=== PATIENT | male | born 1950 | race Caucasian/White ===

== ENCOUNTER → 2018-04-17 13:08 | Outpatient (CLI) | payer MEDICARE, OTHER, SELFPAY ==
[2017-11-16 10:50] VITALS: BMI 24.0
--- NOTE | 2018-04-17 13:10 | CT_ITS ---
STUDY: CT ABDOMEN AND PELVIS WITHOUT CONTRAST REASON FOR EXAM: Male, 68 years old. Bilateral inguinal hernias, recurrent. 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 On Coumadin for prior DVT. RADIATION DOSAGE (If Supplied By Facility): CTDIvol = ( 11.65 ) mGy, DLP = ( 577.42 ) mGycm TECHNIQUE: Transaxial images were obtained from the dome of the diaphragm to the symphysis pubis without oral contrast, and without intravenous contrast. Sagittal and coronal images were reconstructed. Individualized dose optimization techniques were used for this CT. COMPARISON: CT abdomen and pelvis 02/18/[address] chest 02/18/2015. FINDINGS: Body wall soft tissues: Left inguinal hernia containing only fat, similar features seen on prior CT imaging of 2014, hernia defect 1.9 cm. Osseous structures: No acute process. Prominent degenerative disc disease L-1-L2, L2-L3, L5-S1 without apparent stenosis. Slight scoliosis. Osteopenia. Inferior chest: Lung bases clear, normal distal esophagus, unremarkable cardiac base. Hepatobiliary: Mild hepatomegaly, craniocaudal right liver 19 cm. Normal gallbladder and biliary tree. Pancreas: No acute process. Spleen: Normal. Adrenal glands: Normal. Urogenital: Normal kidneys, collecting systems, ureters, urinary bladder, prostate and seminal vesicles. Pelvic floor and sidewalls and retroperitoneum: No mass or adenopathy. Vasculature: No acute process. Stomach: No acute process. Small bowel and mesentery: No acute process. Large bowel: Normal appendix. Unremarkable large bowel and rectum. Free fluid or free air: None. CT/Abdomen/Pelvis without Cont IMPRESSION: No acute intra-abdominal or intrapelvic process is evident. Small left inguinal hernia containing only fat. Similar features were seen on prior imaging of 2014. Electronically Signed: Caleb Murrieta MD at 16:35 EST Tel , Service support ,
--- OUTSIDE RECORDS SUMMARY | 2018-07-19 23:42 | XMS RPT_ITS | Continuity of Care Document ---
:1950 Author Organization [facility] Address [facility] 2 [place] [address] Phone Care Team Providers Name Role Phone Danae RIKYTammie Unavailable Conchis RAMEY, Cesar Booth Unavailable Unavailable Dr. Vinny Taylor Unavailable Sharee Galdamez Unavailable Unavailable Fuad Wilson Unavailable Unavailable Unavailable Unavailable Problems Name Dates Details Acute venous embolism and thrombosis of deep vessels of distal lower extremity, right (I82.4Z1, 453.42) Status: Active Basal cell carcinoma, face (C44.310, 173.31) Status: Active BMI 23.0-23.9, adult (Z68.23, V85.1) Status: Active Cough (R05, 786.2) Status: Active Current use of prison anticoagulation (Z51.81, V58.61) Status: Active DVT (deep venous thrombosis) (I82.409, 453.40) Comments: bilater lower ext occured October of 2012 ? associated with lymphoma on coumadin Status: Active Flank pain (R10.9, 789.09) Status: Active Follicular lymphoma (C82.90, 202.00) Comments: in remission, seeing Oncologist Status: Active History of skin cancer (Z85.828, V10.83) Comments: left face/neck area, removed skin CA in [place] Status: Active Leg cramps (R25.2, 729.82) Status: Active Lesion of skin of face (L98.9, 709.9) Status: Active Lymphoma, follicular (C82.90, 202.00) Comments: needing local oncologistDiagnosed via biopsy in July [address] 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) Status: Active Nocturia (R35.1, 788.43) Comments: normal ultrasound, normal psa, will try alpha isabel and to see Shad in May Status: Active Nonsmoker (Z78.9, V49.89) Status: Active Pharyngitis (J02.9, 462) Status: Active Reflux (K21.9, 530.81) Comments: stable Status: Active Screening for deficiency anemia (Z13.0, V78.1) Status: Active SCREENING FOR DIABETES MELLITUS (Renamed from Diabetes mellitus screening) (Z13.1, V77.1) Status: Active SCREENING FOR HYPERLIPIDEMIA (Renamed from Encounter for screening for lipoid disorders) (Z13.220, V77.91) Status: Active Screening for prostate cancer (Z12.5, V76.44) Status: Active Unspecified Diagnosis Status: Active Medications Name Dates Details PREVACID 24HR, 15MG (Oral Capsule Delayed Release) 1 (one) Capsule DR daily for 450 days Quantity: 30 {Capsule} Refills: 0 Ordered:24-Sep-2013 Tammie Fink CNP, CNP Lety Start : 24-Sep-2013 Active Warfarin Sodium 4 MG Oral Tablet 1 (one) Tablet Tablet as directed for 0 days Quantity: 90 {Tablet} Refills: 3 Ordered:09-Jun-2017 Tammie Fink CNP, CNP Lety Start : 09-Jun-2017 Active Warfarin Sodium 5 MG Oral Tablet uad Tablet qd for 0 days Quantity: 90 {Tablet} Refills: 3 Ordered:09-Jun-2017 Tammie Fink CNP, CNP Lety Start : 09-Jun-2017 Active Delsym 30 MG/5ML Oral Suspension Extended Release 1 (one) Liquid ER q12h for 0 days Quantity: 1 {Box} Refills: 0 Ordered:18-Aug-2017 Fuad Wilson Start : 30-Mar-2015 End : 18-Aug-2017 Inactive DOXYCYCLINE HYCLATE, 100MG (Oral Tablet) 1 (one) Tablet bdi for 10 days Quantity: 20 {Tablet} Refills: 0 Ordered:30-Mar-2015 Danae LAN, Tammie Aguilra CNP, Tammie Rodriguez Start : 30-Mar-2015 End : 09-Apr-2015 Inactive Mucinex 600 MG Oral Tablet Extended Release 12 Hour 1 (one) Tablet ER 12HR Tablet ER 12HR bid for 0 days Quantity: 30 {Tablet} Refills: 0 Ordered:18-Aug-2017 Fuad Wilson Start : 23-Mar-2015 End : 18-Aug-2017 Inactive Tamsulosin HCl 0.4 MG Oral Capsule 1 (one) Capsule daily for 0 days Quantity: 90 {QS} Refills: 3 Ordered:18-Aug-2017 Fuad Wilson Start : 30-Mar-2015 End : 18-Aug-2017 Inactive Comments:take one 30 min daily after same meal , if no improvement of symptoms, may increase to two after 2-4weeks Allergies and Adverse Reactions Name Dates Details No Known Drug Allergies (Allergy) Onset: 26-Aug-2013 Status: Active Past Medical History Name Dates Details UTI symptoms (R39.9, 788.99) Status: Inactive as of 18-Aug-2017 Procedures Date Value Details 16-Nov-2017 Oncology Visit Report Result: Comments: See Note; NOTES: [facility] [place] [facility] [place] [address] OFFICE VISIT Date of Service: 11/16/17 1102 MR#: [id number] Acct: [id number] Name: BEREKETPATRIZIA L Rep #: [id number] : 1950 From: Regis Fleming MD Age/Sex: 67/M Location: OMD Status: Signed Subjective - Date of Service Date of Service:: 11/16/17 - Chief Complaint F/u for NHL. - History of Present Illness 67y.o.man was diagnosed with NHL, Follicular type stage II in 2012, received R-CHOP x 3 cycles from 09/27/2012 to 01/28/2013 with complete response. He also has a history of Factor V Leiden mutation and on chronic anticoagulation with Coumadin by PCP. Comes in for follow up. He feels well. - Past Medical/Social History Past Medical History Past Medical History: GERD Other Past Med ical History: FACTOR V LEIDEN MUTATION, HOMOZYQOUS Cancer: Lymphoma Past Surgical History Surgical: Hernia repair Other Surgical History: LYMPH NODES REMOVED Family History Paternal Past Medical His tory: Clotting disorder Maternal Past Medical History: Unknown Social History Smoking Status Never smoker Review of Systems Constitutional:: Denies: Fever, Sweats, Weight loss, Appetite change, Chi lls Cardiovascular:: Denies: Chest pain, Palpitations, Dyspnea on exertion, Orthopnea, PND, Shortness of breath Respiratory: Denies: Cough, Hemoptysis, Shortness of Breath, Wheezing Gastrointestinal:: D enies: Abdominal pain, Nausea, Vomiting, Diarrhea, Constipation, Hematochezia Genitourinary: Denies: Dysuria, Hematuria, 15, Flank pain Musculoskeletal:: Denies: Back pain, Myalgia, Arthralgia Skin: Den ies: Rash, Skin Changes, Wounds Neurological:: Denies: Headache, Dizziness, Visual changes, Tinnitus, Hearing loss Psychiatric: Denies: Anxiety, Depression, Homicidal Ideations, Suicidal Ideations Vital Signs Height 5 ft 11 in Weight: 78.018 kg Weight in Pounds 172.0 lbs Pulse Ox 96 - Physical Exam General: Alert, Oriented x3, No apparent distress HEENT: Atraumatic, PERRLA, EOMI, Normocephalic Or opharynx:: Dry mucosa Neck:: Supple, Trachea midline. Negative for: JVD, bilateral Cardiac:: Regular rate, Regular rhythm, Normal S1, Normal S2. Negative for: Murmur Lungs: Clear to auscultation, Excusi on symmetrical. Negative for: Rhonchi, Wheezes Abdomen:: Bowel sounds x 4, Soft, Non-tender, Non-distended. Negative for: Hepatosplenomegaly Extremities:: Negative for: Cyanosis, Edema Neurological: Florencio ro grossly intact Skin:: Negative for: Lesions, Rash, Petechiae, Ecchymosis Psychiatric:: Appropriate affect, Euthymic Lymphatics:: Negative for: Cervical lymphadenopathy, Supraclavicular lymphadenopath y, Axillary lymphadenopathy Laboratory Data: Laboratory Tests WBC 4.3 L Cancelled Corrected WBC (auto) Cancelled Corrected WBC Cancelled RBC 4.67 Cancelled Assessment and Plan NHL-Follicular type s tage II. No evidence of disease clinically. Factor V Leiden mutation on chronic Coumadin therapy. Plan is to continue observation. RTC 1 yr with CBC/CMP/LDH. Primary Care Provider: Tammie Fink Referring Provider: - Problem List (1) History of follicular lymphoma Status: Chronic Code Visit Office Visits / Consults: [id number] OV L3 Est 11/16/17 1137 <Electronically signed by Regis Fleming MD&# 62; Date Regis Fleming MD Cosigner Signature: Date (if applicable) CC: 24-Mar-2015 Kidney and Bladder Result: Comments: See Note; NOTES: [facility] Imaging Services [address] [place] [address] Verdana 4d Kidney and Bladder MR#: [id number] Acct: [id number] Name: PATRIZIA CUBA Rep #: [id number] : 1950 M 64 From: Tarun Denis MD PCP: Tammie Fink Status: REG CLI Study: Kidney and Bladder Date of Exam: 03/24/15 Exam# [id number] Ordering Dr: Tammie Fink ST UDY: RENAL ULTRASOUND - COMPLETE REASON FOR EXAM: Male, 64 years old. Flank pain TECHNIQUE: Ultrasound evaluation of the kidneys was performed with real- time and static barone-scale imaging. COMPAR GABBIE: None. FINDINGS: RIGHT KIDNEY: Normal location of the right kidney, which is normal in size. The right kidney measures 12.3x5.3x4.8 cm. There is a normal c ortex of the right kidney. The renal cortex measures 1.2 cm. There is no right renal mass or cyst. There are no right renal calculi. There is no right hydronephrosis. DISTAL RIGHT URETER: There is non-visualization of the distal right ureter. There is no demonstrated right ureterovesical junction calculus. There is no demonstrated right ureteral jet. LEFT KIDNEY: Normal location of the left k idney, which is normal in size. The left kidney measures 11x4.9x6.6 cm. There is a normal cortex of the left kidney. The renal cortex measures 2 cm. There is no left renal mass or cyst. There are no left renal calculi. There is no left hydronephrosis. DISTAL LEFT URETER: There is non-visualization of the distal left ureter. There is no demonstrated left ureterovesical junction calculus. There i s no demonstrated left ureteral jet. BLADDER: The distended urinary bladder has a volume of 51.60 ml. IMPRESSION: Normal ultrasound of the kidneys and urinary bladder. Electronically Signed: Tarun Denis MD at 22:21 EST , Service support [phone], CC: Tammie Fink Director Of Hotel: Signed 18-Feb-2015 Abdomen/Pelvis WITH Contrast Result: Comments: See Note; NOTES: [facility] Services [address] [place] [address] Verdana 4d Abdomen/Pelvis WITH Contrast MR#: [id number] Acct: [id number] Name : PATRIZIA CUBA Rep #: [id number] : 1950 M 64 From: Nickolas Mitchell DO PCP: Tammie Fink Status: REG CLI Study: Abdomen/Pelvis WITH Contrast Date of Exam: 02/18/15 Exam# [id number] Ordering Dr : Skyler Brewer MD STUDY: CT ABDOMEN AND PELVIS WITH CONTRAST REASON FOR EXAM: Male, 64 years old. Follicular lymphoma followup. RADIATION DOSAGE (If Supplied By Facility): CTDIvol = ( ) mGy, DL P = ( ) mGycm TECHNIQUE: Transaxial images were obtained from the dome of the diaphragm to the symphysis pubis with oral contrast. 100 ml of Isovue 300 contrast was administered. Sagittal and coron al images were reconstructed. COMPARISON: December 16, 2013. FINDINGS: Minimal atelectatic and/or fibrotic changes are present in the lung bases. The visualized portions of the heart are within normal limits. Normal liver. Normal gallbladder and extrahepatic biliary system. Normal spleen. Normal pancreas. Normal bilateral adrenal glands. Right kidney dis plays homogenous nephrogram. There is no hydronephrosis or retained calculi. Ureter is decompressed to the bladder. Left kidney size is normal. There is no hydronephrosis or retained calculi. Homogeno us nephrogram is demonstrated. Ureter is decompressed as visualized. Small hiatal hernia is present. The stomach is decompressed. Normal small intestine. Retained stool is noted along the course of the colon. The colon is adequately opacified. No abnormal mass densities are identified associated with the cecum. There is a significant improvement from prior study. The appendix is air-filled no i nflammatory changes observed. Normal abdominal aorta. Normal inferior vena cava. Normal retroperitoneum. The urinary bladder is adequately distended. Prostate size is stable. Left seminal vesicle is larger this part of the right although unchanged. Fat filled left inguinal hernia is again demonstrated. There are diffuse degenerative changes of the visualized lumbar spine. Disc space narrowing and degenerative changes predominantly at L2-3 and L5-S1. IMPRESSION: No abnormal soft tissue mass is identified associated with the cecum on today's study. No abnormal adenopathy. No hydronephrosis or retained calculi. There is no evidence of bowel obstruction. Fat filled left inguinal hernia. Lumbar spondylosis. Electronically Signed: Adarsh milligan DO at 10:24 EDT , Service support [phone], CC: Tammie Brewer Director Of Hotel: Signed 18-Feb-2015 Chest WITH Contrast Result: Comments: See Note; NOTES: [facility] [address] [place] [address] Verdana 4d Chest WITH Contrast MR#: [id number] Acct: [id number] Name: PATRIZIA CUBA Rep #: [id number] : 1950 M 64 From: Nickolas Mitchell DO PCP: Tammie Fink Status: REG CLI Study: Chest WITH Contrast Date of Exam: 02/18/15 Exam# [id number] Ordering Dr: Skyler Brewer MD STUDY: CT CHEST WITH CONTRAST REASON FOR EXAM: Male, 64 years old. Follicular lymphoma. Followup. RADIATION DOSAGE (If Supplied By Facility): CTDIvol = ( 12.86 ) mGy, DLP = ( 1703.86 ) mGycm TECHNIQUE: Transaxial imaging was performed following intravenous administration of 100 ml of Isovue 300 contrast material. COMPARISON: December 16, 2013. FINDIN GS: Left lobe of the thyroid remains asymmetrically larger than its counter part on the right with a similar configuration to prior study. Minimal atelectatic and/or fibrotic changes are present in the lung bases. This is a stable finding from prior exam. Calcified granuloma in the right lung base anteriorly is again demonstrated. No pleural effusion or pneumothorax demonstrated. Normal heart and pericardium. No pericardial effusion identified. Small lymph nodes identified in the pneumomediastinum. Soft tissue density subcarinal region measures 2.0 x 1.4 x 1.5 cm in dimension. This is st able from prior study and is believed to represent a combination of subcarinal lymph node and the adjacent esophagus. This is a stable finding from prior study. Small right hilar lymph node measures 1.1 cm in diameter. This is also stable from prior study. Normal enhanced pulmonary arteries. Normal aorta arch and descending thoracic aorta. Minimal degenerative changes are associated with the th oracic spine. No acute fracture. No abnormal rib lesions are confirmed. Abdominal findings are reported on separate study. IMPRESSION: Minimal atelectatic and/ or fibrotic changes are present in the lung bases. Calcified granuloma right lung base anteriorly. Small lymph nodes are associated with the mediastinum and right hilum. These densities are stable from prior study. No new adenopathy is confirmed. Stable appearance of the thyroid. Electronically Signed: Adarsh Domingo DO at 9:28 EDT , Service support [phone], CC: Tammie Fink; Skyler Brewer Director Of Hotel: Signed 13-Feb-2015 Neck for Soft Tissue Result: Comments: See Note; NOTES: [facility] [address] [place] [address] Verdana 4d Neck for Soft Tissue MR#: [id number] Acct: [id number] Name: PATRIZIA DUMONT Rep #: [id number] : 1950 M 64 From: Evens Salas MD PCP: Tammie Fink Status: REG CLI Study: Neck for Soft Tissue Date of Exam: 02/13/15 Exam# [id number] Ordering Dr: Skyler Brewer MD STUDY: X-RAY - SOFT TISSUE NECK REASON FOR EXAM: Male, 64 years old. Throat carcinoma. TECHNIQUE: 2 (AP and lateral) view(s) of the neck were obtained. COMPARISON: None. FINDINGS: Normal visualized nasopharynx, oropharynx, hypopharynx. Normal epiglottis. Normal visualized subglottic tracheal air column. Normal prevertebral soft tissue structures. No rmal visualized osseous structures. The soft tissue structures are unremarkable. Mild disc height narrowing at C4-C5, C5-C6 and C6-C7 disc levels. IMPRESSION: Normal x-ray soft tissue neck. Electronically Signed: Evens Salas MD at 10:20 EDT Tel , Service support [phone], RAD/Neck for S oft Tissue IMPRESSION: Normal x-ray soft tissue neck. Electronically Signed: Evens Salas MD at 10:20 EDT Tel , Service support [phone], CC: Tammie Fink; Skyler Brewer Director Of Hotel: Signed 06-Jan-2014 PET/CT Tumor Base -Thigh Init Result: Comments: See Note; NOTES: [facility] [address] [place] [address] PET Scan Report MR#: [id number] Acct: [id number] Name: PATRIZIA CUBA Rep #: [id number] : 1950 M 63 From: Caleb Armando MARTINEZ PCP: Tammie Fink Status: REG CLI Study: PET/CT Tumor Base -Thigh Init Date of Exam: 01/06/14 Exam# [id number] Ordering Dr: Skyler Brewer MD INDICAT IONS: A 64-year-old male with reported history of lymphoma presenting for restaging examination. COMPARISON EXAMINATION: CT of the neck report dated 12/16/13. TECHNIQUE: Following the intravenous a dministration of 16.8 mCi of F-18 deoxyglucose, multiplanar image acquisitions of the neck, chest, abdomen and pelvis to level of mid thigh, obtained at one hour post radiopharmaceutical administrati on contemporaneously interpreted with the current CT of the neck, chest, abdomen and pelvis to level of mid thigh, dated 01/06/[address] of the neck report dated 12/16/13 reveal: FINDINGS: 1. There is no quantitative scintigraphic evidence of abnormal increased glucose metabolism on meticulous inspection of whole body acquisitions to include all three axis reconstructions. 2. Normal physiologic distribution of the radiopharmaceutical is apparent in the hepatic (*) and splenic parenchyma, both renal units, bladder and visualized intestinal tract. Diffuse intestinal trac t activity is noted throughout all four quadrants of the abdominal-pelvic retroperitoneum, mesentery consistent with normal physiologic distribution of the radiopharmaceutical. 3. Pertinent CT find ings are as follows. CHEST: A calcified parenchymal density defined in the right lower anterior lung zone reveals no evidence of increased glucose metabolism. Calcified and noncalcified mediastinal a nd thoracic perihilar soft tissue densities are ametabolic. Bilateral axillary soft tissue reveals no evidence of increased glucose metabolism. Atherosclerotic calcification is defined in the thoracic aorta without evidence of dilatation, aneurysm formation. A small hiatal hernia is defined. ABDOMEN AND PELVIS: Pelvic arterial calcification is observed. Right-left inguinal soft tissue demonstrate s no increase in glucose avidity. SKELETAL: Degenerative changes defined in the cervical, thoracic and lumbar spine demonstrate no evidence for glucose hypermetabolism. IMPRESSION: 1. NEGATIVE EXA MINATION. There is no definitive quantitative scintigraphic evidence of recurrent/viable neoplasm. 2. The nasopharyngeal region was not included in the study acquisitions. Consequently, no correlativ e abnormality is defined within the left nasopharyngeal region. Electronic Signature Caleb Roberts D.O. Electronically Signed: Caleb Roberts DO at 15:00 EDT Tel [phone], crossvertise e support [phone], CC: Tammie Fink; RADHA; EUGENIO; Skyler Brewer Director Of Hotel: Signed 16-Dec-2013 Abdomen/Pelvis WITH Contrast Result: Comments: See Note; NOTES: [facility] Services [address] [place] [address] CAT Scan Report MR#: [id number] Acct: [id number] Name: PATRIZIA CUBA Rep #: [id number] : 1950 M 63 From: Jesus Webb MD PCP: Tammie Fink Status: REG CLI Study: Abdomen/Pelvis WITH Contrast Date of Exam: 12/16/13 Exam# [id number] Ordering Dr: Skyler Brewer MD ALFREDO DY: CT ABDOMEN AND PELVIS WITH CONTRAST REASON FOR EXAM: Male, 63 years old. Followup for follicular lymphoma. The patient is status post chemotherapy. RADIATION DOSAGE (If Supplied By Facility): C TDIvol = ( 25.22 ) mGy, DLP = ( 4691.45 ) mGycm TECHNIQUE: Transaxial images were obtained from the dome of the diaphragm to the symphysis pubis without oral contrast. 100mL ml of Isovue [address] was administered. Sagittal and coronal images were reconstructed. Delayed imaging was obtained as well. COMPARISON: None. FINDINGS: There is a mild degree o f increased markings at the lung bases suggestive of dependent bibasilar atelectasis. The visualized portions of the heart are within normal limits. Normal liver. Normal gallbladder and extrahepatic biliary system. Normal spleen. Normal pancreas. Normal bilateral adrenal glands. Normal right kidney. Normal left kidney. Normal visualized stomach. Normal small intestine. There is a 2.7 cm x 2.5 cm x 3.2 cm soft tissue density in the medial aspect of the cecum at the level of the ileocecal valve. A mass lesion should be ruled out. Correlation with endoscopy or barium enema is recommended for further evaluation. There is also evidence of mild degree of increased markings in the surrounding fat. There is non-visualization of the appendix. There is diffuse atherosclerotic calcification of the abdominal aorta and its major visceral branches, without a demonstrated aneurysm. Normal inferior vena cava. Normal retroperitoneum. The urinary bladder is distended. The prostate measures 2 .9 cm x 5.4 cm. There is a left-sided inguinal hernia containing adipose tissue. There are degenerative changes of the visualized lumbar spine. IMPRESSION: Mil d degree of dependent bibasilar atelectasis. 2.7 cm x 2.5 cm x 3.2 cm soft tissue density in the medial aspect of the cecum at the level of the ileocecal valve. Correlation with colonoscopy or barium enema is recommended for further evaluation. Electronically Signed: Jesus Webb MD at 8:49 EDT Tel [phone], Service support [phone], CC: Tammie Schwartz sa; Skyler Brewer Director Of Hotel: Signed 16-Dec-2013 Chest WITH Contrast Result: Comments: See Note; NOTES: [facility] [address] [place] [address] CAT Scan Report MR#: [id number] Acct: [id number] Name: PATRIZIA CUBA Rep #: [id number] : 1950 M 63 From: Jesus Webb MD PCP: Tammie Fink Status: REG CLI Study: Chest WITH Contrast Date of Exam: 12/16/13 Exam# [id number] Ordering Dr: Skyler Brewer MD STUDY: CT CH EST WITH CONTRAST REASON FOR EXAM: Male, 63 years old. This is a followup examination for follicular lymphoma. Prior chemotherapy. RADIATION DOSAGE (If Supplied By Facility): CTDIvol = ( 25.22 ) mG y, DLP = ( 4691.45 ) mGycm TECHNIQUE: High resolution transaxial imaging was performed following intravenous administration of 100mL ml of Isovue 300 contrast material. Multiplanar coronal and sagi ttal images were reformatted. COMPARISON: None. FINDINGS: Mild inhomogeneity of the right lobe of the thyroid. Minimal degree of dependent bibasilar atelectas is or mild scarring. Calcified granuloma in the anterior aspect of the right middle lobe. There is no demonstrated pleural abnormality. Normal heart and pericardium. There are multiple small lymph nodes within the mediastinum, which are normal in size and morphology most compatible with reactive lymph hyperplasia. Calcified right hilar lymph nodes. Normal enhanced pulmonary arteries. Normal a chel arch and descending thoracic aorta. There are multi-level degenerative changes of the thoracic spine. There is no demonstrated abnormality of the visualized upper abdomen. IMPRESSION: Mild bibasilar dependent atelectasis versus mild scarring. Mild inhomogeneity of the right lobe of the thyroid. Electronically Signed: Jesus Webb MD at 8:52 EDT Tel [phone], Service support [phone], CC: Tammie Fink; Skyler Brewer Director Of Hotel: Signed 16-Dec-2013 Soft Tissue Neck WITH Contrast Result: Comments: See Note; NOTES: [facility] Services [address] [place] [address] CAT Scan Report MR#: [id number] Acct: [id number] Name: PATRIZIA CUBA Rep #: [id number] : 1950 M 63 From: Jesus Webb MD PCP: Tammie Fink Status: REG CLI Study: Soft Tissue Neck WITH Contrast Date of Exam: 12/16/13 Exam# [id number] Ordering Dr: Skyler Brewer MD [facility]: CT SOFT TISSUE NECK WITH CONTRAST REASON FOR EXAM: Male, 63 years old. This is a followup examination for follicular lymphoma. Prior chemotherapy. RADIATION DOSAGE (If Supplied By Facility): CTDIvol = ( 25.22 ) mGy, DLP = ( 4691.45 ) mGycm TECHNIQUE: The patient was scanned in a multi-detector CT scanner. High resolution transaxial imaging was performed following intravenous administra tion of 100mL ml of Isovue 300 contrast material. Sagittal and coronal images were reconstructed. COMPARISON: None. FINDINGS: Normal bilateral parotid glands. Normal bilateral cargoman spaces. Normal bilateral parapharyngeal spaces. Normal bilateral carotid spaces. Normal bilateral sublingual and submandibular glands and spaces. There is asymmetry of t he left nasopharynx. Endoscopic correlation is recommended to rule out a neoplastic process. This is seen on images 218 thru 225. Normal retropharyngeal space. Normal perivertebral space. Normal vis ualized bilateral faucial tonsils. The visualized tongue, tongue base and oropharynx are normal. The visualized cervical lymph nodes (levels I-) are within normal size limits, and maintain normal morphology. There is no demonstrated solid or cystic mass lesion. There is no abnormal contrast enhancement. Normal epiglottis, bilateral vallecula and hypopharynx. The pre-epiglottic and paraglotti c adipose spaces are normal. Normal visualized bilateral piriform sinuses, aryepiglottic folds, vocal cords, and arytenoid-cricoid articulations. Normal subglottic trachea. 180 of the right lobe of the thyroid gland with the 2 tiny hypodensities. Normal visualized pulmonary apices. There is a 1 cm x 1.6 cm mucosal polyp or retention cyst along the needle aspect of the left maxillary sinus. The re is multilevel degenerative changes of the cervical spine. IMPRESSION: Asymmetry of the left side of the nasopharynx as described. Correlation with endoscopy is recommended for further evaluation. Mild inhomogeneity of the right lobe of the thyroid gland. Electronically Signed: Jesus Webb MD at 9:27 EDT Tel [phone], Service suppo rt [phone], CC: Tammie Fink; Skyler Brewer Director Of Hotel: Signed Family History Unknown Family Member Name Dates Details Brother 1 Comments: DVT Status: Active Father Comments: DVT Status: Active Social History Name Dates Details Caffeine Use Comments: coffee all day Status: Active Exercise History Comments: walking at work Status: Active Most Recent Primary Occupation Comments: [employer] working Status: Active No Drug Use Status: Active Non Drinker/No Alcohol Use Status: Active Non Smoker/No Tobacco Use Status: Active Vital Signs Date Test Result Details [id number]-Cls-[id number]:04 Temperature 97.8 f Pulse 76 /min Comments: Pattern: Regular Respiration Rate 18 /min Comments: Pattern: Unlabored O2 SAT 100 % Comments: Room air BP Systolic 108 mm[Hg] Comments: Patient Position: Sitting; Cuff Location: Left Arm; Cuff Size: Standard BP Diastolic 76 mm[Hg] Comments: Patient Position: Sitting; Cuff Location: Left Arm; Cuff Size: Standard Weight 175.125 lb Height 72 in Body Mass Index Calculated 23.75 kg/m2 Body Surface Area Calculated 2.01 m2 :23 Temperature 97.5 f Pulse 72 /min Comments: Pattern: Regular Respiration Rate 17 /min Comments: Pattern: Unlabored O2 SAT 95 % Comments: Room air BP Systolic 116 mm[Hg] Comments: Patient Position: Sitting; Cuff Location: Left Arm; Cuff Size: Standard BP Diastolic 78 mm[Hg] Comments: Patient Position: Sitting; Cuff Location: Left Arm; Cuff Size: Standard Weight 168.375 lb Height 72 in Body Mass Index Calculated 22.84 kg/m2 Body Surface Area Calculated 1.98 m2 :42 Temperature 97.6 f Pulse 82 /min Comments: Pattern: Regular Respiration Rate 16 /min Comments: Pattern: Unlabored O2 SAT 96 % Comments: Room air BP Systolic 106 mm[Hg] Comments: Patient Position: Sitting; Cuff Location: Left Arm; Cuff Size: Standard BP Diastolic 76 mm[Hg] Comments: Patient Position: Sitting; Cuff Location: Left Arm; Cuff Size: Standard Weight 168.375 lb Height 72 in Body Mass Index Calculated 22.84 kg/m2 Body Surface Area Calculated 1.98 m2 :53 Temperature 98 f Comments: Method: Oral Pulse 64 /min Comments: Pattern: Regular Respiration Rate 15 /min O2 SAT 97 % Comments: Room air BP Systolic 112 mm[Hg] Comments: Patient Position: Sitting; Cuff Location: Left Arm; Cuff Size: Standard BP Diastolic 62 mm[Hg] Comments: Patient Position: Sitting; Cuff Location: Left Arm; Cuff Size: Standard Weight 169.1875 lb Height 72 in Body Mass Index Calculated 22.95 kg/m2 Body Surface Area Calculated 1.98 m2 :54 Temperature 98.1 f Comments: Method: Oral Pulse 60 /min Comments: Pattern: Regular Respiration Rate 16 /min O2 SAT 97 % Comments: Room air BP Systolic 112 mm[Hg] Comments: Patient Position: Sitting; Cuff Location: Left Arm; Cuff Size: Standard BP Diastolic 70 mm[Hg] Comments: Patient Position: Sitting; Cuff Location: Left Arm; Cuff Size: Standard Weight 169.1875 lb Height 72 in Body Mass Index Calculated 22.95 kg/m2 Body Surface Area Calculated 1.98 m2 :22 Temperature 98.3 f Comments: Method: Oral Pulse 56 /min Comments: Pattern: Regular Respiration Rate 15 /min O2 SAT 98 % Comments: Room air BP Systolic 110 mm[Hg] Comments: Patient Position: Sitting; Cuff Location: Left Arm; Cuff Size: Standard BP Diastolic 68 mm[Hg] Comments: Patient Position: Sitting; Cuff Location: Left Arm; Cuff Size: Standard Weight 169.1875 lb Height 72 in Body Mass Index Calculated 22.95 kg/m2 Body Surface Area Calculated 1.98 m2 :55 Temperature 98 f Comments: Method: Oral Pulse 70 /min Comments: Pattern: Regular Respiration Rate 17 /min O2 SAT 97 % Comments: Room air BP Systolic 112 mm[Hg] Comments: Patient Position: Sitting; Cuff Location: Left Arm; Cuff Size: Standard BP Diastolic 70 mm[Hg] Comments: Patient Position: Sitting; Cuff Location: Left Arm; Cuff Size: Standard Weight 167.5 lb Height 72 in Body Mass Index Calculated 22.72 kg/m2 Body Surface Area Calculated 1.98 m2 Results Date Description Value Details :27 PT (PROTHROMBIN TIME) (32212) Comments: STANDING ORDER; PATIENT NOT FASTINGPERFORMED BY: [facility]6370 [facility] [id number] Prothrombin Time 36.8 {sec} (Abnormal) Range: 9.1-12.0 INR 3.7 (Abnormal) Range: 0.8-1.2 Comments: Client Requested Flag Reference interval is for non- anticoagulated patients. . Suggested INR therapeutic ra nge for Vitamin K antagonist therapy: Standard Dose (moderate intensity therapeutic range): 2.0 - 3.0 Higher intensity therapeutic range 2.5 - 3.5 :52 PT (PROTHROMBIN TIME) (39474) Comments: PATIENT NOT FASTINGPERFORMED BY: [facility]6[address] [facility] [id number] Prothrombin Time 16.3 {sec} (Abnormal) Range: 9.1-12.0 INR 1.6 (Abnormal) Range: 0.8-1.2 Comments: Reference interval is for non-anticoagulated patients. . Suggested INR therapeutic range for Vitamin K anta gonist therapy: Standard Dose (moderate intensity therapeutic range): 2.0 - 3.0 Higher intensity therapeutic range 2.5 - 3.5 :28 PT (PROTHROMBIN TIME) (79857) Comments: STANDING ORDER; PATIENT NOT FASTINGPERFORMED BY: [facility]6[address] [facility] [id number] Prothrombin Time 29.7 {sec} (Abnormal) Range: 9.1-12.0 INR 3.0 (Abnormal) Range: 0.8-1.2 Comments: Reference interval is for non-anticoagulated patients. . Suggested INR therapeutic range for Vitamin K anta gonist therapy: Standard Dose (moderate intensity therapeutic range): 2.0 - 3.0 Higher intensity therapeutic range 2.5 - 3.5 :11 PT (PROTHROMBIN TIME) (01171) Comments: PATIENT NOT FASTINGPERFORMED BY: [facility] [id number] Prothrombin Time 20.6 {sec} (Abnormal) Range: 9.1-12.0 INR 2.1 (Abnormal) Range: 0.8-1.2 Comments: Reference interval is for non-anticoagulated patients. . Suggested INR therapeutic range for Vitamin K anta gonist therapy: Standard Dose (moderate intensity therapeutic range): 2.0 - 3.0 Higher intensity therapeutic range 2.5 - 3.5 8-Eiw-500042:27 PT (PROTHROMBIN TIME) (22321) Comments: PATIENT NOT FASTINGPERFORMED BY: [facility]CoPal[facility] CenterHymomj1586 [facility] [id number] Prothrombin Time 23.9 {sec} (Abnormal) Range: 9.1-12.0 INR 2.5 (Abnormal) Range: 0.8-1.2 Comments: Reference interval is for non-anticoagulated patients. . Suggested INR therapeutic range for Vitamin K anta gonist therapy: Standard Dose (moderate intensity therapeutic range): 2.0 - 3.0 Higher intensity therapeutic range 2.5 - 3.5 76-Hld-819121:31 CBC W/Diff, Automated Comments: [facility] Kyvdkxdyun[address] [facility] [place], [address] Absolute Lymph 1.01 {X10_3/ul} (Normal) Range: 0.83-4.51 Absolute Neut 2.8 {X10_3/uL} (Normal) Range: 2.0-7.7 IM GRAN % 0.000 % (Normal) Range: 0.0-0.9 Comments: IG% - Immature Granulocytes (promyelocytes, myelocytes andmetamyelocytes) > 1% indicates that a LEFT SHIFT is Present. BASO% 0.5 % (Normal) Range: 0-1 EO% 2.1 % (Normal) Range: 0-5 MONO% 8.9 % (Normal) Range: 0-10 LY% 23.7 % (Normal) Range: 19-41 NEUT% 64.8 % (Normal) Range: 47-70 MPV 10.0 fL (Normal) Range: 6.2-12.0 PLT 177 K/mm3 (Normal) Range: 150-450 RDW SD 43.3 fL (Normal) Range: 35.1-43.9 RDW CV 12.9 % (Normal) Range: 11.6-14.6 MCHC 33.6 {g/gl} (Normal) Range: 32-36 MCH 31.0 pg (Normal) Range: 27.0-32.0 MCV 92.5 fL (Normal) Range: 80-94 HCT 43.2 % (Normal) Range: 40-54 HGB 14.5 g/dL (Normal) Range: 13.0-16.5 RBC 4.67 {M/mm3} (Normal) Range: 4.6-6.2 WBC 4.3 K/mm3 (Abnormal) Range: 4.4-11.0 61-Xxw-543766:30 Comprehensive Metabolic Profil Comments: Reason for Laboratory Test H/O NHL Z85.72Serial Specimen #1, #2 or #3? 1[facility] Wxmgxppglf[address] [place], [place], [address] GAP 5 (Normal) Range: 5-15 CO2 27.0 mmol/L (Normal) Range: 21.0-32.0 CL 105 mmol/L (Normal) Range: 98-107 K 4.1 mmol/L (Normal) Range: 3.5-5.1 NA 137 mmol/L (Normal) Range: 136-145 T BILI 0.50 mg/dL (Normal) Range: 0.20-1.00 ALT 32 U/L (Normal) Range: 16-61 ALK P 56 U/L (Normal) Range: 45-117 AST 22 U/L (Normal) Range: 15-37 CA 8.5 mg/dL (Normal) Range: 8.5-10.1 A/G 1.1 {RATIO} (Normal) Range: 0.9-2.4 GLOB 3.4 g/dL (Normal) Range: 2.2-4.2 ALB 3.7 g/dL (Normal) Range: 3.2-5.0 T PROT 7.1 g/dL (Normal) Range: 6.4-8.2 BUN/CRE 16.6 {RATIO} (Normal) Range: 10-20 Estimated CRCL 93.38 ml/min (Normal) EST GFR - AA 118 mL/min (Normal) Comments: GFR Calc EST GFR 97 mL/min (Normal) Comments: Non- GFR Calc CREAT,SERUM 0.84 mg/dL (Normal) Range: 0.70-1.30 Comments: The validity of the calculated GFR AND GFRAA in patients over70 years has not been determined. Clinical correlation isessential. BUN 14 mg/dL (Normal) Range: 7-18 GLU 87 mg/dL (Normal) Range: 74-106 Comments: Please note revised GLUCOSE reference range kwcyqwegk86/02/2018. 65-Kre-638848:30 LDH 190 U/L (Normal) Comments: Reason for Laboratory Test H/O NHL Z85.72Serial Specimen #1, #2 or #3? 1[facility] [address]wqf[address] [place], [address] Range: 87-241 08-Jun-20179:29 PT (PROTHROMBIN TIME) (61741) Comments: PATIENT NOT FASTINGPERFORMED BY: [employer] [id number] Prothrombin Time 22.4 {sec} (Abnormal) Range: 9.1-12.0 INR 2.3 (Abnormal) Range: 0.8-1.2 Comments: Reference interval is for non-anticoagulated patients. . Suggested INR therapeutic range for Vitamin K anta gonist therapy: Standard Dose (moderate intensity therapeutic range): 2.0 - 3.0 Higher intensity therapeutic range 2.5 - 3.5 :20 PT (PROTHROMBIN TIME) (48359) Comments: PATIENT NOT FASTINGPERFORMED BY: [facility] HospitalBL HealthcarePalisades Medical CenterUtbuew8313 [facility] [id number] Prothrombin Time 17.1 {sec} (Abnormal) Range: 9.1-12.0 INR 1.7 (Abnormal) Range: 0.8-1.2 Comments: Reference interval is for non-anticoagulated patients. . Suggested INR therapeutic range for Vitamin K anta gonist therapy: Standard Dose (moderate intensity therapeutic range): 2.0 - 3.0 Higher intensity therapeutic range 2.5 - 3.5 61-Sts-370212:39 PT (PROTHROMBIN TIME) (47059) Comments: PATIENT NOT FASTINGPERFORMED BY: [place] 1196870 [facility] [id number] Prothrombin Time 23.4 {sec} (Abnormal) Range: 9.1-12.0 INR 2.4 (Abnormal) Range: 0.8-1.2 Comments: Reference interval is for non-anticoagulated patients. . Suggested INR therapeutic range for Vitamin K anta gonist therapy: Standard Dose (moderate intensity therapeutic range): 2.0 - 3.0 Higher intensity therapeutic range 2.5 - 3.5 21-Lxv-222452:10 TSH (THYROID STIMULATING Comments: PATIENT WAS FASTINGPERFORMED BY: [facility]6370 [facility] [id number] HORMONE) (30890) TSH 2.310 {uIU/mL} (Normal) Range: 0.450-4.500 88-Ryd-396471:10 PSA (PROSTATE SPECIFIC Comments: PATIENT WAS FASTINGPERFORMED BY: [facility]pperUNC [facility] Southeastern [id number] ANTIGEN) (V76.44) Prostate Specific Ag, 0.7 ng/mL (Normal) Range: 0.0-4.0 Serum Comments: [employer] ECLIA methodology. .According to the [place] [employer], Serum PSA shoulddecrease and remain at undetectable levels after radicalprostatectomy. The AUA defines biochemical recurrence as an initialPSA value 0.2 ng/mL or greater followed by a subsequent confirmatoryPSA value 0.2 ng/mL or greater.Values obtained with d ifferent assay methods or kits cannot be usedinterchangeably. Results cannot be interpreted as absolute evidenceof the presence or absence of malignant disease. 96-Acc-590739:10 CBC & PLATELETS (AUTO) Comments: PATIENT WAS FASTINGPERFORMED BY: [facility]ik6370 [facility] TherapeuticsAt[facility]ville [id number] (27951) Platelets 181 {x10E3/uL} (Normal) Range: 150-379 RDW 13.5 % (Normal) Range: 12.3-15.4 MCHC 33.9 g/dL (Normal) Range: 31.5-35.7 MCH 31.1 pg (Normal) Range: 26.6-33.0 MCV 92 fL (Normal) Range: 79-97 Hematocrit 45.4 % (Normal) Range: 37.5-51.0 Hemoglobin 15.4 g/dL (Normal) Range: 13.0-17.7 RBC 4.95 {x10E6/uL} (Normal) Range: 4.14-5.80 WBC 4.4 {x10E3/uL} (Normal) Range: 3.4-10.8 61-Irv-242823:10 VITAMIN B12 AND FOLATES Comments: PATIENT WAS FASTINGPERFORMED BY: Potentia SemiconductorPalisades Medical CenterMldriz6804 [facility] [id number] ([id number]) Folate (Folic Acid), Serum 12.4 ng/mL (Normal) Comments: A serum folate concentration of less than 3.1 ng/mL isconsidered to represent clinical deficiency. Vitamin B12 411 pg/mL (Normal) Range: 232-1245 87-Zmd-259413:10 Metabolic Panel, Comprehensive Comments: PATIENT WAS FASTINGPERFORMED BY: Potentia SemiconductorPalisades Medical CenterThywpc5190 [facility] [id number] (07771) ALT (SGPT) 14 [iU]/L (Normal) Range: 0-44 AST (SGOT) 18 [iU]/L (Normal) Range: 0-40 Alkaline Phosphatase 53 [iU]/L (Normal) Range: 39-117 Bilirubin, Total 0.6 mg/dL (Normal) Range: 0.0-1.2 A/G Ratio 1.8 (Normal) Range: 1.2-2.2 Globulin, Total 2.4 g/dL (Normal) Range: 1.5-4.5 Albumin 4.4 g/dL (Normal) Range: 3.6-4.8 Protein, Total 6.8 g/dL (Normal) Range: 6.0-8.5 Calcium 9.3 mg/dL (Normal) Range: 8.6-10.2 Carbon Dioxide, Total 24 mmol/L (Normal) Range: 18-29 Chloride 101 mmol/L (Normal) Range: 96-106 Potassium 4.8 mmol/L (Normal) Range: 3.5-5.2 Sodium 141 mmol/L (Normal) Range: 134-144 BUN/Creatinine Ratio 15 (Normal) Range: 10-24 eGFR If Africn Am 105 mL/min/1.73 (Normal) eGFR If NonAfricn Am 91 mL/min/1.73 (Normal) Creatinine 0.86 mg/dL (Normal) Range: 0.76-1.27 BUN 13 mg/dL (Normal) Range: 8-27 Glucose 76 mg/dL (Normal) Range: 65-99 89-Tif-470499:10 MAGNESIUM ([id number]) Comments: PATIENT WAS FASTINGPERFORMED BY: [place] 1196870 [facility] [id number] Magnesium 2.4 mg/dL (Abnormal) Range: 1.6-2.3 15-Alk-800822:31 PT (PROTHROMBIN TIME) (54737) Comments: PATIENT NOT FASTINGPERFORMED BY: [place] 1196870 [facility] [id number] Prothrombin Time 21.0 {sec} (Abnormal) Range: 9.1-12.0 INR 2.1 (Abnormal) Range: 0.8-1.2 Comments: Reference interval is for non-anticoagulated patients. . Suggested INR therapeutic range for Vitamin K anta gonist therapy: Standard Dose (moderate intensity therapeutic range): 2.0 - 3.0 Higher intensity therapeutic range 2.5 - 3.5 80-Ctu-062894:19 PT (PROTHROMBIN TIME) (02562) Comments: PERFORMED BY: [facility]6370 [facility] [id number] Prothrombin Time 22.3 {sec} (Abnormal) Range: 9.1-12.0 INR 2.3 (Abnormal) Range: 0.8-1.2 Comments: Reference interval is for non-anticoagulated patients. . Suggested INR therapeutic range for Vitamin K anta gonist therapy: Standard Dose (moderate intensity therapeutic range): 2.0 - 3.0 Higher intensity therapeutic range 2.5 - 3.5 22-Itw-106301:07 PT (PROTHROMBIN TIME) (46612) Comments: PATIENT NOT FASTINGPERFORMED BY: [facility]6370 [facility] [id number] Prothrombin Time 21.2 {sec} (Abnormal) Range: 9.1-12.0 INR 2.1 (Abnormal) Range: 0.8-1.2 Comments: Reference interval is for non-anticoagulated patients. . Suggested INR therapeutic range for Vitamin K anta gonist therapy: Standard Dose (moderate intensity therapeutic range): 2.0 - 3.0 Higher intensity therapeutic range 2.5 - 3.5 22-Xkf-454495:21 PT (PROTHROMBIN TIME) (66575) Comments: PATIENT NOT FASTINGPERFORMED BY: [facility]6370 [facility] [id number] Prothrombin Time 23.1 {sec} (Abnormal) Range: 9.1-12.0 INR 2.3 (Abnormal) Range: 0.8-1.2 Comments: Reference interval is for non-anticoagulated patients. . Suggested INR therapeutic range for Vitamin K anta gonist therapy: Standard Dose (moderate intensity therapeutic range): 2.0 - 3.0 Higher intensity therapeutic range 2.5 - 3.5 :56 PT (PROTHROMBIN TIME) (71296) Comments: PATIENT NOT FASTINGPERFORMED BY: [facility]6370 [facility] [id number] Prothrombin Time 24.2 {sec} (Abnormal) Range: 9.1-12.0 INR 2.4 (Abnormal) Range: 0.8-1.2 Comments: Reference interval is for non-anticoagulated patients. . Suggested INR therapeutic range for Vitamin K anta gonist therapy: Standard Dose (moderate intensity therapeutic range): 2.0 - 3.0 Higher intensity therapeutic range 2.5 - 3.5 :15 PT (PROTHROMBIN TIME) (74310) Comments: PATIENT NOT FASTINGPERFORMED BY: [facility]6370 [facility] [id number] Prothrombin Time 25.2 {sec} (Abnormal) Range: 9.1-12.0 INR 2.5 (Abnormal) Range: 0.8-1.2 Comments: Reference interval is for non-anticoagulated patients. . Suggested INR therapeutic range for Vitamin K anta gonist therapy: Standard Dose (moderate intensity therapeutic range): 2.0 - 3.0 Higher intensity therapeutic range 2.5 - 3.5 :57 PT (PROTHROMBIN TIME) (47433) Comments: PATIENT NOT FASTINGPERFORMED BY: [facility]6370 [facility] [id number] Prothrombin Time 18.5 {sec} (Abnormal) Range: 9.1-12.0 INR 1.8 (Abnormal) Range: 0.8-1.2 Comments: Reference interval is for non-anticoagulated patients. . Suggested INR therapeutic range for Vitamin K anta gonist therapy: Standard Dose (moderate intensity therapeutic range): 2.0 - 3.0 Higher intensity therapeutic range 2.5 - 3.5 42-Qun-165882:26 PT (PROTHROMBIN TIME) (20596) Comments: PATIENT NOT FASTINGPERFORMED BY: [facility] Izaptb7249 [facility] [id number] Prothrombin Time 16.4 {sec} (Abnormal) Range: 9.1-12.0 INR 1.6 (Abnormal) Range: 0.8-1.2 Comments: Reference interval is for non-anticoagulated patients. . Suggested INR therapeutic range for Vitamin K anta gonist therapy: Standard Dose (moderate intensity therapeutic range): 2.0 - 3.0 Higher intensity therapeutic range 2.5 - 3.5 06-Std-834463:29 CBC W/Diff, Auto - EPLAB Comments: Order Date: 07/19/16Order Info: [id number] - *CBC w/Diff - oncology ONLYAt [facility] Outpatient [facility] Medical Oncologypatients receive CBC w/auto Differential ONLY. Physicianwill place an order fo Only r a manual differential or Pathologistreview at his discretion. [facility]. [address] [place] [address] [address] SENIOR STORAGE ADMINISTRATOR: ELISEO VICENTE DO PH:[phone] Hospital Fqtyjpopam[address] [place], [place], [id number] Absolute Lymph 0.91 {X10_3/uL} (Normal) Range: 0.83-4.51 Absolute Neut 2.8 {X10_3/uL} (Normal) Range: 2.0-7.7 BASO% 1.4 % (Abnormal) Range: 0-1 EO% 1.7 % (Normal) Range: 0-5 MONO% 9.4 % (Normal) Range: 0-10 LY% 21.3 % (Normal) Range: 19-41 NEUT% 66.2 % (Normal) Range: 47-70 MPV 7.7 fL (Normal) Range: 6.2-12.0 PLT 176 K/mm3 (Normal) Range: 150-450 RDW 11.5 % (Abnormal) Range: 11.6-14.6 MCHC 36.5 g/dL (Abnormal) Range: 32-36 MCH 34.6 pg (Abnormal) Range: 27.0-32.0 MCV 94.7 fL (Abnormal) Range: 80-94 HCT 41.6 % (Normal) Range: 40-54 HGB 15.2 g/dL (Normal) Range: 13.0-16.5 RBC 4.40 {M/mm3} (Abnormal) Range: 4.6-6.2 WBC 4.3 K/mm3 (Abnormal) Range: 4.4-11.0 49-Nho-043050:29 Comprehensive Metabolic Profil Comments: Order Date: 07/19/16Order Info: [id number] - *CMP Complete Metabolic PanelOrder Info: [id number] - *LDH -LDH (Lactate Dehydrogenase)Serial Specimen #1, #2 or #3? 1[facility] Fordasqshr8448 [facility] [place], [place], [id number] GAP 6 (Normal) Range: 5-15 CO2 27.0 mmol/L (Normal) Range: 21.0-32.0 CL 109 mmol/L (Abnormal) Range: 98-107 K 4.1 mmol/L (Normal) Range: 3.5-5.1 NA 142 mmol/L (Normal) Range: 136-145 T BILI 0.50 mg/dL (Normal) Range: 0.20-1.00 ALT 24 U/L (Normal) Range: 12-78 ALK P 51 U/L (Normal) Range: 45-117 AST 14 U/L (Abnormal) Range: 15-37 CA 8.6 mg/dL (Normal) Range: 8.5-10.1 A/G 1.2 {RATIO} (Normal) Range: 0.9-2.4 GLOB 3.2 g/dL (Normal) Range: 2.3-3.5 ALB 3.7 g/dL (Normal) Range: 3.4-5.0 T PROT 6.9 g/dL (Normal) Range: 6.4-8.2 BUN/CRE 17.0 {RATIO} (Normal) Range: 10-20 Estimated CRCL 104.58 ml/min (Normal) EST GFR - AA 132 mL/min (Normal) Comments: GFR Calc EST GFR 109 mL/min (Normal) Comments: Non- GFR Calc CREAT,SERUM 0.76 mg/dL (Normal) Range: 0.70-1.30 Comments: The validity of the calculated GFR AND GFRAA in patients over70 years has not been determined. Clinical correlation isessential. BUN 13 mg/dL (Normal) Range: 7-18 GLU 84 mg/dL (Normal) Range: 70-110 23-Muf-969450:29 LDH 173 U/L (Normal) Comments: Order Date: 07/19/16Order Info: [id number] - *CMP Complete Metabolic PanelOrder Info: [id number] - *LDH -LDH (Lactate Dehydrogenase)Serial Specimen #1, #2 or #3? 1[facility] Laborat jpt[address] [place], [address] Range: 87-241 :22 PT (PROTHROMBIN TIME) (78037) Comments: PATIENT NOT FASTINGPERFORMED BY: [facility]6370 [facility] [id number] Prothrombin Time 32.4 {sec} (Abnormal) Range: 9.1-12.0 INR 3.2 (Abnormal) Range: 0.8-1.2 Comments: Reference interval is for non-anticoagulated patients. . Suggested INR therapeutic range for Vitamin K anta gonist therapy: Standard Dose (moderate intensity therapeutic range): 2.0 - 3.0 Higher intensity therapeutic range 2.5 - 3.5 :16 PT (PROTHROMBIN TIME) (56999) Comments: PATIENT NOT FASTINGPERFORMED BY: [employer] Mhvdnb9916 [facility] [id number] Prothrombin Time 20.2 {sec} (Abnormal) Range: 9.1-12.0 INR 2.0 (Abnormal) Range: 0.8-1.2 Comments: Reference interval is for non-anticoagulated patients. . Suggested INR therapeutic range for Vitamin K anta gonist therapy: Standard Dose (moderate intensity therapeutic range): 2.0 - 3.0 Higher intensity therapeutic range 2.5 - 3.5 :55 PT (PROTHROMBIN TIME) (23905) Comments: PATIENT NOT FASTINGPERFORMED BY: [facility]6370 [facility] [id number] Prothrombin Time 16.0 {sec} (Abnormal) Range: 9.1-12.0 INR 1.6 (Abnormal) Range: 0.8-1.2 Comments: Reference interval is for non-anticoagulated patients. . Suggested INR therapeutic range for Vitamin K anta gonist therapy: Standard Dose (moderate intensity therapeutic range): 2.0 - 3.0 Higher intensity therapeutic range 2.5 - 3.5 84-Ixv-532168:36 PT (PROTHROMBIN TIME) (45876) Comments: PATIENT NOT FASTINGPERFORMED BY: [facility]6370 [facility] [id number] Prothrombin Time 25.9 {sec} (Abnormal) Range: 9.1-12.0 INR 2.5 (Abnormal) Range: 0.8-1.2 Comments: Reference interval is for non-anticoagulated patients. . Suggested INR therapeutic range for Vitamin K anta gonist therapy: Standard Dose (moderate intensity therapeutic range): 2.0 - 3.0 Higher intensity therapeutic range 2.5 - 3.5 23-Azn-819973:15 CBC W/Diff, Auto - EPLAB Comments: Order Date: 03/29/16Order Info: [id number] - *CBC w/Diff - oncology ONLYAt [facility] Outpatient [facility] Medical Oncologypatients receive CBC w/auto Differential ONLY. Physicianwill place an order fo Only r a manual differential or Pathologistreview at his discretion. [facility] [facility]. [address] [place] [address] [address] SENIOR STORAGE ADMINISTRATOR: ELISEO VICENTE DO PH:[phone] Date: 03/29/16Order Info: [id number] - *CBC w/Diff - oncology ONLYOrder Date: 03/29/16Order Info: 2532-0 - *LDH -LDH (Lactate Dehydrogenase)[facility] [address] [place], [address] ; another doc Absolute Lymph 0.93 {X10_3/uL} (Normal) Range: 0.83-4.51 Absolute Neut 3.8 {X10_3/uL} (Normal) Range: 2.0-7.7 BASO% 0.8 % (Normal) Range: 0-1 EO% 2.0 % (Normal) Range: 0-5 MONO% 10.3 % (Abnormal) Range: 0-10 LY% 17.1 % (Abnormal) Range: 19-41 NEUT% 69.9 % (Normal) Range: 47-70 MPV 6.3 fL (Normal) Range: 6.2-12.0 PLT 261 K/mm3 (Normal) Range: 150-450 RDW 11.4 % (Abnormal) Range: 11.6-14.6 MCHC 33.0 g/dL (Normal) Range: 32-36 MCH 31.1 pg (Normal) Range: 27.0-32.0 MCV 94.2 fL (Abnormal) Range: 80-94 HCT 43.9 % (Normal) Range: 40-54 HGB 14.5 g/dL (Normal) Range: 13.0-16.5 RBC 4.66 {M/mm3} (Normal) Range: 4.6-6.2 WBC 5.4 K/mm3 (Normal) Range: 4.4-11.0 73-Rtc-030050:15 Comprehensive Metabolic Profil Comments: Order Date: 03/29/16Order Info: [id number] - *CMP Complete Metabolic PanelOrder Info: [id number] - *Uric Acid BloodOrder Info: [id number] - *LDH -LDH (Lactate Dehydrogenase)Order Date: 03/29/16Order Info: 2532-0 - *LDH -LDH (Lactate Dehydrogenase)Serial Specimen #1, #2 or #3? [facility] [address]nbnmcqd[address] [place], [place], [id number] ; Dr. Brewer, hemoc GAP 5 (Normal) Range: 5-15 CO2 27.0 mmol/L (Normal) Range: 21.0-32.0 CL 109 mmol/L (Abnormal) Range: 98-107 K 4.5 mmol/L (Normal) Range: 3.5-5.1 Comments: Slight Hemolysis, Result may be falsely increased. NA 141 mmol/L (Normal) Range: 136-145 T BILI 0.20 mg/dL (Normal) Range: 0.20-1.00 ALT 56 U/L (Normal) Range: 12-78 ALK P 60 U/L (Normal) Range: 45-117 AST 32 U/L (Normal) Range: 15-37 Comments: Slight Hemolysis, Result may be falsely increased. CA 8.8 mg/dL (Normal) Range: 8.5-10.1 A/G 0.9 {RATIO} (Normal) Range: 0.9-2.4 GLOB 3.7 g/dL (Abnormal) Range: 2.3-3.5 ALB 3.4 g/dL (Normal) Range: 3.4-5.0 T PROT 7.1 g/dL (Normal) Range: 6.4-8.2 BUN/CRE 17.1 {RATIO} (Normal) Range: 10-20 EST GFR - AA 105 mL/min (Normal) Comments: GFR Calc EST GFR 86 mL/min (Normal) Comments: Non- GFR Calc CREAT,SERUM 0.94 mg/dL (Normal) Range: 0.70-1.30 Comments: The validity of the calculated GFR AND GFRAA in patients over70 years has not been determined. Clinical correlation isessential. BUN 16 mg/dL (Normal) Range: 7-18 GLU 86 mg/dL (Normal) Range: 70-110 99-Mds-195720:15 LDH 231 U/L (Normal) Comments: Order Date: 03/29/16Order Info: [id number] - *CMP Complete Metabolic PanelOrder Info: 3084-1 - *Uric Acid BloodOrder Info: 2532-0 - *LDH -LDH (Lactate Dehydrogenase)Order Date: 03/29/16Order Info: 2-0 - *LDH -LDH (Lactate Dehydrogenase)Serial Specimen #1, #2 or #3? 1[facility] L[address]umfuzior[address] [place], [place], [address] Range: 87-241 Comments: Slight Hemolysis, Result may be falsely increased. 61-Xiz-219740:15 Uric Acid Comments: Order Date: 03/29/16Order Info: [id number] - *CMP Complete Metabolic PanelOrder Info: 3084-1 - *Uric Acid BloodOrder Info: 2532-0 - *LDH -LDH (Lactate Dehydrogenase)Order Date: 03/29/16Order Info: 2-0 - *LDH -LDH (Lactate Dehydrogenase)Serial Specimen #1, #2 or #3? 1[facility] [address] [place], [address] URIC 4.4 mg/dL (Normal) Range: 3.5-7.2 Comments: The drugs N-Acetylcysteine and Metamizole may falsely deressthis assay. :27 PT (PROTHROMBIN TIME) (49602) Comments: PATIENT NOT FASTINGPERFORMED BY: [facility] Tznbli5043 [facility] [id number] Prothrombin Time 30.1 {sec} (Abnormal) Range: 9.1-12.0 INR 3.0 (Abnormal) Range: 0.8-1.2 Comments: Reference interval is for non-anticoagulated patients. . Suggested INR therapeutic range for Vitamin K anta gonist therapy: Standard Dose (moderate intensity therapeutic range): 2.0 - 3.0 Higher intensity therapeutic range 2.5 - 3.5 :21 PT (PROTHROMBIN TIME) (67753) Comments: PATIENT NOT FASTINGPERFORMED BY: [employer] Apsyav6790 [facility] [id number] Prothrombin Time 30.7 {sec} (Abnormal) Range: 9.1-12.0 INR 3.0 (Abnormal) Range: 0.8-1.2 Comments: Reference interval is for non-anticoagulated patients. . Suggested INR therapeutic range for Vitamin K anta gonist therapy: Standard Dose (moderate intensity therapeutic range): 2.0 - 3.0 Higher intensity therapeutic range 2.5 - 3.5 :14 PT (PROTHROMBIN TIME) (48061) Comments: PATIENT NOT FASTINGPERFORMED BY: [employer] SemiconductorPalisades Medical CenterVeopsi9970 [facility] [id number] Prothrombin Time 19.0 {sec} (Abnormal) Range: 9.1-12.0 INR 1.9 (Abnormal) Range: 0.8-1.2 Comments: Reference interval is for non-anticoagulated patients. . Suggested INR therapeutic range for Vitamin K anta gonist therapy: Standard Dose (moderate intensity therapeutic range): 2.0 - 3.0 Higher intensity therapeutic range 2.5 - 3.5 38-Ten-617919:14 Qrxt-4-Ijuwptefycxog, S Comments: Order Date: 12/29/15Order Date: 12/29/15Order Date: 12/29/15[facility] (refer to report for specific site)refer to report for address and phone number [phone] [id number] 1.2 mg/L (Normal) Range: 0.6-2.4 Comments: Performed at: - [facility] [id number] Director: Ino Monsivais PhD, Phone: [phone] 84-Nrj-895324:14 CBC W/Diff, Auto - EPLAB Comments: At [facility] Outpatient [facility] Medical Oncologypatients receive CBC w/auto Differential ONLY. Physicianwill place an order for a manual differential or Pathologistreview at his discretion. [facility]. [address] [place] [address] [address] SENIOR STORAGE ADMINISTRATOR: ELISEO VICENTE DO PH:[phone] Hospital [address]nzgle[address] [place], [address] Absolute Lymph 0.99 {X10_3/uL} (Normal) Range: 0.83-4.51 Absolute Neut 3.1 {X10_3/uL} (Normal) Range: 2.0-7.7 BASO% 1.0 % (Normal) Range: 0-1 EO% 1.8 % (Normal) Range: 0-5 MONO% 8.9 % (Normal) Range: 0-10 LY% 21.5 % (Normal) Range: 19-41 NEUT% 66.8 % (Normal) Range: 47-70 MPV 7.2 fL (Normal) Range: 6.2-12.0 PLT 195 K/mm3 (Normal) Range: 150-450 RDW 11.7 % (Normal) Range: 11.6-14.6 MCHC 34.3 g/dL (Normal) Range: 32-36 MCH 32.2 pg (Abnormal) Range: 27.0-32.0 MCV 93.8 fL (Normal) Range: 80-94 HCT 43.1 % (Normal) Range: 40-54 HGB 14.8 g/dL (Normal) Range: 13.0-16.5 RBC 4.59 {M/mm3} (Abnormal) Range: 4.6-6.2 WBC 4.6 K/mm3 (Normal) Range: 4.4-11.0 52-Ocm-697124:14 Comprehensive Metabolic Profil Comments: Order Date: 12/29/15Order Date: 12/29/15erial Specimen #1, #2 or #3? [address] [place] [address] [address] [place], [place], [id number] GAP 11 (Normal) Range: 5-15 CO2 25.0 mmol/L (Normal) Range: 21.0-32.0 CL 106 mmol/L (Normal) Range: 98-107 K 4.1 mmol/L (Normal) Range: 3.5-5.1 NA 142 mmol/L (Normal) Range: 136-145 T BILI 0.40 mg/dL (Normal) Range: 0.20-1.00 ALT 28 U/L (Normal) Range: 12-78 ALK P 56 U/L (Normal) Range: 45-117 AST 24 U/L (Normal) Range: 15-37 CA 8.7 mg/dL (Normal) Range: 8.5-10.1 A/G 1.2 {RATIO} (Normal) Range: 0.9-2.4 GLOB 3.2 g/dL (Normal) Range: 2.3-3.5 ALB 3.7 g/dL (Normal) Range: 3.4-5.0 T PROT 6.9 g/dL (Normal) Range: 6.4-8.2 BUN/CRE 15.3 {RATIO} (Normal) Range: 10-20 EST GFR - AA 128 mL/min (Normal) Comments: GFR Calc EST GFR 106 mL/min (Normal) Comments: Non- GFR Calc CREAT,SERUM 0.78 mg/dL (Normal) Range: 0.70-1.30 Comments: The validity of the calculated GFR AND GFRAA in patients over70 years has not been determined. Clinical correlation isessential. BUN 12 mg/dL (Normal) Range: 7-18 GLU 89 mg/dL (Normal) Range: 70-110 37-Odx-453786:14 LDH 196 U/L (Normal) Comments: Order Date: 12/29/15Order Date: 08/30/16Serial Specimen #1, #2 or #3? [address] [place] [address] [place], [address] Range: 87-241 47-Sof-420603:14 Uric Acid Comments: Order Date: 12/29/15Order Date: 12/28/16Serial Specimen #1, #2 or #3? [address] [place] [address] [address] [place], [address] URIC 4.1 mg/dL (Normal) Range: 3.5-7.2 Comments: The drugs N-Acetylcysteine and Metamizole may falsely deressthis assay. :54 PT (PROTHROMBIN TIME) (16096) Comments: PATIENT NOT FASTINGPERFORMED BY: [employer] Bpqooa7777 [facility] [id number] Prothrombin Time 16.1 {sec} (Abnormal) Range: 9.1-12.0 INR 1.6 (Abnormal) Range: 0.8-1.2 Comments: Reference interval is for non-anticoagulated patients. . Suggested INR therapeutic range for Vitamin K anta gonist therapy: Standard Dose (moderate intensity therapeutic range): 2.0 - 3.0 Higher intensity therapeutic range 2.5 - 3.5 30-Yhm-150304:16 PT (PROTHROMBIN TIME) Comments: PATIENT NOT FASTINGPERFORMED BY: [employer] SemiconductorPalisades Medical CenterXbwxyq1782 [facility] [id number] Information: [id number] ([id number]) Prothrombin Time 32.0 {sec} (Abnormal) Range: 9.1-12.0 INR 3.2 (Abnormal) Range: 0.8-1.2 Comments: Reference interval is for non-anticoagulated patients. . Suggested INR therapeutic range for Vitamin K anta gonist therapy: Standard Dose (moderate intensity therapeutic range): 2.0 - 3.0 Higher intensity therapeutic range 2.5 - 3.5 49-Clz-102219:04 CBC W/Diff, Auto - EPLAB Comments: At [facility] Outpatient Center [facility] Medical Oncologypatients receive CBC w/auto Differential ONLY. Physicianwill place an order for a manual differential or Pathologistreview at his discretion. [facility]. [address] [place] [address] [address] SENIOR STORAGE ADMINISTRATOR: ELISEO VICENTE DO PH:[phone] Hospital [address] [place], [address] Absolute Lymph 0.82 {X10_3/uL} (Abnormal) Range: 0.83-4.51 Absolute Neut 3.3 {X10_3/uL} (Normal) Range: 2.0-7.7 BASO% 1.1 % (Abnormal) Range: 0-1 EO% 1.5 % (Normal) Range: 0-5 MONO% 9.1 % (Normal) Range: 0-10 LY% 17.6 % (Abnormal) Range: 19-41 NEUT% 70.7 % (Abnormal) Range: 47-70 MPV 7.5 fL (Normal) Range: 6.2-12.0 PLT 185 K/mm3 (Normal) Range: 150-450 RDW 11.7 % (Normal) Range: 11.6-14.6 MCHC 33.1 g/dL (Normal) Range: 32-36 MCH 31.2 pg (Normal) Range: 27.0-32.0 MCV 94.3 fL (Abnormal) Range: 80-94 HCT 44.8 % (Normal) Range: 40-54 HGB 14.8 g/dL (Normal) Range: 13.0-16.5 RBC 4.75 {M/mm3} (Normal) Range: 4.6-6.2 WBC 4.7 K/mm3 (Normal) Range: 4.4-11.0 71-Zzu-670760:04 Comprehensive Metabolic Profil Comments: Order Date: 12/29/15OV Order #: [id number] Specimen #1, #2 or #3? 1 [id number] Hospital [address] [place], [address] GAP 5 (Normal) Range: 5-15 CO2 29.0 mmol/L (Normal) Range: 21.0-32.0 CL 103 mmol/L (Normal) Range: 98-107 K 3.9 mmol/L (Normal) Range: 3.5-5.1 NA 137 mmol/L (Normal) Range: 136-145 T BILI 0.60 mg/dL (Normal) Range: 0.20-1.00 ALT 21 U/L (Normal) Range: 12-78 ALK P 48 U/L (Abnormal) Range: 50-136 AST 17 U/L (Normal) Range: 15-37 CA 8.3 mg/dL (Abnormal) Range: 8.5-10.1 A/G 1.2 {RATIO} (Normal) Range: 0.9-2.4 GLOB 3.0 g/dL (Normal) Range: 2.3-3.5 ALB 3.6 g/dL (Normal) Range: 3.4-5.0 T PROT 6.6 g/dL (Normal) Range: 6.4-8.2 BUN/CRE 18.3 {RATIO} (Normal) Range: 10-20 EST GFR - AA 144 mL/min (Normal) Comments: GFR Calc EST GFR 119 mL/min (Normal) Comments: Non- GFR Calc CREAT,SERUM 0.71 mg/dL (Normal) Range: 0.70-1.30 Comments: The validity of the calculated GFR AND GFRAA in patients over70 years has not been determined. Clinical correlation isessential. BUN 13 mg/dL (Normal) Range: 7-18 GLU 89 mg/dL (Normal) Range: 70-110 58-Qca-431373:04 LDH 167 U/L (Normal) Comments: Order Date: 12/29/15OV Order #: [id number] Specimen #1, #2 or #3? [id number] [place] [address] [address] [place], [place], [address] Range: 87-241 73-Qoz-241044:04 Uric Acid Comments: Order Date: 12/29/15OV Order #: [id number] Specimen #1, #2 or #3? [id number] [place] [address] [address] [place], [place], [address] URIC 4.2 mg/dL (Normal) Range: 3.5-7.2 Comments: The drugs N-Acetylcysteine and Metamizole may falsely deressthis assay. :17 PT (PROTHROMBIN TIME) (45662) Comments: PATIENT NOT FASTINGPERFORMED BY: [facility]6370 [facility] [id number] Prothrombin Time 25.7 {sec} (Abnormal) Range: 9.1-12.0 INR 2.5 (Abnormal) Range: 0.8-1.2 Comments: Reference interval is for non-anticoagulated patients. . Suggested INR therapeutic range for Vitamin K anta gonist therapy: Standard Dose (moderate intensity therapeutic range): 2.0 - 3.0 Higher intensity therapeutic range 2.5 - 3.5 :32 PT (PROTHROMBIN TIME) Comments: PATIENT NOT FASTINGPERFORMED BY: [place] [id number] [facility] [id number] Information: [id number] ([id number]) Prothrombin Time 28.7 {sec} (Abnormal) Range: 9.1-12.0 INR 2.8 (Abnormal) Range: 0.8-1.2 Comments: Reference interval is for non-anticoagulated patients. . Suggested INR therapeutic range for Vitamin K anta gonist therapy: Standard Dose (moderate intensity therapeutic range): 2.0 - 3.0 Higher intensity therapeutic range 2.5 - 3.5 :53 PT (PROTHROMBIN TIME) Comments: PATIENT NOT FASTINGPERFORMED BY: [facility]6370 [facility] [id number] Information: [id number] ([id number]) Prothrombin Time 25.1 {sec} (Abnormal) Range: 9.1-12.0 INR 2.4 (Abnormal) Range: 0.8-1.2 Comments: Reference interval is for non-anticoagulated patients. . Suggested INR therapeutic range for Vitamin K anta gonist therapy: Standard Dose (moderate intensity therapeutic range): 2.0 - 3.0 Higher intensity therapeutic range 2.5 - 3.5 :15 PT (PROTHROMBIN TIME) Comments: PATIENT NOT FASTINGPERFORMED BY: [place] [id number] [facility] [id number] Information: [id number] ([id number]) Prothrombin Time 23.0 {sec} (Abnormal) Range: 9.1-12.0 INR 2.3 (Abnormal) Range: 0.8-1.2 Comments: Reference interval is for non-anticoagulated patients. . Suggested INR therapeutic range for Vitamin K anta gonist therapy: Standard Dose (moderate intensity therapeutic range): 2.0 - 3.0 Higher intensity therapeutic range 2.5 - 3.5 5-Hyl-471650:42 CBC W/Diff, Auto - EPLAB Comments: At [facility] Outpatient [facility] Medical Oncologypatients receive CBC w/auto Differential ONLY. Physicianwill place an order for a manual differential or Pathologistreview at his discretion. [facility]. [address] [place] [address] [address] SENIOR STORAGE ADMINISTRATOR: ELISEO VICENTE DO PH:[phone] Hospital [address]ktgel[address] [place], [place], [address] Absolute Lymph 0.97 {X10_3/uL} (Normal) Range: 0.83-4.51 Absolute Neut 2.9 {X10_3/uL} (Normal) Range: 2.0-7.7 BASO% 1.2 % (Abnormal) Range: 0-1 EO% 2.2 % (Normal) Range: 0-5 MONO% 8.3 % (Normal) Range: 0-10 LY% 22.0 % (Normal) Range: 19-41 NEUT% 66.4 % (Normal) Range: 47-70 MPV 7.6 fL (Normal) Range: 6.2-12.0 PLT 179 K/mm3 (Normal) Range: 150-450 RDW 11.4 % (Abnormal) Range: 11.6-14.6 MCHC 34.2 g/dL (Normal) Range: 32-36 MCH 31.4 pg (Normal) Range: 27.0-32.0 MCV 91.9 fL (Normal) Range: 80-94 HCT 44.4 % (Normal) Range: 40-54 HGB 15.2 g/dL (Normal) Range: 13.0-16.5 RBC 4.83 {M/mm3} (Normal) Range: 4.6-6.2 WBC 4.4 K/mm3 (Normal) Range: 4.4-11.0 3-Mmo-872470:42 Comprehensive Metabolic Profil Comments: Serial Specimen #1, #2 or #3? 1[facility] [address]glk[address] [place], [place], [address] GAP 7 (Normal) Range: 5-15 CO2 27.0 mmol/L (Normal) Range: 21.0-32.0 CL 109 mmol/L (Abnormal) Range: 98-107 K 4.3 mmol/L (Normal) Range: 3.5-5.1 NA 143 mmol/L (Normal) Range: 136-145 T BILI 0.50 mg/dL (Normal) Range: 0.20-1.00 ALT 29 U/L (Normal) Range: 12-78 ALK P 54 U/L (Normal) Range: 50-136 AST 21 U/L (Normal) Range: 15-37 CA 8.3 mg/dL (Abnormal) Range: 8.5-10.1 A/G 1.1 {RATIO} (Normal) Range: 0.9-2.4 GLOB 3.3 g/dL (Normal) Range: 2.3-3.5 ALB 3.6 g/dL (Normal) Range: 3.4-5.0 T PROT 6.9 g/dL (Normal) Range: 6.4-8.2 BUN/CRE 17.3 {RATIO} (Normal) Range: 10-20 EST GFR - AA 135 mL/min (Normal) Comments: GFR Calc EST GFR 111 mL/min (Normal) Comments: Non- GFR Calc CREAT,SERUM 0.75 mg/dL (Normal) Range: 0.70-1.30 Comments: The validity of the calculated GFR AND GFRAA in patients over70 years has not been determined. Clinical correlation isessential. BUN 13 mg/dL (Normal) Range: 7-18 GLU 80 mg/dL (Normal) Range: 70-110 8-Ycd-573715:42 LDH 181 U/L (Normal) Comments: Serial Specimen #1, #2 or #3? 1[facility] [address] [place], [place], [address] Range: 87-241 9-Tgg-115783:42 Magnesium Comments: Serial Specimen #1, #2 or #3? 1[facility] [address] [place], [address] MG 2.3 mg/dL (Normal) Range: 1.8-2.4 0-Fiz-010375:42 Uric Acid Comments: Serial Specimen #1, #2 or #3? 1[facility] [address] [place], [address] URIC 3.9 mg/dL (Normal) Range: 3.5-7.2 :45 PT (PROTHROMBIN TIME) Comments: PATIENT NOT FASTINGPERFORMED BY: [place] [address]6870 [facility] [id number] Information: [id number] ([id number]) Prothrombin Time 22.5 {sec} (Abnormal) Range: 9.1-12.0 INR 2.2 (Abnormal) Range: 0.8-1.2 Comments: Reference interval is for non-anticoagulated patients. . Suggested INR therapeutic range for Vitamin K anta gonist therapy: Standard Dose (moderate intensity therapeutic range): 2.0 - 3.0 Higher intensity therapeutic range 2.5 - 3.5 :30 PT (PROTHROMBIN TIME) Comments: PATIENT NOT FASTINGPERFORMED BY: [facility]6370 [facility] [id number] Information: [id number] ([id number]) Prothrombin Time 22.9 {sec} (Abnormal) Range: 9.1-12.0 INR 2.2 (Abnormal) Range: 0.8-1.2 Comments: Reference interval is for non-anticoagulated patients. . Suggested INR therapeutic range for Vitamin K anta gonist therapy: Standard Dose (moderate intensity therapeutic range): 2.0 - 3.0 Higher intensity therapeutic range 2.5 - 3.5 :45 CBC W/Diff, Auto - EPLAB Comments: At [facility] Outpatient [facility] [place] Medical Oncologypatients receive CBC w/auto Differential ONLY. Physicianwill place an order for a manual differential or Pathologistreview at his discretion. [facility]. [address] [address] [address] SENIOR STORAGE ADMINISTRATOR: ELISEO VICENTE DO PH:[phone] Hospital [address]bugls[address] [place], [address] Absolute Lymph 0.76 {X10_3/uL} (Abnormal) Range: 0.83-4.51 Absolute Neut 3.1 {X10_3/uL} (Normal) Range: 2.0-7.7 BASO% 1.3 % (Abnormal) Range: 0-1 EO% 2.0 % (Normal) Range: 0-5 MONO% 10.8 % (Abnormal) Range: 0-10 LY% 17.1 % (Abnormal) Range: 19-41 NEUT% 68.8 % (Normal) Range: 47-70 MPV 6.4 fL (Normal) Range: 6.2-12.0 PLT 196 K/mm3 (Normal) Range: 150-450 RDW 11.6 % (Normal) Range: 11.6-14.6 MCHC 35.9 g/dL (Normal) Range: 32-36 MCH 31.1 pg (Normal) Range: 27.0-32.0 MCV 86.6 fL (Normal) Range: 80-94 HCT 42.0 % (Normal) Range: 40-54 HGB 15.1 g/dL (Normal) Range: 13.0-16.5 RBC 4.84 {M/mm3} (Normal) Range: 4.6-6.2 WBC 4.5 K/mm3 (Normal) Range: 4.4-11.0 :44 Comprehensive Metabolic Profil Comments: Serial Specimen #1, #2 or #3? 1[facility] [address]tr[address] [place], [address] GAP 0 (Abnormal) Range: 5-15 CO2 30.0 mmol/L (Normal) Range: 21.0-32.0 CL 108 mmol/L (Abnormal) Range: 98-107 K 4.1 mmol/L (Normal) Range: 3.5-5.1 NA 138 mmol/L (Normal) Range: 136-145 T BILI 0.50 mg/dL (Normal) Range: 0.20-1.00 ALT 29 U/L (Normal) Range: 12-78 ALK P 54 U/L (Normal) Range: 50-136 AST 19 U/L (Normal) Range: 15-37 CA 8.8 mg/dL (Normal) Range: 8.5-10.1 A/G 1.2 {RATIO} (Normal) Range: 0.9-2.4 GLOB 3.3 g/dL (Normal) Range: 2.3-3.5 ALB 4.0 g/dL (Normal) Range: 3.4-5.0 T PROT 7.3 g/dL (Normal) Range: 6.4-8.2 BUN/CRE 13.8 {RATIO} (Normal) Range: 10-20 EST GFR - AA 114 mL/min (Normal) Comments: GFR Calc EST GFR 94 mL/min (Normal) Comments: Non- GFR Calc CREAT,SERUM 0.87 mg/dL (Normal) Range: 0.70-1.30 Comments: The validity of the calculated GFR AND GFRAA in patients over70 years has not been determined. Clinical correlation isessential. BUN 12 mg/dL (Normal) Range: 7-18 GLU 81 mg/dL (Normal) Range: 70-110 :44 LDH 197 U/L (Normal) Comments: Serial Specimen #1, #2 or #3? [address] [place] [address] [address] [place], [address] Range: 87-241 :44 Magnesium Comments: Serial Specimen #1, #2 or #3? [address] [place] [address] [address] [place], [address] MG 2.3 mg/dL (Normal) Range: 1.8-2.4 :44 Uric Acid Comments: Serial Specimen #1, #2 or #3? [address] [place] [address] [address] [place], [address] URIC 4.5 mg/dL (Normal) Range: 3.5-7.2 :55 PT (PROTHROMBIN TIME) Comments: PATIENT NOT FASTINGPERFORMED BY: [facility]6370 [facility] [id number] Information: [id number] ([id number]) Prothrombin Time 21.2 {sec} (Abnormal) Range: 9.1-12.0 INR 2.0 (Abnormal) Range: 0.8-1.2 Comments: Reference interval is for non-anticoagulated patients. . Suggested INR therapeutic range for Vitamin K anta gonist therapy: Standard Dose (moderate intensity therapeutic range): 2.0 - 3.0 Higher intensity therapeutic range 2.5 - 3.5 25-Boy-317864:12 PT (PROTHROMBIN TIME) Comments: PATIENT NOT FASTINGPERFORMED BY: [facility]6370 [facility] [id number] Information: [id number] ([id number]) Prothrombin Time 23.4 {sec} (Abnormal) Range: 9.1-12.0 INR 2.3 (Abnormal) Range: 0.8-1.2 Comments: Reference interval is for non-anticoagulated patients. . Suggested INR therapeutic range for Vitamin K anta gonist therapy: Standard Dose (moderate intensity therapeutic range): 2.0 - 3.0 Higher intensity therapeutic range 2.5 - 3.5 03-Apr-20159:39 Prothrombin Time w/INR Comments: [facility] [address]ct[address] [place], [place], [address] INR 2.5 (Normal) PROTIME 27.0 s (Abnormal) Range: 11.7-14.9 78-Rqn-[id number] Microscopic Examination Comments: PATIENT NOT FASTINGPERFORMED BY: [facility] [facility] [id number] Bacteria Few (Normal) Mucus Threads Present (Normal) Epithelial Cells (non renal) None seen {/hpf} (Normal) Range: 0 - 10 RBC 0-2 {/hpf} (Normal) Range: 0 - 2 WBC 0-5 {/hpf} (Normal) Range: 0 - 5 55-Bsj-064352:55 URINALYSIS (80058) Comments: PATIENT NOT FASTINGPERFORMED BY: [facility] [facility] [id number]; apt. 03-30-15 Microscopic Examination See below: (Normal) Comments: Microscopic was indicated and was performed. Nitrite, Urine Negative (Normal) Urobilinogen,Semi-Qn 1.0 mg/dL (Normal) Range: 0.2-1.0 Bilirubin Negative (Normal) Occult Blood Negative (Normal) Ketones Trace (Abnormal) Glucose Negative (Normal) Protein 1+ (Abnormal) WBC Esterase Negative (Normal) Appearance Clear (Normal) Urine-Color Yellow (Normal) pH 6.0 (Normal) Range: 5.0-7.5 Specific [place] >=1.030 (Abnormal) Range: 1.005-1.030 70-Ein-686325:55 CBC, Platelets & Auto Comments: PATIENT NOT FASTINGPERFORMED BY: [facility] [id number] Information: [id number] Diff (81016) Immature Grans (Abs) 0.0 {x10E3/uL} (Normal) Range: 0.0-0.1 Immature Granulocytes 0 % (Normal) Baso (Absolute) 0.0 {x10E3/uL} (Normal) Range: 0.0-0.2 Eos (Absolute) 0.0 {x10E3/uL} (Normal) Range: 0.0-0.4 Monocytes(Absolute) 0.8 {x10E3/uL} (Normal) Range: 0.1-0.9 Lymphs (Absolute) 0.8 {x10E3/uL} (Normal) Range: 0.7-3.1 Neutrophils (Absolute) 4.3 {x10E3/uL} (Normal) Range: 1.4-7.0 Basos 0 % (Normal) Eos 1 % (Normal) Monocytes 14 % (Normal) Lymphs 14 % (Normal) Neutrophils 71 % (Normal) Platelets 189 {x10E3/uL} (Normal) Range: 150-379 RDW 13.1 % (Normal) Range: 12.3-15.4 MCHC 33.9 g/dL (Normal) Range: 31.5-35.7 MCH 31.0 pg (Normal) Range: 26.6-33.0 MCV 91 fL (Normal) Range: 79-97 Hematocrit 43.6 % (Normal) Range: 37.5-51.0 Hemoglobin 14.8 g/dL (Normal) Range: 12.6-17.7 RBC 4.77 {x10E6/uL} (Normal) Range: 4.14-5.80 WBC 6.1 {x10E3/uL} (Normal) Range: 3.4-10.8 72-Teq-306884:55 Metabolic Panel, Comprehensive Comments: PATIENT NOT FASTINGPERFORMED BY: [employer] Ougops1352 BroadClipUNC [facility] [id number] ([id number]) ALT (SGPT) 23 [iU]/L (Normal) Range: 0-44 AST (SGOT) 27 [iU]/L (Normal) Range: 0-40 Alkaline Phosphatase, S 58 [iU]/L (Normal) Range: 39-117 Bilirubin, Total 0.4 mg/dL (Normal) Range: 0.0-1.2 A/G Ratio 1.7 (Normal) Range: 1.1-2.5 Globulin, Total 2.7 g/dL (Normal) Range: 1.5-4.5 Albumin, Serum 4.5 g/dL (Normal) Range: 3.6-4.8 Protein, Total, Serum 7.2 g/dL (Normal) Range: 6.0-8.5 Calcium, Serum 9.0 mg/dL (Normal) Range: 8.6-10.2 Carbon Dioxide, Total 20 mmol/L (Normal) Range: 18-29 Chloride, Serum 97 mmol/L (Normal) Range: 97-108 Potassium, Serum 4.0 mmol/L (Normal) Range: 3.5-5.2 Sodium, Serum 139 mmol/L (Normal) Range: 134-144 BUN/Creatinine Ratio 14 (Normal) Range: 10-22 eGFR If Africn Am 96 mL/min/1.73 (Normal) eGFR If NonAfricn Am 83 mL/min/1.73 (Normal) Creatinine, Serum 0.97 mg/dL (Normal) Range: 0.76-1.27 BUN 14 mg/dL (Normal) Range: 8-27 Glucose, Serum 83 mg/dL (Normal) Range: 65-99 29-Foa-902391:55 PSA, TOTAL - DIAGNOSTIC Comments: PATIENT NOT FASTINGPERFORMED BY: [employer] Gjusun8493 DevlinKaryopharm TherapeuticsUNC Health Southeastern [id number] ([id number]) Prostate Specific Ag, 0.5 ng/mL (Normal) Range: 0.0-4.0 Serum Comments: Yulisa ECLIA methodology. .According to the [place] [employer], Serum PSA shoulddecrease and remain at undetectable levels after radicalprostatectomy. The AUA defines biochemical recurrence as an initialPSA value 0.2 ng/mL or greater followed by a subsequent confirmatoryPSA value 0.2 ng/mL or greater.Values obtained with d ifferent assay methods or kits cannot be usedinterchangeably. Results cannot be interpreted as absolute evidenceof the presence or absence of malignant disease. 47-Tjy-254052:59 URINE JAILENE CULTURE-THAD COL Comments: PATIENT NOT FASTINGPERFORMED BY: Immy70 BroadClipUNC Health Southeastern [id number] Information: SRC:[facility] [id number] COUNT ([id number]) Result 1 NG36 (Normal) Comments: No growth in 36 - 48 hours. Urine Culture,Comprehensive Final report (Normal) 82-Kee-174664:43 Urinalysis, Office ([id number]) UA - LEUKOCYTE ESTERASE Negative (Normal) UA - NITRITE Negative (Normal) URINE UROBILINGN THAD TIMED Normal mg/dL (Normal) UA - PROTEIN 30 mg/dL (Normal) UA - PH 6 (Abnormal) UA - BLOOD Non Hemolyzed Trace (Normal) UA - SPECIFIC GRAVITY 1.025 (Normal) UA - KETONES Moderate mg/dL (Normal) UA - BILIRUBIN Small (Normal) UA - GLUCOSE Negative (Normal) 36-Pmu-27117:19 PT (PROTHROMBIN TIME) Comments: PATIENT NOT FASTINGPERFORMED BY: [employer]70 [facility] [id number] Information: [id number] ([id number]) Prothrombin Time 30.2 {sec} (Abnormal) Range: 9.1-12.0 INR 2.9 (Abnormal) Range: 0.8-1.2 Comments: Reference interval is for non-anticoagulated patients. . Suggested INR therapeutic range for Vitamin K anta gonist therapy: Standard Dose (moderate intensity therapeutic range): 2.0 - 3.0 Higher intensity therapeutic range 2.5 - 3.5 :55 CBC W/Diff, Auto - EPLAB Comments: At [facility] Medical Oncologypatients receive CBC w/auto Differential ONLY. Physicianwill place an order for a manual differential or Pathologistreview at his discretion. [facility]IENT [facility]. [address] [place] [address] [address] SENIOR STORAGE ADMINISTRATOR: ELISEO VICENTE DO PH:[phone] [address]eg[address] [place], [address] Absolute Lymph 0.75 {X10_3/uL} (Abnormal) Range: 0.83-4.51 Absolute Neut 2.4 {X10_3/uL} (Normal) Range: 2.0-7.7 BASO% 1.0 % (Normal) Range: 0-1 EO% 2.0 % (Normal) Range: 0-5 MONO% 8.8 % (Normal) Range: 0-10 LY% 20.8 % (Normal) Range: 19-41 NEUT% 67.4 % (Normal) Range: 47-70 MPV 7.2 fL (Normal) Range: 6.2-12.0 PLT 181 K/mm3 (Normal) Range: 150-450 RDW 11.5 % (Abnormal) Range: 11.6-14.6 MCHC 34.4 g/dL (Normal) Range: 32-36 MCH 31.5 pg (Normal) Range: 27.0-32.0 MCV 91.6 fL (Normal) Range: 80-94 HCT 41.2 % (Normal) Range: 40-54 HGB 14.1 g/dL (Normal) Range: 13.0-16.5 RBC 4.49 {M/mm3} (Abnormal) Range: 4.6-6.2 WBC 3.6 K/mm3 (Abnormal) Range: 4.4-11.0 :55 Comprehensive Metabolic Profil Comments: Serial Specimen #1, #2 or #3? [facility] [address] [place], [address] GAP 7 (Normal) Range: 5-15 CO2 27.0 mmol/L (Normal) Range: 21.0-32.0 CL 107 mmol/L (Normal) Range: 98-107 K 3.9 mmol/L (Normal) Range: 3.5-5.1 NA 141 mmol/L (Normal) Range: 136-145 T BILI 0.40 mg/dL (Normal) Range: 0.20-1.00 ALT 30 U/L (Normal) Range: 12-78 ALK P 50 U/L (Normal) Range: 50-136 AST 20 U/L (Normal) Range: 15-37 CA 8.8 mg/dL (Normal) Range: 8.5-10.1 A/G 1.3 {RATIO} (Normal) Range: 0.9-2.4 GLOB 2.7 g/dL (Normal) Range: 2.3-3.5 ALB 3.5 g/dL (Normal) Range: 3.4-5.0 T PROT 6.2 g/dL (Abnormal) Range: 6.4-8.2 BUN/CRE 12.3 {RATIO} (Normal) Range: 10-20 EST GFR - AA 124 mL/min (Normal) Comments: GFR Calc EST GFR 102 mL/min (Normal) Comments: Non- GFR Calc CREAT,SERUM 0.81 mg/dL (Normal) Range: 0.70-1.30 Comments: The validity of the calculated GFR AND GFRAA in patients over70 years has not been determined. Clinical correlation isessential. BUN 10 mg/dL (Normal) Range: 7-18 GLU 112 mg/dL (Abnormal) Range: 70-110 Comments: Fasting Glucose result from 110 to <126 mg/dLsuggests IMPAIRED HOMEOSTASIS per A.D.A. criteria. :55 LDH 167 U/L (Normal) Comments: Serial Specimen #1, #2 or #3? [address] [place] [address] [address] AcostaAntonette [place], [place], [address] Range: 87-241 :55 Uric Acid Comments: Serial Specimen #1, #2 or #3? [address] [place] [address] Ob[address]sada7[address] [facility] Hospital[facility]atha[facility] [place], [place], [id number] URIC 3.9 mg/dL (Normal) Range: 3.5-7.2 50-Orw-012336:20 PT (PROTHROMBIN TIME) Comments: PATIENT NOT FASTINGPERFORMED BY: [facility]CoPal[facility] CenterCjvdjl0603 [facility] [id number] Information: [id number] ([id number]) Prothrombin Time 27.9 {sec} (Abnormal) Range: 9.1-12.0 INR 2.7 (Abnormal) Range: 0.8-1.2 Comments: Reference interval is for non-anticoagulated patients. . Suggested INR therapeutic range for Vitamin K anta gonist therapy: Standard Dose (moderate intensity therapeutic range): 2.0 - 3.0 Higher intensity therapeutic range 2.5 - 3.5 66-Ohy-14921:27 Fact V Leiden Mutation Comments: [facility] (refer to report for specific site)refer to report for address and phone number COMMENT Comment Comments: Genetic counselors are available for health care providers to discuss results at [phone]).Methodology:DNA analysis of the Factor V gene was performed by allele-specific PCR followed (Normal) by gel electrophoresis. The diagnosticsensitivity and specificity is >99% for both. Molecular-based testing is highly accurate, but as in any laboratorytest, diagnostic errors may occur. All test re sults must becombined with clinical information for the most accurateinterpretation.References:Mahogany Cordero (1996). Clin Lab Med 16:169-186.Mitesh Andujar, PhDAgnes Ruiz, PhDNadege Finn, PhDBetty Solano, PhDFara Orozco, PhDGuido Fishman, PhD FACTOR V LEIDEN Comment Comments: RESULT:TWO R506Q MUTATIONS IDENTIFIED (HOMOZYGOTE)Factor V Leiden is a specific mutation (R506Q) in thefactor V gene that is associated with an increased risk ofvenous thrombosis. Factor V Leiden (Abnormal) is more resistant toinactivation by activated protein C. As a result, factor Vpersists in the circulation leading to a mildhypercoagulable state. Factor V Leiden has been reportedin patients with deep vein thrombosis, pulmonary embolus,central retinal vein occlusion, cerebral sinus thrombosis,and hepatic vein thrombosis. The risk of thrombosis inhomozygous individuals is 80-100 fold greater than the general population. All offspring of a factor V Leidenhomozygote will inherit at least a single copy of themutation. Genetic counseling is recommended. The risk ofthrombosis increases exponentially in patients with morethan one risk factor, including: age, surgery, oralcontraceptive use, , elevated homocysteine levels,or a Factor II/prothrombin mutation ([id number]). [facility]Kind[facility] for information on how to order theFactor II DNA test. 31-Zzt-75302:27 Factor II, DNA Analysis Comments: [facility] (refer to report for specific site)refer to report for address and phone number COMMENT Comment (Normal) Comments: Genetic Counselors are available for health care providersto discuss results at [phone]).Methodology:DNA analysis of the Factor II gene was performed by PCRamplification followed by restric tion analysis. Thediagnostic sensitivity is >99% for both. All the tests mustbe combined with clinical information for the most accurateinterpretation. Molecular-based testing is highly accurate,but as in any laboratory test, diagnostic errors may occur.Poort SR, et al. Blood. 1996; 88:3422-8974.Mary Ann EA. Circulation. 2004; 110:e15-e18.Tamiko I, et al. Arterioscler Thromb Vasc Biol. 1999;19:700 -703.Mitesh Andujar, PhDAgnes Ruiz, PhDNadege Finn, PhDBetty Solano, PhDFara Orozco, PhDGuido Fishman, PhDPerformed at: [address] [id number] Hang Gliding Instructor: Larry Norman MD, Phone: [phone] at: [facility] NPU[address] [place], [place] [id number] Director: William Bustillo MD, Phone: [phone] FACTOR II,DNA Comment (Normal) Comments: NEGATIVENo mutation identified.Comment:A point mutation ([id number]) in the factor II (prothrombin)gene is the second most common cause of inheritedthrombophilia. The incidence of this mutation in the [place] population is about 2% and in the AfricanAmerican population it is approximately 0.5%. This mutationis rare in the and population. Beingheterozygous for a prothrombin mut ation increases the riskfor developing venous thrombosis about 2 to 3 times abovethe general population risk. Being homozygous for theprothrombin gene mutation increases the relative risk forvenous thro mbosis further, although it is not yet known howmuch further the risk is increased. In women heterozygousfor the prothrombin gene mutation, the use of estrogencontaining oral contraceptives increases th e relative riskof venous thrombosis about 16 times and the risk ofdeveloping cerebral thrombosis is also significantlyincreased. In the prothrombin gene mutationincreases risk for venous throm bosis and may increaserisk for stillbirth, placental abruption, pre-eclampsia andfetal growth restriction. If the patient possesses two ormore congenital or acquired thrombophilic risk factors, therisk for thrombosis may rise to more than the sum of therisk ratios for the individual mutations. This assaydetects only the prothrombin V62862Y mutation and doesnot measure genetic abnormalities elsewhere i n thegenome. Other thrombotic risk factors may be pursuedthrough systematic clinical laboratory analysis. Thesefactors include the R506Q (Leiden) mutation in the Factor Vgene, plasma homocysteine levels , as well as testing fordeficiencies of antithrombin III, protein C and protein S. 74-Kym-24540:27 Protein C Defic. Profile Comments: [facility] (refer to report for specific site)refer to report for address and phone number PROT C,FUNC < 15 % (Abnormal) Range: 74-151 Comments: A deficiency of protein C (PC), either congenital oracquired, increases the risk of thromboembolism. Congenitaldeficiencies of PC are very rare; acquired PC deficiency ismuch more common. PC levels can be transiently diminishedafter an acute thrombotic event. Oral anticoagulant therapywith warfarin will lower PC levels as well as vitamin Kdeficiency. Acquired deficiency can also occur inindividuals wi th disseminated intravascular coagulation(DIC), sepsis, severe liver disease, nephrotic syndrome,and in inflammatory bowel disease. Levels may be spuriouslydecreased in individuals with Factor V Leiden. Drug therapywith L-asparaginse, fluorouracil, methotrexate,cyclophosphamide or tamoxifen can also reduce PC levels.It has been suggested that repeat blood sampling andtesting after ruling out acquired causes of deficiencyshould be performed before the patient is diagnosed withcongenital Protein C deficiency. PROTEIN C 55 % (Abnormal) Range: 70-140 Comments: A deficiency of protein C (PC), either congenital oracquired, increases the risk of thromboembolism. Congenitaldeficiencies of PC are very rare; acquired PC deficiency ismuch more common. PC levels can be transiently diminishedafter an acute thrombotic event. Oral anticoagulant therapywith warfarin will lower PC levels as well as vitamin Kdeficiency. Acquired deficiency can also occur inindividuals wi th disseminated intravascular coagulation(DIC), sepsis, severe liver disease, nephrotic syndrome,and in inflammatory bowel disease. Levels may be spuriouslydecreased in individuals with Factor V Leiden. Drug therapywith L-asparaginse, fluorouracil, methotrexate,cyclophosphamide or tamoxifen can also reduce PC levels.It has been suggested that repeat blood sampling andtesting after ruling out acquired causes of deficiencyshould be performed before the patient is diagnosed withcongenital Protein C deficiency. 52-Psd-54394:27 Protein S Defic. Profile Comments: [facility] (refer to report for specific site)refer to report for address and phone number PROTEIN S, FUNC 19 % (Abnormal) Range: 60-145 Comments: A deficiency of protein S (PS), either congenital oracquired, increases the risk of thromboembolism. Congenitaldeficiencies of PS are very rare; acquired PS deficiency ismuch more common. Acquired defic iency can occur as theresult of decreased PS synthesis or increased consumption.PS synthesis can be diminished in a number of conditionsincluding anti-vitamin K (warfarin) therapy, vitamin Kdeficiency, severe liver disease, and malnutrition. PSlevels decrease with normal . Levels may bespuriously decreased in individuals with Factor V Leiden.Levels may be decreased in nephrotic syndrome, wome n onoral contraceptive/hormone replacement therapy and inpatients receiving chemotherapy or L-asparaginse therapy.PS consumption can occur during disseminated intravascularcoagulation (DIC) and acute th rombosis. It has beensuggested that repeat blood sampling and testing afterruling out acquired causes of deficiency should beperformed before the patient is diagnosed with congenitalProtein S deficiency. PROTEIN S, FREE 34 % (Abnormal) Range: 56-124 Comments: A deficiency of protein S (PS), either congenital oracquired, increases the risk of thromboembolism. Congenitaldeficiencies of PS are very rare; acquired PS deficiency ismuch more common. Acquired defic iency can occur as theresult of decreased PS synthesis or increased consumption.PS synthesis can be diminished in a number of conditionsincluding anti-vitamin K (warfarin) therapy, vitamin Kdeficiency, severe liver disease, and malnutrition. PSlevels decrease with normal . Levels may bespuriously decreased in individuals with Factor V Leiden.Levels may be decreased in nephrotic syndrome, wome n onoral contraceptive/hormone replacement therapy and inpatients receiving chemotherapy or L-asparaginse therapy.PS consumption can occur during disseminated intravascularcoagulation (DIC) and acute th rombosis. It has beensuggested that repeat blood sampling and testing afterruling out acquired causes of deficiency should beperformed before the patient is diagnosed with congenitalProtein S deficiency. PROTEIN S,TOTAL 62 % (Normal) Range: 58-150 53-Lia-66050:38 CBC W/Diff, Auto - EPLAB Comments: At [facility] Outpatient [facility] Medical Oncologypatients receive CBC w/auto Differential ONLY. Physicianwill place an order for a manual differential or Pathologistreview at his discretion. [facility]. [address] [place] [address] [address] SENIOR STORAGE ADMINISTRATOR: ELISEO VICENTE DO PH:[phone] Hospital [address] [place], [address] Absolute Lymph 0.69 {X10_3/uL} (Abnormal) Range: 0.83-4.51 Absolute Neut 3.0 {X10_3/uL} (Normal) Range: 2.0-7.7 BASO% 1.4 % (Abnormal) Range: 0-1 EO% 1.0 % (Normal) Range: 0-5 MONO% 9.5 % (Normal) Range: 0-10 LY% 16.6 % (Abnormal) Range: 19-41 NEUT% 71.4 % (Abnormal) Range: 47-70 MPV 7.3 fL (Normal) Range: 6.2-12.0 PLT 210 K/mm3 (Normal) Range: 150-450 RDW 11.4 % (Abnormal) Range: 11.6-14.6 MCHC 33.9 g/dL (Normal) Range: 32-36 MCH 31.2 pg (Normal) Range: 27.0-32.0 MCV 92.2 fL (Normal) Range: 80-94 HCT 44.5 % (Normal) Range: 40-54 HGB 15.1 g/dL (Normal) Range: 13.0-16.5 RBC 4.83 {M/mm3} (Normal) Range: 4.6-6.2 WBC 4.2 K/mm3 (Abnormal) Range: 4.4-11.0 :38 Comprehensive Metabolic Profil Comments: Serial Specimen #1, #2 or #3? [address] [place] [address] [address] [place], [place], [id number] GAP 6 (Normal) Range: 5-15 CO2 29.0 mmol/L (Normal) Range: 21.0-32.0 CL 104 mmol/L (Normal) Range: 98-107 K 4.2 mmol/L (Normal) Range: 3.5-5.1 NA 139 mmol/L (Normal) Range: 136-145 T BILI 0.60 mg/dL (Normal) Range: 0.20-1.00 ALT 27 U/L (Normal) Range: 12-78 ALK P 52 U/L (Normal) Range: 50-136 AST 17 U/L (Normal) Range: 15-37 CA 9.0 mg/dL (Normal) Range: 8.5-10.1 A/G 1.4 {RATIO} (Normal) Range: 0.9-2.4 GLOB 2.9 g/dL (Normal) Range: 2.3-3.5 ALB 4.0 g/dL (Normal) Range: 3.4-5.0 T PROT 6.9 g/dL (Normal) Range: 6.4-8.2 BUN/CRE 14.8 {RATIO} (Normal) Range: 10-20 EST GFR - AA 125 mL/min (Normal) EST GFR 103 mL/min (Normal) CREAT,SERUM 0.81 mg/dL (Normal) Range: 0.70-1.30 Comments: The validity of the calculated GFR AND GFRAA in patients over70 years has not been determined. Clinical correlation isessential. BUN 12 mg/dL (Normal) Range: 7-18 GLU 84 mg/dL (Normal) Range: 70-110 :38 LDH 181 U/L (Normal) Comments: Serial Specimen #1, #2 or #3? [address] [place] [address] [address] [place], [id number] Range: 87-241 :38 Uric Acid Comments: Serial Specimen #1, #2 or #3? [facility] [address]bv[address] [place], [address] URIC 4.7 mg/dL (Normal) Range: 3.5-7.2 76-Ttq-210731:31 PT (PROTHROMBIN TIME) ([id number]) Comments: PATIENT NOT FASTINGPERFORMED BY: [place] 1196870 [facility] [id number] Prothrombin Time 21.0 {sec} (Abnormal) Range: 9.1-12.0 INR 2.1 (Abnormal) Range: 0.8-1.2 Comments: Reference interval is for non-anticoagulated patients. . Suggested INR therapeutic range for Vitamin K anta gonist therapy: Standard Dose (moderate intensity therapeutic range): 2.0 - 3.0 Higher intensity therapeutic range 2.5 - 3.5 :20 PT (PROTHROMBIN TIME) Comments: PATIENT NOT FASTINGPERFORMED BY: [place] 1196870 [facility] [id number] Information: [id number] ([id number]) Prothrombin Time 34.6 {sec} (Abnormal) Range: 9.1-12.0 INR 3.3 (Abnormal) Range: 0.8-1.2 Comments: Reference interval is for non-anticoagulated patients. . Suggested INR therapeutic range for Vitamin K anta gonist therapy: Standard Dose (moderate intensity therapeutic range): 2.0 - 3.0 Higher intensity therapeutic range 2.5 - 3.5 :54 PT (PROTHROMBIN TIME) Comments: PATIENT NOT FASTINGPERFORMED BY: [facility]6370 [facility] [id number] Information: [id number] ([id number]) Prothrombin Time 39.8 {sec} (Abnormal) Range: 9.1-12.0 INR 3.8 (Abnormal) Range: 0.8-1.2 Comments: Client Requested Flag Reference interval is for non- anticoagulated patients. . Suggested INR therapeutic ra nge for Vitamin K antagonist therapy: Standard Dose (moderate intensity therapeutic range): 2.0 - 3.0 Higher intensity therapeutic range 2.5 - 3.5 :56 Prothrombin Time (PT) Comments: PATIENT NOT FASTINGPERFORMED BY: [place] 1196870 [facility] [id number] Information: [id number] Prothrombin Time 20.1 {sec} (Abnormal) Range: 9.1-12.0 INR 1.9 (Abnormal) Range: 0.8-1.2 Comments: Reference interval is for non-anticoagulated patients. . Suggested INR therapeutic range for Vitamin K anta gonist therapy: Standard Dose (moderate intensity therapeutic range): 2.0 - 3.0 Higher intensity therapeutic range 2.5 - 3.5 :31 PT (PROTHROMBIN TIME) Comments: PATIENT NOT FASTINGPERFORMED BY: [place] 1196870 [facility] [id number] Information: [id number] ([id number]) Prothrombin Time 26.6 {sec} (Abnormal) Range: 9.1-12.0 INR 2.6 (Abnormal) Range: 0.8-1.2 Comments: Reference interval is for non-anticoagulated patients. . Suggested INR therapeutic range for Vitamin K anta gonist therapy: Standard Dose (moderate intensity therapeutic range): 2.0 - 3.0 Higher intensity therapeutic range 2.5 - 3.5 :10 Prothrombin Time (PT) Comments: PATIENT NOT FASTINGPERFORMED BY: [place] 1196870 [facility] [id number] Information: [id number] Prothrombin Time 32.6 {sec} (Abnormal) Range: 9.1-12.0 INR 3.0 (Abnormal) Range: 0.8-1.2 Comments: Reference interval is for non-anticoagulated patients. . Suggested INR therapeutic range for Vitamin K anta gonist therapy: Standard Dose (moderate intensity therapeutic range): 2.0 - 3.0 Higher intensity therapeutic range 2.5 - 3.5 :35 PT (PROTHROMBIN TIME) Comments: PATIENT NOT FASTINGPERFORMED BY: [facility]6370 [facility] [id number] Information: [id number] ([id number]) Prothrombin Time 31.7 {sec} (Abnormal) Range: 9.1-12.0 INR 3.1 (Abnormal) Range: 0.8-1.2 Comments: Reference interval is for non-anticoagulated patients. . Suggested INR therapeutic range for Vitamin K anta gonist therapy: Standard Dose (moderate intensity therapeutic range): 2.0 - 3.0 Higher intensity therapeutic range 2.5 - 3.5 62-Vdt-867050:16 Prothrombin Time (PT) Comments: PATIENT NOT FASTINGPERFORMED BY: [facility]6370 [facility] [id number] Information: [id number] Prothrombin Time 25.6 {sec} (Abnormal) Range: 9.1-12.0 INR 2.4 (Abnormal) Range: 0.8-1.2 Comments: Reference interval is for non-anticoagulated patients. . Suggested INR therapeutic range for Vitamin K anta gonist therapy: Standard Dose (moderate intensity therapeutic range): 2.0 - 3.0 Higher intensity therapeutic range 2.5 - 3.5 08-Iau-63754:21 CBC W/Diff, Auto - EPLAB Only Comments: At [facility] Outpatient [facility], [facility] Care patientsreceive CBC w/auto Differential ONLY. Physician will placean order for a manual differential or Pathologist review athis discretion. [facility]. [address] [place] [address] [address] SENIOR STORAGE ADMINISTRATOR: ELISEO VICENTE DO PH:[phone] performed at:[facility] [address] [place] [address] Absolute Neut 3.1 {X10_3/uL} (Normal) Range: 2.0-7.7 BASO% 1.4 % (Abnormal) Range: 0-1 EO% 2.0 % (Normal) Range: 0-5 MONO% 10.7 % (Abnormal) Range: 0-10 LY% 13.2 % (Abnormal) Range: 19-41 NEUT% 72.8 % (Abnormal) Range: 47-70 MPV 7.0 fL (Normal) Range: 6.2-12.0 PLT 164 K/mm3 (Normal) Range: 150-450 RDW 11.2 % (Abnormal) Range: 11.6-14.6 MCHC 35.5 g/dL (Normal) Range: 32-36 MCH 32.1 pg (Abnormal) Range: 27.0-32.0 MCV 90.4 fL (Normal) Range: 80-94 HCT 42.3 % (Normal) Range: 40-54 HGB 15.0 g/dL (Normal) Range: 13.0-16.5 RBC 4.68 {M/mm3} (Normal) Range: 4.6-6.2 WBC 4.3 K/mm3 (Abnormal) Range: 4.4-11.0 72-Beb-60212:21 Comprehensive Metabolic Profil Comments: Test performed at:[facility] Fznvytycbk[address] [place] [place] [address] GAP 6 (Normal) Range: 5-15 CO2 29.0 mmol/L (Normal) Range: 21.0-32.0 CL 105 mmol/L (Normal) Range: 98-107 K 3.8 mmol/L (Normal) Range: 3.5-5.1 NA 140 mmol/L (Normal) Range: 136-145 T BILI 0.60 mg/dL (Normal) Range: 0.00-4.00 ALT 23 U/L (Normal) Range: 12-78 ALK P 61 U/L (Normal) Range: 50-136 AST 17 U/L (Normal) Range: 15-37 CA 8.7 mg/dL (Normal) Range: 8.5-10.1 A/G 1.2 {RATIO} (Normal) Range: 0.9-2.4 GLOB 3.0 g/dL (Normal) Range: 2.7-4.2 ALB 3.7 g/dL (Normal) Range: 3.4-5.0 T PROT 6.7 g/dL (Normal) Range: 6.4-8.2 BUN/CRE 12.2 {RATIO} (Normal) Range: 10-20 EST GFR - AA 110 mL/min (Normal) EST GFR 91 mL/min (Normal) CREAT,SERUM 0.9 mg/dL (Normal) Range: 0.8-1.3 BUN 11 mg/dL (Normal) Range: 7-18 GLU 77 mg/dL (Normal) Range: 70-110 :21 LDH 171 U/L (Normal) Comments: Test performed at:[facility] [address] [place] [address] Range: 84-246 :21 Uric Acid Comments: Test performed at:[facility] [address] [place] [address] URIC 4.2 mg/dL (Normal) Range: 3.5-7.2 :19 PT (Prothrobim Time) Comments: PATIENT NOT FASTINGPERFORMED BY: [address] [id number] Information: [id number] ([id number]) Prothrombin Time 29.7 {sec} (Abnormal) Range: 9.1-12.0 INR 2.7 (Abnormal) Range: 0.8-1.2 Comments: Reference interval is for non-anticoagulated patients. . Suggested INR therapeutic range for Vitamin K anta gonist therapy: Standard Dose (moderate intensity therapeutic range): 2.0 - 3.0 Higher intensity therapeutic range 2.5 - 3.5 :44 PT (PROTHROMBIN TIME) ([id number]) Comments: PERFORMED BY: [facility] [facility] [id number] Prothrombin Time 25.5 {sec} (Abnormal) Range: 9.1-12.0 INR 2.3 (Abnormal) Range: 0.8-1.2 Comments: Reference interval is for non-anticoagulated patients. . Suggested INR therapeutic range for Vitamin K anta gonist therapy: Standard Dose (moderate intensity therapeutic range): 2.0 - 3.0 Higher intensity therapeutic range 2.5 - 3.5 :28 PT (PROTHROMBIN TIME) Comments: PATIENT NOT FASTINGPERFORMED BY: [facility] [id number] Information: [id number] ([id number]) Prothrombin Time 34.8 {sec} (Abnormal) Range: 9.1-12.0 INR 3.2 (Abnormal) Range: 0.8-1.2 Comments: Reference interval is for non-anticoagulated patients. . Suggested INR therapeutic range for Vitamin K anta gonist therapy: Standard Dose (moderate intensity therapeutic range): 2.0 - 3.0 Higher intensity therapeutic range 2.5 - 3.5 :02 PT (PROTHROMBIN TIME) Comments: PATIENT NOT FASTINGPERFORMED BY: [place] [address] [facility] [id number] Information: [id number] ([id number]) Prothrombin Time 30.2 {sec} (Abnormal) Range: 9.1-12.0 INR 2.8 (Abnormal) Range: 0.8-1.2 Comments: Reference interval is for non-anticoagulated patients. . Suggested INR therapeutic range for Vitamin K anta gonist therapy: Standard Dose (moderate intensity therapeutic range): 2.0 - 3.0 Higher intensity therapeutic range 2.5 - 3.5 :58 PT (PROTHROMBIN TIME) Comments: PATIENT NOT FASTINGPERFORMED BY: [place] [address]6870 [facility] [id number] Information: [id number] ([id number]) Prothrombin Time 16.3 {sec} (Abnormal) Range: 9.1-12.0 INR 1.5 (Abnormal) Range: 0.8-1.2 Comments: Reference interval is for non-anticoagulated patients. . Suggested INR therapeutic range for Vitamin K anta gonist therapy: Standard Dose (moderate intensity therapeutic range): 2.0 - 3.0 Higher intensity therapeutic range 2.5 - 3.5 [id number]:38 PT (PROTHROMBIN TIME) Comments: PATIENT NOT FASTINGPERFORMED BY: [place] [address]6870 [facility] [id number] Information: [id number] ([id number]) Prothrombin Time 24.1 {sec} (Abnormal) Range: 9.1-12.0 INR 2.2 (Abnormal) Range: 0.8-1.2 Comments: Reference interval is for non-anticoagulated patients. . Suggested INR therapeutic range for Vitamin K anta gonist therapy: Standard Dose (moderate intensity therapeutic range): 2.0 - 3.0 Higher intensity therapeutic range 2.5 - 3.5 17-Zeo-48891:48 Pathology Report Comments: PERFORMED BY: KWCYT [facility] [place] Cyto Bbsgn44158 [facility] [id number] BY: [facility] Dermatopathology Mddwmch234 [address] [id number] Information: [id number] See MATER Comments: Material submitted: .RIGHT DELTOID SHAVE BIOPSYClinician provided ICD-9:238.2 ; Neoplasm of uncertain behavior of skinClinical history: Note (Normal) .FOR MARGINSETIOLOGY UNKNOWNATYPICAL NEVI?KERATOSISDiagnosis:BASAL CELL CARCINOMA WITH SQUAMOUS METAPLASIA..COMMENT:BA JJ CELL CARCINOMA EXTENDS TO THE TRANSECTED TISSUE EDGE.02/18/2014Diagnosis provided by: Matt Garg MD, DermatopathologistElectronically signed: .Marilee Garg MD, DermatopathologistGross description: .RECEIVED IN FORMALIN LABELED PATRIZIA CUBA WITH NO DESIGNATIONON THE CONTAINER DESIGNATED RIGHT DELTOID ON THE REQUISITION IS ATAN/YELLOW FRAGMENT OF SKIN MEASURING 1.0 X 0.7 X 0.1 CM. THEMARGIN IS MA RKED WITH GREEN INK. IT IS TRISECTED AND SUBMITTEDENTIRELY IN A SINGLE CASSETTE.LMS/CRYPathologist provided ICD-9:173.61CPT .[id number]:16 PT (Prothrobim Time) Comments: PATIENT NOT FASTINGPERFORMED BY: [facility]6[address] [facility] [id number] Information: [id number] ([id number]) Prothrombin Time 30.4 {sec} (Abnormal) Range: 9.1-12.0 INR 2.8 (Abnormal) Range: 0.8-1.2 Comments: Reference interval is for non-anticoagulated patients. . Suggested INR therapeutic range for Vitamin K anta gonist therapy: Standard Dose (moderate intensity therapeutic range): 2.0 - 3.0 Higher intensity therapeutic range 2.5 - 3.5 :36 PT (PROTHROMBIN TIME) Comments: PATIENT NOT FASTINGPERFORMED BY: [place] 1196870 [facility] [id number] Information: [id number] ([id number]) Prothrombin Time 35.6 {sec} (Abnormal) Range: 9.1-12.0 INR 3.3 (Abnormal) Range: 0.8-1.2 Comments: Reference interval is for non-anticoagulated patients. . Suggested INR therapeutic range for Vitamin K anta gonist therapy: Standard Dose (moderate intensity therapeutic range): 2.0 - 3.0 Higher intensity therapeutic range 2.5 - 3.5 :40 PT (PROTHROMBIN TIME) Comments: PATIENT NOT FASTINGPERFORMED BY: [facility]6[address] [facility] [id number] Information: [id number] ([id number]) Prothrombin Time 44.9 {sec} (Abnormal) Range: 9.1-12.0 INR 4.1 (Abnormal) Range: 0.8-1.2 Comments: Client Requested Flag Reference interval is for non- anticoagulated patients. . Suggested INR therapeutic ra nge for Vitamin K antagonist therapy: Standard Dose (moderate intensity therapeutic range): 2.0 - 3.0 Higher intensity therapeutic range 2.5 - 3.5 :34 CBCD ALC 0.62 {X10_3/ul} (Abnormal) Range: 0.83-4.51 ANC 4.8 {X10_3/uL} (Normal) Range: 2.0-7.7 B% 0.5 % (Normal) Range: 0-1 IG% 0.000 % (Normal) Range: 0.0-0.9 Comments: IG% - Immature Granulocytes (promyelocytes, myelocytes andmetamyelocytes) > 1% indicates that a LEFT SHIFT is Present. E% 1.2 % (Normal) Range: 0-5 M% 8.8 % (Normal) Range: 0-10 L% 10.3 % (Abnormal) Range: 19-41 N% 79.2 % (Abnormal) Range: 47-70 MPV 10.2 fL (Normal) Range: 6.2-12.0 PLT 214 K/mm3 (Normal) Range: 150-450 RDWSD 40.9 fL (Normal) Range: 35.1-43.9 RDWCV 12.4 % (Normal) Range: 11.6-14.6 MCHC 32.8 {g/gl} (Normal) Range: 32-36 MCH 30.4 pg (Normal) Range: 27.0-32.0 MCV 92.7 fL (Normal) Range: 80-94 HCT 40.5 % (Normal) Range: 40-54 HGB 13.3 g/dL (Normal) Range: 13.0-16.5 RBC 4.37 {M/mm3} (Abnormal) Range: 4.6-6.2 WBC 6.0 K/mm3 (Normal) Range: 4.4-11.0 :34 CMP Comments: Serial Specimen #1, #2 or #3? 1 GAP 6 (Normal) Range: 5-15 CO2 30.0 mmol/L (Normal) Range: 21.0-32.0 CL 102 mmol/L (Normal) Range: 98-107 K 4.1 mmol/L (Normal) Range: 3.5-5.1 BIT 0.30 mg/dL (Normal) Range: 0.00-1.00 NA 138 mmol/L (Normal) Range: 136-145 ALT 21 U/L (Normal) Range: 12-78 ALK 68 U/L (Normal) Range: 45-117 AST 15 U/L (Normal) Range: 15-37 CA 8.9 mg/dL (Normal) Range: 8.5-10.1 AG 1.0 {RATIO} (Normal) Range: 0.9-2.4 GLOB 3.3 g/dL (Normal) Range: 2.7-4.2 ALB 3.3 g/dL (Abnormal) Range: 3.4-5.0 TPROT 6.6 g/dL (Normal) Range: 6.4-8.2 BC 15.7 {RATIO} (Normal) Range: 10-20 GFRAA 148 mL/min (Normal) GFR 122 mL/min (Normal) CREAT 0.7 mg/dL (Abnormal) Range: 0.8-1.3 BUN 11 mg/dL (Normal) Range: 7-18 GLU 80 mg/dL (Normal) Range: 70-110 :34 LDH 157 U/L (Normal) Comments: Serial Specimen #1, #2 or #3? 1 Range: 84-246 :34 URIC 3.5 mg/dL (Normal) Comments: Serial Specimen #1, #2 or #3? 1 Range: 3.5-7.2 :52 CRE GFR 104 mL/min (Normal) GFRAA 126 mL/min (Normal) CREAT 0.8 mg/dL (Normal) Range: 0.8-1.3 :51 PT (PROTHROMBIN TIME) Comments: PATIENT NOT FASTINGPERFORMED BY: Potentia SemiconductorPalisades Medical CenterYffono4204 [facility] [id number] Information: [id number] ([id number]) Prothrombin Time 22.0 {sec} (Abnormal) Range: 9.1-12.0 INR 2.0 (Abnormal) Range: 0.8-1.2 Comments: Reference interval is for non-anticoagulated patients. . Suggested INR therapeutic range for Vitamin K anta gonist therapy: Standard Dose (moderate intensity therapeutic range): 2.0 - 3.0 Higher intensity therapeutic range 2.5 - 3.5 :48 PT (PROTHROMBIN TIME) Comments: PATIENT NOT FASTINGPERFORMED BY: [facility]6[address] [facility] [id number] Information: [id number] ([id number]) Prothrombin Time 16.2 {sec} (Abnormal) Range: 9.1-12.0 INR 1.6 (Abnormal) Range: 0.8-1.2 Comments: Reference interval is for non-anticoagulated patients. . Suggested INR therapeutic range for Vitamin K anta gonist therapy: Standard Dose (moderate intensity therapeutic range): 2.0 - 3.0 Higher intensity therapeutic range 2.5 - 3.5 14-Pmu-[id number]:19 PT (Prothrobim Time) Comments: PATIENT NOT FASTINGPERFORMED BY: [facility]6[address] [facility] [id number] Information: [id number] ([id number]) Prothrombin Time 31.0 {sec} (Abnormal) Range: 9.1-12.0 INR 2.8 (Abnormal) Range: 0.8-1.2 Comments: Reference interval is for non-anticoagulated patients. . Suggested INR therapeutic range for Vitamin K anta gonist therapy: Standard Dose (moderate intensity therapeutic range): 2.0 - 3.0 Higher intensity therapeutic range 2.5 - 3.5 :16 Metabolic Panel, Comprehensive Comments: PATIENT WAS FASTINGPERFORMED BY: Potentia SemiconductorPalisades Medical CenterRnqsjp8861 [facility] [id number] ([id number]) ALT (SGPT) 17 [iU]/L (Normal) Range: 0-44 Alkaline Phosphatase, S 48 [iU]/L (Normal) Range: 39-117 AST (SGOT) 18 [iU]/L (Normal) Range: 0-40 Bilirubin, Total 0.5 mg/dL (Normal) Range: 0.0-1.2 A/G Ratio 2.0 (Normal) Range: 1.1-2.5 Globulin, Total 2.0 g/dL (Normal) Range: 1.5-4.5 Albumin, Serum 4.0 g/dL (Normal) Range: 3.6-4.8 Protein, Total, Serum 6.0 g/dL (Normal) Range: 6.0-8.5 Calcium, Serum 9.1 mg/dL (Normal) Range: 8.6-10.2 Carbon Dioxide, Total 24 mmol/L (Normal) Range: 18-29 Comments: Please note reference interval change Chloride, Serum 105 mmol/L (Normal) Range: 97-108 Potassium, Serum 4.2 mmol/L (Normal) Range: 3.5-5.2 Sodium, Serum 141 mmol/L (Normal) Range: 134-144 BUN/Creatinine Ratio 16 (Normal) Range: 10-22 eGFR If Africn Am 118 mL/min/1.73 (Normal) Creatinine, Serum 0.69 mg/dL (Abnormal) Range: 0.76-1.27 eGFR If NonAfricn Am 102 mL/min/1.73 (Normal) BUN 11 mg/dL (Normal) Range: 8-27 Glucose, Serum 86 mg/dL (Normal) Range: 65-99 :16 Lipid Panel ([id number]) Comments: PATIENT WAS FASTINGPERFORMED BY: QoostarPalisades Medical CenterOvwyjg3615 [facility] [id number] LDL/HDL Ratio 3.0 {ratio_units} (Normal) Range: 0.0-3.6 HDL Cholesterol 47 mg/dL (Normal) Comments: According to ATP-III Guidelines, HDL-C >59 mg/dL is considered anegative risk factor for CHD. LDL Cholesterol Calc 143 mg/dL (Abnormal) Range: 0-99 VLDL Cholesterol [place] 18 mg/dL (Normal) Range: 5-40 Cholesterol, Total 208 mg/dL (Abnormal) Range: 100-199 Triglycerides 92 mg/dL (Normal) Range: 0-149 :16 CBC, Platelets & Auto Diff Comments: PATIENT WAS FASTINGPERFORMED BY: QoostarPalisades Medical CenterFyyqtm1174 [facility] [id number] Information: [id number] ([id number]) Immature Grans (Abs) 0.0 {x10E3/uL} (Normal) Range: 0.0-0.1 Immature Granulocytes 0 % (Normal) Range: 0-2 Baso (Absolute) 0.0 {x10E3/uL} (Normal) Range: 0.0-0.2 Eos (Absolute) 0.1 {x10E3/uL} (Normal) Range: 0.0-0.4 Monocytes(Absolute) 0.3 {x10E3/uL} (Normal) Range: 0.1-0.9 Lymphs (Absolute) 0.5 {x10E3/uL} (Abnormal) Range: 0.7-3.1 Neutrophils (Absolute) 2.3 {x10E3/uL} (Normal) Range: 1.4-7.0 Basos 1 % (Normal) Range: 0-3 Eos 2 % (Normal) Range: 0-5 Monocytes 10 % (Normal) Range: 4-12 Lymphs 16 % (Normal) Range: 14-46 Neutrophils 71 % (Normal) Range: 40-74 Platelets 170 {x10E3/uL} (Normal) Range: 150-379 Comments: Please note reference interval change RDW 13.5 % (Normal) Range: 12.3-15.4 MCHC 34.6 g/dL (Normal) Range: 31.5-35.7 MCH 31.2 pg (Normal) Range: 26.6-33.0 MCV 90 fL (Normal) Range: 79-97 Hematocrit 39.9 % (Normal) Range: 37.5-51.0 Hemoglobin 13.8 g/dL (Normal) Range: 12.6-17.7 RBC 4.42 {x10E6/uL} (Normal) Range: 4.14-5.80 WBC 3.2 {x10E3/uL} (Abnormal) Range: 3.4-10.8 :16 PSA (PROSTATE SPECIFIC Comments: PATIENT WAS FASTINGPERFORMED BY: [place] [id number] ANTIGEN) (V76.44) Prostate Specific Ag, 0.5 ng/mL (Normal) Range: 0.0-4.0 Serum Comments: [employer] ECLIA methodology. .According to the [place] [employer], Serum PSA shoulddecrease and remain at undetectable levels after radicalprostatectomy. The AUA defines biochemical recurrence as an initialPSA value 0.2 ng/mL or greater followed by a subsequent confirmatoryPSA value 0.2 ng/mL or greater.Values obtained with d ifferent assay methods or kits cannot be usedinterchangeably. Results cannot be interpreted as absolute evidenceof the presence or absence of malignant disease. :54 PT (PROTHROMBIN TIME) Comments: PATIENT NOT FASTINGPERFORMED BY: [place]6[address] [facility]ClipUNC [facility] [id number] Information: [id number] ([id number]) Prothrombin Time 25.3 {sec} (Abnormal) Range: 9.1-12.0 INR 2.4 (Abnormal) Range: 0.8-1.2 Comments: Reference interval is for non-anticoagulated patients. . Suggested INR therapeutic range for Vitamin K anta gonist therapy: Standard Dose (moderate intensity therapeutic range): 2.0 - 3.0 Higher intensity therapeutic range 2.5 - 3.5 :47 PT (Prothrobim Time) Comments: PATIENT NOT FASTINGPERFORMED BY: [place] 1196870 [facility] [id number] Information: [id number] ([id number]) Prothrombin Time 30.5 {sec} (Abnormal) Range: 9.1-12.0 INR 2.9 (Abnormal) Range: 0.8-1.2 Comments: Reference interval is for non-anticoagulated patients. . Suggested INR therapeutic range for Vitamin K anta gonist therapy: Standard Dose (moderate intensity therapeutic range): 2.0 - 3.0 Higher intensity therapeutic range 2.5 - 3.5 [id number]-Var-[id number]:27 PT (Prothrobim Time) Comments: PATIENT NOT FASTINGPERFORMED BY: [facility]6[address] [facility] [id number] Information: [id number] ([id number]) Prothrombin Time 25.4 {sec} (Abnormal) Range: 9.1-12.0 INR 2.4 (Abnormal) Range: 0.8-1.2 Comments: Reference interval is for non-anticoagulated patients. . Suggested INR therapeutic range for Vitamin K anta gonist therapy: Standard Dose (moderate intensity therapeutic range): 2.0 - 3.0 Higher intensity therapeutic range 2.5 - 3.5 :27 PTT (Activated Partial Comments: PATIENT NOT FASTINGPERFORMED BY: [facility]6[address] [facility] [id number] Thromboplastin Time) ([id number]) aPTT 37 {sec} (Abnormal) Range: 24-33 Comments: This test has not been validated for monitoring unfractionated heparintherapy. aPTT-based therapeutic ranges for unfractionated heparintherapy have not been established. For general guidelines onHeparin monitoring, refer to the [facility] Directory of Services. Plan of Care Name Dates Details Instructions SCREENING FOR HYPERLIPIDEMIA (Renamed from Encounter for screening for lipoid disorders) : Follow up in 6 months Indication: SCREENING FOR HYPERLIPIDEMIA (Renamed from Encounter for screening for lipoid disorders) Current use of longwall headgate operator anticoagulation : Eprescribed prescriptions (G8553) Indication: Current use of prison anticoagulation Cough : Follow up if no improvement or if symptoms worsen Indication: Cough Cough : Follow up in 1 week Indication: Cough Neoplasm of uncertain behavior of skin : Anesthesia - Lido with Epi Indication: Neoplasm of uncertain behavior of skin Neoplasm of uncertain behavior of skin : Shave Biopsy with Epi Indication: Neoplasm of uncertain behavior of skin History of skin cancer : Follow up in 3 months Indication: History of skin cancer SCREENING FOR DIABETES MELLITUS (Renamed from Diabetes mellitus screening) : Follow up in 6 months Indication: SCREENING FOR DIABETES MELLITUS (Renamed from Diabetes mellitus screening) Screening for prostate cancer : *Colon Cancer Screening Indication: Screening for prostate cancer Reflux : Follow up in 1 month Indication: Reflux Planned Observations PT (PROTHROMBIN TIME) ([id number])Indication: Current use of longwall headgate operator anticoagulation On: :00 Request PT (PROTHROMBIN TIME) ([id number])Indication: Current use of prison anticoagulation On: :00 Request PT (PROTHROMBIN TIME) ([id number])Indication: Current use of longwall headgate operator anticoagulation On: :00 Request PT (PROTHROMBIN TIME) ([id number])Indication: Current use of prison anticoagulation On: :00 Request PT (PROTHROMBIN TIME) ([id number])Indication: Current use of longwall headgate operator anticoagulation On: 14-Jun-2021 Request PT (PROTHROMBIN TIME) ([id number])Indication: Current use of longwall headgate operator anticoagulation On: 15-May-2021 Request PT (PROTHROMBIN TIME) ([id number])Indication: Current use of longwall headgate operator anticoagulation On: 15-Apr-2021 Request PT (PROTHROMBIN TIME) ([id number])Indication: Current use of prison anticoagulation On: 16-Mar-2021 Request PT (PROTHROMBIN TIME) ([id number])Indication: Current use of longwall headgate operator anticoagulation On: :00 Request PT (PROTHROMBIN TIME) ([id number])Indication: Current use of longwall headgate operator anticoagulation On: :00 Request PT (PROTHROMBIN TIME) ([id number])Indication: Current use of prison anticoagulation On: :00 Request PT (PROTHROMBIN TIME) ([id number])Indication: Current use of longwall headgate operator anticoagulation On: : Request PT (PROTHROMBIN TIME) ([id number])Indication: Current use of prison anticoagulation On: : Request PT (PROTHROMBIN TIME) ([id number])Indication: Current use of longwall headgate operator anticoagulation On: : Request PT (PROTHROMBIN TIME) ([id number])Indication: Current use of longwall headgate operator anticoagulation On: : Request PT (PROTHROMBIN TIME) ([id number])Indication: Current use of prison anticoagulation On: : Request PT (PROTHROMBIN TIME) ([id number])Indication: Current use of longwall headgate operator anticoagulation On: 19-Jun-2020 Request PT (PROTHROMBIN TIME) ([id number])Indication: Current use of prison anticoagulation On: 20-May-2020 Request PT (PROTHROMBIN TIME) ([id number])Indication: Current use of prison anticoagulation On: 20-Apr-2020 Request PT (PROTHROMBIN TIME) ([id number])Indication: Current use of longwall headgate operator anticoagulation On: 21-Mar-2020 Request PT (PROTHROMBIN TIME) ([id number])Indication: Current use of longwall headgate operator anticoagulation On: 20-Feb-2020 Request PT (PROTHROMBIN TIME) ([id number])Indication: Current use of prison anticoagulation On: 21-Jan-2020 Request PT (PROTHROMBIN TIME) ([id number])Indication: Current use of prison anticoagulation On: 22-Dec-2019 Request PT (PROTHROMBIN TIME) ([id number])Indication: Current use of longwall headgate operator anticoagulation On: 22-Nov-2019 Request PT (PROTHROMBIN TIME) ([id number])Indication: Current use of prison anticoagulation On: 23-Oct-2019 Request PT (PROTHROMBIN TIME) ([id number])Indication: Current use of longwall headgate operator anticoagulation On: 24-Aug-2019 Request PT (PROTHROMBIN TIME) ([id number])Indication: Current use of longwall headgate operator anticoagulation On: 25-Jul-2019 Request PT (PROTHROMBIN TIME) ([id number])Indication: Current use of longwall headgate operator anticoagulation On: 25-Jun-2019 Request PT (PROTHROMBIN TIME) ([id number])Indication: Current use of longwall headgate operator anticoagulation On: 26-May-2019 Request PT (PROTHROMBIN TIME) ([id number])Indication: Current use of prison anticoagulation On: 26-Apr-2019 Request PT (PROTHROMBIN TIME) ([id number])Indication: Current use of prison anticoagulation On: 27-Mar-2019 Request PT (PROTHROMBIN TIME) ([id number])Indication: Current use of prison anticoagulation On: 25-Feb-2019 Request PT (PROTHROMBIN TIME) ([id number])Indication: Current use of prison anticoagulation On: 26-Jan-2019 Request PT (PROTHROMBIN TIME) ([id number])Indication: Acute venous embolism and thrombosis of deep vessels of distal lower extremity, right On: 04-Jan-2019 Request Comments: STANDING ORDER PT (PROTHROMBIN TIME) ([id number])Indication: Current use of prison anticoagulation On: 27-Dec-2018 Request PT (PROTHROMBIN TIME) ([id number])Indication: Acute venous embolism and thrombosis of deep vessels of distal lower extremity, right On: 05-Dec-2018 Request Comments: STANDING ORDER PT (PROTHROMBIN TIME) ([id number])Indication: Current use of longwall headgate operator anticoagulation On: 27-Nov-2018 Request PT (PROTHROMBIN TIME) ([id number])Indication: Acute venous embolism and thrombosis of deep vessels of distal lower extremity, right On: 05-Nov-2018 Request Comments: STANDING ORDER PT (PROTHROMBIN TIME) ([id number])Indication: Current use of prison anticoagulation On: 28-Oct-2018 Request PT (PROTHROMBIN TIME) ([id number])Indication: Acute venous embolism and thrombosis of deep vessels of distal lower extremity, right On: 06-Oct-2018 Request Comments: STANDING ORDER PT (PROTHROMBIN TIME) ([id number])Indication: Current use of longwall headgate operator anticoagulation On: 28-Sep-2018 Request PT (PROTHROMBIN TIME) ([id number])Indication: Acute venous embolism and thrombosis of deep vessels of distal lower extremity, right On: 06-Sep-2018 Request Comments: STANDING ORDER PT (PROTHROMBIN TIME) ([id number])Indication: Current use of longwall headgate operator anticoagulation On: 29-Aug-2018 Request PT (PROTHROMBIN TIME) ([id number])Indication: Acute venous embolism and thrombosis of deep vessels of distal lower extremity, right On: 07-Aug-2018 Request Comments: STANDING ORDER PT (PROTHROMBIN TIME) ([id number])Indication: Current use of longwall headgate operator anticoagulation On: 30-Jul-2018 Request PT (PROTHROMBIN TIME) ([id number])Indication: Acute venous embolism and thrombosis of deep vessels of distal lower extremity, right On: 08-Jul-2018 Request Comments: STANDING ORDER PT (PROTHROMBIN TIME) ([id number])Indication: Current use of prison anticoagulation On: 30-Jun-2018 Request PT (PROTHROMBIN TIME) ([id number])Indication: Acute venous embolism and thrombosis of deep vessels of distal lower extremity, right On: 08-Jun-2018 Request Comments: STANDING ORDER PT (PROTHROMBIN TIME) ([id number])Indication: Current use of prison anticoagulation On: 31-May-2018 Request PT (PROTHROMBIN TIME) ([id number])Indication: Acute venous embolism and thrombosis of deep vessels of distal lower extremity, right On: 09-May-2018 Request Comments: STANDING ORDER PT (PROTHROMBIN TIME) ([id number])Indication: Acute venous embolism and thrombosis of deep vessels of distal lower extremity, right On: 09-Apr-2018 Request Comments: STANDING ORDER PT (PROTHROMBIN TIME) ([id number])Indication: Current use of longwall headgate operator anticoagulation On: 02-Mar-2018 Request LIPID PANEL ([id number])Indication: SCREENING FOR HYPERLIPIDEMIA (Renamed from Encounter for screening for lipoid disorders) On: 65-Ktt-710544:48 Request CALCIFEDIOL ([id number])Indication: Leg cramps On: 32-Yqh-902185:41 Request PT (PROTHROMBIN TIME) ([id number])Indication: Current use of prison anticoagulation On: 06-Jan-2017 Request PT (PROTHROMBIN TIME) ([id number])Indication: Current use of prison anticoagulation On: 11-Apr-2016 Request PT (PROTHROMBIN TIME) ([id number])Indication: Current use of prison anticoagulation On: 11-Feb-2016 Request PT (Prothrobim Time) ([id number])Indication: Current use of prison anticoagulation On: 20-Jul-2015 Request PT (Prothrobim Time) ([id number])Indication: Current use of [employer]wall headgate operator anticoagulation On: 13-Jul-2015 Request PT (Prothrobim Time) ([id number])Indication: Current use of prison anticoagulation On: 06-Jul-2015 Request PT (Prothrobim Time) ([id number])Indication: Current use of [employer] headgate operator anticoagulation On: 29-Jun-2015 Request PT (Prothrobim Time) ([id number])Indication: Current use of [employer]wall headgate operator anticoagulation On: 22-Jun-2015 Request PT (Prothrobim Time) ([id number])Indication: Current use of [employer]wall headgate operator anticoagulation On: 15-Jun-2015 Request PT (Prothrobim Time) ([id number])Indication: Current use of prison anticoagulation On: 08-Jun-2015 Request PT (Prothrobim Time) ([id number])Indication: Current use of prison anticoagulation On: 01-Jun-2015 Request PT (Prothrobim Time) ([id number])Indication: Current use of [employer]wall headgate operator anticoagulation On: 25-May-2015 Request PT (Prothrobim Time) ([id number])Indication: Current use of [employer]wall headgate operator anticoagulation On: 18-May-2015 Request PT (Prothrobim Time) ([id number])Indication: Current use of prison anticoagulation On: 11-May-2015 Request PT (Prothrobim Time) ([id number])Indication: Current use of prison anticoagulation On: 04-May-2015 Request PT (Prothrobim Time) ([id number])Indication: Current use of [employer]wall headgate operator anticoagulation On: 27-Apr-2015 Request PT (Prothrobim Time) ([id number])Indication: Current use of prison anticoagulation On: 20-Apr-2015 Request PT (PROTHROMBIN TIME) ([id number])Indication: Current use of [employer]wall headgate operator anticoagulation On: 17-Apr-2015 Request PT (Prothrobim Time) ([id number])Indication: Current use of prison anticoagulation On: 13-Apr-2015 Request PT (Prothrobim Time) ([id number])Indication: Current use of [employer]wall headgate operator anticoagulation On: 06-Apr-2015 Request PT (Prothrobim Time) ([id number])Indication: Current use of prison anticoagulation On: 30-Mar-2015 Request PT (Prothrobim Time) ([id number])Indication: Current use of [employer]wall headgate operator anticoagulation On: 23-Mar-2015 Request PT (Prothrobim Time) ([id number])Indication: Current use of longwall headgate operator anticoagulation On: 16-Mar-2015 Request PT (Prothrobim Time) ([id number])Indication: Current use of prison anticoagulation On: 09-Mar-2015 Request PT (Prothrobim Time) ([id number])Indication: Current use of [employer]wall headgate operator anticoagulation On: 02-Mar-2015 Request PT (Prothrobim Time) ([id number])Indication: Current use of longwall headgate operator anticoagulation On: 23-Feb-2015 Request PT (Prothrobim Time) ([id number])Indication: Current use of longwall headgate operator anticoagulation On: 16-Feb-2015 Request PT (Prothrobim Time) ([id number])Indication: Current use of [employer]wall headgate operator anticoagulation On: 09-Feb-2015 Request PT (Prothrobim Time) ([id number])Indication: Current use of [employer]wall headgate operator anticoagulation On: 02-Feb-2015 Request PT (Prothrobim Time) ([id number])Indication: Current use of prison anticoagulation On: 26-Jan-2015 Request PT (Prothrobim Time) ([id number])Indication: Current use of prison anticoagulation On: 19-Jan-2015 Request PT (Prothrobim Time) ([id number])Indication: Current use of [employer]wall headgate operator anticoagulation On: 12-Jan-2015 Request PT (Prothrobim Time) ([id number])Indication: Current use of prison anticoagulation On: 05-Jan-2015 Request PT (Prothrobim Time) ([id number])Indication: Current use of prison anticoagulation On: 29-Dec-2014 Request PT (Prothrobim Time) ([id number])Indication: Current use of [employer]wall headgate operator anticoagulation On: 22-Dec-2014 Request PT (Prothrobim Time) ([id number])Indication: Current use of [employer]wall headgate operator anticoagulation On: 15-Dec-2014 Request PT (Prothrobim Time) ([id number])Indication: Current use of prison anticoagulation On: 08-Dec-2014 Request PT (Prothrobim Time) ([id number])Indication: Current use of [employer]wall headgate operator anticoagulation On: 01-Dec-2014 Request PT (Prothrobim Time) ([id number])Indication: Current use of longwall headgate operator anticoagulation On: 24-Nov-2014 Request PT (Prothrobim Time) ([id number])Indication: Current use of [employer]wall headgate operator anticoagulation On: 17-Nov-2014 Request PT (Prothrobim Time) ([id number])Indication: Current use of [employer]wall headgate operator anticoagulation On: 10-Nov-2014 Request PT (Prothrobim Time) ([id number])Indication: Current use of prison anticoagulation On: 03-Nov-2014 Request PT (Prothrobim Time) ([id number])Indication: Current use of [employer] headgate operator anticoagulation On: 27-Oct-2014 Request PT (Prothrobim Time) ([id number])Indication: Current use of longwall headgate operator anticoagulation On: 20-Oct-2014 Request PT (Prothrobim Time) ([id number])Indication: Current use of longwall headgate operator anticoagulation On: 13-Oct-2014 Request PT (Prothrobim Time) ([id number])Indication: Current use of prison anticoagulation On: 06-Oct-2014 Request PT (Prothrobim Time) ([id number])Indication: Current use of [employer]wall headgate operator anticoagulation On: 29-Sep-2014 Request PT (Prothrobim Time) ([id number])Indication: Current use of prison anticoagulation On: 22-Sep-2014 Request PT (Prothrobim Time) ([id number])Indication: Current use of longwall headgate operator anticoagulation On: 15-Sep-2014 Request PT (Prothrobim Time) ([id number])Indication: Current use of prison anticoagulation On: 08-Sep-2014 Request PT (Prothrobim Time) ([id number])Indication: Current use of [employer]wall headgate operator anticoagulation On: 01-Sep-2014 Request PT (Prothrobim Time) ([id number])Indication: Current use of prison anticoagulation On: 25-Aug-2014 Request PT (PROTHROMBIN TIME) ([id number])Indication: Current use of prison anticoagulation On: 20-Aug-2014 Request PT (Prothrobim Time) ([id number])Indication: Current use of [employer] headgate operator anticoagulation On: 18-Aug-2014 Request PT (Prothrobim Time) ([id number])Indication: Current use of [employer]wall headgate operator anticoagulation On: 11-Aug-2014 Request PT (Prothrobim Time) ([id number])Indication: Current use of prison anticoagulation On: 04-Aug-2014 Request PT (Prothrobim Time) ([id number])Indication: Current use of prison anticoagulation On: 28-Jul-2014 Request PT (Prothrobim Time) ([id number])Indication: Current use of prison anticoagulation On: 21-Jul-2014 Request PT (PROTHROMBIN TIME) ([id number])Indication: Current use of [employer] headgate operator anticoagulation On: 21-Jul-2014 Request PT (Prothrobim Time) ([id number])Indication: Current use of prison anticoagulation On: 07-Jul-2014 Request PT (Prothrobim Time) ([id number])Indication: Current use of [employer]wall headgate operator anticoagulation On: 30-Jun-2014 Request PT (Prothrobim Time) ([id number])Indication: Current use of [employer] headgate operator anticoagulation On: 23-Jun-2014 Request PT (Prothrobim Time) ([id number])Indication: Current use of longwall headgate operator anticoagulation On: 16-Jun-2014 Request PT (Prothrobim Time) ([id number])Indication: Current use of prison anticoagulation On: 09-Jun-2014 Request PT (Prothrobim Time) ([id number])Indication: Current use of [employer]wall headgate operator anticoagulation On: 02-Jun-2014 Request PT (Prothrobim Time) ([id number])Indication: Current use of [employer]wall headgate operator anticoagulation On: 26-May-2014 Request PT (Prothrobim Time) ([id number])Indication: Current use of prison anticoagulation On: 19-May-2014 Request PT (Prothrobim Time) ([id number])Indication: Current use of [employer] headgate operator anticoagulation On: 12-May-2014 Request PT (Prothrobim Time) ([id number])Indication: Current use of longwall headgate operator anticoagulation On: 05-May-2014 Request PT (Prothrobim Time) ([id number])Indication: Current use of prison anticoagulation On: 28-Apr-2014 Request PT (Prothrobim Time) ([id number])Indication: Current use of [employer] headgate operator anticoagulation On: 21-Apr-2014 Request PT (Prothrobim Time) ([id number])Indication: Current use of longwall headgate operator anticoagulation On: 14-Apr-2014 Request PT (Prothrobim Time) ([id number])Indication: Current use of [employer]wall headgate operator anticoagulation On: 07-Apr-2014 Request PT (Prothrobim Time) ([id number])Indication: Current use of longwall headgate operator anticoagulation On: 31-Mar-2014 Request PT (Prothrobim Time) ([id number])Indication: Current use of prison anticoagulation On: 24-Mar-2014 Request PT (Prothrobim Time) ([id number])Indication: Current use of prison anticoagulation On: 17-Mar-2014 Request PT (Prothrobim Time) ([id number])Indication: Current use of prison anticoagulation On: 10-Mar-2014 Request PT (Prothrobim Time) ([id number])Indication: Current use of [employer] headgate operator anticoagulation On: 03-Mar-2014 Request PT (Prothrobim Time) ([id number])Indication: Current use of [employer] headgate operator anticoagulation On: 24-Feb-2014 Request PT (Prothrobim Time) ([id number])Indication: Current use of prison anticoagulation On: 17-Feb-2014 Request PT (Prothrobim Time) ([id number])Indication: Current use of prison anticoagulation On: 10-Feb-2014 Request PT (Prothrobim Time) ([id number])Indication: Current use of [employer]wall headgate operator anticoagulation On: 03-Feb-2014 Request PT (Prothrobim Time) ([id number])Indication: Current use of [employer] headgate operator anticoagulation On: 20-Jan-2014 Request PT (Prothrobim Time) ([id number])Indication: Current use of prison anticoagulation On: 13-Jan-2014 Request PT (Prothrobim Time) ([id number])Indication: Current use of prison anticoagulation On: 06-Jan-2014 Request PT (Prothrobim Time) ([id number])Indication: Current use of [employer] headgate operator anticoagulation On: 30-Dec-2013 Request PT (Prothrobim Time) ([id number])Indication: Current use of [employer] headgate operator anticoagulation On: 23-Dec-2013 Request PT (Prothrobim Time) ([id number])Indication: Current use of prison anticoagulation On: 16-Dec-2013 Request PT (Prothrobim Time) ([id number])Indication: Current use of [employer]wall headgate operator anticoagulation On: 09-Dec-2013 Request PT (Prothrobim Time) ([id number])Indication: Current use of [employer]wall headgate operator anticoagulation On: 02-Dec-2013 Request PT (Prothrobim Time) ([id number])Indication: Current use of longwall headgate operator anticoagulation On: 25-Nov-2013 Request PT (Prothrobim Time) ([id number])Indication: Current use of [employer]wall headgate operator anticoagulation On: 18-Nov-2013 Request PT (Prothrobim Time) ([id number])Indication: Current use of prison anticoagulation On: 11-Nov-2013 Request PT (Prothrobim Time) ([id number])Indication: Current use of prison anticoagulation On: 04-Nov-2013 Request PT (Prothrobim Time) ([id number])Indication: Current use of prison anticoagulation On: 28-Oct-2013 Request PT (Prothrobim Time) ([id number])Indication: Current use of prison anticoagulation On: 14-Oct-2013 Request PT (Prothrobim Time) ([id number])Indication: Current use of [employer] headgate operator anticoagulation On: 07-Oct-2013 Request PT (Prothrobim Time) ([id number])Indication: Current use of [employer]wall headgate operator anticoagulation On: 30-Sep-2013 Request PT (Prothrobim Time) ([id number])Indication: Current use of prison anticoagulation On: 23-Sep-2013 Request PT (Prothrobim Time) ([id number])Indication: Current use of longwall headgate operator anticoagulation On: 16-Sep-2013 Request PT (Prothrobim Time) ([id number])Indication: Current use of prison anticoagulation On: 26-Vza-065460:16 Request Comments: needs one today then q month or prn Planned Procedures Ultrasound - RenalBy: Danae LAN, On: 23-Mar-2015 Intent Tammie Hernandez CNP Aerosol Treatment ([id number])By: Slarb On: 23-Mar-2015 Intent FOREST ECONOMIST, Davida FLU VAC, SPLIT, >3 YEARS, On: 14-Feb-2014 Intent INTRAMUSC ([id number])By: Danae LAN, Comments: lot # [id number]- 10/28/14site- LDLTroute-IMdose- 0.5mlVIS and ABN signedCTyler FOREST ECONOMISTTammie Velarde CNP IMMUNIZ ADMNIN, 1 VAC, SNGL/COMBO On: 14-Feb-2014 Intent ([id number])By: Tammie Fink CNP, CNP, Mary E Instructions Name Dates Details Current use of longwall headgate operator anticoagulation : How to access health information online Indication: Current use of [employer]wall headgate operator anticoagulation Current use of longwall headgate operator anticoagulation : How to access health information online - Detail Indication: Current use of longwall headgate operator anticoagulation Current use of longwall headgate operator anticoagulation : Patient Instructions Indication: Current use of prison anticoagulation Cough : Patient Instructions Indication: Cough Screening for prostate cancer : Patient Instructions Indication: Screening for prostate cancer Encounters Annotation/Addendum On: 27-Feb-2018 14:08 [facility] End: 27-Feb-2018 14:10 Phone Encounter On: 09-Jan-2018 15:14 Encounter Diagnosis: Acute venous embolism and thrombosis of deep vessels of distal lower extremity, right End: 09-Jan-2018 15:15 [facility] Annotation/Addendum On: 20-Dec-2017 9:00 [facility] End: 20-Dec-2017 9:02 Office Visit On: 18-Aug-2017 9:57 Encounter Reason: Follow up for chronic medical issues - The patient feels well with no complaints, has decreased energy level and is sleeping well. Patient has been compliant with instructions. Current medication use: n End: 18-Aug-2017 10:51 o side effects, compliant with dosing regimen and considered effective by patient. Patient sleeps 7 hours per night. Nutrition: balanced diet. The medical issues the patient is following up for include All identified problems below, gastric reflux and other (DVT). Note for Follow up for chronic medical issues: Has double hernia, but not wanting to get done until January, [ADDITIONAL REASON] Leg Cramps, Nocturnal - Note for Nocturnal leg cramps: Gets nocturnal leg cramps both legs Encounter Diagnosis: BMI 23.0-23.9, adult, Nonsmoker, Current use of prison anticoagulation, Reflux, Leg cramps, Follicular lymphoma , Screening for prostate cancer, SCREENING FOR HYPERLIPIDEMIA (Renamed from Encounter for screening for lipoid disorders) [facility] Annotation/Addendum On: 15-Aug-2017 8:27 [facility] End: 15-Aug-2017 8:55 Annotation/Addendum On: 10-Jul-2017 7:46 [facility] End: 10-Jul-2017 7:47 Annotation/Addendum On: 20-Apr-2017 8:23 [facility] End: 20-Apr-2017 8:26 Phone Encounter On: 13-Mar-2017 8:50 [facility] End: 13-Mar-2017 8:51 Phone Encounter On: 07-Oct-2016 12:31 [facility] End: 07-Oct-2016 12:32 Phone Encounter On: 20-Sep-2016 13:21 [facility] End: 20-Sep-2016 13:22 Phone Encounter On: 02-Sep-2016 12:58 [facility] End: 02-Sep-2016 12:59 Phone Encounter On: 01-Sep-2016 13:43 [facility] End: 01-Sep-2016 13:46 Office Visit On: 29-Jul-2016 8:24 [facility] End: 29-Jul-2016 8:27 Office Visit On: 10-Jun-2016 10:39 [facility] End: 10-Jun-2016 10:41 Phone Encounter On: 19-Apr-2016 10:55 [facility] End: 19-Apr-2016 10:56 Phone Encounter On: 30-Mar-2016 8:36 [facility] End: 30-Mar-2016 8:38 Phone Encounter On: 15-Mar-2016 11:42 [facility] End: 15-Mar-2016 11:43 Phone Encounter On: 10-Feb-2016 10:37 [facility] End: 10-Feb-2016 10:39 Office Visit On: 19-Jan-2016 9:20 [facility] End: 19-Jan-2016 9:23 Phone Encounter On: 12-Nov-2015 11:11 [facility] End: 12-Nov-2015 11:16 Phone Encounter On: 20-Oct-2015 9:38 [facility] End: 20-Oct-2015 9:39 Phone Encounter On: 17-Aug-2015 9:17 [facility] End: 17-Aug-2015 9:20 Phone Encounter On: 17-Jul-2015 8:08 [facility] End: 17-Jul-2015 8:09 Phone Encounter On: 18-Jun-2015 14:34 [facility] End: 18-Jun-2015 14:35 Phone Encounter On: 14-May-2015 16:06 [facility] End: 14-May-2015 16:08 Phone Encounter On: 17-Apr-2015 16:16 [facility] End: 17-Apr-2015 16:17 Phone Encounter On: 03-Apr-2015 15:52 [facility] End: 03-Apr-2015 15:56 Office Visit On: 30-Mar-2015 9:58 Encounter Reason: Follow up tests - Diagnostic tests include ultrasound.Encounter Diagnosis: Nocturia, Cough End: 30-Mar-2015 10:55 [facility] Office Visit On: 23-Mar-2015 10:39 Encounter Reason: Nocturia - The last clinic visit was 3 month(s) ago. Symptoms include increased nighttime voiding, diminished urine stream, sensation of incomplete bladder emptying and frequency. Onset was gradual 3 mo End: 23-Mar-2015 11:52 nth(s) ago. The patient describes this as worsening. Associated symptoms include cough. The patient is not currently being treated for this problem. Previous presentation included nighttime voiding and frequency., [ADDITIONAL REASON] Urinary Frequency - The last clinic visit was 3 month(s) ago. Symptoms include urinary frequency and nocturia. The patient describes this as unchanged. Associated symptoms include f lank pain. The patient is not currently being treated for this problem. Encounter Diagnosis: UTI symptoms, Cough, Nocturia, Current use of longwall headgate operator anticoagulation, Pharyngitis, Flank pain [facility] Phone Encounter On: 18-Mar-2015 10:24 [facility] End: 18-Mar-2015 10:25 Phone Encounter On: 16-Feb-2015 8:45 Encounter Diagnosis: Acute venous embolism and thrombosis of deep vessels of distal lower extremity, right End: 16-Feb-2015 8:48 [facility] Phone Encounter On: 16-Jan-2015 10:27 [facility] End: 16-Jan-2015 10:27 Phone Encounter On: 12-Dec-2014 10:50 [facility] End: 15-Dec-2014 16:19 Phone Encounter On: 13-Nov-2014 14:18 [facility] End: 13-Nov-2014 14:19 Phone Encounter On: 12-Sep-2014 10:00 [facility] End: 12-Sep-2014 10:02 Phone Encounter On: 18-Aug-2014 17:46 [facility] End: 18-Aug-2014 17:48 Phone Encounter On: 15-Jul-2014 9:34 [facility] End: 15-Jul-2014 9:37 Phone Encounter On: 18-Jun-2014 9:44 [facility] End: 18-Jun-2014 9:46 Phone Encounter On: 23-May-2014 13:01 [facility] End: 23-May-2014 13:02 Phone Encounter On: 18-Apr-2014 14:11 [facility] End: 18-Apr-2014 14:12 Phone Encounter On: 19-Mar-2014 13:24 [facility] End: 19-Mar-2014 13:26 Phone Encounter On: 28-Feb-2014 8:29 [facility] End: 28-Feb-2014 8:30 Annotation/Addendum On: 18-Feb-2014 12:19 Encounter Diagnosis: Basal cell carcinoma, face End: 18-Feb-2014 16:29 [facility] Phone Encounter On: 17-Feb-2014 12:08 [facility] End: 17-Feb-2014 12:08 Phone Encounter On: 17-Feb-2014 9:24 [facility] End: 17-Feb-2014 9:26 Office Visit On: 14-Feb-2014 9:46 Encounter Reason: Skin Problems - The onset of the skin problems has been sudden and they have been occurring in a persistent pattern for months. The course has been increasing. The problem is characterized as a change i End: 14-Feb-2014 13:13 n skin color. Lesions are described as red. There has been no associated itching or pain.Encounter Diagnosis: NEED FOR PROPHYLACTIC VACCINATION AND INOCULATION AGAINST INFLUENZA (V04.81), Lesion-Unknown behavior (238.2) [facility] Phone Encounter On: 24-Jan-2014 13:09 [facility] End: 24-Jan-2014 13:10 Phone Encounter On: 16-Jan-2014 8:45 [facility] End: 16-Jan-2014 8:48 Phone Encounter On: 13-Dec-2013 16:03 [facility] End: 13-Dec-2013 16:04 Phone Encounter On: 19-Nov-2013 13:20 [facility] End: 19-Nov-2013 13:22 Phone Encounter On: 07-Nov-2013 9:22 [facility] End: 07-Nov-2013 9:23 Office Visit On: 06-Nov-2013 10:49 Encounter Reason: Skin Problems - The onset of the skin problems has been sudden and they have been occurring in a persistent pattern for 1 year. The course has been constant. The problem is characterized as other (SS- p End: 06-Nov-2013 11:11 oor healing - on coumiden ). There has been no associated pain.Encounter Diagnosis: Lesion of skin of face, History of skin cancer [facility] Phone Encounter On: 16-Oct-2013 12:15 [facility] End: 16-Oct-2013 12:16 Phone Encounter On: 01-Oct-2013 8:51 [facility] End: 01-Oct-2013 8:52 Office Visit On: 24-Sep-2013 9:09 Encounter Reason: Follow up for chronic medical issues - The patient feels well with no complaints, has good energy level and is sleeping well. Patient has been compliant with instructions. Current medication use: no rosio End: 24-Sep-2013 9:50 e effects, compliant with dosing regimen and considered effective by patient. Patient sleeps 7 hours per night. Nutrition: balanced diet. The medical issues the patient is following up for include All i dentified problems below, gastric reflux and other (DVT, follicular lymphoma ).Encounter Diagnosis: Follicular lymphoma, Reflux, DVT (deep venous thrombosis), Current use of longwall headgate operator anticoagulation, SCREENING FOR CANCER OF THE PROSTATE (V76.44), SCREENING FOR ANEMIA (V78.0), SCREENING FOR HYPERLIPIDEMIA (Renamed from Encounter for screening for lipoid disorders), SCREENING FOR DIABETES MELLITUS (Renamed from Diabetes mellitus screening) [facility] Phone Encounter On: 03-Sep-2013 13:25 [facility] End: 03-Sep-2013 13:27 Office Visit On: 26-Aug-2013 9:34 Encounter Reason: new patient male physicial - General health: feels well with no complaints, has good energy level and is sleeping well. The patient's appetite is normal. Nutrition: eating a variety of foods. Exercises End: 26-Aug-2013 10:25 3 (alot of walking at work ) days per week. Sleeps on average 7 hours per night. Normal bowel and bladder habits. Safety measures include appropriate use of safety belts and home smoke detectors. There are no current emotional problems. The patient's libido is normal. Preventative measures done by patient are screening, colonoscopy ( been years ), screening, visual acuity ( last mo, Dr james ) and PSA (2012).Encounter Diagnosis: Lymphoma, follicular, DVT (deep venous thrombosis), Current use of longwall headgate operator anticoagulation, Reflux [facility] Payers MedicareAARP/[place]oria [place]; isaac guarantor
--- OUTSIDE RECORDS SUMMARY | 2018-07-19 23:43 | XMS RPT_ITS | Continuity of Care Document ---
:1950 Author Organization [facility] Address [facility]7 [facility] 2 [place] [address] Phone Care Team Providers Name Role Phone [...] (R05, 786.2) Status: Active Current use of nursing home anticoagulation (Z51.81, V58.61) Status: Active DVT (deep venous thrombosis) (I82.409, 453.40) Comments: bilater lower ext occured October of 2012 ? 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 Arvin Reis at [place] had chemo and radiation Last one in [...] {Tablet} Refills: 0 Ordered:30-Mar-2015 Danae LAN, Tammie Aguilar CNP, Tammie Rodriguez Start : 30-Mar-2015 End [...] Visit Report Result: Comments: See Note; NOTES: [facility] [place] [address] OFFICE VISIT Date of Service: 11/16/17 1102 MR#: [id number] Acct: [id number] Name: BEREKETAPTRIZIA L Rep #: [id number] : 1950 From: Regis Fleming MD Age/Sex: [...] Chronic Code Visit Office Visits / Consults: 93243 OV L3 Est 11/16/17 1137 <Electronically signed by Regis Fleming MD&# 62; Date Regis Fleming MD Cosigner Signature: Date (if applicable) CC: 24-Mar-2015 Kidney and Bladder Result: Comments: See Note; NOTES: [facility] Imaging Services [address] [place] [address] Verdana 4d Kidney and Bladder MR#: [id number] Acct: [id number] Name: PATRIZIA CUBA Rep #: [id number] : 1950 M 64 From: Tarun Denis MD PCP: Tammie Fink Status: REG CLI Study: Kidney and Bladder Date of Exam: 03/24/15 Exam# [id number] Ordering Dr: Tammie Fink ST UDY: RENAL [...] MD at 22:21 EST , Service support [phone], CC: Tammie Fink Shift Supervisor Film Processing: Signed 18-Feb-2015 Abdomen/Pelvis WITH Contrast Result: Comments: See Note; NOTES: [facility] Imaging Services [address] [place] [address] Verdana 4d Abdomen/Pelvis WITH Contrast MR#: [id number] Acct: [id number] Name : PATRIZIA CUBA Rep #: [id number] : 1950 M 64 From: Nickolas Mitchell DO PCP: Tammie Fink Status: REG CLI Study: Abdomen/Pelvis WITH Contrast Date of Exam: 02/18/15 Exam# [id number] Ordering Dr : Skyler Brewer MD STUDY: [...] DO at 10:24 EDT , Service support [phone], CC: Tammie Brewer Shift Supervisor Film Processing: Signed 18-Feb-2015 Chest WITH Contrast Result: Comments: See Note; NOTES: [facility] Imaging Services [address] [place] [address] Verdana 4d Chest WITH Contrast MR#: [id number] Acct: [id number] Name: PATRIZIA CUBA Rep #: [id number] : 1950 M 64 From: Nickolas Mitchell DO PCP: Tammie Fink Status: REG CLI Study: Chest WITH Contrast Date of Exam: 02/18/15 Exam# [id number] Ordering Dr: Skyler Brewer MD STUDY: CT [...] DO at 9:28 EDT , Service support [phone], CC: Tammie Fink; Skyler Brewer Shift Supervisor Film Processing: Signed 13-Feb-2015 Neck for Soft Tissue Result: Comments: See Note; NOTES: [facility] Imaging Services [address] [place] [address] Verdana 4d Neck for Soft Tissue MR#: [id number] Acct: [id number] Name: PATRIZIA DUMONT Rep #: [id number] : 1950 M 64 From: Evens Salas MD PCP: Tammie Fink Status: REG CLI Study: Neck for Soft Tissue Date of Exam: 02/13/15 Exam# [id number] Ordering Dr: Skyler Brewer MD STUDY: X-RAY [...] at 10:20 EDT Tel , Service support [phone], RAD/Neck for S oft Tissue IMPRESSION: Normal x-ray soft tissue neck. Electronically Signed: Evens Salas MD at 10:20 EDT Tel , Service support [phone], CC: Tammie Fink; Skyler Brewer Shift Supervisor Film Processing: Signed 06-Jan-2014 PET/CT Tumor Base -Thigh Init Result: Comments: See Note; NOTES: [facility] Imaging Services [address] [place] [address] PET Scan Report MR#: [id number] Acct: [id number] Name: PATRIZIA CUBA Rep #: [id number] : 1950 M 63 From: Caleb Armando MARTINEZ PCP: Tammie Fink Status: REG CLI Study: PET/CT Tumor Base -Thigh Init Date of Exam: 01/06/14 Exam# [id number] Ordering Dr: Skyler Brewer MD INDICAT IONS: [...] Caleb Roberts DO at 15:00 EDT Tel [phone], [employer] e support [phone], CC: Tammie Fink; RADHA; EUGENIO; Skyler Brewer Shift Supervisor Film Processing: Signed 16-Dec-2013 Abdomen/Pelvis WITH Contrast Result: Comments: See Note; NOTES: [facility] Imaging Services [address] [place] [address] CAT Scan Report MR#: [id number] Acct: [id number] Name: PATRIZIA CUBA Rep #: [id number] : 1950 M 63 From: Jesus Webb MD PCP: Tammie Fink Status: REG CLI Study: Abdomen/Pelvis WITH Contrast Date of Exam: 12/16/13 Exam# [id number] Ordering Dr: Skyler Brewer MD ALFREDO DY: [...] Jesus Webb MD at 8:49 EDT Tel [phone], Service support [phone], CC: Tammie Schwartz sa; Skyler Brewer Shift Supervisor Film Processing: Signed 16-Dec-2013 Chest WITH Contrast Result: Comments: See Note; NOTES: [facility] Imaging Services [address] [place] [address] CAT Scan Report MR#: [id number] Acct: [id number] Name: PATRIZIA CUBA Rep #: [id number] : 1950 M 63 From: Jesus Webb MD PCP: Tammie Fink Status: REG CLI Study: Chest WITH Contrast Date of Exam: 12/16/13 Exam# [id number] Ordering Dr: Skyler Brewer MD STUDY: CT [...] Jesus Webb MD at 8:52 EDT Tel [phone], Service support [phone], CC: Tammie Fink; Skyler Brewer Shift Supervisor Film Processing: Signed 16-Dec-2013 Soft Tissue Neck WITH Contrast Result: Comments: See Note; NOTES: [facility] Imaging Services [address] [place] [address] CAT Scan Report MR#: [id number] Acct: [id number] Name: PATRIZIA CUBA Rep #: [id number] : 1950 M 63 From: Jesus Webb MD PCP: Tammie Fink Status: REG CLI Study: Soft Tissue Neck WITH Contrast Date of Exam: 12/16/13 Exam# [id number] Ordering Dr: Skyler Brewer MD [facility]: CT SOFT TISSUE NECK WITH CONTRAST [...] FINDINGS: Normal bilateral parotid glands. Normal bilateral plan checker spaces. Normal bilateral parapharyngeal spaces. Normal bilateral [...] Jesus Webb MD at 9:27 EDT Tel [phone], Service suppo rt [phone], CC: Tammie Fink; Skyler Brewer Shift Supervisor Film Processing: Signed Family History Unknown Family Member Name Dates Details Brother 1 Comments: DVT Status: Active Father Comments: DVT Status: Active Social History Name Dates Details Caffeine Use Comments: coffee all day Status: Active Exercise History Comments: walking at work Status: Active Most Recent Primary Occupation Comments: [employer] working Status: Active No Drug Use Status: Active Non Drinker/No Alcohol Use Status: Active Non Smoker/No Tobacco Use Status: Active Vital Signs Date Test Result Details 48-Xye-464428:04 Temperature 97.8 f Pulse 76 /min Comments: [...] Description Value Details :27 PT (PROTHROMBIN TIME) (63986) Comments: STANDING ORDER; PATIENT NOT FASTINGPERFORMED BY: [facility] [facility] [id number] Prothrombin Time 36.8 {sec} (Abnormal) Range: 9.1-12.0 INR 3.7 (Abnormal) Range: 0.8-1.2 Comments: Client Requested Flag Reference interval is for non- anticoagulated patients. . Suggested INR therapeutic ra nge for Vitamin K antagonist therapy: Standard Dose (moderate intensity therapeutic range): 2.0 - 3.0 Higher intensity therapeutic range 2.5 - 3.5 :52 PT (PROTHROMBIN TIME) (39152) Comments: PATIENT NOT FASTINGPERFORMED BY: [facility] [facility] [id number] Prothrombin Time 16.3 {sec} (Abnormal) Range: 9.1-12.0 INR 1.6 (Abnormal) Range: 0.8-1.2 Comments: Reference interval is for non-anticoagulated patients. . Suggested INR therapeutic range for Vitamin K anta gonist therapy: Standard Dose (moderate intensity therapeutic range): 2.0 - 3.0 Higher intensity therapeutic range 2.5 - 3.5 :28 PT (PROTHROMBIN TIME) (58609) Comments: STANDING ORDER; PATIENT NOT FASTINGPERFORMED BY: [facility] [facility] [id number] Prothrombin Time 29.7 {sec} (Abnormal) Range: 9.1-12.0 INR 3.0 (Abnormal) Range: 0.8-1.2 Comments: Reference interval is for non-anticoagulated patients. . Suggested INR therapeutic range for Vitamin K anta gonist therapy: Standard Dose (moderate intensity therapeutic range): 2.0 - 3.0 Higher intensity therapeutic range 2.5 - 3.5 :11 PT (PROTHROMBIN TIME) (53843) Comments: PATIENT NOT FASTINGPERFORMED BY: [facility] [facility] [id number] Prothrombin Time 20.6 {sec} (Abnormal) Range: 9.1-12.0 INR 2.1 (Abnormal) Range: 0.8-1.2 Comments: Reference interval is for non-anticoagulated patients. . Suggested INR therapeutic range for Vitamin K anta gonist therapy: Standard Dose (moderate intensity therapeutic range): 2.0 - 3.0 Higher intensity therapeutic range 2.5 - 3.5 8-Gku-709588:27 PT (PROTHROMBIN TIME) (56140) Comments: PATIENT NOT FASTINGPERFORMED BY: [facility]CoCh[facility] HospitalCkamjl35[address] [facility] [id number] Prothrombin Time 23.9 {sec} (Abnormal) Range: 9.1-12.0 INR 2.5 (Abnormal) Range: 0.8-1.2 Comments: Reference interval is for non-anticoagulated patients. . Suggested INR therapeutic range for Vitamin K anta gonist therapy: Standard Dose (moderate intensity therapeutic range): 2.0 - 3.0 Higher intensity therapeutic range 2.5 - 3.5 60-Wyo-041990:31 CBC W/Diff, Automated Comments: [facility] [address] [place], [address] Absolute Lymph 1.01 {X10_3/ul} (Normal) Range: 0.83-4.51 [...] 4.6-6.2 WBC 4.3 K/mm3 (Abnormal) Range: 4.4-11.0 12-Vvf-420123:30 Comprehensive Metabolic Profil Comments: Reason for Laboratory Test H/O NHL Z85.72Serial Specimen #1, #2 or #3? [facility] [address] [place], [place], [address] GAP 5 (Normal) Range: 5-15 CO2 27.0 [...] Comments: Please note revised GLUCOSE reference range nncqntrcu05/02/2018. 02-Rhl-385843:30 LDH 190 U/L (Normal) Comments: Reason for Laboratory Test H/O NHL Z85.72Serial Specimen #1, #2 or #3? [facility] [address] [place], [address] Range: 87-241 08-Jun-20179:29 PT (PROTHROMBIN TIME) (15191) Comments: PATIENT NOT FASTINGPERFORMED BY: [employer] [id number] Prothrombin Time 22.4 {sec} (Abnormal) Range: 9.1-12.0 INR 2.3 (Abnormal) Range: 0.8-1.2 Comments: Reference interval is for non-anticoagulated patients. . Suggested INR therapeutic range for Vitamin K anta gonist therapy: Standard Dose (moderate intensity therapeutic range): 2.0 - 3.0 Higher intensity therapeutic range 2.5 - 3.5 :20 PT (PROTHROMBIN TIME) (10035) Comments: PATIENT NOT FASTINGPERFORMED BY: [facility]-FairhillKnodiumChilton Memorial HospitalGhstuy2884 [facility] [id number] Prothrombin Time 17.1 {sec} (Abnormal) Range: 9.1-12.0 INR 1.7 (Abnormal) Range: 0.8-1.2 Comments: Reference interval is for non-anticoagulated patients. . Suggested INR therapeutic range for Vitamin K anta gonist therapy: Standard Dose (moderate intensity therapeutic range): 2.0 - 3.0 Higher intensity therapeutic range 2.5 - 3.5 99-Ita-984074:39 PT (PROTHROMBIN TIME) (30718) Comments: PATIENT NOT FASTINGPERFORMED BY: [place] [address]25[address] [facility] [id number] Prothrombin Time 23.4 {sec} (Abnormal) Range: 9.1-12.0 INR 2.4 (Abnormal) Range: 0.8-1.2 Comments: Reference interval is for non-anticoagulated patients. . Suggested INR therapeutic range for Vitamin K anta gonist therapy: Standard Dose (moderate intensity therapeutic range): 2.0 - 3.0 Higher intensity therapeutic range 2.5 - 3.5 84-Nws-628741:10 TSH (THYROID STIMULATING Comments: PATIENT WAS FASTINGPERFORMED BY: [employer]6370 CardMunchAt[facility] [id number] HORMONE) (33344) TSH 2.310 {uIU/mL} (Normal) Range: 0.450-4.500 91-Tak-373253:10 PSA (PROSTATE SPECIFIC Comments: PATIENT WAS FASTINGPERFORMED BY: [facility] DesignsAt[facility]annapolis [id number] ANTIGEN) (V76.44) Prostate Specific Ag, 0.7 ng/mL (Normal) Range: 0.0-4.0 Serum Comments: [employer] ECLIA methodology. .According to the [employer], Serum PSA shoulddecrease and remain at undetectable levels after radicalprostatectomy. The AUA defines biochemical recurrence as an initialPSA value 0.2 ng/mL or greater followed by a subsequent confirmatoryPSA value 0.2 ng/mL or greater.Values obtained with d ifferent assay methods or kits cannot be usedinterchangeably. Results cannot be interpreted as absolute evidenceof the presence or absence of malignant disease. 47-Xfl-751110:10 CBC & PLATELETS (AUTO) Comments: PATIENT WAS FASTINGPERFORMED BY: [employer]6370 [facility]markerAs[facility] Hospital [id number] (67339) Platelets 181 {x10E3/uL} (Normal) Range: 150-379 RDW 13.5 % (Normal) Range: 12.3-15.4 MCHC 33.9 g/dL (Normal) Range: 31.5-35.7 MCH 31.1 pg (Normal) Range: 26.6-33.0 MCV 92 fL (Normal) Range: 79-97 Hematocrit 45.4 % (Normal) Range: 37.5-51.0 Hemoglobin 15.4 g/dL (Normal) Range: 13.0-17.7 RBC 4.95 {x10E6/uL} (Normal) Range: 4.14-5.80 WBC 4.4 {x10E3/uL} (Normal) Range: 3.4-10.8 99-Wir-264069:10 VITAMIN B12 AND FOLATES Comments: PATIENT WAS FASTINGPERFORMED BY: [facility].comChilton Memorial HospitalZxpild4694 [facility] [id number] (08505) Folate (Folic Acid), Serum 12.4 ng/mL (Normal) Comments: A serum folate concentration of less than 3.1 ng/mL isconsidered to represent clinical deficiency. Vitamin B12 411 pg/mL (Normal) Range: 232-1245 82-Xhz-065425:10 Metabolic Panel, Comprehensive Comments: PATIENT WAS FASTINGPERFORMED BY: [facility].comChilton Memorial HospitalFyajqp6521 [facility] [id number] (90527) ALT (SGPT) 14 [iU]/L (Normal) Range: 0-44 [...] 8-27 Glucose 76 mg/dL (Normal) Range: 65-99 93-Gdd-776698:10 MAGNESIUM (46810) Comments: PATIENT WAS FASTINGPERFORMED BY: [place] 46625[address] [facility] [id number] Magnesium 2.4 mg/dL (Abnormal) Range: 1.6-2.3 00-Eym-305108:31 PT (PROTHROMBIN TIME) (33851) Comments: PATIENT NOT FASTINGPERFORMED BY: [place] 4662570 [facility] [id number] Prothrombin Time 21.0 {sec} (Abnormal) Range: 9.1-12.0 INR 2.1 (Abnormal) Range: 0.8-1.2 Comments: Reference interval is for non-anticoagulated patients. . Suggested INR therapeutic range for Vitamin K anta gonist therapy: Standard Dose (moderate intensity therapeutic range): 2.0 - 3.0 Higher intensity therapeutic range 2.5 - 3.5 45-Fbm-563240:19 PT (PROTHROMBIN TIME) (74269) Comments: PERFORMED BY: [facility]6[address] [facility] [id number] Prothrombin Time 22.3 {sec} (Abnormal) Range: 9.1-12.0 INR 2.3 (Abnormal) Range: 0.8-1.2 Comments: Reference interval is for non-anticoagulated patients. . Suggested INR therapeutic range for Vitamin K anta gonist therapy: Standard Dose (moderate intensity therapeutic range): 2.0 - 3.0 Higher intensity therapeutic range 2.5 - 3.5 77-Wpd-210526:07 PT (PROTHROMBIN TIME) (52920) Comments: PATIENT NOT FASTINGPERFORMED BY: [facility]6[address] [facility] [id number] Prothrombin Time 21.2 {sec} (Abnormal) Range: 9.1-12.0 INR 2.1 (Abnormal) Range: 0.8-1.2 Comments: Reference interval is for non-anticoagulated patients. . Suggested INR therapeutic range for Vitamin K anta gonist therapy: Standard Dose (moderate intensity therapeutic range): 2.0 - 3.0 Higher intensity therapeutic range 2.5 - 3.5 19-Rwd-405137:21 PT (PROTHROMBIN TIME) (92546) Comments: PATIENT NOT FASTINGPERFORMED BY: [facility]6[address] [facility] [id number] Prothrombin Time 23.1 {sec} (Abnormal) Range: 9.1-12.0 INR 2.3 (Abnormal) Range: 0.8-1.2 Comments: Reference interval is for non-anticoagulated patients. . Suggested INR therapeutic range for Vitamin K anta gonist therapy: Standard Dose (moderate intensity therapeutic range): 2.0 - 3.0 Higher intensity therapeutic range 2.5 - 3.5 :56 PT (PROTHROMBIN TIME) (34035) Comments: PATIENT NOT FASTINGPERFORMED BY: [facility]6[address] [facility] [id number] Prothrombin Time 24.2 {sec} (Abnormal) Range: 9.1-12.0 INR 2.4 (Abnormal) Range: 0.8-1.2 Comments: Reference interval is for non-anticoagulated patients. . Suggested INR therapeutic range for Vitamin K anta gonist therapy: Standard Dose (moderate intensity therapeutic range): 2.0 - 3.0 Higher intensity therapeutic range 2.5 - 3.5 :15 PT (PROTHROMBIN TIME) (01240) Comments: PATIENT NOT FASTINGPERFORMED BY: [facility]6[address] [facility] [id number] Prothrombin Time 25.2 {sec} (Abnormal) Range: 9.1-12.0 INR 2.5 (Abnormal) Range: 0.8-1.2 Comments: Reference interval is for non-anticoagulated patients. . Suggested INR therapeutic range for Vitamin K anta gonist therapy: Standard Dose (moderate intensity therapeutic range): 2.0 - 3.0 Higher intensity therapeutic range 2.5 - 3.5 :57 PT (PROTHROMBIN TIME) (09893) Comments: PATIENT NOT FASTINGPERFORMED BY: [facility]6[address] [facility] [id number] Prothrombin Time 18.5 {sec} (Abnormal) Range: 9.1-12.0 INR 1.8 (Abnormal) Range: 0.8-1.2 Comments: Reference interval is for non-anticoagulated patients. . Suggested INR therapeutic range for Vitamin K anta gonist therapy: Standard Dose (moderate intensity therapeutic range): 2.0 - 3.0 Higher intensity therapeutic range 2.5 - 3.5 45-Fcs-919659:26 PT (PROTHROMBIN TIME) (48512) Comments: PATIENT NOT FASTINGPERFORMED BY: [facility] Pslmya0464 [facility] [id number] Prothrombin Time 16.4 {sec} (Abnormal) Range: 9.1-12.0 INR 1.6 (Abnormal) Range: 0.8-1.2 Comments: Reference interval is for non-anticoagulated patients. . Suggested INR therapeutic range for Vitamin K anta gonist therapy: Standard Dose (moderate intensity therapeutic range): 2.0 - 3.0 Higher intensity therapeutic range 2.5 - 3.5 06-Vpu-599272:29 CBC W/Diff, Auto - EPLAB Comments: Order Date: 07/19/16Order Info: 0184-1E - *CBC w/Diff - oncology ONLYAt [facility] Out[facility] Medical Oncologypatients receive CBC w/auto Differential ONLY. Physicianwill place an order fo Only r a manual differential or Pathologistreview at his discretion. [facility] OUTPATIENT [facility]. [address] [place] [address] [place] [address] SUPERVISOR WATER SOFTENER SERVICE: ELISEO VICENTE DO PH:[phone] [facility] [address] [place], [place], [address] Absolute Lymph 0.91 {X10_3/uL} (Normal) Range: 0.83-4.51 [...] 4.6-6.2 WBC 4.3 K/mm3 (Abnormal) Range: 4.4-11.0 21-Zib-036777:29 Comprehensive Metabolic Profil Comments: Order Date: 07/19/16Order Info: 0786-1 - *CMP Complete Metabolic PanelOrder Info: 2532-0 - *LDH -LDH (Lactate Dehydrogenase)Serial Specimen #1, #2 or #3? 1[facility] Gcobvrzrck[address]24 [facility] [place], [place], [address] GAP 6 (Normal) Range: 5-15 CO2 27.0 [...] 7-18 GLU 84 mg/dL (Normal) Range: 70-110 55-Dhh-533410:29 LDH 173 U/L (Normal) Comments: Order Date: 07/19/16Order Info: 0786-1 - *CMP Complete Metabolic PanelOrder Info: 2532-0 - *LDH -LDH (Lactate Dehydrogenase)Serial Specimen #1, #2 or #3? 1[facility] Laborat vmq[address] [place], [address] Range: 87-241 :22 PT (PROTHROMBIN TIME) (08382) Comments: PATIENT NOT FASTINGPERFORMED BY: [facility] Systemslin6[address] [facility] [id number] Prothrombin Time 32.4 {sec} (Abnormal) Range: 9.1-12.0 INR 3.2 (Abnormal) Range: 0.8-1.2 Comments: Reference interval is for non-anticoagulated patients. . Suggested INR therapeutic range for Vitamin K anta gonist therapy: Standard Dose (moderate intensity therapeutic range): 2.0 - 3.0 Higher intensity therapeutic range 2.5 - 3.5 :16 PT (PROTHROMBIN TIME) (37340) Comments: PATIENT NOT FASTINGPERFORMED BY: [employer] Fexlpy5471 [facility] [id number] Prothrombin Time 20.2 {sec} (Abnormal) Range: 9.1-12.0 INR 2.0 (Abnormal) Range: 0.8-1.2 Comments: Reference interval is for non-anticoagulated patients. . Suggested INR therapeutic range for Vitamin K anta gonist therapy: Standard Dose (moderate intensity therapeutic range): 2.0 - 3.0 Higher intensity therapeutic range 2.5 - 3.5 :55 PT (PROTHROMBIN TIME) (71918) Comments: PATIENT NOT FASTINGPERFORMED BY: [facility]6[address] [facility] [id number] Prothrombin Time 16.0 {sec} (Abnormal) Range: 9.1-12.0 INR 1.6 (Abnormal) Range: 0.8-1.2 Comments: Reference interval is for non-anticoagulated patients. . Suggested INR therapeutic range for Vitamin K anta gonist therapy: Standard Dose (moderate intensity therapeutic range): 2.0 - 3.0 Higher intensity therapeutic range 2.5 - 3.5 80-Zlc-014274:36 PT (PROTHROMBIN TIME) (48849) Comments: PATIENT NOT FASTINGPERFORMED BY: [facility]6[address] [facility] [id number] Prothrombin Time 25.9 {sec} (Abnormal) Range: 9.1-12.0 INR 2.5 (Abnormal) Range: 0.8-1.2 Comments: Reference interval is for non-anticoagulated patients. . Suggested INR therapeutic range for Vitamin K anta gonist therapy: Standard Dose (moderate intensity therapeutic range): 2.0 - 3.0 Higher intensity therapeutic range 2.5 - 3.5 01-Eyv-519808:15 CBC W/Diff, Auto - EPLAB Comments: Order Date: 03/29/16Order Info: 0184-1E - *CBC w/Diff - oncology ONLYAt [facility] Outpatient [facility] Medical Oncologypatients receive CBC w/auto Differential ONLY. Physicianwill place an order fo Only r a manual differential or Pathologistreview at his discretion. [facility] OUTPATIENT [facility]. [address] [place] [address] [address] SUPERVISOR WATER SOFTENER SERVICE: ELISEO VICENTE DO PH:[phone] Date: 03/29/16Order Info: 0184-1E - *CBC w/Diff - oncology ONLYOrder Date: 03/29/16Order Info: 2532-0 - *LDH -LDH (Lactate Dehydrogenase)[facility] [address] [place], [address] ; another doc Absolute Lymph 0.93 {X10_3/uL} [...] 4.6-6.2 WBC 5.4 K/mm3 (Normal) Range: 4.4-11.0 87-Qkk-572408:15 Comprehensive Metabolic Profil Comments: Order Date: 03/29/16Order Info: 0786-1 - *CMP Complete Metabolic PanelOrder Info: 3084-1 - *Uric Acid BloodOrder Info: 2532-0 - *LDH -LDH (Lactate Dehydrogenase)Order Date: 03/29/16Order Info: 2532-0 - *LDH -LDH (Lactate Dehydrogenase)Serial Specimen #1, #2 or #3? 1[facility] [address] [place], [place], [address] ; Dr. Brewer, hemoc GAP 5 (Normal) [...] 7-18 GLU 86 mg/dL (Normal) Range: 70-110 18-Nbs-859705:15 LDH 231 U/L (Normal) Comments: Order Date: 03/29/16Order Info: 0786-1 - *CMP Complete Metabolic PanelOrder Info: 3084-1 - *Uric Acid BloodOrder Info: 2532-0 - *LDH -LDH (Lactate Dehydrogenase)Order Date: 03/29/16Order Info: 2-0 - *LDH -LDH (Lactate Dehydrogenase)Serial Specimen #1, #2 or #3? 1[facility] [address] [place], [place], [address] Range: 87-241 Comments: Slight Hemolysis, Result may be falsely increased. 31-Tap-066447:15 Uric Acid Comments: Order Date: 03/29/16Order Info: 0786-1 - *CMP Complete Metabolic PanelOrder Info: 3084-1 - *Uric Acid BloodOrder Info: 2532-0 - *LDH -LDH (Lactate Dehydrogenase)Order Date: 03/29/16Order Info: 2-0 - *LDH -LDH (Lactate Dehydrogenase)Serial Specimen #1, #2 or #3? [facility] [address]hrzitf[address] [place], [address] URIC 4.4 mg/dL (Normal) Range: 3.5-7.2 Comments: The drugs N-Acetylcysteine and Metamizole may falsely deressthis assay. :27 PT (PROTHROMBIN TIME) (86657) Comments: PATIENT NOT FASTINGPERFORMED BY: LabKnodium Ttoqlz8129 [facility] [id number] Prothrombin Time 30.1 {sec} (Abnormal) Range: 9.1-12.0 INR 3.0 (Abnormal) Range: 0.8-1.2 Comments: Reference interval is for non-anticoagulated patients. . Suggested INR therapeutic range for Vitamin K anta gonist therapy: Standard Dose (moderate intensity therapeutic range): 2.0 - 3.0 Higher intensity therapeutic range 2.5 - 3.5 :21 PT (PROTHROMBIN TIME) (00962) Comments: PATIENT NOT FASTINGPERFORMED BY: [employer] Qnawyx5744 [facility] [id number] Prothrombin Time 30.7 {sec} (Abnormal) Range: 9.1-12.0 INR 3.0 (Abnormal) Range: 0.8-1.2 Comments: Reference interval is for non-anticoagulated patients. . Suggested INR therapeutic range for Vitamin K anta gonist therapy: Standard Dose (moderate intensity therapeutic range): 2.0 - 3.0 Higher intensity therapeutic range 2.5 - 3.5 :14 PT (PROTHROMBIN TIME) (53713) Comments: PATIENT NOT FASTINGPERFORMED BY: SmartStudy.comChilton Memorial HospitalJozmdj1381 [facility] [id number] Prothrombin Time 19.0 {sec} (Abnormal) Range: 9.1-12.0 INR 1.9 (Abnormal) Range: 0.8-1.2 Comments: Reference interval is for non-anticoagulated patients. . Suggested INR therapeutic range for Vitamin K anta gonist therapy: Standard Dose (moderate intensity therapeutic range): 2.0 - 3.0 Higher intensity therapeutic range 2.5 - 3.5 21-Dbh-896368:14 Fqlh-3-Vloisbflomztt, S Comments: Order Date: 12/29/15Order Date: 12/29/15Order Date: 12/29/15[facility] (refer to report for specific site)refer to report for address and phone number [phone] [id number] 1.2 mg/L (Normal) Range: 0.6-2.4 Comments: Performed at: - [facility] [id number] Director: Ino Monsivais PhD, Phone: [phone] 82-Nax-904301:14 CBC W/Diff, Auto - EPLAB Comments: At [facility] Outpatient [facility] Medical Oncologypatients receive CBC w/auto Differential ONLY. Physicianwill place an order for a manual differential or Pathologistreview at his discretion. [facility] OUTPATIENT [facility]. [address] [place] [address] [address] SUPERVISOR WATER SOFTENER SERVICE: ELISEO VICENTE DO PH:[phone] Health System [facility]etta [facility] Hospital Qsgglitrmt[address] [place], [address] Absolute Lymph 0.99 {X10_3/uL} (Normal) [...] 4.6-6.2 WBC 4.6 K/mm3 (Normal) Range: 4.4-11.0 14-Eot-139543:14 Comprehensive Metabolic Profil Comments: Order Date: 12/29/15Order Date: 12/29/15erial Specimen #1, #2 or #3? [address] [place] [address] [address] [place], [place], [address] GAP 11 (Normal) Range: 5-15 CO2 25.0 [...] 7-18 GLU 89 mg/dL (Normal) Range: 70-110 37-Qmx-744465:14 LDH 196 U/L (Normal) Comments: Order Date: 12/29/15Order Date: 08/30/16Serial Specimen #1, #2 or #3? [address] [place] [address] [place], [address] Range: 87-241 03-Eku-507451:14 Uric Acid Comments: Order Date: 12/29/15Order Date: 12/28/16Serial Specimen #1, #2 or #3? [address] [place] [address] Cdoultwvwb7[address] [place], [address] URIC 4.1 mg/dL (Normal) Range: 3.5-7.2 Comments: The drugs N-Acetylcysteine and Metamizole may falsely deressthis assay. :54 PT (PROTHROMBIN TIME) (96325) Comments: PATIENT NOT FASTINGPERFORMED BY: [employer] Iijvmu7686 [facility] [id number] Prothrombin Time 16.1 {sec} (Abnormal) Range: 9.1-12.0 INR 1.6 (Abnormal) Range: 0.8-1.2 Comments: Reference interval is for non-anticoagulated patients. . Suggested INR therapeutic range for Vitamin K anta gonist therapy: Standard Dose (moderate intensity therapeutic range): 2.0 - 3.0 Higher intensity therapeutic range 2.5 - 3.5 27-Avw-651100:16 PT (PROTHROMBIN TIME) Comments: PATIENT NOT FASTINGPERFORMED BY: SmartStudy.comChilton Memorial HospitalJwxvsi9994 [facility] [id number] Information: [id number] ([id number]) Prothrombin Time 32.0 {sec} (Abnormal) Range: 9.1-12.0 INR 3.2 (Abnormal) Range: 0.8-1.2 Comments: Reference interval is for non-anticoagulated patients. . Suggested INR therapeutic range for Vitamin K anta gonist therapy: Standard Dose (moderate intensity therapeutic range): 2.0 - 3.0 Higher intensity therapeutic range 2.5 - 3.5 74-Jgi-713884:04 CBC W/Diff, Auto - EPLAB Comments: At [facility] Outpatient [facility] Medical Oncologypatients receive CBC w/auto Differential ONLY. Physicianwill place an order for a manual differential or Pathologistreview at his discretion. [facility]. [address] [place] [place] [address] [place] [address] SUPERVISOR WATER SOFTENER SERVICE: ELISEO VICENTE DO PH:[phone] Health System [facility]etta [facility] Hospital Zkteoqybvm46[address] [place], [address] Absolute Lymph 0.82 {X10_3/uL} (Abnormal) [...] 4.6-6.2 WBC 4.7 K/mm3 (Normal) Range: 4.4-11.0 94-Aug-235720:04 Comprehensive Metabolic Profil Comments: Order Date: 12/29/15OV Order #: [id number] Specimen #1, #2 or #3? 1 [id number] Health System Marietta Memorial Hospital [address]wtkjt[address] [facility] [place], [address] GAP 5 (Normal) Range: 5-15 CO2 29.0 [...] 7-18 GLU 89 mg/dL (Normal) Range: 70-110 99-Wlg-798561:04 LDH 167 U/L (Normal) Comments: Order Date: 12/29/15OV Order #: [id number] Specimen #1, #2 or #3? [id number] [place] [address] [address] [place], [place], [address] Range: 87-241 27-Lth-929832:04 Uric Acid Comments: Order Date: 12/29/15OV Order #: [id number] Specimen #1, #2 or #3? [id number] [place] [address] [address]ud[address] [place], [place], [address] URIC 4.2 mg/dL (Normal) Range: 3.5-7.2 Comments: The drugs N-Acetylcysteine and Metamizole may falsely deressthis assay. :17 PT (PROTHROMBIN TIME) (81706) Comments: PATIENT NOT FASTINGPERFORMED BY: [facility]6370 [facility] [id number] Prothrombin Time 25.7 {sec} (Abnormal) Range: 9.1-12.0 INR 2.5 (Abnormal) Range: 0.8-1.2 Comments: Reference interval is for non-anticoagulated patients. . Suggested INR therapeutic range for Vitamin K anta gonist therapy: Standard Dose (moderate intensity therapeutic range): 2.0 - 3.0 Higher intensity therapeutic range 2.5 - 3.5 :32 PT (PROTHROMBIN TIME) Comments: PATIENT NOT FASTINGPERFORMED BY: [place] 4662570 [facility] [id number] Information: [id number] ([id number]) Prothrombin Time 28.7 {sec} (Abnormal) Range: 9.1-12.0 INR 2.8 (Abnormal) Range: 0.8-1.2 Comments: Reference interval is for non-anticoagulated patients. . Suggested INR therapeutic range for Vitamin K anta gonist therapy: Standard Dose (moderate intensity therapeutic range): 2.0 - 3.0 Higher intensity therapeutic range 2.5 - 3.5 :53 PT (PROTHROMBIN TIME) Comments: PATIENT NOT FASTINGPERFORMED BY: [facility]6370 [facility] [id number] Information: [id number] ([id number]) Prothrombin Time 25.1 {sec} (Abnormal) Range: 9.1-12.0 INR 2.4 (Abnormal) Range: 0.8-1.2 Comments: Reference interval is for non-anticoagulated patients. . Suggested INR therapeutic range for Vitamin K anta gonist therapy: Standard Dose (moderate intensity therapeutic range): 2.0 - 3.0 Higher intensity therapeutic range 2.5 - 3.5 :15 PT (PROTHROMBIN TIME) Comments: PATIENT NOT FASTINGPERFORMED BY: [place] [id number] [facility] [id number] Information: [id number] ([id number]) Prothrombin Time 23.0 {sec} (Abnormal) Range: 9.1-12.0 INR 2.3 (Abnormal) Range: 0.8-1.2 Comments: Reference interval is for non-anticoagulated patients. . Suggested INR therapeutic range for Vitamin K anta gonist therapy: Standard Dose (moderate intensity therapeutic range): 2.0 - 3.0 Higher intensity therapeutic range 2.5 - 3.5 0-Cmb-002079:42 CBC W/Diff, Auto - EPLAB Comments: At [facility] Outpatient [facility] Medical Oncologypatients receive CBC w/auto Differential ONLY. Physicianwill place an order for a manual differential or Pathologistreview at his discretion. [facility]. [address] [place] [place] [address] [place] [address] SUPERVISOR WATER SOFTENER SERVICE: ELISEO VICENTE DO PH:[phone] Health System Marietta Memorial Hospital [address]kyznzg[address] [place], [place], [address] Absolute Lymph 0.97 {X10_3/uL} (Normal) Range: 0.83-4.51 [...] 4.6-6.2 WBC 4.4 K/mm3 (Normal) Range: 4.4-11.0 5-Zyr-664129:42 Comprehensive Metabolic Profil Comments: Serial Specimen #1, #2 or #3? 1[facility] Momkempqan[address] [place], [place], [address] GAP 7 (Normal) Range: 5-15 CO2 27.0 [...] 7-18 GLU 80 mg/dL (Normal) Range: 70-110 6-Jur-937015:42 LDH 181 U/L (Normal) Comments: Serial Specimen #1, #2 or #3? 1[facility] Sfjahxyzud[address] [place], [place], [address] Range: 87-241 1-Ecy-281823:42 Magnesium Comments: Serial Specimen #1, #2 or #3? 1[facility] [address] [place], [address] MG 2.3 mg/dL (Normal) Range: 1.8-2.4 3-Tqv-294467:42 Uric Acid Comments: Serial Specimen #1, #2 or #3? 1[facility] [address] [place], [address] URIC 3.9 mg/dL (Normal) Range: 3.5-7.2 :45 PT (PROTHROMBIN TIME) Comments: PATIENT NOT FASTINGPERFORMED BY: [place] [id number] [facility] [id number] Information: [id number] ([id number]) Prothrombin Time 22.5 {sec} (Abnormal) Range: 9.1-12.0 INR 2.2 (Abnormal) Range: 0.8-1.2 Comments: Reference interval is for non-anticoagulated patients. . Suggested INR therapeutic range for Vitamin K anta gonist therapy: Standard Dose (moderate intensity therapeutic range): 2.0 - 3.0 Higher intensity therapeutic range 2.5 - 3.5 :30 PT (PROTHROMBIN TIME) Comments: PATIENT NOT FASTINGPERFORMED BY: [facility]6370 [facility] [id number] Information: [id number] ([id number]) Prothrombin Time 22.9 {sec} (Abnormal) Range: 9.1-12.0 INR 2.2 (Abnormal) Range: 0.8-1.2 Comments: Reference interval is for non-anticoagulated patients. . Suggested INR therapeutic range for Vitamin K anta gonist therapy: Standard Dose (moderate intensity therapeutic range): 2.0 - 3.0 Higher intensity therapeutic range 2.5 - 3.5 :45 CBC W/Diff, Auto - EPLAB Comments: At [facility] Outpatient [facility] Medical Oncologypatients receive CBC w/auto Differential ONLY. Physicianwill place an order for a manual differential or Pathologistreview at his discretion. [facility]. [address] [place] [address] [address] SUPERVISOR WATER SOFTENER SERVICE: ELISEO VICENTE DO PH:[phone] Health System Marietta Memorial Hospital Easposghir[address] [place], [address] Absolute Lymph 0.76 {X10_3/uL} (Abnormal) [...] Comments: Serial Specimen #1, #2 or #3? 1[facility] [address]txyznjrkh[address] [place], [address] GAP 0 (Abnormal) Range: 5-15 [...] Comments: Serial Specimen #1, #2 or #3? [address] [place] [address] Xgphxgnytq[address] [place], [address] Range: 87-241 :44 Magnesium Comments: Serial Specimen #1, #2 or #3? [address] [place] [address] Ibxkvxqzew[address] [place], [address] MG 2.3 mg/dL (Normal) Range: 1.8-2.4 :44 Uric Acid Comments: Serial Specimen #1, #2 or #3? [address] [place] [address] Xztxxlmvyd7[address] [place], [address] URIC 4.5 mg/dL (Normal) Range: 3.5-7.2 :55 PT (PROTHROMBIN TIME) Comments: PATIENT NOT FASTINGPERFORMED BY: LabKarmanos [facility]6370 [facility] [id number] Information: [id number] ([id number]) Prothrombin Time 21.2 {sec} (Abnormal) Range: 9.1-12.0 INR 2.0 (Abnormal) Range: 0.8-1.2 Comments: Reference interval is for non-anticoagulated patients. . Suggested INR therapeutic range for Vitamin K anta gonist therapy: Standard Dose (moderate intensity therapeutic range): 2.0 - 3.0 Higher intensity therapeutic range 2.5 - 3.5 29-Tqv-570946:12 PT (PROTHROMBIN TIME) Comments: PATIENT NOT FASTINGPERFORMED BY: [facility]6370 [facility] [id number] Information: [id number] (76530) Prothrombin Time 23.4 {sec} (Abnormal) Range: 9.1-12.0 INR 2.3 (Abnormal) Range: 0.8-1.2 Comments: Reference interval is for non-anticoagulated patients. . Suggested INR therapeutic range for Vitamin K anta gonist therapy: Standard Dose (moderate intensity therapeutic range): 2.0 - 3.0 Higher intensity therapeutic range 2.5 - 3.5 03-Apr-20159:39 Prothrombin Time w/INR Comments: [facility] [address] [place], [place], [address] INR 2.5 (Normal) PROTIME 27.0 s (Abnormal) Range: 11.7-14.9 97-Cwt-605429:55 Microscopic Examination Comments: PATIENT NOT FASTINGPERFORMED BY: [facility]6370 [facility] [id number] Bacteria Few (Normal) Mucus Threads Present (Normal) Epithelial Cells (non renal) None seen {/hpf} (Normal) Range: 0 - 10 RBC 0-2 {/hpf} (Normal) Range: 0 - 2 WBC 0-5 {/hpf} (Normal) Range: 0 - 5 97-Fbi-918366:55 URINALYSIS (84299) Comments: PATIENT NOT FASTINGPERFORMED BY: [facility]6370 [facility] [id number]; apt. 03-30-15 Microscopic Examination See below: (Normal) Comments: Microscopic was indicated and was performed. Nitrite, Urine Negative (Normal) Urobilinogen,Semi-Qn 1.0 mg/dL (Normal) Range: 0.2-1.0 Bilirubin Negative (Normal) Occult Blood Negative (Normal) Ketones Trace (Abnormal) Glucose Negative (Normal) Protein 1+ (Abnormal) WBC Esterase Negative (Normal) Appearance Clear (Normal) Urine-Color Yellow (Normal) pH 6.0 (Normal) Range: 5.0-7.5 Specific Redig >=1.030 (Abnormal) Range: 1.005-1.030 38-Wnx-384893:55 CBC, Platelets & Auto Comments: PATIENT NOT FASTINGPERFORMED BY: LabCoChilton Memorial HospitalEsakbh6792 [facility] [id number] Information: [id number] Diff (38755) Immature Grans (Abs) 0.0 {x10E3/uL} (Normal) Range: [...] 4.14-5.80 WBC 6.1 {x10E3/uL} (Normal) Range: 3.4-10.8 58-Cma-449163:55 Metabolic Panel, Comprehensive Comments: PATIENT NOT FASTINGPERFORMED BY: [employer] Kkvjiy1111 CardMunchAtrium Health [facility] [id number] ([id number]) ALT (SGPT) 23 [iU]/L (Normal) Range: 0-44 [...] Glucose, Serum 83 mg/dL (Normal) Range: 65-99 82-Rav-235227:55 PSA, TOTAL - DIAGNOSTIC Comments: PATIENT NOT FASTINGPERFORMED BY: [employer] Uexpuz8552 [place].Club DomainsAtrium Health Kannapolis [id number] (01611) Prostate Specific Ag, 0.5 ng/mL (Normal) Range: 0.0-4.0 Serum Comments: Yulisa ECLIA methodology. .According to the [employer], Serum PSA shoulddecrease and remain at undetectable levels after radicalprostatectomy. The AUA defines biochemical recurrence as an initialPSA value 0.2 ng/mL or greater followed by a subsequent confirmatoryPSA value 0.2 ng/mL or greater.Values obtained with d ifferent assay methods or kits cannot be usedinterchangeably. Results cannot be interpreted as absolute evidenceof the presence or absence of malignant disease. 28-Bti-576762:59 URINE JAILENE CULTURE-THAD COL Comments: PATIENT NOT FASTINGPERFORMED BY: [facility]70 CardMunchAtrium Health [facility] [id number] Information: SRC:[facility] [id number] COUNT (14654) Result 1 NG36 (Normal) Comments: No growth in 36 - 48 hours. Urine Culture,Comprehensive Final report (Normal) 95-Djb-661761:43 Urinalysis, Office (06816) UA - LEUKOCYTE ESTERASE Negative (Normal) UA - NITRITE Negative (Normal) URINE UROBILINGN THAD TIMED Normal mg/dL (Normal) UA - PROTEIN 30 mg/dL (Normal) UA - PH 6 (Abnormal) UA - BLOOD Non Hemolyzed Trace (Normal) UA - SPECIFIC GRAVITY 1.025 (Normal) UA - KETONES Moderate mg/dL (Normal) UA - BILIRUBIN Small (Normal) UA - GLUCOSE Negative (Normal) 53-Nvd-11427:19 PT (PROTHROMBIN TIME) Comments: PATIENT NOT FASTINGPERFORMED BY: [facility]70 [facility] [id number] Information: [id number] (94105) Prothrombin Time 30.2 {sec} (Abnormal) Range: 9.1-12.0 INR 2.9 (Abnormal) Range: 0.8-1.2 Comments: Reference interval is for non-anticoagulated patients. . Suggested INR therapeutic range for Vitamin K anta gonist therapy: Standard Dose (moderate intensity therapeutic range): 2.0 - 3.0 Higher intensity therapeutic range 2.5 - 3.5 :55 CBC W/Diff, Auto - EPLAB Comments: At [facility] [place] Medical Oncologypatients receive CBC w/auto Differential ONLY. Physicianwill place an order for a manual differential or Pathologistreview at his discretion. [facility] OUTPATIENT [facility]. [address] [place] [place] [address] [place] [address] SUPERVISOR WATER SOFTENER SERVICE: ELISEO VICENTE DO PH:[phone] Health System [facility]etta [facility] Hospital Incdvfeggl[address] [place], [address] Absolute Lymph 0.75 {X10_3/uL} (Abnormal) [...] Comments: Serial Specimen #1, #2 or #3? 1[facility] Reoanslemk[address] [place], [address] GAP 7 (Normal) Range: 5-15 [...] Comments: Serial Specimen #1, #2 or #3? [address] [place] [address] Winfdsgcmo[address] AcostaAntonette [place], [place], [address] Range: 87-241 :55 Uric Acid Comments: Serial Specimen #1, #2 or #3? [address] [place] [address] Mvmolasije1811 [facility] Centerleatha. [place], [place], [address] URIC 3.9 mg/dL (Normal) Range: 3.5-7.2 84-Ewc-680688:20 PT (PROTHROMBIN TIME) Comments: PATIENT NOT FASTINGPERFORMED BY: LabCoChilton Memorial HospitalOaeemn9681 [facility] [id number] Information: [id number] (42592) Prothrombin Time 27.9 {sec} (Abnormal) Range: 9.1-12.0 INR 2.7 (Abnormal) Range: 0.8-1.2 Comments: Reference interval is for non-anticoagulated patients. . Suggested INR therapeutic range for Vitamin K anta gonist therapy: Standard Dose (moderate intensity therapeutic range): 2.0 - 3.0 Higher intensity therapeutic range 2.5 - 3.5 09-Duj-49225:27 Fact V Leiden Mutation Comments: [facility] (refer to report for specific site)refer to report for address and phone number COMMENT Comment Comments: Genetic counselors are available for health care providers to discuss results at [phone]).Methodology:DNA analysis of the Factor V gene was [...] elevated homocysteine levels,or a Factor II/prothrombin mutation (K99810H). [facility]Gr[facility] for information on how to order theFactor II DNA test. 09-Ovz-32839:27 Factor II, DNA Analysis Comments: [facility] (refer to report for specific site)refer to report for address and phone number COMMENT Comment (Normal) Comments: Genetic Counselors are available for health care providersto discuss results at [phone]).Methodology:DNA analysis of the Factor II gene was performed by PCRamplification followed by restric tion analysis. Thediagnostic sensitivity is >99% for both. All the tests mustbe combined with clinical information for the most accurateinterpretation. Molecular-based testing is highly accurate,but as in any laboratory test, diagnostic errors may occur.Poort SR, et al. Blood. 1996; 88:3129-5903.Mary Ann EA. Circulation. 2004; 110:e15-e18.Tamiko I, et al. Arterioscler Thromb Vasc Biol. 1999;19:700 -703.Mitesh Andujar, PhDAgnes Ruiz, PhDNadege Finn, PhDBetty Solano, PhDFara Orozco, PhDGuido Fishman, PhDPerformed at: [address] [id number] [employer] Runner: Larry Norman MD, Phone: [phone] at: [facility] YJC2875 [place], [place] [id number] Director: William Bustillo MD, Phone: [phone] FACTOR II,DNA Comment (Normal) Comments: NEGATIVENo mutation identified.Comment:A point mutation (B90185I) in the factor II (prothrombin)gene is the [...] individual mutations. This assaydetects only the prothrombin C57781V mutation and doesnot measure genetic abnormalities elsewhere i n thegenome. Other thrombotic risk factors may be pursuedthrough systematic clinical laboratory analysis. Thesefactors include the R506Q (Leiden) mutation in the Factor Vgene, plasma homocysteine levels , as well as testing fordeficiencies of antithrombin III, protein C and protein S. 53-Znm-11460:27 Protein C Defic. Profile Comments: [facility] (refer [...] patient is diagnosed withcongenital Protein C deficiency. 23-Gmb-47115:27 Protein S Defic. Profile Comments: [facility] (refer [...] PROTEIN S,TOTAL 62 % (Normal) Range: 58-150 23-Wiz-32534:38 CBC W/Diff, Auto - EPLAB Comments: At [facility] Outpatient [facility] Medical Oncologypatients receive CBC w/auto Differential ONLY. Physicianwill place an order for a manual differential or Pathologistreview at his discretion. [facility] OUTPATIENT [facility]. [address] [place] [address] [place] [address] SUPERVISOR WATER SOFTENER SERVICE: ELISEO VICENTE DO PH:[phone] Health System Marietta Memorial Hospital [address]gzehfoz[address] [place], [address] Absolute Lymph 0.69 {X10_3/uL} (Abnormal) Range: 0.83-4.51 [...] Comments: Serial Specimen #1, #2 or #3? [address] [place] [address] [address]qxq[address] [place], [place], [address] GAP 6 (Normal) Range: 5-15 CO2 29.0 [...] Comments: Serial Specimen #1, #2 or #3? [address] [place] [address] [address]vnpwoghg[address] [place], [address] Range: 87-241 :38 Uric Acid Comments: Serial Specimen #1, #2 or #3? 1W[facility] [address]owzcadpm[address] [place], [address] URIC 4.7 mg/dL (Normal) Range: 3.5-7.2 23-Vlt-483057:31 PT (PROTHROMBIN TIME) (59402) Comments: PATIENT NOT FASTINGPERFORMED BY: [place] [id number] [facility] [id number] Prothrombin Time 21.0 {sec} (Abnormal) Range: 9.1-12.0 INR 2.1 (Abnormal) Range: 0.8-1.2 Comments: Reference interval is for non-anticoagulated patients. . Suggested INR therapeutic range for Vitamin K anta gonist therapy: Standard Dose (moderate intensity therapeutic range): 2.0 - 3.0 Higher intensity therapeutic range 2.5 - 3.5 :20 PT (PROTHROMBIN TIME) Comments: PATIENT NOT FASTINGPERFORMED BY: [place] 4662570 [facility] [id number] Information: [id number] (03686) Prothrombin Time 34.6 {sec} (Abnormal) Range: 9.1-12.0 INR 3.3 (Abnormal) Range: 0.8-1.2 Comments: Reference interval is for non-anticoagulated patients. . Suggested INR therapeutic range for Vitamin K anta gonist therapy: Standard Dose (moderate intensity therapeutic range): 2.0 - 3.0 Higher intensity therapeutic range 2.5 - 3.5 :54 PT (PROTHROMBIN TIME) Comments: PATIENT NOT FASTINGPERFORMED BY: [facility]6370 [facility] [id number] Information: [id number] ([id number]) Prothrombin Time 39.8 {sec} (Abnormal) Range: 9.1-12.0 INR 3.8 (Abnormal) Range: 0.8-1.2 Comments: Client Requested Flag Reference interval is for non- anticoagulated patients. . Suggested INR therapeutic ra nge for Vitamin K antagonist therapy: Standard Dose (moderate intensity therapeutic range): 2.0 - 3.0 Higher intensity therapeutic range 2.5 - 3.5 :56 Prothrombin Time (PT) Comments: PATIENT NOT FASTINGPERFORMED BY: [place] [id number] [facility] [id number] Information: [id number] Prothrombin Time 20.1 {sec} (Abnormal) Range: 9.1-12.0 INR 1.9 (Abnormal) Range: 0.8-1.2 Comments: Reference interval is for non-anticoagulated patients. . Suggested INR therapeutic range for Vitamin K anta gonist therapy: Standard Dose (moderate intensity therapeutic range): 2.0 - 3.0 Higher intensity therapeutic range 2.5 - 3.5 :31 PT (PROTHROMBIN TIME) Comments: PATIENT NOT FASTINGPERFORMED BY: [place] [id number] [facility] [id number] Information: [id number] ([id number]) Prothrombin Time 26.6 {sec} (Abnormal) Range: 9.1-12.0 INR 2.6 (Abnormal) Range: 0.8-1.2 Comments: Reference interval is for non-anticoagulated patients. . Suggested INR therapeutic range for Vitamin K anta gonist therapy: Standard Dose (moderate intensity therapeutic range): 2.0 - 3.0 Higher intensity therapeutic range 2.5 - 3.5 :10 Prothrombin Time (PT) Comments: PATIENT NOT FASTINGPERFORMED BY: [place] [id number] [facility] [id number] Information: [id number] Prothrombin Time 32.6 {sec} (Abnormal) Range: 9.1-12.0 INR 3.0 (Abnormal) Range: 0.8-1.2 Comments: Reference interval is for non-anticoagulated patients. . Suggested INR therapeutic range for Vitamin K anta gonist therapy: Standard Dose (moderate intensity therapeutic range): 2.0 - 3.0 Higher intensity therapeutic range 2.5 - 3.5 :35 PT (PROTHROMBIN TIME) Comments: PATIENT NOT FASTINGPERFORMED BY: [facility] [id number] Information: [id number] ([id number]) Prothrombin Time 31.7 {sec} (Abnormal) Range: 9.1-12.0 INR 3.1 (Abnormal) Range: 0.8-1.2 Comments: Reference interval is for non-anticoagulated patients. . Suggested INR therapeutic range for Vitamin K anta gonist therapy: Standard Dose (moderate intensity therapeutic range): 2.0 - 3.0 Higher intensity therapeutic range 2.5 - 3.5 29-Kvx-855804:16 Prothrombin Time (PT) Comments: PATIENT NOT FASTINGPERFORMED BY: [facility] [id number] Information: [id number] Prothrombin Time 25.6 {sec} (Abnormal) Range: 9.1-12.0 INR 2.4 (Abnormal) Range: 0.8-1.2 Comments: Reference interval is for non-anticoagulated patients. . Suggested INR therapeutic range for Vitamin K anta gonist therapy: Standard Dose (moderate intensity therapeutic range): 2.0 - 3.0 Higher intensity therapeutic range 2.5 - 3.5 60-Ctx-61274:21 CBC W/Diff, Auto - EPLAB Only Comments: At [facility] Outpatient [facility], [facility] patientsreceive CBC w/auto Differential ONLY. Physician will placean order for a manual differential or Pathologist review athis discretion. [facility] OUTPATIENT [facility]. [address] [place] [place] [address] [address] SUPERVISOR WATER SOFTENER SERVICE: ELISEO VICENTE DO PH:[phone] performed at:[facility] [address] [place] [address] Absolute Neut 3.1 {X10_3/uL} (Normal) Range: 2.0-7.7 [...] 4.6-6.2 WBC 4.3 K/mm3 (Abnormal) Range: 4.4-11.0 44-Drx-64859:21 Comprehensive Metabolic Profil Comments: Test performed at:[facility] [address] [place] [address] GAP 6 (Normal) Range: 5-15 CO2 29.0 [...] LDH 171 U/L (Normal) Comments: Test performed at:[facility] [address] [place] [address] Range: 84-246 :21 Uric Acid Comments: Test performed at:[facility] [address] [facility] [place] [address] URIC 4.2 mg/dL (Normal) Range: 3.5-7.2 :19 PT (Prothrobim Time) Comments: PATIENT NOT FASTINGPERFORMED BY: [address] [id number] Information: [id number] ([id number]) Prothrombin Time 29.7 {sec} (Abnormal) Range: 9.1-12.0 INR 2.7 (Abnormal) Range: 0.8-1.2 Comments: Reference interval is for non-anticoagulated patients. . Suggested INR therapeutic range for Vitamin K anta gonist therapy: Standard Dose (moderate intensity therapeutic range): 2.0 - 3.0 Higher intensity therapeutic range 2.5 - 3.5 :44 PT (PROTHROMBIN TIME) ([id number]) Comments: PERFORMED BY: [facility] [id number] Prothrombin Time 25.5 {sec} (Abnormal) Range: 9.1-12.0 INR 2.3 (Abnormal) Range: 0.8-1.2 Comments: Reference interval is for non-anticoagulated patients. . Suggested INR therapeutic range for Vitamin K anta gonist therapy: Standard Dose (moderate intensity therapeutic range): 2.0 - 3.0 Higher intensity therapeutic range 2.5 - 3.5 :28 PT (PROTHROMBIN TIME) Comments: PATIENT NOT FASTINGPERFORMED BY: [facility] [id number] Information: [id number] ([id number]) Prothrombin Time 34.8 {sec} (Abnormal) Range: 9.1-12.0 INR 3.2 (Abnormal) Range: 0.8-1.2 Comments: Reference interval is for non-anticoagulated patients. . Suggested INR therapeutic range for Vitamin K anta gonist therapy: Standard Dose (moderate intensity therapeutic range): 2.0 - 3.0 Higher intensity therapeutic range 2.5 - 3.5 :02 PT (PROTHROMBIN TIME) Comments: PATIENT NOT FASTINGPERFORMED BY: [place] [id number] [facility] [id number] Information: [id number] ([id number]) Prothrombin Time 30.2 {sec} (Abnormal) Range: 9.1-12.0 INR 2.8 (Abnormal) Range: 0.8-1.2 Comments: Reference interval is for non-anticoagulated patients. . Suggested INR therapeutic range for Vitamin K anta gonist therapy: Standard Dose (moderate intensity therapeutic range): 2.0 - 3.0 Higher intensity therapeutic range 2.5 - 3.5 :58 PT (PROTHROMBIN TIME) Comments: PATIENT NOT FASTINGPERFORMED BY: [place] [id number] [facility] [id number] Information: [id number] ([id number]) Prothrombin Time 16.3 {sec} (Abnormal) Range: 9.1-12.0 INR 1.5 (Abnormal) Range: 0.8-1.2 Comments: Reference interval is for non-anticoagulated patients. . Suggested INR therapeutic range for Vitamin K anta gonist therapy: Standard Dose (moderate intensity therapeutic range): 2.0 - 3.0 Higher intensity therapeutic range 2.5 - 3.5 22-Vis-000809:38 PT (PROTHROMBIN TIME) Comments: PATIENT NOT FASTINGPERFORMED BY: [place] [id number] [facility] [id number] Information: [id number] ([id number]) Prothrombin Time 24.1 {sec} (Abnormal) Range: 9.1-12.0 INR 2.2 (Abnormal) Range: 0.8-1.2 Comments: Reference interval is for non-anticoagulated patients. . Suggested INR therapeutic range for Vitamin K anta gonist therapy: Standard Dose (moderate intensity therapeutic range): 2.0 - 3.0 Higher intensity therapeutic range 2.5 - 3.5 44-Ric-18704:48 Pathology Report Comments: PERFORMED BY: KWCYT [facility] Noel Cyto Kzdgm98250 [facility] [id number] BY: [facility] Dermatopathology Besrulp[address] [id number] Information: [id number] See MATER Comments: Material submitted: .RIGHT DELTOID [...] SUBMITTEDENTIRELY IN A SINGLE CASSETTE.LMS/CRYPathologist provided ICD-9:173.61CPT .226897 65-Ooc-667138:16 PT (Prothrobim Time) Comments: PATIENT NOT FASTINGPERFORMED BY: [facility]6[address] [facility] [id number] Information: [id number] ([id number]) Prothrombin Time 30.4 {sec} (Abnormal) Range: 9.1-12.0 INR 2.8 (Abnormal) Range: 0.8-1.2 Comments: Reference interval is for non-anticoagulated patients. . Suggested INR therapeutic range for Vitamin K anta gonist therapy: Standard Dose (moderate intensity therapeutic range): 2.0 - 3.0 Higher intensity therapeutic range 2.5 - 3.5 :36 PT (PROTHROMBIN TIME) Comments: PATIENT NOT FASTINGPERFORMED BY: [place] [id number] [facility] [id number] Information: [id number] ([id number]) Prothrombin Time 35.6 {sec} (Abnormal) Range: 9.1-12.0 INR 3.3 (Abnormal) Range: 0.8-1.2 Comments: Reference interval is for non-anticoagulated patients. . Suggested INR therapeutic range for Vitamin K anta gonist therapy: Standard Dose (moderate intensity therapeutic range): 2.0 - 3.0 Higher intensity therapeutic range 2.5 - 3.5 :40 PT (PROTHROMBIN TIME) Comments: PATIENT NOT FASTINGPERFORMED BY: [facility] [id number] Information: [id number] ([id number]) Prothrombin Time 44.9 {sec} (Abnormal) Range: 9.1-12.0 [...] (PROTHROMBIN TIME) Comments: PATIENT NOT FASTINGPERFORMED BY: SmartStudy.comChilton Memorial HospitalIpyiub5526 [facility] [id number] Information: [id number] ([id number]) Prothrombin Time 22.0 {sec} (Abnormal) Range: 9.1-12.0 INR 2.0 (Abnormal) Range: 0.8-1.2 Comments: Reference interval is for non-anticoagulated patients. . Suggested INR therapeutic range for Vitamin K anta gonist therapy: Standard Dose (moderate intensity therapeutic range): 2.0 - 3.0 Higher intensity therapeutic range 2.5 - 3.5 :48 PT (PROTHROMBIN TIME) Comments: PATIENT NOT FASTINGPERFORMED BY: [facility] [id number] Information: [id number] ([id number]) Prothrombin Time 16.2 {sec} (Abnormal) Range: 9.1-12.0 INR 1.6 (Abnormal) Range: 0.8-1.2 Comments: Reference interval is for non-anticoagulated patients. . Suggested INR therapeutic range for Vitamin K anta gonist therapy: Standard Dose (moderate intensity therapeutic range): 2.0 - 3.0 Higher intensity therapeutic range 2.5 - 3.5 03-Yee-157157:19 PT (Prothrobim Time) Comments: PATIENT NOT FASTINGPERFORMED BY: [facility]6370 [facility] [id number] Information: [id number] ([id number]) Prothrombin Time 31.0 {sec} (Abnormal) Range: 9.1-12.0 INR 2.8 (Abnormal) Range: 0.8-1.2 Comments: Reference interval is for non-anticoagulated patients. . Suggested INR therapeutic range for Vitamin K anta gonist therapy: Standard Dose (moderate intensity therapeutic range): 2.0 - 3.0 Higher intensity therapeutic range 2.5 - 3.5 :16 Metabolic Panel, Comprehensive Comments: PATIENT WAS FASTINGPERFORMED BY: SmartStudy.comChilton Memorial HospitalLpxtlc6746 [facility] [id number] ([id number]) ALT (SGPT) 17 [iU]/L (Normal) Range: 0-44 [...] mg/dL (Normal) Range: 65-99 :16 Lipid Panel ([id number]) Comments: PATIENT WAS FASTINGPERFORMED BY: PolisofiaChilton Memorial HospitalSbfbup4210 [facility] [id number] LDL/HDL Ratio 3.0 {ratio_units} (Normal) Range: 0.0-3.6 [...] Auto Diff Comments: PATIENT WAS FASTINGPERFORMED BY: PolisofiaChilton Memorial HospitalDqpndv6922 [facility] [id number] Information: [id number] ([id number]) Immature Grans (Abs) 0.0 {x10E3/uL} (Normal) Range: [...] (PROSTATE SPECIFIC Comments: PATIENT WAS FASTINGPERFORMED BY: [employer] [place] [id number] ANTIGEN) (V76.44) Prostate Specific Ag, 0.5 ng/mL (Normal) Range: 0.0-4.0 Serum Comments: [employer] ECLIA methodology. .According to the [employer], Serum PSA shoulddecrease and remain [...] (PROTHROMBIN TIME) Comments: PATIENT NOT FASTINGPERFORMED BY: [employer]6370 [facility]MunchAt[facility] [id number] Information: [id number] ([id number]) Prothrombin Time 25.3 {sec} (Abnormal) Range: 9.1-12.0 INR 2.4 (Abnormal) Range: 0.8-1.2 Comments: Reference interval is for non-anticoagulated patients. . Suggested INR therapeutic range for Vitamin K anta gonist therapy: Standard Dose (moderate intensity therapeutic range): 2.0 - 3.0 Higher intensity therapeutic range 2.5 - 3.5 :47 PT (Prothrobim Time) Comments: PATIENT NOT FASTINGPERFORMED BY: [place] 4662570 [facility] [id number] Information: [id number] ([id number]) Prothrombin Time 30.5 {sec} (Abnormal) Range: 9.1-12.0 INR 2.9 (Abnormal) Range: 0.8-1.2 Comments: Reference interval is for non-anticoagulated patients. . Suggested INR therapeutic range for Vitamin K anta gonist therapy: Standard Dose (moderate intensity therapeutic range): 2.0 - 3.0 Higher intensity therapeutic range 2.5 - 3.5 83-Xzf-044482:27 PT (Prothrobim Time) Comments: PATIENT NOT FASTINGPERFORMED BY: [facility] [id number] Information: [id number] ([id number]) Prothrombin Time 25.4 {sec} (Abnormal) Range: 9.1-12.0 INR 2.4 (Abnormal) Range: 0.8-1.2 Comments: Reference interval is for non-anticoagulated patients. . Suggested INR therapeutic range for Vitamin K anta gonist therapy: Standard Dose (moderate intensity therapeutic range): 2.0 - 3.0 Higher intensity therapeutic range 2.5 - 3.5 :27 PTT (Activated Partial Comments: PATIENT NOT FASTINGPERFORMED BY: [facility] [id number] Thromboplastin Time) ([id number]) aPTT 37 {sec} (Abnormal) Range: 24-33 Comments: [...] screening for lipoid disorders) Current use of salvage determiner anticoagulation : Eprescribed prescriptions (G8553) Indication: Current use of nursing home anticoagulation Cough : Follow up if no [...] Indication: Reflux Planned Observations PT (PROTHROMBIN TIME) ([id number])Indication: Current use of salvage determiner anticoagulation On: :00 Request PT (PROTHROMBIN TIME) ([id number])Indication: Current use of nursing home anticoagulation On: :00 Request PT (PROTHROMBIN TIME) ([id number])Indication: Current use of salvage determiner anticoagulation On: :00 Request PT (PROTHROMBIN TIME) ([id number])Indication: Current use of nursing home anticoagulation On: :00 Request PT (PROTHROMBIN TIME) ([id number])Indication: Current use of salvage determiner anticoagulation On: 14-Jun-2021 Request PT (PROTHROMBIN TIME) ([id number])Indication: Current use of salvage determiner anticoagulation On: 15-May-2021 Request PT (PROTHROMBIN TIME) ([id number])Indication: Current use of salvage determiner anticoagulation On: 15-Apr-2021 Request PT (PROTHROMBIN TIME) ([id number])Indication: Current use of nursing home anticoagulation On: 16-Mar-2021 Request PT (PROTHROMBIN TIME) ([id number])Indication: Current use of salvage determiner anticoagulation On: :00 Request PT (PROTHROMBIN TIME) ([id number])Indication: Current use of salvage determiner anticoagulation On: :00 Request PT (PROTHROMBIN TIME) ([id number])Indication: Current use of nursing home anticoagulation On: :00 Request PT (PROTHROMBIN TIME) ([id number])Indication: Current use of salvage determiner anticoagulation On: : Request PT (PROTHROMBIN TIME) ([id number])Indication: Current use of nursing home anticoagulation On: : Request PT (PROTHROMBIN TIME) ([id number])Indication: Current use of salvage determiner anticoagulation On: : Request PT (PROTHROMBIN TIME) ([id number])Indication: Current use of salvage determiner anticoagulation On: : Request PT (PROTHROMBIN TIME) ([id number])Indication: Current use of nursing home anticoagulation On: : Request PT (PROTHROMBIN TIME) ([id number])Indication: Current use of salvage determiner anticoagulation On: 19-Jun-2020 Request PT (PROTHROMBIN TIME) ([id number])Indication: Current use of nursing home anticoagulation On: 20-May-2020 Request PT (PROTHROMBIN TIME) ([id number])Indication: Current use of nursing home anticoagulation On: 20-Apr-2020 Request PT (PROTHROMBIN TIME) ([id number])Indication: Current use of salvage determiner anticoagulation On: 21-Mar-2020 Request PT (PROTHROMBIN TIME) ([id number])Indication: Current use of salvage determiner anticoagulation On: 20-Feb-2020 Request PT (PROTHROMBIN TIME) ([id number])Indication: Current use of nursing home anticoagulation On: 21-Jan-2020 Request PT (PROTHROMBIN TIME) ([id number])Indication: Current use of nursing home anticoagulation On: 22-Dec-2019 Request PT (PROTHROMBIN TIME) ([id number])Indication: Current use of salvage determiner anticoagulation On: 22-Nov-2019 Request PT (PROTHROMBIN TIME) ([id number])Indication: Current use of nursing home anticoagulation On: 23-Oct-2019 Request PT (PROTHROMBIN TIME) ([id number])Indication: Current use of salvage determiner anticoagulation On: 24-Aug-2019 Request PT (PROTHROMBIN TIME) ([id number])Indication: Current use of salvage determiner anticoagulation On: 25-Jul-2019 Request PT (PROTHROMBIN TIME) ([id number])Indication: Current use of salvage determiner anticoagulation On: 25-Jun-2019 Request PT (PROTHROMBIN TIME) ([id number])Indication: Current use of salvage determiner anticoagulation On: 26-May-2019 Request PT (PROTHROMBIN TIME) ([id number])Indication: Current use of nursing home anticoagulation On: 26-Apr-2019 Request PT (PROTHROMBIN TIME) ([id number])Indication: Current use of nursing home anticoagulation On: 27-Mar-2019 Request PT (PROTHROMBIN TIME) ([id number])Indication: Current use of nursing home anticoagulation On: 25-Feb-2019 Request PT (PROTHROMBIN TIME) ([id number])Indication: Current use of nursing home anticoagulation On: 26-Jan-2019 Request PT (PROTHROMBIN TIME) ([id number])Indication: Acute venous embolism and thrombosis of deep vessels of distal lower extremity, right On: 04-Jan-2019 Request Comments: STANDING ORDER PT (PROTHROMBIN TIME) ([id number])Indication: Current use of nursing home anticoagulation On: 27-Dec-2018 Request PT (PROTHROMBIN TIME) ([id number])Indication: Acute venous embolism and thrombosis of deep vessels of distal lower extremity, right On: 05-Dec-2018 Request Comments: STANDING ORDER PT (PROTHROMBIN TIME) ([id number])Indication: Current use of salvage determiner anticoagulation On: 27-Nov-2018 Request PT (PROTHROMBIN TIME) ([id number])Indication: Acute venous embolism and thrombosis of deep vessels of distal lower extremity, right On: 05-Nov-2018 Request Comments: STANDING ORDER PT (PROTHROMBIN TIME) ([id number])Indication: Current use of nursing home anticoagulation On: 28-Oct-2018 Request PT (PROTHROMBIN TIME) ([id number])Indication: Acute venous embolism and thrombosis of deep vessels of distal lower extremity, right On: 06-Oct-2018 Request Comments: STANDING ORDER PT (PROTHROMBIN TIME) ([id number])Indication: Current use of salvage determiner anticoagulation On: 28-Sep-2018 Request PT (PROTHROMBIN TIME) ([id number])Indication: Acute venous embolism and thrombosis of deep vessels of distal lower extremity, right On: 06-Sep-2018 Request Comments: STANDING ORDER PT (PROTHROMBIN TIME) ([id number])Indication: Current use of salvage determiner anticoagulation On: 29-Aug-2018 Request PT (PROTHROMBIN TIME) ([id number])Indication: Acute venous embolism and thrombosis of deep vessels of distal lower extremity, right On: 07-Aug-2018 Request Comments: STANDING ORDER PT (PROTHROMBIN TIME) ([id number])Indication: Current use of salvage determiner anticoagulation On: 30-Jul-2018 Request PT (PROTHROMBIN TIME) ([id number])Indication: Acute venous embolism and thrombosis of deep vessels of distal lower extremity, right On: 08-Jul-2018 Request Comments: STANDING ORDER PT (PROTHROMBIN TIME) ([id number])Indication: Current use of nursing home anticoagulation On: 30-Jun-2018 Request PT (PROTHROMBIN TIME) ([id number])Indication: Acute venous embolism and thrombosis of deep vessels of distal lower extremity, right On: 08-Jun-2018 Request Comments: STANDING ORDER PT (PROTHROMBIN TIME) ([id number])Indication: Current use of nursing home anticoagulation On: 31-May-2018 Request PT (PROTHROMBIN TIME) ([id number])Indication: Acute venous embolism and thrombosis of deep vessels of distal lower extremity, right On: 09-May-2018 Request Comments: STANDING ORDER PT (PROTHROMBIN TIME) ([id number])Indication: Current use of nursing home anticoagulation On: 02-Mar-2018 Request LIPID PANEL ([id number])Indication: SCREENING FOR HYPERLIPIDEMIA (Renamed from Encounter for screening for lipoid disorders) On: 72-Zrv-950626:48 Request CALCIFEDIOL ([id number])Indication: Leg cramps On: 35-Yjy-019524:41 Request PT (PROTHROMBIN TIME) ([id number])Indication: Current use of nursing home anticoagulation On: 06-Jan-2017 Request PT (PROTHROMBIN TIME) ([id number])Indication: Current use of salvage determiner anticoagulation On: 11-Apr-2016 Request PT (PROTHROMBIN TIME) ([id number])Indication: Current use of nursing home anticoagulation On: 11-Feb-2016 Request PT (Prothrobim Time) ([id number])Indication: Current use of salvage determiner anticoagulation On: 20-Jul-2015 Request PT (Prothrobim Time) ([id number])Indication: Current use of salvage determiner anticoagulation On: 13-Jul-2015 Request PT (Prothrobim Time) ([id number])Indication: Current use of salvage determiner anticoagulation On: 06-Jul-2015 Request PT (Prothrobim Time) ([id number])Indication: Current use of nursing home anticoagulation On: 29-Jun-2015 Request PT (Prothrobim Time) ([id number])Indication: Current use of nursing home anticoagulation On: 22-Jun-2015 Request PT (Prothrobim Time) ([id number])Indication: Current use of nursing home anticoagulation On: 15-Jun-2015 Request PT (Prothrobim Time) ([id number])Indication: Current use of nursing home anticoagulation On: 08-Jun-2015 Request PT (Prothrobim Time) ([id number])Indication: Current use of salvage determiner anticoagulation On: 01-Jun-2015 Request PT (Prothrobim Time) ([id number])Indication: Current use of salvage determiner anticoagulation On: 25-May-2015 Request PT (Prothrobim Time) ([id number])Indication: Current use of nursing home anticoagulation On: 18-May-2015 Request PT (Prothrobim Time) ([id number])Indication: Current use of salvage determiner anticoagulation On: 11-May-2015 Request PT (Prothrobim Time) ([id number])Indication: Current use of salvage determiner anticoagulation On: 04-May-2015 Request PT (Prothrobim Time) ([id number])Indication: Current use of nursing home anticoagulation On: 27-Apr-2015 Request PT (Prothrobim Time) ([id number])Indication: Current use of nursing home anticoagulation On: 20-Apr-2015 Request PT (PROTHROMBIN TIME) ([id number])Indication: Current use of nursing home anticoagulation On: 17-Apr-2015 Request PT (Prothrobim Time) ([id number])Indication: Current use of salvage determiner anticoagulation On: 13-Apr-2015 Request PT (Prothrobim Time) ([id number])Indication: Current use of nursing home anticoagulation On: 06-Apr-2015 Request PT (Prothrobim Time) ([id number])Indication: Current use of nursing home anticoagulation On: 30-Mar-2015 Request PT (Prothrobim Time) ([id number])Indication: Current use of salvage determiner anticoagulation On: 23-Mar-2015 Request PT (Prothrobim Time) ([id number])Indication: Current use of nursing home anticoagulation On: 16-Mar-2015 Request PT (Prothrobim Time) ([id number])Indication: Current use of nursing home anticoagulation On: 09-Mar-2015 Request PT (Prothrobim Time) ([id number])Indication: Current use of salvage determiner anticoagulation On: 02-Mar-2015 Request PT (Prothrobim Time) ([id number])Indication: Current use of nursing home anticoagulation On: 23-Feb-2015 Request PT (Prothrobim Time) ([id number])Indication: Current use of salvage determiner anticoagulation On: 16-Feb-2015 Request PT (Prothrobim Time) ([id number])Indication: Current use of salvage determiner anticoagulation On: 09-Feb-2015 Request PT (Prothrobim Time) ([id number])Indication: Current use of salvage determiner anticoagulation On: 02-Feb-2015 Request PT (Prothrobim Time) ([id number])Indication: Current use of nursing home anticoagulation On: 26-Jan-2015 Request PT (Prothrobim Time) ([id number])Indication: Current use of salvage determiner anticoagulation On: 19-Jan-2015 Request PT (Prothrobim Time) ([id number])Indication: Current use of salvage determiner anticoagulation On: 12-Jan-2015 Request PT (Prothrobim Time) ([id number])Indication: Current use of salvage determiner anticoagulation On: 05-Jan-2015 Request PT (Prothrobim Time) ([id number])Indication: Current use of salvage determiner anticoagulation On: 29-Dec-2014 Request PT (Prothrobim Time) ([id number])Indication: Current use of salvage determiner anticoagulation On: 22-Dec-2014 Request PT (Prothrobim Time) ([id number])Indication: Current use of nursing home anticoagulation On: 15-Dec-2014 Request PT (Prothrobim Time) ([id number])Indication: Current use of nursing home anticoagulation On: 08-Dec-2014 Request PT (Prothrobim Time) ([id number])Indication: Current use of nursing home anticoagulation On: 01-Dec-2014 Request PT (Prothrobim Time) ([id number])Indication: Current use of salvage determiner anticoagulation On: 24-Nov-2014 Request PT (Prothrobim Time) ([id number])Indication: Current use of nursing home anticoagulation On: 17-Nov-2014 Request PT (Prothrobim Time) ([id number])Indication: Current use of salvage determiner anticoagulation On: 10-Nov-2014 Request PT (Prothrobim Time) ([id number])Indication: Current use of nursing home anticoagulation On: 03-Nov-2014 Request PT (Prothrobim Time) ([id number])Indication: Current use of nursing home anticoagulation On: 27-Oct-2014 Request PT (Prothrobim Time) ([id number])Indication: Current use of nursing home anticoagulation On: 20-Oct-2014 Request PT (Prothrobim Time) ([id number])Indication: Current use of nursing home anticoagulation On: 13-Oct-2014 Request PT (Prothrobim Time) ([id number])Indication: Current use of salvage determiner anticoagulation On: 06-Oct-2014 Request PT (Prothrobim Time) ([id number])Indication: Current use of nursing home anticoagulation On: 29-Sep-2014 Request PT (Prothrobim Time) ([id number])Indication: Current use of nursing home anticoagulation On: 22-Sep-2014 Request PT (Prothrobim Time) ([id number])Indication: Current use of salvage determiner anticoagulation On: 15-Sep-2014 Request PT (Prothrobim Time) ([id number])Indication: Current use of nursing home anticoagulation On: 08-Sep-2014 Request PT (Prothrobim Time) ([id number])Indication: Current use of salvage determiner anticoagulation On: 01-Sep-2014 Request PT (Prothrobim Time) ([id number])Indication: Current use of nursing home anticoagulation On: 25-Aug-2014 Request PT (PROTHROMBIN TIME) ([id number])Indication: Current use of salvage determiner anticoagulation On: 20-Aug-2014 Request PT (Prothrobim Time) ([id number])Indication: Current use of salvage determiner anticoagulation On: 18-Aug-2014 Request PT (Prothrobim Time) ([id number])Indication: Current use of salvage determiner anticoagulation On: 11-Aug-2014 Request PT (Prothrobim Time) ([id number])Indication: Current use of nursing home anticoagulation On: 04-Aug-2014 Request PT (Prothrobim Time) ([id number])Indication: Current use of nursing home anticoagulation On: 28-Jul-2014 Request PT (Prothrobim Time) ([id number])Indication: Current use of salvage determiner anticoagulation On: 21-Jul-2014 Request PT (PROTHROMBIN TIME) ([id number])Indication: Current use of nursing home anticoagulation On: 21-Jul-2014 Request PT (Prothrobim Time) ([id number])Indication: Current use of salvage determiner anticoagulation On: 07-Jul-2014 Request PT (Prothrobim Time) ([id number])Indication: Current use of salvage determiner anticoagulation On: 30-Jun-2014 Request PT (Prothrobim Time) ([id number])Indication: Current use of nursing home anticoagulation On: 23-Jun-2014 Request PT (Prothrobim Time) ([id number])Indication: Current use of salvage determiner anticoagulation On: 16-Jun-2014 Request PT (Prothrobim Time) ([id number])Indication: Current use of salvage determiner anticoagulation On: 09-Jun-2014 Request PT (Prothrobim Time) ([id number])Indication: Current use of salvage determiner anticoagulation On: 02-Jun-2014 Request PT (Prothrobim Time) ([id number])Indication: Current use of salvage determiner anticoagulation On: 26-May-2014 Request PT (Prothrobim Time) ([id number])Indication: Current use of nursing home anticoagulation On: 19-May-2014 Request PT (Prothrobim Time) ([id number])Indication: Current use of nursing home anticoagulation On: 12-May-2014 Request PT (Prothrobim Time) ([id number])Indication: Current use of salvage determiner anticoagulation On: 05-May-2014 Request PT (Prothrobim Time) ([id number])Indication: Current use of salvage determiner anticoagulation On: 28-Apr-2014 Request PT (Prothrobim Time) ([id number])Indication: Current use of nursing home anticoagulation On: 21-Apr-2014 Request PT (Prothrobim Time) ([id number])Indication: Current use of nursing home anticoagulation On: 14-Apr-2014 Request PT (Prothrobim Time) ([id number])Indication: Current use of salvage determiner anticoagulation On: 07-Apr-2014 Request PT (Prothrobim Time) ([id number])Indication: Current use of nursing home anticoagulation On: 31-Mar-2014 Request PT (Prothrobim Time) ([id number])Indication: Current use of nursing home anticoagulation On: 24-Mar-2014 Request PT (Prothrobim Time) ([id number])Indication: Current use of nursing home anticoagulation On: 17-Mar-2014 Request PT (Prothrobim Time) ([id number])Indication: Current use of salvage determiner anticoagulation On: 10-Mar-2014 Request PT (Prothrobim Time) ([id number])Indication: Current use of salvage determiner anticoagulation On: 03-Mar-2014 Request PT (Prothrobim Time) ([id number])Indication: Current use of nursing home anticoagulation On: 24-Feb-2014 Request PT (Prothrobim Time) ([id number])Indication: Current use of nursing home anticoagulation On: 17-Feb-2014 Request PT (Prothrobim Time) ([id number])Indication: Current use of nursing home anticoagulation On: 10-Feb-2014 Request PT (Prothrobim Time) ([id number])Indication: Current use of nursing home anticoagulation On: 03-Feb-2014 Request PT (Prothrobim Time) ([id number])Indication: Current use of salvage determiner anticoagulation On: 20-Jan-2014 Request PT (Prothrobim Time) ([id number])Indication: Current use of salvage determiner anticoagulation On: 13-Jan-2014 Request PT (Prothrobim Time) ([id number])Indication: Current use of salvage determiner anticoagulation On: 06-Jan-2014 Request PT (Prothrobim Time) ([id number])Indication: Current use of nursing home anticoagulation On: 30-Dec-2013 Request PT (Prothrobim Time) ([id number])Indication: Current use of salvage determiner anticoagulation On: 23-Dec-2013 Request PT (Prothrobim Time) ([id number])Indication: Current use of nursing home anticoagulation On: 16-Dec-2013 Request PT (Prothrobim Time) ([id number])Indication: Current use of nursing home anticoagulation On: 09-Dec-2013 Request PT (Prothrobim Time) ([id number])Indication: Current use of nursing home anticoagulation On: 02-Dec-2013 Request PT (Prothrobim Time) ([id number])Indication: Current use of nursing home anticoagulation On: 25-Nov-2013 Request PT (Prothrobim Time) ([id number])Indication: Current use of nursing home anticoagulation On: 18-Nov-2013 Request PT (Prothrobim Time) ([id number])Indication: Current use of nursing home anticoagulation On: 11-Nov-2013 Request PT (Prothrobim Time) ([id number])Indication: Current use of nursing home anticoagulation On: 04-Nov-2013 Request PT (Prothrobim Time) ([id number])Indication: Current use of nursing home anticoagulation On: 28-Oct-2013 Request PT (Prothrobim Time) ([id number])Indication: Current use of salvage determiner anticoagulation On: 14-Oct-2013 Request PT (Prothrobim Time) ([id number])Indication: Current use of nursing home anticoagulation On: 07-Oct-2013 Request PT (Prothrobim Time) ([id number])Indication: Current use of salvage determiner anticoagulation On: 30-Sep-2013 Request PT (Prothrobim Time) ([id number])Indication: Current use of salvage determiner anticoagulation On: 23-Sep-2013 Request PT (Prothrobim Time) ([id number])Indication: Current use of nursing home anticoagulation On: 16-Sep-2013 Request PT (Prothrobim Time) ([id number])Indication: Current use of salvage determiner anticoagulation On: [id number] Request Comments: needs one today then q month or prn Planned Procedures Ultrasound - RenalBy: Danae LAN, On: 23-Mar-2015 Intent Tammie Hernandez CNP Aerosol Treatment ([id number])By: Slarb On: 23-Mar-2015 Intent ROLL OUT MANAGER, Davida FLU VAC, SPLIT, >3 YEARS, On: 14-Feb-2014 Intent INTRAMUSC ([id number])By: Danae LAN, Comments: lot # [id number]- 10/28/14site- LDLTroute-IMdose- 0.5mlVIS and ABN signedCTyler ROLL OUT MANAGERTammie Velarde CNP IMMUNIZ ADMNIN, 1 VAC, SNGL/COMBO On: 14-Feb-2014 Intent ([id number])By: Tammie Fink CNP, CNP, Mary E Instructions Name Dates Details Current use of salvage determiner anticoagulation : How to access health information online Indication: Current use of salvage determiner anticoagulation Current use of salvage determiner anticoagulation : How to access health information online - Detail Indication: Current use of nursing home anticoagulation Current use of salvage determiner anticoagulation : Patient Instructions Indication: Current use of nursing home anticoagulation Cough : Patient Instructions Indication: Cough Screening for prostate cancer : Patient Instructions Indication: Screening for prostate cancer Encounters Annotation/Addendum On: 05-Mar-2018 11:18 [facility] End: 05-Mar-2018 11:19 Annotation/Addendum On: 27-Feb-2018 14:08 [facility] [...] BMI 23.0-23.9, adult, Nonsmoker, Current use of nursing home anticoagulation, Reflux, Leg cramps, Follicular lymphoma , [...] UTI symptoms, Cough, Nocturia, Current use of salvage determiner anticoagulation, Pharyngitis, Flank pain [facility] [...] DVT (deep venous thrombosis), Current use of salvage determiner anticoagulation, SCREENING FOR CANCER OF THE PROSTATE [...] DVT (deep venous thrombosis), Current use of salvage determiner anticoagulation, Reflux [facility] Payers MedicareAARP/[place]; a guarantor
--- OUTSIDE RECORDS SUMMARY | 2018-07-19 23:43 | XMS RPT_ITS | Continuity of Care Document ---
:1950 Author Organization [facility] Address [facility] [place] [address] Phone Care Team Providers Name Role Phone [...] (R05, 786.2) Status: Active Current use of fdc anticoagulation (Z51.81, V58.61) Status: Active DVT (deep venous thrombosis) (I82.409, 453.40) Comments: bilater lower ext occured October of 2012 ? 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 Arvin Reis at [place] had chemo and radiation Last one in [...] Visit Report Result: Comments: See Note; NOTES: [facility] [place] [address] OFFICE VISIT Date of Service: 11/16/17 1102 MR#: [id number] Acct: [id number] Name: BEREKETPATRIZIA L Rep #: [id number] : 1950 From: Regis Fleming MD Age/Sex: [...] Chronic Code Visit Office Visits / Consults: 18538 OV L3 Est 11/16/17 1137 <Electronically signed by Regis Fleming MD&# 62; Date Regis Fleming MD Cosigner Signature: Date (if applicable) CC: 24-Mar-2015 Kidney and Bladder Result: Comments: See Note; NOTES: [facility] Imaging Services [address] [place] [address] Verdana 4d Kidney and Bladder MR#: [id number] Acct: [id number] Name: PATRIZIA CUBA Rep #: [id number] : 1950 M 64 From: Tarun Denis MD PCP: Tammie Fink Status: REG CLI Study: Kidney and Bladder Date of Exam: 03/24/15 Exam# [id number] Ordering Dr: Tammie Fink ST UDY: RENAL [...] MD at 22:21 EST , Service support [phone], CC: Tammie Fink Preparation Supervisor: Signed 18-Feb-2015 Abdomen/Pelvis WITH Contrast Result: Comments: See Note; NOTES: [facility] Imaging Services [address] [place] [address] Verdana 4d Abdomen/Pelvis WITH Contrast MR#: [id number] Acct: [id number] Name : PATRIZIA CUBA Rep #: [id number] : 1950 M 64 From: Nickolas Mitchell DO PCP: Tammie Fink Status: REG CLI Study: Abdomen/Pelvis WITH Contrast Date of Exam: 02/18/15 Exam# [id number] Ordering Dr : Skyler Brewer MD STUDY: [...] DO at 10:24 EDT , Service support [phone], CC: Tammie Brewer Preparation Supervisor: Signed 18-Feb-2015 Chest WITH Contrast Result: Comments: See Note; NOTES: [facility] Imaging Services [address] [place] [address] Verdana 4d Chest WITH Contrast MR#: [id number] Acct: [id number] Name: PATRIZIA CUBA Rep #: [id number] : 1950 M 64 From: Nickolas Mitchell DO PCP: Tammie Fink Status: REG CLI Study: Chest WITH Contrast Date of Exam: 02/18/15 Exam# [id number] Ordering Dr: Skyler Brewer MD STUDY: CT [...] DO at 9:28 EDT , Service support [phone], CC: Tammie Fink; Skyler Brewer Preparation Supervisor: Signed 13-Feb-2015 Neck for Soft Tissue Result: Comments: See Note; NOTES: [facility] Imaging Services [address] [place] [address] Verdana 4d Neck for Soft Tissue MR#: [id number] Acct: [id number] Name: PATRIZIA DUMONT Rep #: [id number] : 1950 M 64 From: Evens Salas MD PCP: Tammie Fink Status: REG CLI Study: Neck for Soft Tissue Date of Exam: 02/13/15 Exam# [id number] Ordering Dr: Skyler Brewer MD STUDY: X-RAY [...] at 10:20 EDT Tel , Service support [phone], RAD/Neck for S oft Tissue IMPRESSION: Normal x-ray soft tissue neck. Electronically Signed: Evens Salas MD at 10:20 EDT Tel , Service support [phone], CC: Tammie Fink; Skyler Brewer Preparation Supervisor: Signed 06-Jan-2014 PET/CT Tumor Base -Thigh Init Result: Comments: See Note; NOTES: [facility] Imaging Services [address] [place] [address] PET Scan Report MR#: [id number] Acct: [id number] Name: PATRIZIA CUBA Rep #: [id number] : 1950 M 63 From: Caleb Armando MARTINEZ PCP: Tammie Fink Status: REG CLI Study: PET/CT Tumor Base -Thigh Init Date of Exam: 01/06/14 Exam# [id number] Ordering Dr: Skyler Brewer MD INDICAT IONS: [...] Caleb Roberts DO at 15:00 EDT Tel [phone], [facility] support [phone], CC: Tammie iFnk; RADHA; EUGENIO; Skyler Brewer Preparation Supervisor: Signed 16-Dec-2013 Abdomen/Pelvis WITH Contrast Result: Comments: See Note; NOTES: [facility] Imaging Services [address] [place] [address] CAT Scan Report MR#: [id number] Acct: [id number] Name: PATRIZIA CUBA Rep #: [id number] : 1950 M 63 From: Jesus Webb MD PCP: Tammie Fink Status: REG CLI Study: Abdomen/Pelvis WITH Contrast Date of Exam: 12/16/13 Exam# [id number] Ordering Dr: Skyler Brewer MD ALFREDO DY: [...] Jesus Webb MD at 8:49 EDT Tel [phone], Service support [phone], CC: Tammie Schwartz sa; Skyler Brewer Preparation Supervisor: Signed 16-Dec-2013 Chest WITH Contrast Result: Comments: See Note; NOTES: [facility] Imaging Services [address] [place] [address] CAT Scan Report MR#: [id number] Acct: [id number] Name: PATRIZIA CUBA Rep #: [id number] : 1950 M 63 From: Jesus Webb MD PCP: Tammie Fink Status: REG CLI Study: Chest WITH Contrast Date of Exam: 12/16/13 Exam# [id number] Ordering Dr: Skyler Brewer MD STUDY: CT [...] Jesus Webb MD at 8:52 EDT Tel [phone], Service support [phone], CC: Tammie Fink; Skyler Brewer Preparation Supervisor: Signed 16-Dec-2013 Soft Tissue Neck WITH Contrast Result: Comments: See Note; NOTES: [facility] Imaging Services [address] [place] [address] CAT Scan Report MR#: [id number] Acct: [id number] Name: PATRIZIA CUBA Rep #: [id number] : 1950 M 63 From: Jesus Webb MD PCP: Tammie Fink Status: REG CLI Study: Soft Tissue Neck WITH Contrast Date of Exam: 12/16/13 Exam# [id number] Ordering Dr: Skyler Brewer MD [facility]: CT SOFT TISSUE NECK WITH CONTRAST REASON [...] FINDINGS: Normal bilateral parotid glands. Normal bilateral title department manager spaces. Normal bilateral parapharyngeal spaces. Normal bilateral [...] Jesus Webb MD at 9:27 EDT Tel [phone], Service suppo rt [phone], CC: Tammie Fink; Skyler Brewer Preparation Supervisor: Signed Family History Unknown Family Member Name Dates Details Brother 1 Comments: DVT Status: Active Father Comments: DVT Status: Active Social History Name Dates Details Caffeine Use Comments: coffee all day Status: Active Exercise History Comments: walking at work Status: Active Most Recent Primary Occupation Comments: [employer] working Status: Active No Drug Use Status: Active Non Drinker/No Alcohol Use Status: Active Non Smoker/No Tobacco Use Status: Active Vital Signs Date Test Result Details 94-Lgz-506483:04 Temperature 97.8 f Pulse 76 /min Comments: [...] Description Value Details :27 PT (PROTHROMBIN TIME) (04280) Comments: STANDING ORDER; PATIENT NOT FASTINGPERFORMED BY: [facility] [id number] Prothrombin Time 36.8 {sec} (Abnormal) Range: 9.1-12.0 INR 3.7 (Abnormal) Range: 0.8-1.2 Comments: Client Requested Flag Reference interval is for non- anticoagulated patients. . Suggested INR therapeutic ra nge for Vitamin K antagonist therapy: Standard Dose (moderate intensity therapeutic range): 2.0 - 3.0 Higher intensity therapeutic range 2.5 - 3.5 :52 PT (PROTHROMBIN TIME) (96652) Comments: PATIENT NOT FASTINGPERFORMED BY: [facility] [id number] Prothrombin Time 16.3 {sec} (Abnormal) Range: 9.1-12.0 INR 1.6 (Abnormal) Range: 0.8-1.2 Comments: Reference interval is for non-anticoagulated patients. . Suggested INR therapeutic range for Vitamin K anta gonist therapy: Standard Dose (moderate intensity therapeutic range): 2.0 - 3.0 Higher intensity therapeutic range 2.5 - 3.5 :28 PT (PROTHROMBIN TIME) (46011) Comments: STANDING ORDER; PATIENT NOT FASTINGPERFORMED BY: [facility] [id number] Prothrombin Time 29.7 {sec} (Abnormal) Range: 9.1-12.0 INR 3.0 (Abnormal) Range: 0.8-1.2 Comments: Reference interval is for non-anticoagulated patients. . Suggested INR therapeutic range for Vitamin K anta gonist therapy: Standard Dose (moderate intensity therapeutic range): 2.0 - 3.0 Higher intensity therapeutic range 2.5 - 3.5 :11 PT (PROTHROMBIN TIME) (83320) Comments: PATIENT NOT FASTINGPERFORMED BY: [facility] [id number] Prothrombin Time 20.6 {sec} (Abnormal) Range: 9.1-12.0 INR 2.1 (Abnormal) Range: 0.8-1.2 Comments: Reference interval is for non-anticoagulated patients. . Suggested INR therapeutic range for Vitamin K anta gonist therapy: Standard Dose (moderate intensity therapeutic range): 2.0 - 3.0 Higher intensity therapeutic range 2.5 - 3.5 4-Nja-935838:27 PT (PROTHROMBIN TIME) (06499) Comments: PATIENT NOT FASTINGPERFORMED BY: [facility] HospitalGcvyau[address] [id number] Prothrombin Time 23.9 {sec} (Abnormal) Range: 9.1-12.0 INR 2.5 (Abnormal) Range: 0.8-1.2 Comments: Reference interval is for non-anticoagulated patients. . Suggested INR therapeutic range for Vitamin K anta gonist therapy: Standard Dose (moderate intensity therapeutic range): 2.0 - 3.0 Higher intensity therapeutic range 2.5 - 3.5 73-Lln-741831:31 CBC W/Diff, Automated Comments: [facility] [address] [facility] [place], [address] Absolute Lymph 1.01 {X10_3/ul} (Normal) Range: 0.83-4.51 [...] 4.6-6.2 WBC 4.3 K/mm3 (Abnormal) Range: 4.4-11.0 55-Aoz-940632:30 Comprehensive Metabolic Profil Comments: Reason for Laboratory Test H/O NHL Z85.72Serial Specimen #1, #2 or #3? [facility] [address] [place], [place], [address] GAP 5 (Normal) Range: 5-15 CO2 27.0 [...] Comments: Please note revised GLUCOSE reference range vohsifqwq30/02/2018. 19-Vnz-671972:30 LDH 190 U/L (Normal) Comments: Reason for Laboratory Test H/O NHL Z85.72Serial Specimen #1, #2 or #3? [facility] [address] [place], [address] Range: 87-241 08-Jun-20179:29 PT (PROTHROMBIN TIME) (01184) Comments: PATIENT NOT FASTINGPERFORMED BY: [employer] [id number] Prothrombin Time 22.4 {sec} (Abnormal) Range: 9.1-12.0 INR 2.3 (Abnormal) Range: 0.8-1.2 Comments: Reference interval is for non-anticoagulated patients. . Suggested INR therapeutic range for Vitamin K anta gonist therapy: Standard Dose (moderate intensity therapeutic range): 2.0 - 3.0 Higher intensity therapeutic range 2.5 - 3.5 :20 PT (PROTHROMBIN TIME) (79388) Comments: PATIENT NOT FASTINGPERFORMED BY: [facility] HospitalAccedoChrist HospitalInfhxs[address] [id number] Prothrombin Time 17.1 {sec} (Abnormal) Range: 9.1-12.0 INR 1.7 (Abnormal) Range: 0.8-1.2 Comments: Reference interval is for non-anticoagulated patients. . Suggested INR therapeutic range for Vitamin K anta gonist therapy: Standard Dose (moderate intensity therapeutic range): 2.0 - 3.0 Higher intensity therapeutic range 2.5 - 3.5 64-Phc-118066:39 PT (PROTHROMBIN TIME) (04899) Comments: PATIENT NOT FASTINGPERFORMED BY: [place] [address] [id number] Prothrombin Time 23.4 {sec} (Abnormal) Range: 9.1-12.0 INR 2.4 (Abnormal) Range: 0.8-1.2 Comments: Reference interval is for non-anticoagulated patients. . Suggested INR therapeutic range for Vitamin K anta gonist therapy: Standard Dose (moderate intensity therapeutic range): 2.0 - 3.0 Higher intensity therapeutic range 2.5 - 3.5 15-Ftp-265944:10 TSH (THYROID STIMULATING Comments: PATIENT WAS FASTINGPERFORMED BY: [employer]6[address] [facility] [id number] HORMONE) (49180) TSH 2.310 {uIU/mL} (Normal) Range: 0.450-4.500 28-Aoe-826759:10 PSA (PROSTATE SPECIFIC Comments: PATIENT WAS FASTINGPERFORMED BY: [facility] [id number] ANTIGEN) (V76.44) Prostate Specific Ag, 0.7 ng/mL (Normal) Range: 0.0-4.0 Serum Comments: [employer] ECLIA methodology. .According to the [employer], Serum PSA shoulddecrease and remain at undetectable levels after radicalprostatectomy. The AUA defines biochemical recurrence as an initialPSA value 0.2 ng/mL or greater followed by a subsequent confirmatoryPSA value 0.2 ng/mL or greater.Values obtained with d ifferent assay methods or kits cannot be usedinterchangeably. Results cannot be interpreted as absolute evidenceof the presence or absence of malignant disease. 00-Rxr-403838:10 CBC & PLATELETS (AUTO) Comments: PATIENT WAS FASTINGPERFORMED BY: [employer]6[address] [facility] [id number] (38941) Platelets 181 {x10E3/uL} (Normal) Range: 150-379 RDW 13.5 % (Normal) Range: 12.3-15.4 MCHC 33.9 g/dL (Normal) Range: 31.5-35.7 MCH 31.1 pg (Normal) Range: 26.6-33.0 MCV 92 fL (Normal) Range: 79-97 Hematocrit 45.4 % (Normal) Range: 37.5-51.0 Hemoglobin 15.4 g/dL (Normal) Range: 13.0-17.7 RBC 4.95 {x10E6/uL} (Normal) Range: 4.14-5.80 WBC 4.4 {x10E3/uL} (Normal) Range: 3.4-10.8 92-Hwd-114259:10 VITAMIN B12 AND FOLATES Comments: PATIENT WAS FASTINGPERFORMED BY: [facility]Christ HospitalExmmvz[address] [id number] (08558) Folate (Folic Acid), Serum 12.4 ng/mL (Normal) Comments: A serum folate concentration of less than 3.1 ng/mL isconsidered to represent clinical deficiency. Vitamin B12 411 pg/mL (Normal) Range: 232-1245 03-Csz-658425:10 Metabolic Panel, Comprehensive Comments: PATIENT WAS FASTINGPERFORMED BY: [facility]Christ HospitalPtycjn[address] [id number] (06475) ALT (SGPT) 14 [iU]/L (Normal) Range: 0-44 [...] 8-27 Glucose 76 mg/dL (Normal) Range: 65-99 60-Kpy-835925:10 MAGNESIUM (93850) Comments: PATIENT WAS FASTINGPERFORMED BY: [place] [address] [id number] Magnesium 2.4 mg/dL (Abnormal) Range: 1.6-2.3 22-Jbi-347392:31 PT (PROTHROMBIN TIME) (59162) Comments: PATIENT NOT FASTINGPERFORMED BY: [place] [address] [id number] Prothrombin Time 21.0 {sec} (Abnormal) Range: 9.1-12.0 INR 2.1 (Abnormal) Range: 0.8-1.2 Comments: Reference interval is for non-anticoagulated patients. . Suggested INR therapeutic range for Vitamin K anta gonist therapy: Standard Dose (moderate intensity therapeutic range): 2.0 - 3.0 Higher intensity therapeutic range 2.5 - 3.5 90-Boh-325272:19 PT (PROTHROMBIN TIME) (17146) Comments: PERFORMED BY: [facility] [id number] Prothrombin Time 22.3 {sec} (Abnormal) Range: 9.1-12.0 INR 2.3 (Abnormal) Range: 0.8-1.2 Comments: Reference interval is for non-anticoagulated patients. . Suggested INR therapeutic range for Vitamin K anta gonist therapy: Standard Dose (moderate intensity therapeutic range): 2.0 - 3.0 Higher intensity therapeutic range 2.5 - 3.5 03-Bfj-462207:07 PT (PROTHROMBIN TIME) (71793) Comments: PATIENT NOT FASTINGPERFORMED BY: [facility] [id number] Prothrombin Time 21.2 {sec} (Abnormal) Range: 9.1-12.0 INR 2.1 (Abnormal) Range: 0.8-1.2 Comments: Reference interval is for non-anticoagulated patients. . Suggested INR therapeutic range for Vitamin K anta gonist therapy: Standard Dose (moderate intensity therapeutic range): 2.0 - 3.0 Higher intensity therapeutic range 2.5 - 3.5 75-Zqd-586102:21 PT (PROTHROMBIN TIME) (84205) Comments: PATIENT NOT FASTINGPERFORMED BY: [facility] [id number] Prothrombin Time 23.1 {sec} (Abnormal) Range: 9.1-12.0 INR 2.3 (Abnormal) Range: 0.8-1.2 Comments: Reference interval is for non-anticoagulated patients. . Suggested INR therapeutic range for Vitamin K anta gonist therapy: Standard Dose (moderate intensity therapeutic range): 2.0 - 3.0 Higher intensity therapeutic range 2.5 - 3.5 :56 PT (PROTHROMBIN TIME) (01855) Comments: PATIENT NOT FASTINGPERFORMED BY: [facility] [id number] Prothrombin Time 24.2 {sec} (Abnormal) Range: 9.1-12.0 INR 2.4 (Abnormal) Range: 0.8-1.2 Comments: Reference interval is for non-anticoagulated patients. . Suggested INR therapeutic range for Vitamin K anta gonist therapy: Standard Dose (moderate intensity therapeutic range): 2.0 - 3.0 Higher intensity therapeutic range 2.5 - 3.5 :15 PT (PROTHROMBIN TIME) (97282) Comments: PATIENT NOT FASTINGPERFORMED BY: [facility] [id number] Prothrombin Time 25.2 {sec} (Abnormal) Range: 9.1-12.0 INR 2.5 (Abnormal) Range: 0.8-1.2 Comments: Reference interval is for non-anticoagulated patients. . Suggested INR therapeutic range for Vitamin K anta gonist therapy: Standard Dose (moderate intensity therapeutic range): 2.0 - 3.0 Higher intensity therapeutic range 2.5 - 3.5 :57 PT (PROTHROMBIN TIME) (87568) Comments: PATIENT NOT FASTINGPERFORMED BY: [facility] [id number] Prothrombin Time 18.5 {sec} (Abnormal) Range: 9.1-12.0 INR 1.8 (Abnormal) Range: 0.8-1.2 Comments: Reference interval is for non-anticoagulated patients. . Suggested INR therapeutic range for Vitamin K anta gonist therapy: Standard Dose (moderate intensity therapeutic range): 2.0 - 3.0 Higher intensity therapeutic range 2.5 - 3.5 02-Eyi-570558:26 PT (PROTHROMBIN TIME) (36884) Comments: PATIENT NOT FASTINGPERFORMED BY: [facility] [address]vf[address] [id number] Prothrombin Time 16.4 {sec} (Abnormal) Range: 9.1-12.0 INR 1.6 (Abnormal) Range: 0.8-1.2 Comments: Reference interval is for non-anticoagulated patients. . Suggested INR therapeutic range for Vitamin K anta gonist therapy: Standard Dose (moderate intensity therapeutic range): 2.0 - 3.0 Higher intensity therapeutic range 2.5 - 3.5 25-Bmj-281954:29 CBC W/Diff, Auto - EPLAB Comments: Order Date: 07/19/16Order Info: 0184-1E - *CBC w/Diff - oncology ONLYAt [facility] Out[facility] Medical Oncologypatients receive CBC w/auto Differential ONLY. Physicianwill place an order fo Only r a manual differential or Pathologistreview at his discretion. [facility]. [address] [place] [address] [place] [address] PRODUCTION LINE WORKER: ELISEO VICENTE DO PH:[phone] [facility] [address] [place], [place], [id number] Absolute Lymph 0.91 {X10_3/uL} (Normal) Range: 0.83-4.51 [...] 4.6-6.2 WBC 4.3 K/mm3 (Abnormal) Range: 4.4-11.0 20-Qwk-288521:29 Comprehensive Metabolic Profil Comments: Order Date: 07/19/16Order Info: 0786-1 - *CMP Complete Metabolic PanelOrder Info: 2532-0 - *LDH -LDH (Lactate Dehydrogenase)Serial Specimen #1, #2 or #3? [facility] [address]fcqdpjfuf[address] [facility] [place], [place], [address] GAP 6 (Normal) Range: 5-15 CO2 27.0 [...] 7-18 GLU 84 mg/dL (Normal) Range: 70-110 41-Kzj-930021:29 LDH 173 U/L (Normal) Comments: Order Date: 07/19/16Order Info: 0786-1 - *CMP Complete Metabolic PanelOrder Info: 2532-0 - *LDH -LDH (Lactate Dehydrogenase)Serial Specimen #1, #2 or #3? [facility] Laborat hnm[address] [place], [address] Range: 87-241 :22 PT (PROTHROMBIN TIME) (98937) Comments: PATIENT NOT FASTINGPERFORMED BY: [employer] [id number] Prothrombin Time 32.4 {sec} (Abnormal) Range: 9.1-12.0 INR 3.2 (Abnormal) Range: 0.8-1.2 Comments: Reference interval is for non-anticoagulated patients. . Suggested INR therapeutic range for Vitamin K anta gonist therapy: Standard Dose (moderate intensity therapeutic range): 2.0 - 3.0 Higher intensity therapeutic range 2.5 - 3.5 :16 PT (PROTHROMBIN TIME) (20349) Comments: PATIENT NOT FASTINGPERFORMED BY: [employer] T[address]wvs[address] [id number] Prothrombin Time 20.2 {sec} (Abnormal) Range: 9.1-12.0 INR 2.0 (Abnormal) Range: 0.8-1.2 Comments: Reference interval is for non-anticoagulated patients. . Suggested INR therapeutic range for Vitamin K anta gonist therapy: Standard Dose (moderate intensity therapeutic range): 2.0 - 3.0 Higher intensity therapeutic range 2.5 - 3.5 :55 PT (PROTHROMBIN TIME) (41710) Comments: PATIENT NOT FASTINGPERFORMED BY: [facility] [id number] Prothrombin Time 16.0 {sec} (Abnormal) Range: 9.1-12.0 INR 1.6 (Abnormal) Range: 0.8-1.2 Comments: Reference interval is for non-anticoagulated patients. . Suggested INR therapeutic range for Vitamin K anta gonist therapy: Standard Dose (moderate intensity therapeutic range): 2.0 - 3.0 Higher intensity therapeutic range 2.5 - 3.5 53-Jjt-661220:36 PT (PROTHROMBIN TIME) (08428) Comments: PATIENT NOT FASTINGPERFORMED BY: [facility] [id number] Prothrombin Time 25.9 {sec} (Abnormal) Range: 9.1-12.0 INR 2.5 (Abnormal) Range: 0.8-1.2 Comments: Reference interval is for non-anticoagulated patients. . Suggested INR therapeutic range for Vitamin K anta gonist therapy: Standard Dose (moderate intensity therapeutic range): 2.0 - 3.0 Higher intensity therapeutic range 2.5 - 3.5 35-Zcv-184311:15 CBC W/Diff, Auto - EPLAB Comments: Order Date: 03/29/16Order Info: 0184-1E - *CBC w/Diff - oncology ONLYAt [facility] Out[facility] Medical Oncologypatients receive CBC w/auto Differential ONLY. Physicianwill place an order fo Only r a manual differential or Pathologistreview at his discretion. [facility]. [address] [place] [address] [place] [address] PRODUCTION LINE WORKER: ELISEO VICENTE DO PH:[phone] Date: 03/29/16Order Info: 0184-1E - *CBC w/Diff - oncology ONLYOrder Date: 03/29/16Order Info: 2532-0 - *LDH -LDH (Lactate Dehydrogenase)[facility] [address] [place], [address] ; another doc Absolute Lymph 0.93 {X10_3/uL} [...] 4.6-6.2 WBC 5.4 K/mm3 (Normal) Range: 4.4-11.0 67-Mjl-273310:15 Comprehensive Metabolic Profil Comments: Order Date: 03/29/16Order Info: 0786-1 - *CMP Complete Metabolic PanelOrder Info: 3084-1 - *Uric Acid BloodOrder Info: 2532-0 - *LDH -LDH (Lactate Dehydrogenase)Order Date: 03/29/16Order Info: 2532-0 - *LDH -LDH (Lactate Dehydrogenase)Serial Specimen #1, #2 or #3? [facility] [address] [place], [place], [address] ; Dr. Brewer, hemoc GAP 5 (Normal) [...] 7-18 GLU 86 mg/dL (Normal) Range: 70-110 29-Ddj-033456:15 LDH 231 U/L (Normal) Comments: Order Date: 03/29/16Order Info: 0786-1 - *CMP Complete Metabolic PanelOrder Info: 3084-1 - *Uric Acid BloodOrder Info: 2532-0 - *LDH -LDH (Lactate Dehydrogenase)Order Date: 03/29/16Order Info: 2-0 - *LDH -LDH (Lactate Dehydrogenase)Serial Specimen #1, #2 or #3? [facility] [address]teyj[address] [place], [place], [address] Range: 87-241 Comments: Slight Hemolysis, Result may be falsely increased. 11-Gsp-612159:15 Uric Acid Comments: Order Date: 03/29/16Order Info: 0786-1 - *CMP Complete Metabolic PanelOrder Info: 3084-1 - *Uric Acid BloodOrder Info: 2532-0 - *LDH -LDH (Lactate Dehydrogenase)Order Date: 03/29/16Order Info: 2-0 - *LDH -LDH (Lactate Dehydrogenase)Serial Specimen #1, #2 or #3? [facility] [address] [place], [address] URIC 4.4 mg/dL (Normal) Range: 3.5-7.2 Comments: The drugs N-Acetylcysteine and Metamizole may falsely deressthis assay. :27 PT (PROTHROMBIN TIME) (85250) Comments: PATIENT NOT FASTINGPERFORMED BY: [facility] [address]tt[address] [id number] Prothrombin Time 30.1 {sec} (Abnormal) Range: 9.1-12.0 INR 3.0 (Abnormal) Range: 0.8-1.2 Comments: Reference interval is for non-anticoagulated patients. . Suggested INR therapeutic range for Vitamin K anta gonist therapy: Standard Dose (moderate intensity therapeutic range): 2.0 - 3.0 Higher intensity therapeutic range 2.5 - 3.5 :21 PT (PROTHROMBIN TIME) (24720) Comments: PATIENT NOT FASTINGPERFORMED BY: [employer] [address] [id number] Prothrombin Time 30.7 {sec} (Abnormal) Range: 9.1-12.0 INR 3.0 (Abnormal) Range: 0.8-1.2 Comments: Reference interval is for non-anticoagulated patients. . Suggested INR therapeutic range for Vitamin K anta gonist therapy: Standard Dose (moderate intensity therapeutic range): 2.0 - 3.0 Higher intensity therapeutic range 2.5 - 3.5 :14 PT (PROTHROMBIN TIME) (58884) Comments: PATIENT NOT FASTINGPERFORMED BY: [facility]Christ HospitalNckkby48[facility] [id number] Prothrombin Time 19.0 {sec} (Abnormal) Range: 9.1-12.0 INR 1.9 (Abnormal) Range: 0.8-1.2 Comments: Reference interval is for non-anticoagulated patients. . Suggested INR therapeutic range for Vitamin K anta gonist therapy: Standard Dose (moderate intensity therapeutic range): 2.0 - 3.0 Higher intensity therapeutic range 2.5 - 3.5 31-Xir-283517:14 Xwcp-9-Mqxlxfrjozmlo, S Comments: Order Date: 12/29/15Order Date: 12/29/15Order Date: 12/29/15[facility] (refer to report for specific site)refer to report for address and phone number [phone] [id number] 1.2 mg/L (Normal) Range: 0.6-2.4 Comments: Performed at: - [facility] [id number] Director: Ino Monsivais PhD, Phone: [phone] 74-Vww-835890:14 CBC W/Diff, Auto - EPLAB Comments: At [facility] Outpatient [facility] Medical Oncologypatients receive CBC w/auto Differential ONLY. Physicianwill place an order for a manual differential or Pathologistreview at his discretion. [facility]. [address] [place] [address] [address] PRODUCTION LINE WORKER: ELISEO VICENTE DO PH:[phone] [facility] [address]le[address]xpsvek[address] [place], [address] Absolute Lymph 0.99 {X10_3/uL} (Normal) [...] 4.6-6.2 WBC 4.6 K/mm3 (Normal) Range: 4.4-11.0 27-Ilu-572012:14 Comprehensive Metabolic Profil Comments: Order Date: 12/29/15Order Date: 12/29/15erial Specimen #1, #2 or #3? [address] [place] [address] [address]bs[address] [place], [place], [address] GAP 11 (Normal) Range: 5-15 CO2 25.0 [...] 7-18 GLU 89 mg/dL (Normal) Range: 70-110 68-Tcj-839183:14 LDH 196 U/L (Normal) Comments: Order Date: 12/29/15Order Date: 08/30/16Serial Specimen #1, #2 or #3? [address] [place] [address] [place], [address] Range: 87-241 70-Myc-584117:14 Uric Acid Comments: Order Date: 12/29/15Order Date: 12/28/16Serial Specimen #1, #2 or #3? [address] [place] [address] [address]yfbpolqvb[address] [place], [address] URIC 4.1 mg/dL (Normal) Range: 3.5-7.2 Comments: The drugs N-Acetylcysteine and Metamizole may falsely deressthis assay. :54 PT (PROTHROMBIN TIME) (62198) Comments: PATIENT NOT FASTINGPERFORMED BY: [facility] Wsbruh6022 [facility] [id number] Prothrombin Time 16.1 {sec} (Abnormal) Range: 9.1-12.0 INR 1.6 (Abnormal) Range: 0.8-1.2 Comments: Reference interval is for non-anticoagulated patients. . Suggested INR therapeutic range for Vitamin K anta gonist therapy: Standard Dose (moderate intensity therapeutic range): 2.0 - 3.0 Higher intensity therapeutic range 2.5 - 3.5 11-Sjg-562062:16 PT (PROTHROMBIN TIME) Comments: PATIENT NOT FASTINGPERFORMED BY: [facility]ikChrist HospitalSthttb4536 [facility] [id number] Information: [id number] (63336) Prothrombin Time 32.0 {sec} (Abnormal) Range: 9.1-12.0 INR 3.2 (Abnormal) Range: 0.8-1.2 Comments: Reference interval is for non-anticoagulated patients. . Suggested INR therapeutic range for Vitamin K anta gonist therapy: Standard Dose (moderate intensity therapeutic range): 2.0 - 3.0 Higher intensity therapeutic range 2.5 - 3.5 33-Hpu-147434:04 CBC W/Diff, Auto - EPLAB Comments: At [facility] Outpatient [facility] Medical Oncologypatients receive CBC w/auto Differential ONLY. Physicianwill place an order for a manual differential or Pathologistreview at his discretion. [facility]. [address] [place] [address] [address] PRODUCTION LINE WORKER: ELISEO VICENTE DO PH:[phone] Pike Medical Center Zjjdbdmhkx49[address] [place], [address] Absolute Lymph 0.82 {X10_3/uL} (Abnormal) [...] 4.6-6.2 WBC 4.7 K/mm3 (Normal) Range: 4.4-11.0 23-Zin-090865:04 Comprehensive Metabolic Profil Comments: Order Date: 12/29/15OV Order #: [id number] Specimen #1, #2 or #3? 1 [id number] Pike Medical Center Mquqpsongx60[address] [place], [address] GAP 5 (Normal) Range: 5-15 CO2 29.0 [...] 7-18 GLU 89 mg/dL (Normal) Range: 70-110 29-Hev-826945:04 LDH 167 U/L (Normal) Comments: Order Date: 12/29/15OV Order #: [id number] Specimen #1, #2 or #3? [id number] [place] [address] [address] [place], [place], [address] Range: 87-241 99-Dzi-901352:04 Uric Acid Comments: Order Date: 12/29/15OV Order #: [id number] Specimen #1, #2 or #3? [id number] [place] [address] Ko[address]acaj[address] [place], [place], [address] URIC 4.2 mg/dL (Normal) Range: 3.5-7.2 Comments: The drugs N-Acetylcysteine and Metamizole may falsely deressthis assay. :17 PT (PROTHROMBIN TIME) (83659) Comments: PATIENT NOT FASTINGPERFORMED BY: [facility] [id number] Prothrombin Time 25.7 {sec} (Abnormal) Range: 9.1-12.0 INR 2.5 (Abnormal) Range: 0.8-1.2 Comments: Reference interval is for non-anticoagulated patients. . Suggested INR therapeutic range for Vitamin K anta gonist therapy: Standard Dose (moderate intensity therapeutic range): 2.0 - 3.0 Higher intensity therapeutic range 2.5 - 3.5 :32 PT (PROTHROMBIN TIME) Comments: PATIENT NOT FASTINGPERFORMED BY: [place] [id number] [facility] [id number] Information: [id number] (21441) Prothrombin Time 28.7 {sec} (Abnormal) Range: 9.1-12.0 INR 2.8 (Abnormal) Range: 0.8-1.2 Comments: Reference interval is for non-anticoagulated patients. . Suggested INR therapeutic range for Vitamin K anta gonist therapy: Standard Dose (moderate intensity therapeutic range): 2.0 - 3.0 Higher intensity therapeutic range 2.5 - 3.5 :53 PT (PROTHROMBIN TIME) Comments: PATIENT NOT FASTINGPERFORMED BY: [facility] [facility] [id number] Information: [id number] (69601) Prothrombin Time 25.1 {sec} (Abnormal) Range: 9.1-12.0 INR 2.4 (Abnormal) Range: 0.8-1.2 Comments: Reference interval is for non-anticoagulated patients. . Suggested INR therapeutic range for Vitamin K anta gonist therapy: Standard Dose (moderate intensity therapeutic range): 2.0 - 3.0 Higher intensity therapeutic range 2.5 - 3.5 :15 PT (PROTHROMBIN TIME) Comments: PATIENT NOT FASTINGPERFORMED BY: [place] [id number] [facility] [id number] Information: [id number] (84359) Prothrombin Time 23.0 {sec} (Abnormal) Range: 9.1-12.0 INR 2.3 (Abnormal) Range: 0.8-1.2 Comments: Reference interval is for non-anticoagulated patients. . Suggested INR therapeutic range for Vitamin K anta gonist therapy: Standard Dose (moderate intensity therapeutic range): 2.0 - 3.0 Higher intensity therapeutic range 2.5 - 3.5 4-Hkf-074383:42 CBC W/Diff, Auto - EPLAB Comments: At [facility] Outpatient [facility] Medical Oncologypatients receive CBC w/auto Differential ONLY. Physicianwill place an order for a manual differential or Pathologistreview at his discretion. [facility]. [address] [place] [address] [address] PRODUCTION LINE WORKER: ELISEO VICENTE DO PH:[phone] Pike Medical Center [address]lja[address] [place], [place], [address] Absolute Lymph 0.97 {X10_3/uL} (Normal) Range: 0.83-4.51 [...] 4.6-6.2 WBC 4.4 K/mm3 (Normal) Range: 4.4-11.0 8-Cnx-271535:42 Comprehensive Metabolic Profil Comments: Serial Specimen #1, #2 or #3? 1[facility] [address]mzbstkxas[address] [place], [place], [address] GAP 7 (Normal) Range: 5-15 CO2 27.0 [...] 7-18 GLU 80 mg/dL (Normal) Range: 70-110 5-Yvt-509538:42 LDH 181 U/L (Normal) Comments: Serial Specimen #1, #2 or #3? 1[facility] [address]jwadpmcx7[address] [place], [place], [address] Range: 87-241 0-Tka-923949:42 Magnesium Comments: Serial Specimen #1, #2 or #3? 1[facility] [address] [place], [address] MG 2.3 mg/dL (Normal) Range: 1.8-2.4 2-Dvy-059964:42 Uric Acid Comments: Serial Specimen #1, #2 or #3? 1[facility] [address] [place], [address] URIC 3.9 mg/dL (Normal) Range: 3.5-7.2 :45 PT (PROTHROMBIN TIME) Comments: PATIENT NOT FASTINGPERFORMED BY: [place] [id number] [facility] [id number] Information: [id number] ([id number]) Prothrombin Time 22.5 {sec} (Abnormal) Range: 9.1-12.0 INR 2.2 (Abnormal) Range: 0.8-1.2 Comments: Reference interval is for non-anticoagulated patients. . Suggested INR therapeutic range for Vitamin K anta gonist therapy: Standard Dose (moderate intensity therapeutic range): 2.0 - 3.0 Higher intensity therapeutic range 2.5 - 3.5 :30 PT (PROTHROMBIN TIME) Comments: PATIENT NOT FASTINGPERFORMED BY: [facility] [facility] [id number] Information: [id number] (46626) Prothrombin Time 22.9 {sec} (Abnormal) Range: 9.1-12.0 INR 2.2 (Abnormal) Range: 0.8-1.2 Comments: Reference interval is for non-anticoagulated patients. . Suggested INR therapeutic range for Vitamin K anta gonist therapy: Standard Dose (moderate intensity therapeutic range): 2.0 - 3.0 Higher intensity therapeutic range 2.5 - 3.5 :45 CBC W/Diff, Auto - EPLAB Comments: At [facility] Outpatient [facility] [place] Medical Oncologypatients receive CBC w/auto Differential ONLY. Physicianwill place an order for a manual differential or Pathologistreview at his discretion. [facility]. [address] [place] [address] [address] PRODUCTION LINE WORKER: ELISEO VICENTE DO PH:[phone] Pike Medical Center [address]vazlvcx[address] [place], [address] Absolute Lymph 0.76 {X10_3/uL} (Abnormal) [...] Comments: Serial Specimen #1, #2 or #3? 1[facility] [address]igqzjqs[address] [place], [address] GAP 0 (Abnormal) Range: 5-15 [...] Comments: Serial Specimen #1, #2 or #3? [address] [place] [address] [address] [place], [address] Range: 87-241 :44 Magnesium Comments: Serial Specimen #1, #2 or #3? [address] [place] [address] [address] [place], [address] MG 2.3 mg/dL (Normal) Range: 1.8-2.4 :44 Uric Acid Comments: Serial Specimen #1, #2 or #3? [address] [place] [address] [address] [place], [address] URIC 4.5 mg/dL (Normal) Range: 3.5-7.2 :55 PT (PROTHROMBIN TIME) Comments: PATIENT NOT FASTINGPERFORMED BY: [facility] [facility] [id number] Information: [id number] (23582) Prothrombin Time 21.2 {sec} (Abnormal) Range: 9.1-12.0 INR 2.0 (Abnormal) Range: 0.8-1.2 Comments: Reference interval is for non-anticoagulated patients. . Suggested INR therapeutic range for Vitamin K anta gonist therapy: Standard Dose (moderate intensity therapeutic range): 2.0 - 3.0 Higher intensity therapeutic range 2.5 - 3.5 67-Tds-103070:12 PT (PROTHROMBIN TIME) Comments: PATIENT NOT FASTINGPERFORMED BY: [facility] [facility] [id number] Information: [id number] (03470) Prothrombin Time 23.4 {sec} (Abnormal) Range: 9.1-12.0 INR 2.3 (Abnormal) Range: 0.8-1.2 Comments: Reference interval is for non-anticoagulated patients. . Suggested INR therapeutic range for Vitamin K anta gonist therapy: Standard Dose (moderate intensity therapeutic range): 2.0 - 3.0 Higher intensity therapeutic range 2.5 - 3.5 03-Apr-20159:39 Prothrombin Time w/INR Comments: [facility] [address]llirzizr[address] [place], [place], [address] INR 2.5 (Normal) PROTIME 27.0 s (Abnormal) Range: 11.7-14.9 97-Jmp-445042:55 Microscopic Examination Comments: PATIENT NOT FASTINGPERFORMED BY: [facility] [facility] [id number] Bacteria Few (Normal) Mucus Threads Present (Normal) Epithelial Cells (non renal) None seen {/hpf} (Normal) Range: 0 - 10 RBC 0-2 {/hpf} (Normal) Range: 0 - 2 WBC 0-5 {/hpf} (Normal) Range: 0 - 5 21-Hag-831633:55 URINALYSIS (34661) Comments: PATIENT NOT FASTINGPERFORMED BY: [facility] [facility] [id number]; apt. 03-30-15 Microscopic Examination See below: (Normal) Comments: Microscopic was indicated and was performed. Nitrite, Urine Negative (Normal) Urobilinogen,Semi-Qn 1.0 mg/dL (Normal) Range: 0.2-1.0 Bilirubin Negative (Normal) Occult Blood Negative (Normal) Ketones Trace (Abnormal) Glucose Negative (Normal) Protein 1+ (Abnormal) WBC Esterase Negative (Normal) Appearance Clear (Normal) Urine-Color Yellow (Normal) pH 6.0 (Normal) Range: 5.0-7.5 Specific [place] >=1.030 (Abnormal) Range: 1.005-1.030 72-One-974872:55 CBC, Platelets & Auto Comments: PATIENT NOT FASTINGPERFORMED BY: [facility]CoChrist HospitalWdrbmk27[facility] [id number] Information: [id number] Diff (52616) Immature Grans (Abs) 0.0 {x10E3/uL} (Normal) Range: [...] 4.14-5.80 WBC 6.1 {x10E3/uL} (Normal) Range: 3.4-10.8 90-Xau-946510:55 Metabolic Panel, Comprehensive Comments: PATIENT NOT FASTINGPERFORMED BY: [facility] Dnbvzq4458 [facility] [id number] (19730) ALT (SGPT) 23 [iU]/L (Normal) Range: 0-44 [...] Glucose, Serum 83 mg/dL (Normal) Range: 65-99 80-Eed-825860:55 PSA, TOTAL - DIAGNOSTIC Comments: PATIENT NOT FASTINGPERFORMED BY: [employer] Zncoap9129 DevlinAegis Petroleum TechnologyColumbus Regional Healthcare System [id number] (50501) Prostate Specific Ag, 0.5 ng/mL (Normal) Range: 0.0-4.0 Serum Comments: Yulisa ECLIA methodology. .According to the [place] [employer], Serum PSA shoulddecrease and remain at undetectable levels after radicalprostatectomy. The AUA defines biochemical recurrence as an initialPSA value 0.2 ng/mL or greater followed by a subsequent confirmatoryPSA value 0.2 ng/mL or greater.Values obtained with d ifferent assay methods or kits cannot be usedinterchangeably. Results cannot be interpreted as absolute evidenceof the presence or absence of malignant disease. 60-Qoj-783705:59 URINE JAILENE CULTURE-THAD COL Comments: PATIENT NOT FASTINGPERFORMED BY: [employer]70 [facility] [id number] Information: SRC:[facility] [id number] COUNT (52180) Result 1 NG36 (Normal) Comments: No growth in 36 - 48 hours. Urine Culture,Comprehensive Final report (Normal) 01-Uqt-542586:43 Urinalysis, Office (48541) UA - LEUKOCYTE ESTERASE Negative (Normal) UA - NITRITE Negative (Normal) URINE UROBILINGN THAD TIMED Normal mg/dL (Normal) UA - PROTEIN 30 mg/dL (Normal) UA - PH 6 (Abnormal) UA - BLOOD Non Hemolyzed Trace (Normal) UA - SPECIFIC GRAVITY 1.025 (Normal) UA - KETONES Moderate mg/dL (Normal) UA - BILIRUBIN Small (Normal) UA - GLUCOSE Negative (Normal) 81-Tuc-66119:19 PT (PROTHROMBIN TIME) Comments: PATIENT NOT FASTINGPERFORMED BY: [employer] [facility] [id number] Information: [id number] (48504) Prothrombin Time 30.2 {sec} (Abnormal) Range: 9.1-12.0 INR 2.9 (Abnormal) Range: 0.8-1.2 Comments: Reference interval is for non-anticoagulated patients. . Suggested INR therapeutic range for Vitamin K anta gonist therapy: Standard Dose (moderate intensity therapeutic range): 2.0 - 3.0 Higher intensity therapeutic range 2.5 - 3.5 :55 CBC W/Diff, Auto - EPLAB Comments: At [facility] [place] Medical Oncologypatients receive CBC w/auto Differential ONLY. Physicianwill place an order for a manual differential or Pathologistreview at his discretion. [facility]. [address] [place] [address] [place] [address] PRODUCTION LINE WORKER: ELISEO VICENTE DO PH:[phone] Pike Medical Center [address]zjljebvuq[address] [place], [address] Absolute Lymph 0.75 {X10_3/uL} (Abnormal) [...] Comments: Serial Specimen #1, #2 or #3? 1[facility] Zkzxlacvtk8[address] [place], [address] GAP 7 (Normal) Range: 5-15 [...] Comments: Serial Specimen #1, #2 or #3? [address] [place] [address] Tmqdwlknzp[address]64 [address] Acosta[address] [place], [place], [address] Range: 87-241 :55 Uric Acid Comments: Serial Specimen #1, #2 or #3? [address] [place] [address] Qowuvlqdlu[address]76 [facility] Systemleatha. [place], [place], [address] URIC 3.9 mg/dL (Normal) Range: 3.5-7.2 21-Jif-630693:20 PT (PROTHROMBIN TIME) Comments: PATIENT NOT FASTINGPERFORMED BY: [facility]CoChrist HospitalOfbiqv1129 [facility] [id number] Information: [id number] (23400) Prothrombin Time 27.9 {sec} (Abnormal) Range: 9.1-12.0 INR 2.7 (Abnormal) Range: 0.8-1.2 Comments: Reference interval is for non-anticoagulated patients. . Suggested INR therapeutic range for Vitamin K anta gonist therapy: Standard Dose (moderate intensity therapeutic range): 2.0 - 3.0 Higher intensity therapeutic range 2.5 - 3.5 49-Qlz-33348:27 Fact V Leiden Mutation Comments: [facility] (refer to report for specific site)refer to report for address and phone number COMMENT Comment Comments: Genetic counselors are available for health care providers to discuss results at [phone]).Methodology:DNA analysis of the Factor V gene was [...] elevated homocysteine levels,or a Factor II/prothrombin mutation (K75939Q). ContactWashington [facility] for information on how to order theFactor II DNA test. 96-Yny-23700:27 Factor II, DNA Analysis Comments: [facility] (refer to report for specific site)refer to report for address and phone number COMMENT Comment (Normal) Comments: Genetic Counselors are available for health care providersto discuss results at [phone]).Methodology:DNA analysis of the Factor II gene was performed by PCRamplification followed by restric tion analysis. Thediagnostic sensitivity is >99% for both. All the tests mustbe combined with clinical information for the most accurateinterpretation. Molecular-based testing is highly accurate,but as in any laboratory test, diagnostic errors may occur.Poort SR, et al. Blood. 1996; 88:1834-9258.Mary Ann EA. Circulation. 2004; 110:e15-e18.Tamiko I, et al. Arterioscler Thromb Vasc Biol. 1999;19:700 -703.Mitesh Andujar, PhDAgnes Ruiz, PhDNadege Finn, PhDBetty Solano, PhDFara Orozco, PhDGuido Fishman, PhDPerformed at: [address] [id number] Scratcher Tender: Larry Norman MD, Phone: [phone] at: [facility] [id number] [place], [place] [id number] Director: William Bustillo MD, Phone: [phone] FACTOR II,DNA Comment (Normal) Comments: NEGATIVENo mutation identified.Comment:A point mutation ([id number]) in the factor II (prothrombin)gene is the [...] individual mutations. This assaydetects only the prothrombin U41963D mutation and doesnot measure genetic abnormalities elsewhere i n thegenome. Other thrombotic risk factors may be pursuedthrough systematic clinical laboratory analysis. Thesefactors include the R506Q (Leiden) mutation in the Factor Vgene, plasma homocysteine levels , as well as testing fordeficiencies of antithrombin III, protein C and protein S. 09-Sww-89542:27 Protein C Defic. Profile Comments: [facility] (refer [...] patient is diagnosed withcongenital Protein C deficiency. 64-Wwp-76209:27 Protein S Defic. Profile Comments: [facility] (refer [...] PROTEIN S,TOTAL 62 % (Normal) Range: 58-150 58-Hih-05953:38 CBC W/Diff, Auto - EPLAB Comments: At [facility] Outpatient [facility] Medical Oncologypatients receive CBC w/auto Differential ONLY. Physicianwill place an order for a manual differential or Pathologistreview at his discretion. [facility]. [address] [place] [address] [address] PRODUCTION LINE WORKER: ELISEO VICENTE DO PH:[phone] Pike Medical Center [address]zubcx[address] [place], [address] Absolute Lymph 0.69 {X10_3/uL} (Abnormal) Range: 0.83-4.51 [...] Comments: Serial Specimen #1, #2 or #3? [address] [place] [address] [address] [place], [place], [address] GAP 6 (Normal) Range: 5-15 CO2 29.0 [...] Comments: Serial Specimen #1, #2 or #3? [address] [place] [address] [address] [place], [address] Range: 87-241 :38 Uric Acid Comments: Serial Specimen #1, #2 or #3? [facility] Wvgvbzesux05[address] [place], [address] URIC 4.7 mg/dL (Normal) Range: 3.5-7.2 25-Was-180749:31 PT (PROTHROMBIN TIME) (33445) Comments: PATIENT NOT FASTINGPERFORMED BY: [place] [id number] [facility] [id number] Prothrombin Time 21.0 {sec} (Abnormal) Range: 9.1-12.0 INR 2.1 (Abnormal) Range: 0.8-1.2 Comments: Reference interval is for non-anticoagulated patients. . Suggested INR therapeutic range for Vitamin K anta gonist therapy: Standard Dose (moderate intensity therapeutic range): 2.0 - 3.0 Higher intensity therapeutic range 2.5 - 3.5 :20 PT (PROTHROMBIN TIME) Comments: PATIENT NOT FASTINGPERFORMED BY: [place] [id number] [facility] [id number] Information: [id number] (37646) Prothrombin Time 34.6 {sec} (Abnormal) Range: 9.1-12.0 INR 3.3 (Abnormal) Range: 0.8-1.2 Comments: Reference interval is for non-anticoagulated patients. . Suggested INR therapeutic range for Vitamin K anta gonist therapy: Standard Dose (moderate intensity therapeutic range): 2.0 - 3.0 Higher intensity therapeutic range 2.5 - 3.5 :54 PT (PROTHROMBIN TIME) Comments: PATIENT NOT FASTINGPERFORMED BY: [facility] [facility] [id number] Information: [id number] (49220) Prothrombin Time 39.8 {sec} (Abnormal) Range: 9.1-12.0 INR 3.8 (Abnormal) Range: 0.8-1.2 Comments: Client Requested Flag Reference interval is for non- anticoagulated patients. . Suggested INR therapeutic ra nge for Vitamin K antagonist therapy: Standard Dose (moderate intensity therapeutic range): 2.0 - 3.0 Higher intensity therapeutic range 2.5 - 3.5 :56 Prothrombin Time (PT) Comments: PATIENT NOT FASTINGPERFORMED BY: [place] [id number] [facility] [id number] Information: [id number] Prothrombin Time 20.1 {sec} (Abnormal) Range: 9.1-12.0 INR 1.9 (Abnormal) Range: 0.8-1.2 Comments: Reference interval is for non-anticoagulated patients. . Suggested INR therapeutic range for Vitamin K anta gonist therapy: Standard Dose (moderate intensity therapeutic range): 2.0 - 3.0 Higher intensity therapeutic range 2.5 - 3.5 :31 PT (PROTHROMBIN TIME) Comments: PATIENT NOT FASTINGPERFORMED BY: [place] [id number] [facility] [id number] Information: [id number] (09579) Prothrombin Time 26.6 {sec} (Abnormal) Range: 9.1-12.0 INR 2.6 (Abnormal) Range: 0.8-1.2 Comments: Reference interval is for non-anticoagulated patients. . Suggested INR therapeutic range for Vitamin K anta gonist therapy: Standard Dose (moderate intensity therapeutic range): 2.0 - 3.0 Higher intensity therapeutic range 2.5 - 3.5 :10 Prothrombin Time (PT) Comments: PATIENT NOT FASTINGPERFORMED BY: [place] [id number] [facility] [id number] Information: [id number] Prothrombin Time 32.6 {sec} (Abnormal) Range: 9.1-12.0 INR 3.0 (Abnormal) Range: 0.8-1.2 Comments: Reference interval is for non-anticoagulated patients. . Suggested INR therapeutic range for Vitamin K anta gonist therapy: Standard Dose (moderate intensity therapeutic range): 2.0 - 3.0 Higher intensity therapeutic range 2.5 - 3.5 :35 PT (PROTHROMBIN TIME) Comments: PATIENT NOT FASTINGPERFORMED BY: [facility] [facility] [id number] Information: [id number] (70011) Prothrombin Time 31.7 {sec} (Abnormal) Range: 9.1-12.0 INR 3.1 (Abnormal) Range: 0.8-1.2 Comments: Reference interval is for non-anticoagulated patients. . Suggested INR therapeutic range for Vitamin K anta gonist therapy: Standard Dose (moderate intensity therapeutic range): 2.0 - 3.0 Higher intensity therapeutic range 2.5 - 3.5 06-Eua-399391:16 Prothrombin Time (PT) Comments: PATIENT NOT FASTINGPERFORMED BY: [facility] [id number] Information: [id number] Prothrombin Time 25.6 {sec} (Abnormal) Range: 9.1-12.0 INR 2.4 (Abnormal) Range: 0.8-1.2 Comments: Reference interval is for non-anticoagulated patients. . Suggested INR therapeutic range for Vitamin K anta gonist therapy: Standard Dose (moderate intensity therapeutic range): 2.0 - 3.0 Higher intensity therapeutic range 2.5 - 3.5 67-Gvy-92082:21 CBC W/Diff, Auto - EPLAB Only Comments: At [facility] Outpatient [facility] patientsreceive CBC w/auto Differential ONLY. Physician will placean order for a manual differential or Pathologist review athis discretion. [facility]. [address] [place] [address] [address] PRODUCTION LINE WORKER: ELISEO VICENTE DO PH:[phone] performed at:[facility] [address] [place] [address] Absolute Neut 3.1 {X10_3/uL} (Normal) Range: 2.0-7.7 [...] 4.6-6.2 WBC 4.3 K/mm3 (Abnormal) Range: 4.4-11.0 00-Xzb-55612:21 Comprehensive Metabolic Profil Comments: Test performed at:[facility] [address] [place] [address] GAP 6 (Normal) Range: 5-15 CO2 29.0 [...] LDH 171 U/L (Normal) Comments: Test performed at:[facility] [address] [place] [address] Range: 84-246 :21 Uric Acid Comments: Test performed at:[facility] [address] [place] [address] URIC 4.2 mg/dL (Normal) Range: 3.5-7.2 :19 PT (Prothrobim Time) Comments: PATIENT NOT FASTINGPERFORMED BY: [address] [id number] Information: [id number] ([id number]) Prothrombin Time 29.7 {sec} (Abnormal) Range: 9.1-12.0 INR 2.7 (Abnormal) Range: 0.8-1.2 Comments: Reference interval is for non-anticoagulated patients. . Suggested INR therapeutic range for Vitamin K anta gonist therapy: Standard Dose (moderate intensity therapeutic range): 2.0 - 3.0 Higher intensity therapeutic range 2.5 - 3.5 :44 PT (PROTHROMBIN TIME) ([id number]) Comments: PERFORMED BY: [facility] [id number] Prothrombin Time 25.5 {sec} (Abnormal) Range: 9.1-12.0 INR 2.3 (Abnormal) Range: 0.8-1.2 Comments: Reference interval is for non-anticoagulated patients. . Suggested INR therapeutic range for Vitamin K anta gonist therapy: Standard Dose (moderate intensity therapeutic range): 2.0 - 3.0 Higher intensity therapeutic range 2.5 - 3.5 :28 PT (PROTHROMBIN TIME) Comments: PATIENT NOT FASTINGPERFORMED BY: [facility] [id number] Information: [id number] ([id number]) Prothrombin Time 34.8 {sec} (Abnormal) Range: 9.1-12.0 INR 3.2 (Abnormal) Range: 0.8-1.2 Comments: Reference interval is for non-anticoagulated patients. . Suggested INR therapeutic range for Vitamin K anta gonist therapy: Standard Dose (moderate intensity therapeutic range): 2.0 - 3.0 Higher intensity therapeutic range 2.5 - 3.5 :02 PT (PROTHROMBIN TIME) Comments: PATIENT NOT FASTINGPERFORMED BY: [place] [id number] [id number] Information: [id number] ([id number]) Prothrombin Time 30.2 {sec} (Abnormal) Range: 9.1-12.0 INR 2.8 (Abnormal) Range: 0.8-1.2 Comments: Reference interval is for non-anticoagulated patients. . Suggested INR therapeutic range for Vitamin K anta gonist therapy: Standard Dose (moderate intensity therapeutic range): 2.0 - 3.0 Higher intensity therapeutic range 2.5 - 3.5 :58 PT (PROTHROMBIN TIME) Comments: PATIENT NOT FASTINGPERFORMED BY: [place] [id number] [id number] Information: [id number] ([id number]) Prothrombin Time 16.3 {sec} (Abnormal) Range: 9.1-12.0 INR 1.5 (Abnormal) Range: 0.8-1.2 Comments: Reference interval is for non-anticoagulated patients. . Suggested INR therapeutic range for Vitamin K anta gonist therapy: Standard Dose (moderate intensity therapeutic range): 2.0 - 3.0 Higher intensity therapeutic range 2.5 - 3.5 11-Doj-092804:38 PT (PROTHROMBIN TIME) Comments: PATIENT NOT FASTINGPERFORMED BY: [place] [id number] [id number] Information: [id number] ([id number]) Prothrombin Time 24.1 {sec} (Abnormal) Range: 9.1-12.0 INR 2.2 (Abnormal) Range: 0.8-1.2 Comments: Reference interval is for non-anticoagulated patients. . Suggested INR therapeutic range for Vitamin K anta gonist therapy: Standard Dose (moderate intensity therapeutic range): 2.0 - 3.0 Higher intensity therapeutic range 2.5 - 3.5 27-Ytn-73209:48 Pathology Report Comments: PERFORMED BY: [facility] Vlmrq63058 [facility] [id number] BY: [facility] Dermatopathology Musvpwk[address] [id number] Information: [id number] See MATER Comments: Material submitted: .RIGHT DELTOID [...] SUBMITTEDENTIRELY IN A SINGLE CASSETTE.LMS/CRYPathologist provided ICD-9:173.61CPT .610510 40-Gnr-380497:16 PT (Prothrobim Time) Comments: PATIENT NOT FASTINGPERFORMED BY: [facility] [id number] Information: [id number] ([id number]) Prothrombin Time 30.4 {sec} (Abnormal) Range: 9.1-12.0 INR 2.8 (Abnormal) Range: 0.8-1.2 Comments: Reference interval is for non-anticoagulated patients. . Suggested INR therapeutic range for Vitamin K anta gonist therapy: Standard Dose (moderate intensity therapeutic range): 2.0 - 3.0 Higher intensity therapeutic range 2.5 - 3.5 :36 PT (PROTHROMBIN TIME) Comments: PATIENT NOT FASTINGPERFORMED BY: [place] [id number] [id number] Information: [id number] ([id number]) Prothrombin Time 35.6 {sec} (Abnormal) Range: 9.1-12.0 INR 3.3 (Abnormal) Range: 0.8-1.2 Comments: Reference interval is for non-anticoagulated patients. . Suggested INR therapeutic range for Vitamin K anta gonist therapy: Standard Dose (moderate intensity therapeutic range): 2.0 - 3.0 Higher intensity therapeutic range 2.5 - 3.5 :40 PT (PROTHROMBIN TIME) Comments: PATIENT NOT FASTINGPERFORMED BY: [facility] [id number] Information: [id number] ([id number]) Prothrombin Time 44.9 {sec} (Abnormal) Range: 9.1-12.0 [...] (PROTHROMBIN TIME) Comments: PATIENT NOT FASTINGPERFORMED BY: [facility]Usgpna[address] [id number] Information: [id number] ([id number]) Prothrombin Time 22.0 {sec} (Abnormal) Range: 9.1-12.0 INR 2.0 (Abnormal) Range: 0.8-1.2 Comments: Reference interval is for non-anticoagulated patients. . Suggested INR therapeutic range for Vitamin K anta gonist therapy: Standard Dose (moderate intensity therapeutic range): 2.0 - 3.0 Higher intensity therapeutic range 2.5 - 3.5 :48 PT (PROTHROMBIN TIME) Comments: PATIENT NOT FASTINGPERFORMED BY: [facility] [id number] Information: [id number] ([id number]) Prothrombin Time 16.2 {sec} (Abnormal) Range: 9.1-12.0 INR 1.6 (Abnormal) Range: 0.8-1.2 Comments: Reference interval is for non-anticoagulated patients. . Suggested INR therapeutic range for Vitamin K anta gonist therapy: Standard Dose (moderate intensity therapeutic range): 2.0 - 3.0 Higher intensity therapeutic range 2.5 - 3.5 94-Vxe-797648:19 PT (Prothrobim Time) Comments: PATIENT NOT FASTINGPERFORMED BY: [facility] [id number] Information: [id number] ([id number]) Prothrombin Time 31.0 {sec} (Abnormal) Range: 9.1-12.0 INR 2.8 (Abnormal) Range: 0.8-1.2 Comments: Reference interval is for non-anticoagulated patients. . Suggested INR therapeutic range for Vitamin K anta gonist therapy: Standard Dose (moderate intensity therapeutic range): 2.0 - 3.0 Higher intensity therapeutic range 2.5 - 3.5 :16 Metabolic Panel, Comprehensive Comments: PATIENT WAS FASTINGPERFORMED BY: [facility] HospitalRhgvxc[address] [facility] [address] [id number] ([id number]) ALT (SGPT) 17 [iU]/L (Normal) Range: 0-44 [...] mg/dL (Normal) Range: 65-99 :16 Lipid Panel ([id number]) Comments: PATIENT WAS FASTINGPERFORMED BY: [facility]Tzhcon[address] [id number] LDL/HDL Ratio 3.0 {ratio_units} (Normal) Range: 0.0-3.6 [...] Auto Diff Comments: PATIENT WAS FASTINGPERFORMED BY: [facility] HospitalQvmeci[address] [id number] Information: [id number] ([id number]) Immature Grans (Abs) 0.0 {x10E3/uL} (Normal) Range: [...] (PROSTATE SPECIFIC Comments: PATIENT WAS FASTINGPERFORMED BY: [employer] [place] [id number] ANTIGEN) (V76.44) Prostate Specific Ag, 0.5 ng/mL (Normal) Range: 0.0-4.0 Serum Comments: [employer] ECLIA methodology. .According to the [employer], Serum PSA shoulddecrease and remain [...] (PROTHROMBIN TIME) Comments: PATIENT NOT FASTINGPERFORMED BY: [employer] [facility] [id number] Information: [id number] ([id number]) Prothrombin Time 25.3 {sec} (Abnormal) Range: 9.1-12.0 INR 2.4 (Abnormal) Range: 0.8-1.2 Comments: Reference interval is for non-anticoagulated patients. . Suggested INR therapeutic range for Vitamin K anta gonist therapy: Standard Dose (moderate intensity therapeutic range): 2.0 - 3.0 Higher intensity therapeutic range 2.5 - 3.5 :47 PT (Prothrobim Time) Comments: PATIENT NOT FASTINGPERFORMED BY: [place] [id number] [id number] Information: [id number] ([id number]) Prothrombin Time 30.5 {sec} (Abnormal) Range: 9.1-12.0 INR 2.9 (Abnormal) Range: 0.8-1.2 Comments: Reference interval is for non-anticoagulated patients. . Suggested INR therapeutic range for Vitamin K anta gonist therapy: Standard Dose (moderate intensity therapeutic range): 2.0 - 3.0 Higher intensity therapeutic range 2.5 - 3.5 84-Mzj-687146:27 PT (Prothrobim Time) Comments: PATIENT NOT FASTINGPERFORMED BY: [facility] [id number] Information: [id number] ([id number]) Prothrombin Time 25.4 {sec} (Abnormal) Range: 9.1-12.0 INR 2.4 (Abnormal) Range: 0.8-1.2 Comments: Reference interval is for non-anticoagulated patients. . Suggested INR therapeutic range for Vitamin K anta gonist therapy: Standard Dose (moderate intensity therapeutic range): 2.0 - 3.0 Higher intensity therapeutic range 2.5 - 3.5 :27 PTT (Activated Partial Comments: PATIENT NOT FASTINGPERFORMED BY: [facility] [id number] Thromboplastin Time) ([id number]) aPTT 37 {sec} (Abnormal) Range: 24-33 Comments: [...] screening for lipoid disorders) Current use of terminal press operator anticoagulation : Eprescribed prescriptions (G8553) Indication: Current use of fdc anticoagulation Cough : Follow up if no [...] Indication: Reflux Planned Observations PT (PROTHROMBIN TIME) ([id number])Indication: Current use of terminal press operator anticoagulation On: :00 Request PT (PROTHROMBIN TIME) ([id number])Indication: Current use of fdc anticoagulation On: :00 Request PT (PROTHROMBIN TIME) ([id number])Indication: Current use of terminal press operator anticoagulation On: :00 Request PT (PROTHROMBIN TIME) ([id number])Indication: Current use of fdc anticoagulation On: :00 Request PT (PROTHROMBIN TIME) ([id number])Indication: Current use of terminal press operator anticoagulation On: 14-Jun-2021 Request PT (PROTHROMBIN TIME) ([id number])Indication: Current use of terminal press operator anticoagulation On: 15-May-2021 Request PT (PROTHROMBIN TIME) ([id number])Indication: Current use of terminal press operator anticoagulation On: 15-Apr-2021 Request PT (PROTHROMBIN TIME) ([id number])Indication: Current use of fdc anticoagulation On: 16-Mar-2021 Request PT (PROTHROMBIN TIME) ([id number])Indication: Current use of terminal press operator anticoagulation On: :00 Request PT (PROTHROMBIN TIME) ([id number])Indication: Current use of terminal press operator anticoagulation On: :00 Request PT (PROTHROMBIN TIME) ([id number])Indication: Current use of fdc anticoagulation On: :00 Request PT (PROTHROMBIN TIME) ([id number])Indication: Current use of terminal press operator anticoagulation On: : Request PT (PROTHROMBIN TIME) ([id number])Indication: Current use of fdc anticoagulation On: : Request PT (PROTHROMBIN TIME) ([id number])Indication: Current use of terminal press operator anticoagulation On: : Request PT (PROTHROMBIN TIME) ([id number])Indication: Current use of terminal press operator anticoagulation On: : Request PT (PROTHROMBIN TIME) ([id number])Indication: Current use of fdc anticoagulation On: : Request PT (PROTHROMBIN TIME) ([id number])Indication: Current use of terminal press operator anticoagulation On: 19-Jun-2020 Request PT (PROTHROMBIN TIME) ([id number])Indication: Current use of fdc anticoagulation On: 20-May-2020 Request PT (PROTHROMBIN TIME) ([id number])Indication: Current use of fdc anticoagulation On: 20-Apr-2020 Request PT (PROTHROMBIN TIME) ([id number])Indication: Current use of terminal press operator anticoagulation On: 21-Mar-2020 Request PT (PROTHROMBIN TIME) ([id number])Indication: Current use of terminal press operator anticoagulation On: 20-Feb-2020 Request PT (PROTHROMBIN TIME) ([id number])Indication: Current use of fdc anticoagulation On: 21-Jan-2020 Request PT (PROTHROMBIN TIME) ([id number])Indication: Current use of fdc anticoagulation On: 22-Dec-2019 Request PT (PROTHROMBIN TIME) ([id number])Indication: Current use of terminal press operator anticoagulation On: 22-Nov-2019 Request PT (PROTHROMBIN TIME) ([id number])Indication: Current use of fdc anticoagulation On: 23-Oct-2019 Request PT (PROTHROMBIN TIME) ([id number])Indication: Current use of terminal press operator anticoagulation On: 24-Aug-2019 Request PT (PROTHROMBIN TIME) ([id number])Indication: Current use of terminal press operator anticoagulation On: 25-Jul-2019 Request PT (PROTHROMBIN TIME) ([id number])Indication: Current use of terminal press operator anticoagulation On: 25-Jun-2019 Request PT (PROTHROMBIN TIME) ([id number])Indication: Current use of terminal press operator anticoagulation On: 26-May-2019 Request PT (PROTHROMBIN TIME) ([id number])Indication: Current use of fdc anticoagulation On: 26-Apr-2019 Request PT (PROTHROMBIN TIME) ([id number])Indication: Current use of fdc anticoagulation On: 27-Mar-2019 Request PT (PROTHROMBIN TIME) ([id number])Indication: Current use of fdc anticoagulation On: 25-Feb-2019 Request PT (PROTHROMBIN TIME) ([id number])Indication: Current use of fdc anticoagulation On: 26-Jan-2019 Request PT (PROTHROMBIN TIME) ([id number])Indication: Acute venous embolism and thrombosis of deep vessels of distal lower extremity, right On: 04-Jan-2019 Request Comments: STANDING ORDER PT (PROTHROMBIN TIME) ([id number])Indication: Current use of fdc anticoagulation On: 27-Dec-2018 Request PT (PROTHROMBIN TIME) ([id number])Indication: Acute venous embolism and thrombosis of deep vessels of distal lower extremity, right On: 05-Dec-2018 Request Comments: STANDING ORDER PT (PROTHROMBIN TIME) ([id number])Indication: Current use of terminal press operator anticoagulation On: 27-Nov-2018 Request PT (PROTHROMBIN TIME) ([id number])Indication: Acute venous embolism and thrombosis of deep vessels of distal lower extremity, right On: 05-Nov-2018 Request Comments: STANDING ORDER PT (PROTHROMBIN TIME) ([id number])Indication: Current use of fdc anticoagulation On: 28-Oct-2018 Request PT (PROTHROMBIN TIME) ([id number])Indication: Acute venous embolism and thrombosis of deep vessels of distal lower extremity, right On: 06-Oct-2018 Request Comments: STANDING ORDER PT (PROTHROMBIN TIME) ([id number])Indication: Current use of terminal press operator anticoagulation On: 28-Sep-2018 Request PT (PROTHROMBIN TIME) ([id number])Indication: Acute venous embolism and thrombosis of deep vessels of distal lower extremity, right On: 06-Sep-2018 Request Comments: STANDING ORDER PT (PROTHROMBIN TIME) ([id number])Indication: Current use of terminal press operator anticoagulation On: 29-Aug-2018 Request PT (PROTHROMBIN TIME) ([id number])Indication: Acute venous embolism and thrombosis of deep vessels of distal lower extremity, right On: 07-Aug-2018 Request Comments: STANDING ORDER PT (PROTHROMBIN TIME) ([id number])Indication: Current use of terminal press operator anticoagulation On: 30-Jul-2018 Request PT (PROTHROMBIN TIME) ([id number])Indication: Acute venous embolism and thrombosis of deep vessels of distal lower extremity, right On: 08-Jul-2018 Request Comments: STANDING ORDER PT (PROTHROMBIN TIME) ([id number])Indication: Current use of fdc anticoagulation On: 30-Jun-2018 Request PT (PROTHROMBIN TIME) ([id number])Indication: Acute venous embolism and thrombosis of deep vessels of distal lower extremity, right On: 08-Jun-2018 Request Comments: STANDING ORDER PT (PROTHROMBIN TIME) ([id number])Indication: Current use of fdc anticoagulation On: 31-May-2018 Request PT (PROTHROMBIN TIME) ([id number])Indication: Acute venous embolism and thrombosis of deep vessels of distal lower extremity, right On: 09-May-2018 Request Comments: STANDING ORDER PT (PROTHROMBIN TIME) ([id number])Indication: Current use of fdc anticoagulation On: 02-Mar-2018 Request LIPID PANEL ([id number])Indication: SCREENING FOR HYPERLIPIDEMIA (Renamed from Encounter for screening for lipoid disorders) On: 53-Fbw-038929:48 Request CALCIFEDIOL ([id number])Indication: Leg cramps On: 08-Xue-365037:41 Request PT (PROTHROMBIN TIME) ([id number])Indication: Current use of fdc anticoagulation On: 06-Jan-2017 Request PT (PROTHROMBIN TIME) ([id number])Indication: Current use of terminal press operator anticoagulation On: 11-Apr-2016 Request PT (PROTHROMBIN TIME) ([id number])Indication: Current use of fdc anticoagulation On: 11-Feb-2016 Request PT (Prothrobim Time) ([id number])Indication: Current use of terminal press operator anticoagulation On: 20-Jul-2015 Request PT (Prothrobim Time) ([id number])Indication: Current use of terminal press operator anticoagulation On: 13-Jul-2015 Request PT (Prothrobim Time) ([id number])Indication: Current use of terminal press operator anticoagulation On: 06-Jul-2015 Request PT (Prothrobim Time) ([id number])Indication: Current use of fdc anticoagulation On: 29-Jun-2015 Request PT (Prothrobim Time) ([id number])Indication: Current use of fdc anticoagulation On: 22-Jun-2015 Request PT (Prothrobim Time) ([id number])Indication: Current use of fdc anticoagulation On: 15-Jun-2015 Request PT (Prothrobim Time) ([id number])Indication: Current use of fdc anticoagulation On: 08-Jun-2015 Request PT (Prothrobim Time) ([id number])Indication: Current use of terminal press operator anticoagulation On: 01-Jun-2015 Request PT (Prothrobim Time) ([id number])Indication: Current use of terminal press operator anticoagulation On: 25-May-2015 Request PT (Prothrobim Time) ([id number])Indication: Current use of fdc anticoagulation On: 18-May-2015 Request PT (Prothrobim Time) ([id number])Indication: Current use of terminal press operator anticoagulation On: 11-May-2015 Request PT (Prothrobim Time) ([id number])Indication: Current use of terminal press operator anticoagulation On: 04-May-2015 Request PT (Prothrobim Time) ([id number])Indication: Current use of fdc anticoagulation On: 27-Apr-2015 Request PT (Prothrobim Time) ([id number])Indication: Current use of fdc anticoagulation On: 20-Apr-2015 Request PT (PROTHROMBIN TIME) ([id number])Indication: Current use of fdc anticoagulation On: 17-Apr-2015 Request PT (Prothrobim Time) ([id number])Indication: Current use of terminal press operator anticoagulation On: 13-Apr-2015 Request PT (Prothrobim Time) ([id number])Indication: Current use of fdc anticoagulation On: 06-Apr-2015 Request PT (Prothrobim Time) ([id number])Indication: Current use of fdc anticoagulation On: 30-Mar-2015 Request PT (Prothrobim Time) ([id number])Indication: Current use of terminal press operator anticoagulation On: 23-Mar-2015 Request PT (Prothrobim Time) ([id number])Indication: Current use of fdc anticoagulation On: 16-Mar-2015 Request PT (Prothrobim Time) ([id number])Indication: Current use of fdc anticoagulation On: 09-Mar-2015 Request PT (Prothrobim Time) ([id number])Indication: Current use of terminal press operator anticoagulation On: 02-Mar-2015 Request PT (Prothrobim Time) ([id number])Indication: Current use of fdc anticoagulation On: 23-Feb-2015 Request PT (Prothrobim Time) ([id number])Indication: Current use of terminal press operator anticoagulation On: 16-Feb-2015 Request PT (Prothrobim Time) ([id number])Indication: Current use of terminal press operator anticoagulation On: 09-Feb-2015 Request PT (Prothrobim Time) ([id number])Indication: Current use of terminal press operator anticoagulation On: 02-Feb-2015 Request PT (Prothrobim Time) ([id number])Indication: Current use of fdc anticoagulation On: 26-Jan-2015 Request PT (Prothrobim Time) ([id number])Indication: Current use of terminal press operator anticoagulation On: 19-Jan-2015 Request PT (Prothrobim Time) ([id number])Indication: Current use of terminal press operator anticoagulation On: 12-Jan-2015 Request PT (Prothrobim Time) ([id number])Indication: Current use of terminal press operator anticoagulation On: 05-Jan-2015 Request PT (Prothrobim Time) ([id number])Indication: Current use of terminal press operator anticoagulation On: 29-Dec-2014 Request PT (Prothrobim Time) ([id number])Indication: Current use of terminal press operator anticoagulation On: 22-Dec-2014 Request PT (Prothrobim Time) ([id number])Indication: Current use of fdc anticoagulation On: 15-Dec-2014 Request PT (Prothrobim Time) ([id number])Indication: Current use of fdc anticoagulation On: 08-Dec-2014 Request PT (Prothrobim Time) ([id number])Indication: Current use of fdc anticoagulation On: 01-Dec-2014 Request PT (Prothrobim Time) ([id number])Indication: Current use of terminal press operator anticoagulation On: 24-Nov-2014 Request PT (Prothrobim Time) ([id number])Indication: Current use of fdc anticoagulation On: 17-Nov-2014 Request PT (Prothrobim Time) ([id number])Indication: Current use of terminal press operator anticoagulation On: 10-Nov-2014 Request PT (Prothrobim Time) ([id number])Indication: Current use of fdc anticoagulation On: 03-Nov-2014 Request PT (Prothrobim Time) ([id number])Indication: Current use of fdc anticoagulation On: 27-Oct-2014 Request PT (Prothrobim Time) ([id number])Indication: Current use of fdc anticoagulation On: 20-Oct-2014 Request PT (Prothrobim Time) ([id number])Indication: Current use of fdc anticoagulation On: 13-Oct-2014 Request PT (Prothrobim Time) ([id number])Indication: Current use of terminal press operator anticoagulation On: 06-Oct-2014 Request PT (Prothrobim Time) ([id number])Indication: Current use of fdc anticoagulation On: 29-Sep-2014 Request PT (Prothrobim Time) ([id number])Indication: Current use of fdc anticoagulation On: 22-Sep-2014 Request PT (Prothrobim Time) ([id number])Indication: Current use of terminal press operator anticoagulation On: 15-Sep-2014 Request PT (Prothrobim Time) ([id number])Indication: Current use of fdc anticoagulation On: 08-Sep-2014 Request PT (Prothrobim Time) ([id number])Indication: Current use of terminal press operator anticoagulation On: 01-Sep-2014 Request PT (Prothrobim Time) ([id number])Indication: Current use of fdc anticoagulation On: 25-Aug-2014 Request PT (PROTHROMBIN TIME) ([id number])Indication: Current use of terminal press operator anticoagulation On: 20-Aug-2014 Request PT (Prothrobim Time) ([id number])Indication: Current use of terminal press operator anticoagulation On: 18-Aug-2014 Request PT (Prothrobim Time) ([id number])Indication: Current use of terminal press operator anticoagulation On: 11-Aug-2014 Request PT (Prothrobim Time) ([id number])Indication: Current use of fdc anticoagulation On: 04-Aug-2014 Request PT (Prothrobim Time) ([id number])Indication: Current use of fdc anticoagulation On: 28-Jul-2014 Request PT (Prothrobim Time) ([id number])Indication: Current use of terminal press operator anticoagulation On: 21-Jul-2014 Request PT (PROTHROMBIN TIME) ([id number])Indication: Current use of fdc anticoagulation On: 21-Jul-2014 Request PT (Prothrobim Time) ([id number])Indication: Current use of terminal press operator anticoagulation On: 07-Jul-2014 Request PT (Prothrobim Time) ([id number])Indication: Current use of terminal press operator anticoagulation On: 30-Jun-2014 Request PT (Prothrobim Time) ([id number])Indication: Current use of fdc anticoagulation On: 23-Jun-2014 Request PT (Prothrobim Time) ([id number])Indication: Current use of terminal press operator anticoagulation On: 16-Jun-2014 Request PT (Prothrobim Time) ([id number])Indication: Current use of terminal press operator anticoagulation On: 09-Jun-2014 Request PT (Prothrobim Time) ([id number])Indication: Current use of terminal press operator anticoagulation On: 02-Jun-2014 Request PT (Prothrobim Time) ([id number])Indication: Current use of terminal press operator anticoagulation On: 26-May-2014 Request PT (Prothrobim Time) ([id number])Indication: Current use of fdc anticoagulation On: 19-May-2014 Request PT (Prothrobim Time) ([id number])Indication: Current use of fdc anticoagulation On: 12-May-2014 Request PT (Prothrobim Time) ([id number])Indication: Current use of terminal press operator anticoagulation On: 05-May-2014 Request PT (Prothrobim Time) ([id number])Indication: Current use of terminal press operator anticoagulation On: 28-Apr-2014 Request PT (Prothrobim Time) ([id number])Indication: Current use of fdc anticoagulation On: 21-Apr-2014 Request PT (Prothrobim Time) ([id number])Indication: Current use of fdc anticoagulation On: 14-Apr-2014 Request PT (Prothrobim Time) ([id number])Indication: Current use of terminal press operator anticoagulation On: 07-Apr-2014 Request PT (Prothrobim Time) ([id number])Indication: Current use of fdc anticoagulation On: 31-Mar-2014 Request PT (Prothrobim Time) ([id number])Indication: Current use of fdc anticoagulation On: 24-Mar-2014 Request PT (Prothrobim Time) ([id number])Indication: Current use of fdc anticoagulation On: 17-Mar-2014 Request PT (Prothrobim Time) ([id number])Indication: Current use of terminal press operator anticoagulation On: 10-Mar-2014 Request PT (Prothrobim Time) ([id number])Indication: Current use of terminal press operator anticoagulation On: 03-Mar-2014 Request PT (Prothrobim Time) ([id number])Indication: Current use of fdc anticoagulation On: 24-Feb-2014 Request PT (Prothrobim Time) ([id number])Indication: Current use of fdc anticoagulation On: 17-Feb-2014 Request PT (Prothrobim Time) ([id number])Indication: Current use of fdc anticoagulation On: 10-Feb-2014 Request PT (Prothrobim Time) ([id number])Indication: Current use of fdc anticoagulation On: 03-Feb-2014 Request PT (Prothrobim Time) ([id number])Indication: Current use of terminal press operator anticoagulation On: 20-Jan-2014 Request PT (Prothrobim Time) ([id number])Indication: Current use of terminal press operator anticoagulation On: 13-Jan-2014 Request PT (Prothrobim Time) ([id number])Indication: Current use of terminal press operator anticoagulation On: 06-Jan-2014 Request PT (Prothrobim Time) ([id number])Indication: Current use of fdc anticoagulation On: 30-Dec-2013 Request PT (Prothrobim Time) ([id number])Indication: Current use of terminal press operator anticoagulation On: 23-Dec-2013 Request PT (Prothrobim Time) ([id number])Indication: Current use of fdc anticoagulation On: 16-Dec-2013 Request PT (Prothrobim Time) ([id number])Indication: Current use of fdc anticoagulation On: 09-Dec-2013 Request PT (Prothrobim Time) ([id number])Indication: Current use of fdc anticoagulation On: 02-Dec-2013 Request PT (Prothrobim Time) ([id number])Indication: Current use of fdc anticoagulation On: 25-Nov-2013 Request PT (Prothrobim Time) ([id number])Indication: Current use of fdc anticoagulation On: 18-Nov-2013 Request PT (Prothrobim Time) ([id number])Indication: Current use of fdc anticoagulation On: 11-Nov-2013 Request PT (Prothrobim Time) ([id number])Indication: Current use of fdc anticoagulation On: 04-Nov-2013 Request PT (Prothrobim Time) ([id number])Indication: Current use of fdc anticoagulation On: 28-Oct-2013 Request PT (Prothrobim Time) ([id number])Indication: Current use of terminal press operator anticoagulation On: 14-Oct-2013 Request PT (Prothrobim Time) ([id number])Indication: Current use of fdc anticoagulation On: 07-Oct-2013 Request PT (Prothrobim Time) ([id number])Indication: Current use of terminal press operator anticoagulation On: 30-Sep-2013 Request PT (Prothrobim Time) ([id number])Indication: Current use of terminal press operator anticoagulation On: 23-Sep-2013 Request PT (Prothrobim Time) ([id number])Indication: Current use of fdc anticoagulation On: 16-Sep-2013 Request PT (Prothrobim Time) ([id number])Indication: Current use of terminal press operator anticoagulation On: [id number] Request Comments: needs one today then q month or prn Planned Procedures Ultrasound - RenalBy: Danae LAN, On: 23-Mar-2015 Intent Tammie Hernandez CNP Aerosol Treatment ([id number])By: Slarb On: 23-Mar-2015 Intent 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, [employer] FLU VAC, SPLIT, >3 YEARS, On: 14-Feb-2014 Intent INTRAMUSC ([id number])By: Danae LAN, Comments: lot # [id number]- 10/28/14site- LDLTroute-IMdose- 0.5mlVIS and ABN signedCTyler 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Tammie Velarde CNP IMMUNIZ ADMNIN, 1 VAC, SNGL/COMBO On: 14-Feb-2014 Intent ([id number])By: Tammie Fink CNP, CNP, Mary E Instructions Name Dates Details Current use of terminal press operator anticoagulation : How to access health information online Indication: Current use of terminal press operator anticoagulation Current use of terminal press operator anticoagulation : How to access health information online - Detail Indication: Current use of fdc anticoagulation Current use of terminal press operator anticoagulation : Patient Instructions Indication: Current use of fdc anticoagulation Cough : Patient Instructions Indication: Cough [...] BMI 23.0-23.9, adult, Nonsmoker, Current use of fdc anticoagulation, Reflux, Leg cramps, Follicular lymphoma , [...] UTI symptoms, Cough, Nocturia, Current use of terminal press operator anticoagulation, Pharyngitis, Flank pain [facility] [...] DVT (deep venous thrombosis), Current use of terminal press operator anticoagulation, SCREENING FOR CANCER OF THE [...] DVT (deep venous thrombosis), Current use of terminal press operator anticoagulation, Reflux [facility] Payers MedicareAARP/Ta [place]; a guarantor
--- OUTSIDE RECORDS SUMMARY | 2018-07-19 23:44 | XMS RPT_ITS | Continuity of Care Document ---
:1950 Author Organization [facility] Address [facility]7 [facility] 2 [place] [address] Phone Care Team Providers Name Role Phone [...] (R05, 786.2) Status: Active Current use of retirement anticoagulation (Z51.81, V58.61) Status: Active DVT (deep venous thrombosis) (I82.409, 453.40) Comments: bilater lower ext occured October of 2012 ? 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 Arvin Reis at [place] had chemo and radiation Last one in [...] Visit Report Result: Comments: See Note; NOTES: [facility] [place] [address] OFFICE VISIT Date of Service: 11/16/17 1102 MR#: [id number] Acct: [id number] Name: BEREKETPATRIZIA L Rep #: [id number] : 1950 From: Regis Fleming MD Age/Sex: [...] Chronic Code Visit Office Visits / Consults: 63078 OV L3 Est 11/16/17 1137 <Electronically signed by Regis Fleming MD&# 62; Date Regis Fleming MD Cosigner Signature: Date (if applicable) CC: 24-Mar-2015 Kidney and Bladder Result: Comments: See Note; NOTES: [facility] Imaging Services [address] [place] [address]292 Verdana 4d Kidney and Bladder MR#: [id number] Acct: [id number] Name: PATRIZIA CUBA Rep #: [id number] : 1950 M 64 From: Tarun Denis MD PCP: Tammie Fink Status: REG CLI Study: Kidney and Bladder Date of Exam: 03/24/15 Exam# [id number] Ordering Dr: Tammie Fink ST UDY: RENAL [...] MD at 22:21 EST , Service support [phone], CC: Tammie Fink Cotton Tipper: Signed 18-Feb-2015 Abdomen/Pelvis WITH Contrast Result: Comments: See Note; NOTES: [facility] Services [address] [place] [address]226 Verdana 4d Abdomen/Pelvis WITH Contrast MR#: [id number] Acct: [id number] Name : PATRIZIA CUBA Rep #: [id number] : 1950 M 64 From: Nickolas Mitchell DO PCP: Tammie Fink Status: REG CLI Study: Abdomen/Pelvis WITH Contrast Date of Exam: 02/18/15 Exam# [id number] Ordering Dr : Skyler Brewer MD STUDY: [...] DO at 10:24 EDT , Service support [phone], CC: Tammie Brewer Cotton Tipper: Signed 18-Feb-2015 Chest WITH Contrast Result: Comments: See Note; NOTES: [facility] Services [address] [place] [address]02 Verdana 4d Chest WITH Contrast MR#: [id number] Acct: [id number] Name: PATRIZIA CUBA Rep #: [id number] : 1950 M 64 From: Nickolas Mitchell DO PCP: Tammie Fink Status: REG CLI Study: Chest WITH Contrast Date of Exam: 02/18/15 Exam# [id number] Ordering Dr: Skyler Brewer MD STUDY: CT [...] DO at 9:28 EDT , Service support [phone], CC: Tammie Fink; Skyler Brewer Cotton Tipper: Signed 13-Feb-2015 Neck for Soft Tissue Result: Comments: See Note; NOTES: [facility] Imaging Services [address] [place] [address] Verdana 4d Neck for Soft Tissue MR#: [id number] Acct: [id number] Name: PATRIZIA DUMONT Rep #: [id number] : 1950 M 64 From: Evens Salas MD PCP: Tammie Fink Status: REG CLI Study: Neck for Soft Tissue Date of Exam: 02/13/15 Exam# [id number] Ordering Dr: Skyler Brewer MD STUDY: X-RAY [...] at 10:20 EDT Tel , Service support [phone], RAD/Neck for S oft Tissue IMPRESSION: Normal x-ray soft tissue neck. Electronically Signed: Evens Salas MD at 10:20 EDT Tel , Service support [phone], CC: Tammie Fink; Skyler Brewer Cotton Tipper: Signed 06-Jan-2014 PET/CT Tumor Base -Thigh Init Result: Comments: See Note; NOTES: [facility] Services [address] [place] [address] PET Scan Report MR#: [id number] Acct: [id number] Name: PATRIZIA CUBA Rep #: [id number] : 1950 M 63 From: Caleb Armando MARTINEZ PCP: Tammie Fink Status: REG CLI Study: PET/CT Tumor Base -Thigh Init Date of Exam: 01/06/14 Exam# [id number] Ordering Dr: Skyler Brewer MD INDICAT IONS: [...] Caleb Roberts DO at 15:00 EDT Tel [phone], [employer] e support [phone], CC: Tammie Fink; RADHA; EUGENIO; Skyler Brewer Cotton Tipper: Signed 16-Dec-2013 Abdomen/Pelvis WITH Contrast Result: Comments: See Note; NOTES: [facility] Services [address] [place] [address]151 CAT Scan Report MR#: [id number] Acct: [id number] Name: PATRIZIA CUBA Rep #: [id number] : 1950 M 63 From: Jesus Webb MD PCP: Tammie Fink Status: REG CLI Study: Abdomen/Pelvis WITH Contrast Date of Exam: 12/16/13 Exam# [id number] Ordering Dr: Skyler Brewer MD ALFREDO DY: [...] Jesus Webb MD at 8:49 EDT Tel [phone], Service support [phone], CC: Tammie Schwartz sa; Skyler Brewer Cotton Tipper: Signed 16-Dec-2013 Chest WITH Contrast Result: Comments: See Note; NOTES: [facility] Services [address] [place] [address] CAT Scan Report MR#: [id number] Acct: [id number] Name: PATRIZIA CUBA Rep #: [id number] : 1950 M 63 From: Jesus Webb MD PCP: Tammie Fink Status: REG CLI Study: Chest WITH Contrast Date of Exam: 12/16/13 Exam# [id number] Ordering Dr: Skyler Brewer MD STUDY: CT [...] Jesus Webb MD at 8:52 EDT Tel [phone], Service support [phone], CC: Tammie Fink; Skyler Brewer Cotton Tipper: Signed 16-Dec-2013 Soft Tissue Neck WITH Contrast Result: Comments: See Note; NOTES: [facility] Imaging Services [address] [place] [address] 87875 CAT Scan Report MR#: [id number] Acct: [id number] Name: PATRIZIA CUBA Rep #: [id number] : 1950 M 63 From: Jesus Webb MD PCP: Tammie Fink Status: REG CLI Study: Soft Tissue Neck WITH Contrast Date of Exam: 12/16/13 Exam# [id number] Ordering Dr: Skyler Brewer MD [place] [...] FINDINGS: Normal bilateral parotid glands. 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 Normal bilateral parapharyngeal spaces. Normal bilateral [...] Jesus Webb MD at 9:27 EDT Tel [phone], Service suppo rt [phone], CC: Tammie Fink; Skyler Brewer Cotton Tipper: Signed Family History Unknown Family Member Name Dates Details Brother 1 Comments: DVT Status: Active Father Comments: DVT Status: Active Social History Name Dates Details Caffeine Use Comments: coffee all day Status: Active Exercise History Comments: walking at work Status: Active Most Recent Primary Occupation Comments: [employer] working Status: Active No Drug Use Status: Active Non Drinker/No Alcohol Use Status: Active Non Smoker/No Tobacco Use Status: Active Vital Signs Date Test Result Details 16-Xrc-787878:04 Temperature 97.8 f Pulse 76 /min Comments: [...] Description Value Details :27 PT (PROTHROMBIN TIME) (50016) Comments: STANDING ORDER; PATIENT NOT FASTINGPERFORMED BY: [facility]6370 [facility] [id number] Prothrombin Time 36.8 {sec} (Abnormal) Range: 9.1-12.0 INR 3.7 (Abnormal) Range: 0.8-1.2 Comments: Client Requested Flag Reference interval is for non- anticoagulated patients. . Suggested INR therapeutic ra nge for Vitamin K antagonist therapy: Standard Dose (moderate intensity therapeutic range): 2.0 - 3.0 Higher intensity therapeutic range 2.5 - 3.5 :52 PT (PROTHROMBIN TIME) (97454) Comments: PATIENT NOT FASTINGPERFORMED BY: [facility]6370 [facility] [id number] Prothrombin Time 16.3 {sec} (Abnormal) Range: 9.1-12.0 INR 1.6 (Abnormal) Range: 0.8-1.2 Comments: Reference interval is for non-anticoagulated patients. . Suggested INR therapeutic range for Vitamin K anta gonist therapy: Standard Dose (moderate intensity therapeutic range): 2.0 - 3.0 Higher intensity therapeutic range 2.5 - 3.5 :28 PT (PROTHROMBIN TIME) (48871) Comments: STANDING ORDER; PATIENT NOT FASTINGPERFORMED BY: [facility]6370 [facility] [id number] Prothrombin Time 29.7 {sec} (Abnormal) Range: 9.1-12.0 INR 3.0 (Abnormal) Range: 0.8-1.2 Comments: Reference interval is for non-anticoagulated patients. . Suggested INR therapeutic range for Vitamin K anta gonist therapy: Standard Dose (moderate intensity therapeutic range): 2.0 - 3.0 Higher intensity therapeutic range 2.5 - 3.5 :11 PT (PROTHROMBIN TIME) (80168) Comments: PATIENT NOT FASTINGPERFORMED BY: [facility]6370 [facility] [id number] Prothrombin Time 20.6 {sec} (Abnormal) Range: 9.1-12.0 INR 2.1 (Abnormal) Range: 0.8-1.2 Comments: Reference interval is for non-anticoagulated patients. . Suggested INR therapeutic range for Vitamin K anta gonist therapy: Standard Dose (moderate intensity therapeutic range): 2.0 - 3.0 Higher intensity therapeutic range 2.5 - 3.5 0-Bmj-183194:27 PT (PROTHROMBIN TIME) (48581) Comments: PATIENT NOT FASTINGPERFORMED BY: [facility]3]Jzgbmx9290 [facility] [id number] Prothrombin Time 23.9 {sec} (Abnormal) Range: 9.1-12.0 INR 2.5 (Abnormal) Range: 0.8-1.2 Comments: Reference interval is for non-anticoagulated patients. . Suggested INR therapeutic range for Vitamin K anta gonist therapy: Standard Dose (moderate intensity therapeutic range): 2.0 - 3.0 Higher intensity therapeutic range 2.5 - 3.5 78-Fft-169954:31 CBC W/Diff, Automated Comments: [facility] Lbefqorsrl7547 [facility] [place], [address] Absolute Lymph 1.01 {X10_3/ul} (Normal) Range: 0.83-4.51 [...] 4.6-6.2 WBC 4.3 K/mm3 (Abnormal) Range: 4.4-11.0 07-Ewm-192704:30 Comprehensive Metabolic Profil Comments: Reason for Laboratory Test H/O NHL Z85.72Serial Specimen #1, #2 or #3? [facility] [address] [place], [place], [address] GAP 5 (Normal) Range: 5-15 CO2 27.0 [...] Comments: Please note revised GLUCOSE reference range kdddavngk55/02/2018. 32-Hrn-509165:30 LDH 190 U/L (Normal) Comments: Reason for Laboratory Test H/O NHL Z85.72Serial Specimen #1, #2 or #3? [facility] [address] [place], [address] Range: 87-241 08-Jun-20179:29 PT (PROTHROMBIN TIME) (73727) Comments: PATIENT NOT FASTINGPERFORMED BY: [employer] [id number] Prothrombin Time 22.4 {sec} (Abnormal) Range: 9.1-12.0 INR 2.3 (Abnormal) Range: 0.8-1.2 Comments: Reference interval is for non-anticoagulated patients. . Suggested INR therapeutic range for Vitamin K anta gonist therapy: Standard Dose (moderate intensity therapeutic range): 2.0 - 3.0 Higher intensity therapeutic range 2.5 - 3.5 :20 PT (PROTHROMBIN TIME) (38197) Comments: PATIENT NOT FASTINGPERFORMED BY: [facility] HospitalKidsCashMon[facility]3]Ovvvmx9079 [facility] [id number] Prothrombin Time 17.1 {sec} (Abnormal) Range: 9.1-12.0 INR 1.7 (Abnormal) Range: 0.8-1.2 Comments: Reference interval is for non-anticoagulated patients. . Suggested INR therapeutic range for Vitamin K anta gonist therapy: Standard Dose (moderate intensity therapeutic range): 2.0 - 3.0 Higher intensity therapeutic range 2.5 - 3.5 57-Vmn-859137:39 PT (PROTHROMBIN TIME) (35363) Comments: PATIENT NOT FASTINGPERFORMED BY: [place] 7836770 [facility] [id number] Prothrombin Time 23.4 {sec} (Abnormal) Range: 9.1-12.0 INR 2.4 (Abnormal) Range: 0.8-1.2 Comments: Reference interval is for non-anticoagulated patients. . Suggested INR therapeutic range for Vitamin K anta gonist therapy: Standard Dose (moderate intensity therapeutic range): 2.0 - 3.0 Higher intensity therapeutic range 2.5 - 3.5 59-Gka-609065:10 TSH (THYROID STIMULATING Comments: PATIENT WAS FASTINGPERFORMED BY: [employer]6370 [employer] GroupCape Fear/[facility] Health [id number] HORMONE) (21445) TSH 2.310 {uIU/mL} (Normal) Range: 0.450-4.500 73-Ysq-663742:10 PSA (PROSTATE SPECIFIC Comments: PATIENT WAS FASTINGPERFORMED BY: [facility]ed[facility] [id number] ANTIGEN) (V76.44) Prostate Specific Ag, 0.7 ng/mL (Normal) Range: 0.0-4.0 Serum Comments: Invisible ECLIA methodology. .According to the [employer], Serum PSA shoulddecrease and remain at undetectable levels after radicalprostatectomy. The AUA defines biochemical recurrence as an initialPSA value 0.2 ng/mL or greater followed by a subsequent confirmatoryPSA value 0.2 ng/mL or greater.Values obtained with d ifferent assay methods or kits cannot be usedinterchangeably. Results cannot be interpreted as absolute evidenceof the presence or absence of malignant disease. 46-Lcu-648399:10 CBC & PLATELETS (AUTO) Comments: PATIENT WAS FASTINGPERFORMED BY: [employer]6370 [facility]At[facility] [id number] (27236) Platelets 181 {x10E3/uL} (Normal) Range: 150-379 RDW 13.5 % (Normal) Range: 12.3-15.4 MCHC 33.9 g/dL (Normal) Range: 31.5-35.7 MCH 31.1 pg (Normal) Range: 26.6-33.0 MCV 92 fL (Normal) Range: 79-97 Hematocrit 45.4 % (Normal) Range: 37.5-51.0 Hemoglobin 15.4 g/dL (Normal) Range: 13.0-17.7 RBC 4.95 {x10E6/uL} (Normal) Range: 4.14-5.80 WBC 4.4 {x10E3/uL} (Normal) Range: 3.4-10.8 47-Cha-185791:10 VITAMIN B12 AND FOLATES Comments: PATIENT WAS FASTINGPERFORMED BY: [facility]rys[facility]3]Hiurpa0086 [facility] [id number] (57169) Folate (Folic Acid), Serum 12.4 ng/mL (Normal) Comments: A serum folate concentration of less than 3.1 ng/mL isconsidered to represent clinical deficiency. Vitamin B12 411 pg/mL (Normal) Range: 232-1245 83-Idp-848044:10 Metabolic Panel, Comprehensive Comments: PATIENT WAS FASTINGPERFORMED BY: [facility]3]Hemrge0382 [facility] [id number] (24876) ALT (SGPT) 14 [iU]/L (Normal) Range: 0-44 [...] 8-27 Glucose 76 mg/dL (Normal) Range: 65-99 93-Hpl-706761:10 MAGNESIUM (89378) Comments: PATIENT WAS FASTINGPERFORMED BY: [place] [id number] [facility] [id number] Magnesium 2.4 mg/dL (Abnormal) Range: 1.6-2.3 32-Yht-280347:31 PT (PROTHROMBIN TIME) (56714) Comments: PATIENT NOT FASTINGPERFORMED BY: [place] 7836770 [facility] [id number] Prothrombin Time 21.0 {sec} (Abnormal) Range: 9.1-12.0 INR 2.1 (Abnormal) Range: 0.8-1.2 Comments: Reference interval is for non-anticoagulated patients. . Suggested INR therapeutic range for Vitamin K anta gonist therapy: Standard Dose (moderate intensity therapeutic range): 2.0 - 3.0 Higher intensity therapeutic range 2.5 - 3.5 99-Els-795348:19 PT (PROTHROMBIN TIME) (11315) Comments: PERFORMED BY: [facility]6370 [facility] [id number] Prothrombin Time 22.3 {sec} (Abnormal) Range: 9.1-12.0 INR 2.3 (Abnormal) Range: 0.8-1.2 Comments: Reference interval is for non-anticoagulated patients. . Suggested INR therapeutic range for Vitamin K anta gonist therapy: Standard Dose (moderate intensity therapeutic range): 2.0 - 3.0 Higher intensity therapeutic range 2.5 - 3.5 31-Euq-878063:07 PT (PROTHROMBIN TIME) (60696) Comments: PATIENT NOT FASTINGPERFORMED BY: [facility]6370 [facility] [id number] Prothrombin Time 21.2 {sec} (Abnormal) Range: 9.1-12.0 INR 2.1 (Abnormal) Range: 0.8-1.2 Comments: Reference interval is for non-anticoagulated patients. . Suggested INR therapeutic range for Vitamin K anta gonist therapy: Standard Dose (moderate intensity therapeutic range): 2.0 - 3.0 Higher intensity therapeutic range 2.5 - 3.5 51-Nfo-435682:21 PT (PROTHROMBIN TIME) (53892) Comments: PATIENT NOT FASTINGPERFORMED BY: [facility]6370 [facility] [id number] Prothrombin Time 23.1 {sec} (Abnormal) Range: 9.1-12.0 INR 2.3 (Abnormal) Range: 0.8-1.2 Comments: Reference interval is for non-anticoagulated patients. . Suggested INR therapeutic range for Vitamin K anta gonist therapy: Standard Dose (moderate intensity therapeutic range): 2.0 - 3.0 Higher intensity therapeutic range 2.5 - 3.5 :56 PT (PROTHROMBIN TIME) (35356) Comments: PATIENT NOT FASTINGPERFORMED BY: [facility]6370 [facility] [id number] Prothrombin Time 24.2 {sec} (Abnormal) Range: 9.1-12.0 INR 2.4 (Abnormal) Range: 0.8-1.2 Comments: Reference interval is for non-anticoagulated patients. . Suggested INR therapeutic range for Vitamin K anta gonist therapy: Standard Dose (moderate intensity therapeutic range): 2.0 - 3.0 Higher intensity therapeutic range 2.5 - 3.5 :15 PT (PROTHROMBIN TIME) (85125) Comments: PATIENT NOT FASTINGPERFORMED BY: [facility]6370 [facility] [id number] Prothrombin Time 25.2 {sec} (Abnormal) Range: 9.1-12.0 INR 2.5 (Abnormal) Range: 0.8-1.2 Comments: Reference interval is for non-anticoagulated patients. . Suggested INR therapeutic range for Vitamin K anta gonist therapy: Standard Dose (moderate intensity therapeutic range): 2.0 - 3.0 Higher intensity therapeutic range 2.5 - 3.5 :57 PT (PROTHROMBIN TIME) (20450) Comments: PATIENT NOT FASTINGPERFORMED BY: [facility]6370 [facility] [id number] Prothrombin Time 18.5 {sec} (Abnormal) Range: 9.1-12.0 INR 1.8 (Abnormal) Range: 0.8-1.2 Comments: Reference interval is for non-anticoagulated patients. . Suggested INR therapeutic range for Vitamin K anta gonist therapy: Standard Dose (moderate intensity therapeutic range): 2.0 - 3.0 Higher intensity therapeutic range 2.5 - 3.5 62-Buf-947170:26 PT (PROTHROMBIN TIME) (02836) Comments: PATIENT NOT FASTINGPERFORMED BY: [facility] Rctuvp2410 [facility] [id number] Prothrombin Time 16.4 {sec} (Abnormal) Range: 9.1-12.0 INR 1.6 (Abnormal) Range: 0.8-1.2 Comments: Reference interval is for non-anticoagulated patients. . Suggested INR therapeutic range for Vitamin K anta gonist therapy: Standard Dose (moderate intensity therapeutic range): 2.0 - 3.0 Higher intensity therapeutic range 2.5 - 3.5 04-Nsh-552852:29 CBC W/Diff, Auto - EPLAB Comments: Order Date: 07/19/16Order Info: 0184-1E - *CBC w/Diff - oncology ONLYAt [facility] [place] Medical Oncologypatients receive CBC w/auto Differential ONLY. Physicianwill place an order fo Only r a manual differential or Pathologistreview at his discretion. [facility] OUTPATIENT [facility]. [address] [address] [place] [address] SPECIAL INSPECTOR: ELISEO VICENTE DO PH:[phone] Center [address]ifrldts[address] [place], [place], [address] Absolute Lymph 0.91 {X10_3/uL} (Normal) Range: 0.83-4.51 [...] 4.6-6.2 WBC 4.3 K/mm3 (Abnormal) Range: 4.4-11.0 85-Nnc-282249:29 Comprehensive Metabolic Profil Comments: Order Date: 07/19/16Order Info: 0786-1 - *CMP Complete Metabolic PanelOrder Info: 2532-0 - *LDH -LDH (Lactate Dehydrogenase)Serial Specimen #1, #2 or #3? [facility] Yrqygulwdk2156 [facility] [place], [place], [address] GAP 6 (Normal) Range: 5-15 CO2 27.0 [...] 7-18 GLU 84 mg/dL (Normal) Range: 70-110 71-Xbs-659031:29 LDH 173 U/L (Normal) Comments: Order Date: 07/19/16Order Info: 0786-1 - *CMP Complete Metabolic PanelOrder Info: 2532-0 - *LDH -LDH (Lactate Dehydrogenase)Serial Specimen #1, #2 or #3? [facility] Laborat nil[address] [place], [address] Range: 87-241 :22 PT (PROTHROMBIN TIME) (05346) Comments: PATIENT NOT FASTINGPERFORMED BY: [facility]6370 [facility] [id number] Prothrombin Time 32.4 {sec} (Abnormal) Range: 9.1-12.0 INR 3.2 (Abnormal) Range: 0.8-1.2 Comments: Reference interval is for non-anticoagulated patients. . Suggested INR therapeutic range for Vitamin K anta gonist therapy: Standard Dose (moderate intensity therapeutic range): 2.0 - 3.0 Higher intensity therapeutic range 2.5 - 3.5 :16 PT (PROTHROMBIN TIME) (71068) Comments: PATIENT NOT FASTINGPERFORMED BY: [place] Ewqhci5476 [facility] [id number] Prothrombin Time 20.2 {sec} (Abnormal) Range: 9.1-12.0 INR 2.0 (Abnormal) Range: 0.8-1.2 Comments: Reference interval is for non-anticoagulated patients. . Suggested INR therapeutic range for Vitamin K anta gonist therapy: Standard Dose (moderate intensity therapeutic range): 2.0 - 3.0 Higher intensity therapeutic range 2.5 - 3.5 :55 PT (PROTHROMBIN TIME) (95688) Comments: PATIENT NOT FASTINGPERFORMED BY: [facility]6370 [facility] [id number] Prothrombin Time 16.0 {sec} (Abnormal) Range: 9.1-12.0 INR 1.6 (Abnormal) Range: 0.8-1.2 Comments: Reference interval is for non-anticoagulated patients. . Suggested INR therapeutic range for Vitamin K anta gonist therapy: Standard Dose (moderate intensity therapeutic range): 2.0 - 3.0 Higher intensity therapeutic range 2.5 - 3.5 53-Tpx-251928:36 PT (PROTHROMBIN TIME) (58090) Comments: PATIENT NOT FASTINGPERFORMED BY: [facility]6370 [facility] [id number] Prothrombin Time 25.9 {sec} (Abnormal) Range: 9.1-12.0 INR 2.5 (Abnormal) Range: 0.8-1.2 Comments: Reference interval is for non-anticoagulated patients. . Suggested INR therapeutic range for Vitamin K anta gonist therapy: Standard Dose (moderate intensity therapeutic range): 2.0 - 3.0 Higher intensity therapeutic range 2.5 - 3.5 19-Pcf-180807:15 CBC W/Diff, Auto - EPLAB Comments: Order Date: 03/29/16Order Info: 0184-1E - *CBC w/Diff - oncology ONLYAt [facility] [place] Medical Oncologypatients receive CBC w/auto Differential ONLY. Physicianwill place an order fo Only r a manual differential or Pathologistreview at his discretion. [facility] OUTPATIENT [facility]. [address] [place] [address] [place] [address] SPECIAL INSPECTOR: ELISEO VICENTE DO PH:[phone] Date: 03/29/16Order Info: 0184-1E - *CBC w/Diff - oncology ONLYOrder Date: 03/29/16Order Info: 2532-0 - *LDH -LDH (Lactate Dehydrogenase)[facility] [address] [place], [address] ; another doc Absolute Lymph 0.93 {X10_3/uL} [...] 4.6-6.2 WBC 5.4 K/mm3 (Normal) Range: 4.4-11.0 65-Pad-336780:15 Comprehensive Metabolic Profil Comments: Order Date: 03/29/16Order Info: 0786-1 - *CMP Complete Metabolic PanelOrder Info: 3084-1 - *Uric Acid BloodOrder Info: 2532-0 - *LDH -LDH (Lactate Dehydrogenase)Order Date: 03/29/16Order Info: 2532-0 - *LDH -LDH (Lactate Dehydrogenase)Serial Specimen #1, #2 or #3? [facility] [address] [place], [place], [address] ; Dr. Brewer, hemoc GAP 5 (Normal) [...] 7-18 GLU 86 mg/dL (Normal) Range: 70-110 71-Oso-141218:15 LDH 231 U/L (Normal) Comments: Order Date: 03/29/16Order Info: 0786-1 - *CMP Complete Metabolic PanelOrder Info: 3084-1 - *Uric Acid BloodOrder Info: 2532-0 - *LDH -LDH (Lactate Dehydrogenase)Order Date: 03/29/16Order Info: 2-0 - *LDH -LDH (Lactate Dehydrogenase)Serial Specimen #1, #2 or #3? [facility] [address]car[address] [place], [place], [address] Range: 87-241 Comments: Slight Hemolysis, Result may be falsely increased. 14-Xun-739491:15 Uric Acid Comments: Order Date: 03/29/16Order Info: 0786-1 - *CMP Complete Metabolic PanelOrder Info: 3084-1 - *Uric Acid BloodOrder Info: 2532-0 - *LDH -LDH (Lactate Dehydrogenase)Order Date: 03/29/16Order Info: 2-0 - *LDH -LDH (Lactate Dehydrogenase)Serial Specimen #1, #2 or #3? [facility] [address] [place], [address] URIC 4.4 mg/dL (Normal) Range: 3.5-7.2 Comments: The drugs N-Acetylcysteine and Metamizole may falsely deressthis assay. :27 PT (PROTHROMBIN TIME) (26820) Comments: PATIENT NOT FASTINGPERFORMED BY: [facility] Kdkrsm6615 [facility] [id number] Prothrombin Time 30.1 {sec} (Abnormal) Range: 9.1-12.0 INR 3.0 (Abnormal) Range: 0.8-1.2 Comments: Reference interval is for non-anticoagulated patients. . Suggested INR therapeutic range for Vitamin K anta gonist therapy: Standard Dose (moderate intensity therapeutic range): 2.0 - 3.0 Higher intensity therapeutic range 2.5 - 3.5 :21 PT (PROTHROMBIN TIME) (30060) Comments: PATIENT NOT FASTINGPERFORMED BY: Dextrys Kgmalx8228 [facility] [id number] Prothrombin Time 30.7 {sec} (Abnormal) Range: 9.1-12.0 INR 3.0 (Abnormal) Range: 0.8-1.2 Comments: Reference interval is for non-anticoagulated patients. . Suggested INR therapeutic range for Vitamin K anta gonist therapy: Standard Dose (moderate intensity therapeutic range): 2.0 - 3.0 Higher intensity therapeutic range 2.5 - 3.5 :14 PT (PROTHROMBIN TIME) (77005) Comments: PATIENT NOT FASTINGPERFORMED BY: [facility]3]Dmxlan7448 [facility] [id number] Prothrombin Time 19.0 {sec} (Abnormal) Range: 9.1-12.0 INR 1.9 (Abnormal) Range: 0.8-1.2 Comments: Reference interval is for non-anticoagulated patients. . Suggested INR therapeutic range for Vitamin K anta gonist therapy: Standard Dose (moderate intensity therapeutic range): 2.0 - 3.0 Higher intensity therapeutic range 2.5 - 3.5 52-Ulw-296629:14 Yvai-7-Gqdyoopdowito, S Comments: Order Date: 12/29/15Order Date: 12/29/15Order Date: 12/29/15[facility] (refer to report for specific site)refer to report for address and phone number [phone] [id number] 1.2 mg/L (Normal) Range: 0.6-2.4 Comments: Performed at: - [facility] [id number] Director: Ino Monsivais PhD, Phone: [phone] 65-Tbz-763557:14 CBC W/Diff, Auto - EPLAB Comments: At [facility] Outpatient [facility] [place] Medical Oncologypatients receive CBC w/auto Differential ONLY. Physicianwill place an order for a manual differential or Pathologistreview at his discretion. [facility] OUTPATIENT [facility]. [address] [address] [address] SPECIAL INSPECTOR: ELISEO VICENTE DO PH:[phone] Medical Center [address]ob[address] [place], [address] Absolute Lymph 0.99 {X10_3/uL} (Normal) [...] 4.6-6.2 WBC 4.6 K/mm3 (Normal) Range: 4.4-11.0 08-Neq-913561:14 Comprehensive Metabolic Profil Comments: Order Date: 12/29/15Order Date: 12/29/15erial Specimen #1, #2 or #3? [address] [place] [address] Ihz[address] [place], [place], [address] GAP 11 (Normal) Range: 5-15 CO2 25.0 [...] 7-18 GLU 89 mg/dL (Normal) Range: 70-110 46-Qcq-877124:14 LDH 196 U/L (Normal) Comments: Order Date: 12/29/15Order Date: 08/30/16Serial Specimen #1, #2 or #3? [address] [place] [address] [place], [address] Range: 87-241 40-Lde-148687:14 Uric Acid Comments: Order Date: 12/29/15Order Date: 12/28/16Serial Specimen #1, #2 or #3? [address] [place] [address] Plop[address] [place], [address] URIC 4.1 mg/dL (Normal) Range: 3.5-7.2 Comments: The drugs N-Acetylcysteine and Metamizole may falsely deressthis assay. :54 PT (PROTHROMBIN TIME) (62388) Comments: PATIENT NOT FASTINGPERFORMED BY: Dextrys Gmdhwb0477 [facility] [id number] Prothrombin Time 16.1 {sec} (Abnormal) Range: 9.1-12.0 INR 1.6 (Abnormal) Range: 0.8-1.2 Comments: Reference interval is for non-anticoagulated patients. . Suggested INR therapeutic range for Vitamin K anta gonist therapy: Standard Dose (moderate intensity therapeutic range): 2.0 - 3.0 Higher intensity therapeutic range 2.5 - 3.5 46-Ooh-404501:16 PT (PROTHROMBIN TIME) Comments: PATIENT NOT FASTINGPERFORMED BY: [facility]3]Ivjtez3156 [facility] [id number] Information: [id number] ([id number]) Prothrombin Time 32.0 {sec} (Abnormal) Range: 9.1-12.0 INR 3.2 (Abnormal) Range: 0.8-1.2 Comments: Reference interval is for non-anticoagulated patients. . Suggested INR therapeutic range for Vitamin K anta gonist therapy: Standard Dose (moderate intensity therapeutic range): 2.0 - 3.0 Higher intensity therapeutic range 2.5 - 3.5 64-Wxb-383798:04 CBC W/Diff, Auto - EPLAB Comments: At [facility] Medical Oncologypatients receive CBC w/auto Differential ONLY. Physicianwill place an order for a manual differential or Pathologistreview at his discretion. [facility]. [address] [place] [address] [address] SPECIAL INSPECTOR: ELISEO VICENTE DO PH:[phone] Medical Center [address]tpmejr[address] [place], [address] Absolute Lymph 0.82 {X10_3/uL} (Abnormal) [...] 4.6-6.2 WBC 4.7 K/mm3 (Normal) Range: 4.4-11.0 92-Ewb-806038:04 Comprehensive Metabolic Profil Comments: Order Date: 12/29/15OV Order #: [id number] Specimen #1, #2 or #3? 1 [id number] Medical Center [address]zjbeqq6[address] [place], [address] GAP 5 (Normal) Range: 5-15 CO2 29.0 [...] 7-18 GLU 89 mg/dL (Normal) Range: 70-110 58-Qdw-675010:04 LDH 167 U/L (Normal) Comments: Order Date: 12/29/15OV Order #: [id number] Specimen #1, #2 or #3? [id number] [place] [address] T[address] [place], [place], [address] Range: 87-241 47-Zmq-496875:04 Uric Acid Comments: Order Date: 12/29/15OV Order #: [id number] Specimen #1, #2 or #3? [id number] [place] [address] X[address] [place], [place], [address] URIC 4.2 mg/dL (Normal) Range: 3.5-7.2 Comments: The drugs N-Acetylcysteine and Metamizole may falsely deressthis assay. :17 PT (PROTHROMBIN TIME) (92790) Comments: PATIENT NOT FASTINGPERFORMED BY: [facility]6370 [facility] [id number] Prothrombin Time 25.7 {sec} (Abnormal) Range: 9.1-12.0 INR 2.5 (Abnormal) Range: 0.8-1.2 Comments: Reference interval is for non-anticoagulated patients. . Suggested INR therapeutic range for Vitamin K anta gonist therapy: Standard Dose (moderate intensity therapeutic range): 2.0 - 3.0 Higher intensity therapeutic range 2.5 - 3.5 :32 PT (PROTHROMBIN TIME) Comments: PATIENT NOT FASTINGPERFORMED BY: [place] [id number] [facility] [id number] Information: [id number] ([id number]) Prothrombin Time 28.7 {sec} (Abnormal) Range: 9.1-12.0 INR 2.8 (Abnormal) Range: 0.8-1.2 Comments: Reference interval is for non-anticoagulated patients. . Suggested INR therapeutic range for Vitamin K anta gonist therapy: Standard Dose (moderate intensity therapeutic range): 2.0 - 3.0 Higher intensity therapeutic range 2.5 - 3.5 :53 PT (PROTHROMBIN TIME) Comments: PATIENT NOT FASTINGPERFORMED BY: [facility]6370 [facility] [id number] Information: [id number] ([id number]) Prothrombin Time 25.1 {sec} (Abnormal) Range: 9.1-12.0 INR 2.4 (Abnormal) Range: 0.8-1.2 Comments: Reference interval is for non-anticoagulated patients. . Suggested INR therapeutic range for Vitamin K anta gonist therapy: Standard Dose (moderate intensity therapeutic range): 2.0 - 3.0 Higher intensity therapeutic range 2.5 - 3.5 :15 PT (PROTHROMBIN TIME) Comments: PATIENT NOT FASTINGPERFORMED BY: [place] [id number] [facility] [id number] Information: [id number] ([id number]) Prothrombin Time 23.0 {sec} (Abnormal) Range: 9.1-12.0 INR 2.3 (Abnormal) Range: 0.8-1.2 Comments: Reference interval is for non-anticoagulated patients. . Suggested INR therapeutic range for Vitamin K anta gonist therapy: Standard Dose (moderate intensity therapeutic range): 2.0 - 3.0 Higher intensity therapeutic range 2.5 - 3.5 4-Vve-229742:42 CBC W/Diff, Auto - EPLAB Comments: At [facility] Outpatient [facility] [place] Medical Oncologypatients receive CBC w/auto Differential ONLY. Physicianwill place an order for a manual differential or Pathologistreview at his discretion. [facility]. [address] [place] [address] [address] SPECIAL INSPECTOR: ELISEO VICENTE DO PH:[phone] Medical Center [address]mbadm[address] [place], [place], [address] Absolute Lymph 0.97 {X10_3/uL} (Normal) Range: 0.83-4.51 [...] 4.6-6.2 WBC 4.4 K/mm3 (Normal) Range: 4.4-11.0 7-Veq-929316:42 Comprehensive Metabolic Profil Comments: Serial Specimen #1, #2 or #3? 1[facility] [address]rxo[address] [place], [place], [address] GAP 7 (Normal) Range: 5-15 CO2 27.0 [...] 7-18 GLU 80 mg/dL (Normal) Range: 70-110 6-Abs-653153:42 LDH 181 U/L (Normal) Comments: Serial Specimen #1, #2 or #3? 1[facility] [address]vjfuyfzjn[address] [place], [place], [address] Range: 87-241 0-Mod-917241:42 Magnesium Comments: Serial Specimen #1, #2 or #3? 1[facility] [address] [place], [address] MG 2.3 mg/dL (Normal) Range: 1.8-2.4 3-Bfh-019760:42 Uric Acid Comments: Serial Specimen #1, #2 or #3? 1[facility] [address] [place], [address] URIC 3.9 mg/dL (Normal) Range: 3.5-7.2 :45 PT (PROTHROMBIN TIME) Comments: PATIENT NOT FASTINGPERFORMED BY: [place] [id number] [facility] [id number] Information: [id number] ([id number]) Prothrombin Time 22.5 {sec} (Abnormal) Range: 9.1-12.0 INR 2.2 (Abnormal) Range: 0.8-1.2 Comments: Reference interval is for non-anticoagulated patients. . Suggested INR therapeutic range for Vitamin K anta gonist therapy: Standard Dose (moderate intensity therapeutic range): 2.0 - 3.0 Higher intensity therapeutic range 2.5 - 3.5 :30 PT (PROTHROMBIN TIME) Comments: PATIENT NOT FASTINGPERFORMED BY: [facility]6370 [facility] [id number] Information: [id number] ([id number]) Prothrombin Time 22.9 {sec} (Abnormal) Range: 9.1-12.0 INR 2.2 (Abnormal) Range: 0.8-1.2 Comments: Reference interval is for non-anticoagulated patients. . Suggested INR therapeutic range for Vitamin K anta gonist therapy: Standard Dose (moderate intensity therapeutic range): 2.0 - 3.0 Higher intensity therapeutic range 2.5 - 3.5 :45 CBC W/Diff, Auto - EPLAB Comments: At [facility] Outpatient [facility] [place] Medical Oncologypatients receive CBC w/auto Differential ONLY. Physicianwill place an order for a manual differential or Pathologistreview at his discretion. [facility]. [address] [place] [address] [address] SPECIAL INSPECTOR: ELISEO VICENTE DO PH:[phone] Medical Center [address]uaqzj[address] [place], [address] Absolute Lymph 0.76 {X10_3/uL} (Abnormal) [...] Comments: Serial Specimen #1, #2 or #3? 1[facility] [address] [place], [address] GAP 0 (Abnormal) Range: 5-15 [...] Serial Specimen #1, #2 or #3? [address] [place] [address] [address] [place], [address] Range: 87-241 :44 Magnesium Comments: Serial Specimen #1, #2 or #3? [address] [place] [address] [address] [place], [address] MG 2.3 mg/dL (Normal) Range: 1.8-2.4 :44 Uric Acid Comments: Serial Specimen #1, #2 or #3? [address] [place] [address] Eb[address] [place], [address] URIC 4.5 mg/dL (Normal) Range: 3.5-7.2 :55 PT (PROTHROMBIN TIME) Comments: PATIENT NOT FASTINGPERFORMED BY: [facility]6370 [facility] [id number] Information: [id number] ([id number]) Prothrombin Time 21.2 {sec} (Abnormal) Range: 9.1-12.0 INR 2.0 (Abnormal) Range: 0.8-1.2 Comments: Reference interval is for non-anticoagulated patients. . Suggested INR therapeutic range for Vitamin K anta gonist therapy: Standard Dose (moderate intensity therapeutic range): 2.0 - 3.0 Higher intensity therapeutic range 2.5 - 3.5 26-Quu-917556:12 PT (PROTHROMBIN TIME) Comments: PATIENT NOT FASTINGPERFORMED BY: [facility]6370 [facility] [id number] Information: [id number] ([id number]) Prothrombin Time 23.4 {sec} (Abnormal) Range: 9.1-12.0 INR 2.3 (Abnormal) Range: 0.8-1.2 Comments: Reference interval is for non-anticoagulated patients. . Suggested INR therapeutic range for Vitamin K anta gonist therapy: Standard Dose (moderate intensity therapeutic range): 2.0 - 3.0 Higher intensity therapeutic range 2.5 - 3.5 03-Apr-20159:39 Prothrombin Time w/INR Comments: [facility] [address]tiie[address] [place] [place], [place], [address] INR 2.5 (Normal) PROTIME 27.0 s (Abnormal) Range: 11.7-14.9 65-Cjf-576951:55 Microscopic Examination Comments: PATIENT NOT FASTINGPERFORMED BY: [facility]6370 [facility] [id number] Bacteria Few (Normal) Mucus Threads Present (Normal) Epithelial Cells (non renal) None seen {/hpf} (Normal) Range: 0 - 10 RBC 0-2 {/hpf} (Normal) Range: 0 - 2 WBC 0-5 {/hpf} (Normal) Range: 0 - 5 96-Ttu-425705:55 URINALYSIS (63088) Comments: PATIENT NOT FASTINGPERFORMED BY: [facility]6370 [facility] [id number]; apt. 03-30-15 Microscopic Examination See below: (Normal) Comments: Microscopic was indicated and was performed. Nitrite, Urine Negative (Normal) Urobilinogen,Semi-Qn 1.0 mg/dL (Normal) Range: 0.2-1.0 Bilirubin Negative (Normal) Occult Blood Negative (Normal) Ketones Trace (Abnormal) Glucose Negative (Normal) Protein 1+ (Abnormal) WBC Esterase Negative (Normal) Appearance Clear (Normal) Urine-Color Yellow (Normal) pH 6.0 (Normal) Range: 5.0-7.5 Specific [place] >=1.030 (Abnormal) Range: 1.005-1.030 80-Wme-525303:55 CBC, Platelets & Auto Comments: PATIENT NOT FASTINGPERFORMED BY: [facility]Co[facility]3]Unsptl5131 [facility] [id number] Information: [id number] Diff (47657) Immature Grans (Abs) 0.0 {x10E3/uL} (Normal) Range: [...] 4.14-5.80 WBC 6.1 {x10E3/uL} (Normal) Range: 3.4-10.8 82-Ogl-117348:55 Metabolic Panel, Comprehensive Comments: PATIENT NOT FASTINGPERFORMED BY: Dextrys Epffaf7624 [employer]lesfay Technology GroupCape Fear/Harnett Health [id number] (63597) ALT (SGPT) 23 [iU]/L (Normal) Range: 0-44 [...] Glucose, Serum 83 mg/dL (Normal) Range: 65-99 57-Gdz-843389:55 PSA, TOTAL - DIAGNOSTIC Comments: PATIENT NOT FASTINGPERFORMED BY: Dextrys Lwjyxg6521 DevlinLxDATACape Fear/Harnett Health [id number] (91656) Prostate Specific Ag, 0.5 ng/mL (Normal) Range: 0.0-4.0 Serum Comments: Yulisa ECLIA methodology. .According to the [place] [employer], Serum PSA shoulddecrease and remain at undetectable levels after radicalprostatectomy. The AUA defines biochemical recurrence as an initialPSA value 0.2 ng/mL or greater followed by a subsequent confirmatoryPSA value 0.2 ng/mL or greater.Values obtained with d ifferent assay methods or kits cannot be usedinterchangeably. Results cannot be interpreted as absolute evidenceof the presence or absence of malignant disease. 25-Rgh-343630:59 URINE JAILENE CULTURE-THAD COL Comments: PATIENT NOT FASTINGPERFORMED BY: [facility]70 [employer]lesfay Technology GroupCape Fear/Harnett Health [id number] Information: SRC:[facility] [id number] COUNT (66879) Result 1 NG36 (Normal) Comments: No growth in 36 - 48 hours. Urine Culture,Comprehensive Final report (Normal) 10-Vrx-862140:43 Urinalysis, Office (17166) UA - LEUKOCYTE ESTERASE Negative (Normal) UA - NITRITE Negative (Normal) URINE UROBILINGN THAD TIMED Normal mg/dL (Normal) UA - PROTEIN 30 mg/dL (Normal) UA - PH 6 (Abnormal) UA - BLOOD Non Hemolyzed Trace (Normal) UA - SPECIFIC GRAVITY 1.025 (Normal) UA - KETONES Moderate mg/dL (Normal) UA - BILIRUBIN Small (Normal) UA - GLUCOSE Negative (Normal) 81-Jhf-78672:19 PT (PROTHROMBIN TIME) Comments: PATIENT NOT FASTINGPERFORMED BY: [facility]70 [facility] [id number] Information: [id number] (82802) Prothrombin Time 30.2 {sec} (Abnormal) Range: 9.1-12.0 INR 2.9 (Abnormal) Range: 0.8-1.2 Comments: Reference interval is for non-anticoagulated patients. . Suggested INR therapeutic range for Vitamin K anta gonist therapy: Standard Dose (moderate intensity therapeutic range): 2.0 - 3.0 Higher intensity therapeutic range 2.5 - 3.5 :55 CBC W/Diff, Auto - EPLAB Comments: At [facility] [place] Medical Oncologypatients receive CBC w/auto Differential ONLY. Physicianwill place an order for a manual differential or Pathologistreview at his discretion. [facility] OUTPATIENT [facility]. [address] [place] [address] [address] SPECIAL INSPECTOR: ELISEO VICENTE DO PH:[phone] Medical Center [address]rdbed[address] [place], [address] Absolute Lymph 0.75 {X10_3/uL} (Abnormal) [...] Comments: Serial Specimen #1, #2 or #3? 1[facility] [address]chdmjjc[address] [place], [address] GAP 7 (Normal) Range: 5-15 [...] Serial Specimen #1, #2 or #3? [address] [place] [address] Yzdtgcqqdq[address]12 [address] AcostaAntonette [place], [place], [address] Range: 87-241 :55 Uric Acid Comments: Serial Specimen #1, #2 or #3? [address] [place] [address] Yipincoumo7779 [facility] Hospitalleatha[facility] [place], [place], [address] URIC 3.9 mg/dL (Normal) Range: 3.5-7.2 05-Xsr-598625:20 PT (PROTHROMBIN TIME) Comments: PATIENT NOT FASTINGPERFORMED BY: [facility]3]Qicnzh3308 [facility] [id number] Information: [id number] (25113) Prothrombin Time 27.9 {sec} (Abnormal) Range: 9.1-12.0 INR 2.7 (Abnormal) Range: 0.8-1.2 Comments: Reference interval is for non-anticoagulated patients. . Suggested INR therapeutic range for Vitamin K anta gonist therapy: Standard Dose (moderate intensity therapeutic range): 2.0 - 3.0 Higher intensity therapeutic range 2.5 - 3.5 20-Qdo-67001:27 Fact V Leiden Mutation Comments: [facility] (refer to report for specific site)refer to report for address and phone number COMMENT Comment Comments: Genetic counselors are available for health care providers to discuss results at [phone]).Methodology:DNA analysis of the Factor V gene was [...] elevated homocysteine levels,or a Factor II/prothrombin mutation (N31647Y). ContactState mental health facility for information on how to order theFactor II DNA test. 46-Zyy-64739:27 Factor II, DNA Analysis Comments: [facility] (refer to report for specific site)refer to report for address and phone number COMMENT Comment (Normal) Comments: Genetic Counselors are available for health care providersto discuss results at [phone]).Methodology:DNA analysis of the Factor II gene was performed by PCRamplification followed by restric tion analysis. Thediagnostic sensitivity is >99% for both. All the tests mustbe combined with clinical information for the most accurateinterpretation. Molecular-based testing is highly accurate,but as in any laboratory test, diagnostic errors may occur.Poort SR, et al. Blood. 1996; 88:1554-1488.Mary Ann EA. Circulation. 2004; 110:e15-e18.Tamiko I, et al. Arterioscler Thromb Vasc Biol. 1999;19:700 -703.Mitesh Andujar, PhDAgnes Ruiz, PhDNadege Finn, PhDBetty Solano, PhDFara Orozco, PhDGuido Fishman, PhDPerformed at: [address] [id number] Art Teacher: Larry Norman MD, Phone: [phone] at: [facility] SJF5876 [place], [place] [id number] Director: William Bustillo MD, Phone: [phone] FACTOR II,DNA Comment (Normal) Comments: NEGATIVENo mutation identified.Comment:A point mutation (L03097H) in the factor II (prothrombin)gene is the [...] individual mutations. This assaydetects only the prothrombin B25377F mutation and doesnot measure genetic abnormalities elsewhere i n thegenome. Other thrombotic risk factors may be pursuedthrough systematic clinical laboratory analysis. Thesefactors include the R506Q (Leiden) mutation in the Factor Vgene, plasma homocysteine levels , as well as testing fordeficiencies of antithrombin III, protein C and protein S. 54-Vtd-82433:27 Protein C Defic. Profile Comments: [facility] (refer [...] patient is diagnosed withcongenital Protein C deficiency. 64-Ask-08429:27 Protein S Defic. Profile Comments: [facility] (refer [...] PROTEIN S,TOTAL 62 % (Normal) Range: 58-150 13-Epv-81572:38 CBC W/Diff, Auto - EPLAB Comments: At [facility] Outpatient [facility] [place] Medical Oncologypatients receive CBC w/auto Differential ONLY. Physicianwill place an order for a manual differential or Pathologistreview at his discretion. [facility] OUTPATIENT [facility]. [address] [place] [address] [address] SPECIAL INSPECTOR: ELISEO VICENTE DO PH:[phone] Medical Center Ingsamsibm[address] [place], [address] Absolute Lymph 0.69 {X10_3/uL} (Abnormal) Range: 0.83-4.51 [...] Serial Specimen #1, #2 or #3? [address] [place] [address] [address] [place], [place], [address] GAP 6 (Normal) Range: 5-15 CO2 29.0 [...] Serial Specimen #1, #2 or #3? [address] [place] [address] [address] [place], [address] Range: 87-241 :38 Uric Acid Comments: Serial Specimen #1, #2 or #3? [facility] [address]xqtkhgiyb[address] [place], [address] URIC 4.7 mg/dL (Normal) Range: 3.5-7.2 72-Gyq-630074:31 PT (PROTHROMBIN TIME) (87495) Comments: PATIENT NOT FASTINGPERFORMED BY: [place] [id number] [facility] [id number] Prothrombin Time 21.0 {sec} (Abnormal) Range: 9.1-12.0 INR 2.1 (Abnormal) Range: 0.8-1.2 Comments: Reference interval is for non-anticoagulated patients. . Suggested INR therapeutic range for Vitamin K anta gonist therapy: Standard Dose (moderate intensity therapeutic range): 2.0 - 3.0 Higher intensity therapeutic range 2.5 - 3.5 :20 PT (PROTHROMBIN TIME) Comments: PATIENT NOT FASTINGPERFORMED BY: [place] [id number] [facility] [id number] Information: [id number] (94635) Prothrombin Time 34.6 {sec} (Abnormal) Range: 9.1-12.0 INR 3.3 (Abnormal) Range: 0.8-1.2 Comments: Reference interval is for non-anticoagulated patients. . Suggested INR therapeutic range for Vitamin K anta gonist therapy: Standard Dose (moderate intensity therapeutic range): 2.0 - 3.0 Higher intensity therapeutic range 2.5 - 3.5 :54 PT (PROTHROMBIN TIME) Comments: PATIENT NOT FASTINGPERFORMED BY: [facility]6370 [facility] [id number] Information: [id number] (17863) Prothrombin Time 39.8 {sec} (Abnormal) Range: 9.1-12.0 INR 3.8 (Abnormal) Range: 0.8-1.2 Comments: Client Requested Flag Reference interval is for non- anticoagulated patients. . Suggested INR therapeutic ra nge for Vitamin K antagonist therapy: Standard Dose (moderate intensity therapeutic range): 2.0 - 3.0 Higher intensity therapeutic range 2.5 - 3.5 :56 Prothrombin Time (PT) Comments: PATIENT NOT FASTINGPERFORMED BY: [place] [id number] [facility] [id number] Information: [id number] Prothrombin Time 20.1 {sec} (Abnormal) Range: 9.1-12.0 INR 1.9 (Abnormal) Range: 0.8-1.2 Comments: Reference interval is for non-anticoagulated patients. . Suggested INR therapeutic range for Vitamin K anta gonist therapy: Standard Dose (moderate intensity therapeutic range): 2.0 - 3.0 Higher intensity therapeutic range 2.5 - 3.5 :31 PT (PROTHROMBIN TIME) Comments: PATIENT NOT FASTINGPERFORMED BY: [place] [id number] [facility] [id number] Information: [id number] (84492) Prothrombin Time 26.6 {sec} (Abnormal) Range: 9.1-12.0 INR 2.6 (Abnormal) Range: 0.8-1.2 Comments: Reference interval is for non-anticoagulated patients. . Suggested INR therapeutic range for Vitamin K anta gonist therapy: Standard Dose (moderate intensity therapeutic range): 2.0 - 3.0 Higher intensity therapeutic range 2.5 - 3.5 :10 Prothrombin Time (PT) Comments: PATIENT NOT FASTINGPERFORMED BY: [place] [id number] [facility] [id number] Information: [id number] Prothrombin Time 32.6 {sec} (Abnormal) Range: 9.1-12.0 INR 3.0 (Abnormal) Range: 0.8-1.2 Comments: Reference interval is for non-anticoagulated patients. . Suggested INR therapeutic range for Vitamin K anta gonist therapy: Standard Dose (moderate intensity therapeutic range): 2.0 - 3.0 Higher intensity therapeutic range 2.5 - 3.5 :35 PT (PROTHROMBIN TIME) Comments: PATIENT NOT FASTINGPERFORMED BY: [facility] [id number] Information: [id number] ([id number]) Prothrombin Time 31.7 {sec} (Abnormal) Range: 9.1-12.0 INR 3.1 (Abnormal) Range: 0.8-1.2 Comments: Reference interval is for non-anticoagulated patients. . Suggested INR therapeutic range for Vitamin K anta gonist therapy: Standard Dose (moderate intensity therapeutic range): 2.0 - 3.0 Higher intensity therapeutic range 2.5 - 3.5 56-Tav-676616:16 Prothrombin Time (PT) Comments: PATIENT NOT FASTINGPERFORMED BY: [facility] [id number] Information: [id number] Prothrombin Time 25.6 {sec} (Abnormal) Range: 9.1-12.0 INR 2.4 (Abnormal) Range: 0.8-1.2 Comments: Reference interval is for non-anticoagulated patients. . Suggested INR therapeutic range for Vitamin K anta gonist therapy: Standard Dose (moderate intensity therapeutic range): 2.0 - 3.0 Higher intensity therapeutic range 2.5 - 3.5 24-Kvp-99978:21 CBC W/Diff, Auto - EPLAB Only Comments: At [facility] Outpatient [facility], [facility] patientsreceive CBC w/auto Differential ONLY. Physician will placean order for a manual differential or Pathologist review athis discretion. [facility] OUTPATIENT [facility]. [address] [place] [address] [address] SPECIAL INSPECTOR: ELISEO VICENTE DO PH:[phone] performed at:[facility] [address] [place] [address] Absolute Neut 3.1 {X10_3/uL} (Normal) Range: 2.0-7.7 [...] 4.6-6.2 WBC 4.3 K/mm3 (Abnormal) Range: 4.4-11.0 68-Bmw-16559:21 Comprehensive Metabolic Profil Comments: Test performed at:[facility] [address] [place] [address] GAP 6 (Normal) Range: 5-15 CO2 29.0 [...] LDH 171 U/L (Normal) Comments: Test performed at:[facility] [address] [place] [address] Range: 84-246 :21 Uric Acid Comments: Test performed at:[facility] [address] [place] [address] URIC 4.2 mg/dL (Normal) Range: 3.5-7.2 :19 PT (Prothrobim Time) Comments: PATIENT NOT FASTINGPERFORMED BY: [address] [id number] Information: [id number] ([id number]) Prothrombin Time 29.7 {sec} (Abnormal) Range: 9.1-12.0 INR 2.7 (Abnormal) Range: 0.8-1.2 Comments: Reference interval is for non-anticoagulated patients. . Suggested INR therapeutic range for Vitamin K anta gonist therapy: Standard Dose (moderate intensity therapeutic range): 2.0 - 3.0 Higher intensity therapeutic range 2.5 - 3.5 :44 PT (PROTHROMBIN TIME) ([id number]) Comments: PERFORMED BY: [facility] [id number] Prothrombin Time 25.5 {sec} (Abnormal) Range: 9.1-12.0 INR 2.3 (Abnormal) Range: 0.8-1.2 Comments: Reference interval is for non-anticoagulated patients. . Suggested INR therapeutic range for Vitamin K anta gonist therapy: Standard Dose (moderate intensity therapeutic range): 2.0 - 3.0 Higher intensity therapeutic range 2.5 - 3.5 :28 PT (PROTHROMBIN TIME) Comments: PATIENT NOT FASTINGPERFORMED BY: [facility]6370 [facility] [id number] Information: [id number] ([id number]) Prothrombin Time 34.8 {sec} (Abnormal) Range: 9.1-12.0 INR 3.2 (Abnormal) Range: 0.8-1.2 Comments: Reference interval is for non-anticoagulated patients. . Suggested INR therapeutic range for Vitamin K anta gonist therapy: Standard Dose (moderate intensity therapeutic range): 2.0 - 3.0 Higher intensity therapeutic range 2.5 - 3.5 :02 PT (PROTHROMBIN TIME) Comments: PATIENT NOT FASTINGPERFORMED BY: [place] [id number] [facility] [id number] Information: [id number] ([id number]) Prothrombin Time 30.2 {sec} (Abnormal) Range: 9.1-12.0 INR 2.8 (Abnormal) Range: 0.8-1.2 Comments: Reference interval is for non-anticoagulated patients. . Suggested INR therapeutic range for Vitamin K anta gonist therapy: Standard Dose (moderate intensity therapeutic range): 2.0 - 3.0 Higher intensity therapeutic range 2.5 - 3.5 :58 PT (PROTHROMBIN TIME) Comments: PATIENT NOT FASTINGPERFORMED BY: [place] [id number] [facility] [id number] Information: [id number] ([id number]) Prothrombin Time 16.3 {sec} (Abnormal) Range: 9.1-12.0 INR 1.5 (Abnormal) Range: 0.8-1.2 Comments: Reference interval is for non-anticoagulated patients. . Suggested INR therapeutic range for Vitamin K anta gonist therapy: Standard Dose (moderate intensity therapeutic range): 2.0 - 3.0 Higher intensity therapeutic range 2.5 - 3.5 73-Msl-713567:38 PT (PROTHROMBIN TIME) Comments: PATIENT NOT FASTINGPERFORMED BY: [place] [id number] [facility] [id number] Information: [id number] ([id number]) Prothrombin Time 24.1 {sec} (Abnormal) Range: 9.1-12.0 INR 2.2 (Abnormal) Range: 0.8-1.2 Comments: Reference interval is for non-anticoagulated patients. . Suggested INR therapeutic range for Vitamin K anta gonist therapy: Standard Dose (moderate intensity therapeutic range): 2.0 - 3.0 Higher intensity therapeutic range 2.5 - 3.5 11-Vzs-62390:48 Pathology Report Comments: PERFORMED BY: KWCYT [facility]unn Cyto Feoiu96159 [facility] [id number] BY: [facility] Dermatopathology Eoxjicd[address] [id number] Information: [id number] See MATER Comments: Material submitted: .RIGHT DELTOID [...] SUBMITTEDENTIRELY IN A SINGLE CASSETTE.LMS/CRYPathologist provided ICD-9:173.61CPT .946740 40-Fdv-012961:16 PT (Prothrobim Time) Comments: PATIENT NOT FASTINGPERFORMED BY: [facility]6370 [facility] [id number] Information: [id number] ([id number]) Prothrombin Time 30.4 {sec} (Abnormal) Range: 9.1-12.0 INR 2.8 (Abnormal) Range: 0.8-1.2 Comments: Reference interval is for non-anticoagulated patients. . Suggested INR therapeutic range for Vitamin K anta gonist therapy: Standard Dose (moderate intensity therapeutic range): 2.0 - 3.0 Higher intensity therapeutic range 2.5 - 3.5 :36 PT (PROTHROMBIN TIME) Comments: PATIENT NOT FASTINGPERFORMED BY: [place] [id number] [facility] [id number] Information: [id number] ([id number]) Prothrombin Time 35.6 {sec} (Abnormal) Range: 9.1-12.0 INR 3.3 (Abnormal) Range: 0.8-1.2 Comments: Reference interval is for non-anticoagulated patients. . Suggested INR therapeutic range for Vitamin K anta gonist therapy: Standard Dose (moderate intensity therapeutic range): 2.0 - 3.0 Higher intensity therapeutic range 2.5 - 3.5 :40 PT (PROTHROMBIN TIME) Comments: PATIENT NOT FASTINGPERFORMED BY: [facility]6370 [facility] [id number] Information: [id number] ([id number]) Prothrombin Time 44.9 {sec} (Abnormal) Range: 9.1-12.0 [...] (PROTHROMBIN TIME) Comments: PATIENT NOT FASTINGPERFORMED BY: [facility]3]Izlodv3876 [facility] [id number] Information: [id number] ([id number]) Prothrombin Time 22.0 {sec} (Abnormal) Range: 9.1-12.0 INR 2.0 (Abnormal) Range: 0.8-1.2 Comments: Reference interval is for non-anticoagulated patients. . Suggested INR therapeutic range for Vitamin K anta gonist therapy: Standard Dose (moderate intensity therapeutic range): 2.0 - 3.0 Higher intensity therapeutic range 2.5 - 3.5 :48 PT (PROTHROMBIN TIME) Comments: PATIENT NOT FASTINGPERFORMED BY: [facility]6370 [facility] [id number] Information: [id number] ([id number]) Prothrombin Time 16.2 {sec} (Abnormal) Range: 9.1-12.0 INR 1.6 (Abnormal) Range: 0.8-1.2 Comments: Reference interval is for non-anticoagulated patients. . Suggested INR therapeutic range for Vitamin K anta gonist therapy: Standard Dose (moderate intensity therapeutic range): 2.0 - 3.0 Higher intensity therapeutic range 2.5 - 3.5 65-Dfs-735692:19 PT (Prothrobim Time) Comments: PATIENT NOT FASTINGPERFORMED BY: [facility]6370 [facility] [id number] Information: [id number] ([id number]) Prothrombin Time 31.0 {sec} (Abnormal) Range: 9.1-12.0 INR 2.8 (Abnormal) Range: 0.8-1.2 Comments: Reference interval is for non-anticoagulated patients. . Suggested INR therapeutic range for Vitamin K anta gonist therapy: Standard Dose (moderate intensity therapeutic range): 2.0 - 3.0 Higher intensity therapeutic range 2.5 - 3.5 :16 Metabolic Panel, Comprehensive Comments: PATIENT WAS FASTINGPERFORMED BY: [facility]3]Hyqtab8054 [facility] [id number] ([id number]) ALT (SGPT) 17 [iU]/L (Normal) Range: 0-44 [...] mg/dL (Normal) Range: 65-99 :16 Lipid Panel (48688) Comments: PATIENT WAS FASTINGPERFORMED BY: [facility]3]Lewqlb4856 [facility] [id number] LDL/HDL Ratio 3.0 {ratio_units} (Normal) Range: 0.0-3.6 [...] Auto Diff Comments: PATIENT WAS FASTINGPERFORMED BY: [facility]3]Dzqvte5049 [facility] [id number] Information: [id number] ([id number]) Immature Grans (Abs) 0.0 {x10E3/uL} (Normal) Range: [...] (PROSTATE SPECIFIC Comments: PATIENT WAS FASTINGPERFORMED BY: [employer] [place] [id number] ANTIGEN) (V76.44) Prostate Specific Ag, 0.5 ng/mL (Normal) Range: 0.0-4.0 Serum Comments: Invisible ECLIA methodology. .According to the [employer], Serum PSA shoulddecrease and remain [...] (PROTHROMBIN TIME) Comments: PATIENT NOT FASTINGPERFORMED BY: [employer]6370 [employer] GroupC[facility] [id number] Information: [id number] ([id number]) Prothrombin Time 25.3 {sec} (Abnormal) Range: 9.1-12.0 INR 2.4 (Abnormal) Range: 0.8-1.2 Comments: Reference interval is for non-anticoagulated patients. . Suggested INR therapeutic range for Vitamin K anta gonist therapy: Standard Dose (moderate intensity therapeutic range): 2.0 - 3.0 Higher intensity therapeutic range 2.5 - 3.5 :47 PT (Prothrobim Time) Comments: PATIENT NOT FASTINGPERFORMED BY: [place] [id number] [facility] [id number] Information: [id number] ([id number]) Prothrombin Time 30.5 {sec} (Abnormal) Range: 9.1-12.0 INR 2.9 (Abnormal) Range: 0.8-1.2 Comments: Reference interval is for non-anticoagulated patients. . Suggested INR therapeutic range for Vitamin K anta gonist therapy: Standard Dose (moderate intensity therapeutic range): 2.0 - 3.0 Higher intensity therapeutic range 2.5 - 3.5 91-Crh-084943:27 PT (Prothrobim Time) Comments: PATIENT NOT FASTINGPERFORMED BY: [facility]6370 [facility] [id number] Information: [id number] ([id number]) Prothrombin Time 25.4 {sec} (Abnormal) Range: 9.1-12.0 INR 2.4 (Abnormal) Range: 0.8-1.2 Comments: Reference interval is for non-anticoagulated patients. . Suggested INR therapeutic range for Vitamin K anta gonist therapy: Standard Dose (moderate intensity therapeutic range): 2.0 - 3.0 Higher intensity therapeutic range 2.5 - 3.5 :27 PTT (Activated Partial Comments: PATIENT NOT FASTINGPERFORMED BY: [facility]6370 [facility] [id number] Thromboplastin Time) ([id number]) aPTT 37 {sec} (Abnormal) Range: 24-33 Comments: [...] screening for lipoid disorders) Current use of termite inspector anticoagulation : Eprescribed prescriptions (G8553) Indication: Current use of retirement anticoagulation Cough : Follow up if no [...] Indication: Reflux Planned Observations PT (PROTHROMBIN TIME) ([id number])Indication: Current use of termite inspector anticoagulation On: :00 Request PT (PROTHROMBIN TIME) ([id number])Indication: Current use of retirement anticoagulation On: :00 Request PT (PROTHROMBIN TIME) ([id number])Indication: Current use of termite inspector anticoagulation On: :00 Request PT (PROTHROMBIN TIME) ([id number])Indication: Current use of retirement anticoagulation On: :00 Request PT (PROTHROMBIN TIME) ([id number])Indication: Current use of termite inspector anticoagulation On: 14-Jun-2021 Request PT (PROTHROMBIN TIME) ([id number])Indication: Current use of termite inspector anticoagulation On: 15-May-2021 Request PT (PROTHROMBIN TIME) ([id number])Indication: Current use of termite inspector anticoagulation On: 15-Apr-2021 Request PT (PROTHROMBIN TIME) ([id number])Indication: Current use of retirement anticoagulation On: 16-Mar-2021 Request PT (PROTHROMBIN TIME) ([id number])Indication: Current use of termite inspector anticoagulation On: :00 Request PT (PROTHROMBIN TIME) ([id number])Indication: Current use of termite inspector anticoagulation On: :00 Request PT (PROTHROMBIN TIME) ([id number])Indication: Current use of retirement anticoagulation On: :00 Request PT (PROTHROMBIN TIME) ([id number])Indication: Current use of termite inspector anticoagulation On: : Request PT (PROTHROMBIN TIME) ([id number])Indication: Current use of retirement anticoagulation On: : Request PT (PROTHROMBIN TIME) ([id number])Indication: Current use of termite inspector anticoagulation On: : Request PT (PROTHROMBIN TIME) ([id number])Indication: Current use of termite inspector anticoagulation On: : Request PT (PROTHROMBIN TIME) ([id number])Indication: Current use of retirement anticoagulation On: : Request PT (PROTHROMBIN TIME) ([id number])Indication: Current use of termite inspector anticoagulation On: 19-Jun-2020 Request PT (PROTHROMBIN TIME) ([id number])Indication: Current use of retirement anticoagulation On: 20-May-2020 Request PT (PROTHROMBIN TIME) ([id number])Indication: Current use of retirement anticoagulation On: 20-Apr-2020 Request PT (PROTHROMBIN TIME) ([id number])Indication: Current use of termite inspector anticoagulation On: 21-Mar-2020 Request PT (PROTHROMBIN TIME) ([id number])Indication: Current use of termite inspector anticoagulation On: 20-Feb-2020 Request PT (PROTHROMBIN TIME) ([id number])Indication: Current use of retirement anticoagulation On: 21-Jan-2020 Request PT (PROTHROMBIN TIME) ([id number])Indication: Current use of retirement anticoagulation On: 22-Dec-2019 Request PT (PROTHROMBIN TIME) ([id number])Indication: Current use of termite inspector anticoagulation On: 22-Nov-2019 Request PT (PROTHROMBIN TIME) ([id number])Indication: Current use of retirement anticoagulation On: 23-Oct-2019 Request PT (PROTHROMBIN TIME) ([id number])Indication: Current use of termite inspector anticoagulation On: 24-Aug-2019 Request PT (PROTHROMBIN TIME) ([id number])Indication: Current use of termite inspector anticoagulation On: 25-Jul-2019 Request PT (PROTHROMBIN TIME) ([id number])Indication: Current use of termite inspector anticoagulation On: 25-Jun-2019 Request PT (PROTHROMBIN TIME) ([id number])Indication: Current use of termite inspector anticoagulation On: 26-May-2019 Request PT (PROTHROMBIN TIME) ([id number])Indication: Current use of retirement anticoagulation On: 26-Apr-2019 Request PT (PROTHROMBIN TIME) ([id number])Indication: Current use of retirement anticoagulation On: 27-Mar-2019 Request PT (PROTHROMBIN TIME) ([id number])Indication: Current use of retirement anticoagulation On: 25-Feb-2019 Request PT (PROTHROMBIN TIME) ([id number])Indication: Current use of retirement anticoagulation On: 26-Jan-2019 Request PT (PROTHROMBIN TIME) ([id number])Indication: Acute venous embolism and thrombosis of deep vessels of distal lower extremity, right On: 04-Jan-2019 Request Comments: STANDING ORDER PT (PROTHROMBIN TIME) ([id number])Indication: Current use of retirement anticoagulation On: 27-Dec-2018 Request PT (PROTHROMBIN TIME) ([id number])Indication: Acute venous embolism and thrombosis of deep vessels of distal lower extremity, right On: 05-Dec-2018 Request Comments: STANDING ORDER PT (PROTHROMBIN TIME) ([id number])Indication: Current use of termite inspector anticoagulation On: 27-Nov-2018 Request PT (PROTHROMBIN TIME) ([id number])Indication: Acute venous embolism and thrombosis of deep vessels of distal lower extremity, right On: 05-Nov-2018 Request Comments: STANDING ORDER PT (PROTHROMBIN TIME) ([id number])Indication: Current use of retirement anticoagulation On: 28-Oct-2018 Request PT (PROTHROMBIN TIME) ([id number])Indication: Acute venous embolism and thrombosis of deep vessels of distal lower extremity, right On: 06-Oct-2018 Request Comments: STANDING ORDER PT (PROTHROMBIN TIME) ([id number])Indication: Current use of termite inspector anticoagulation On: 28-Sep-2018 Request PT (PROTHROMBIN TIME) ([id number])Indication: Acute venous embolism and thrombosis of deep vessels of distal lower extremity, right On: 06-Sep-2018 Request Comments: STANDING ORDER PT (PROTHROMBIN TIME) ([id number])Indication: Current use of termite inspector anticoagulation On: 29-Aug-2018 Request PT (PROTHROMBIN TIME) ([id number])Indication: Acute venous embolism and thrombosis of deep vessels of distal lower extremity, right On: 07-Aug-2018 Request Comments: STANDING ORDER PT (PROTHROMBIN TIME) ([id number])Indication: Current use of termite inspector anticoagulation On: 30-Jul-2018 Request PT (PROTHROMBIN TIME) ([id number])Indication: Acute venous embolism and thrombosis of deep vessels of distal lower extremity, right On: 08-Jul-2018 Request Comments: STANDING ORDER PT (PROTHROMBIN TIME) ([id number])Indication: Current use of retirement anticoagulation On: 30-Jun-2018 Request PT (PROTHROMBIN TIME) ([id number])Indication: Acute venous embolism and thrombosis of deep vessels of distal lower extremity, right On: 08-Jun-2018 Request Comments: STANDING ORDER PT (PROTHROMBIN TIME) ([id number])Indication: Current use of retirement anticoagulation On: 31-May-2018 Request PT (PROTHROMBIN TIME) ([id number])Indication: Acute venous embolism and thrombosis of deep vessels of distal lower extremity, right On: 09-May-2018 Request Comments: STANDING ORDER PT (PROTHROMBIN TIME) ([id number])Indication: Current use of retirement anticoagulation On: 02-Mar-2018 Request LIPID PANEL ([id number])Indication: SCREENING FOR HYPERLIPIDEMIA (Renamed from Encounter for screening for lipoid disorders) On: 77-Klq-727241:48 Request CALCIFEDIOL ([id number])Indication: Leg cramps On: 51-Yvi-009032:41 Request PT (PROTHROMBIN TIME) ([id number])Indication: Current use of retirement anticoagulation On: 06-Jan-2017 Request PT (PROTHROMBIN TIME) ([id number])Indication: Current use of termite inspector anticoagulation On: 11-Apr-2016 Request PT (PROTHROMBIN TIME) ([id number])Indication: Current use of retirement anticoagulation On: 11-Feb-2016 Request PT (Prothrobim Time) ([id number])Indication: Current use of termite inspector anticoagulation On: 20-Jul-2015 Request PT (Prothrobim Time) ([id number])Indication: Current use of termite inspector anticoagulation On: 13-Jul-2015 Request PT (Prothrobim Time) ([id number])Indication: Current use of termite inspector anticoagulation On: 06-Jul-2015 Request PT (Prothrobim Time) ([id number])Indication: Current use of retirement anticoagulation On: 29-Jun-2015 Request PT (Prothrobim Time) ([id number])Indication: Current use of retirement anticoagulation On: 22-Jun-2015 Request PT (Prothrobim Time) ([id number])Indication: Current use of retirement anticoagulation On: 15-Jun-2015 Request PT (Prothrobim Time) ([id number])Indication: Current use of retirement anticoagulation On: 08-Jun-2015 Request PT (Prothrobim Time) ([id number])Indication: Current use of termite inspector anticoagulation On: 01-Jun-2015 Request PT (Prothrobim Time) ([id number])Indication: Current use of termite inspector anticoagulation On: 25-May-2015 Request PT (Prothrobim Time) ([id number])Indication: Current use of retirement anticoagulation On: 18-May-2015 Request PT (Prothrobim Time) ([id number])Indication: Current use of termite inspector anticoagulation On: 11-May-2015 Request PT (Prothrobim Time) ([id number])Indication: Current use of termite inspector anticoagulation On: 04-May-2015 Request PT (Prothrobim Time) ([id number])Indication: Current use of retirement anticoagulation On: 27-Apr-2015 Request PT (Prothrobim Time) ([id number])Indication: Current use of retirement anticoagulation On: 20-Apr-2015 Request PT (PROTHROMBIN TIME) ([id number])Indication: Current use of retirement anticoagulation On: 17-Apr-2015 Request PT (Prothrobim Time) ([id number])Indication: Current use of termite inspector anticoagulation On: 13-Apr-2015 Request PT (Prothrobim Time) ([id number])Indication: Current use of retirement anticoagulation On: 06-Apr-2015 Request PT (Prothrobim Time) ([id number])Indication: Current use of retirement anticoagulation On: 30-Mar-2015 Request PT (Prothrobim Time) ([id number])Indication: Current use of termite inspector anticoagulation On: 23-Mar-2015 Request PT (Prothrobim Time) ([id number])Indication: Current use of retirement anticoagulation On: 16-Mar-2015 Request PT (Prothrobim Time) ([id number])Indication: Current use of retirement anticoagulation On: 09-Mar-2015 Request PT (Prothrobim Time) ([id number])Indication: Current use of termite inspector anticoagulation On: 02-Mar-2015 Request PT (Prothrobim Time) ([id number])Indication: Current use of retirement anticoagulation On: 23-Feb-2015 Request PT (Prothrobim Time) ([id number])Indication: Current use of termite inspector anticoagulation On: 16-Feb-2015 Request PT (Prothrobim Time) ([id number])Indication: Current use of termite inspector anticoagulation On: 09-Feb-2015 Request PT (Prothrobim Time) ([id number])Indication: Current use of termite inspector anticoagulation On: 02-Feb-2015 Request PT (Prothrobim Time) ([id number])Indication: Current use of retirement anticoagulation On: 26-Jan-2015 Request PT (Prothrobim Time) ([id number])Indication: Current use of termite inspector anticoagulation On: 19-Jan-2015 Request PT (Prothrobim Time) ([id number])Indication: Current use of termite inspector anticoagulation On: 12-Jan-2015 Request PT (Prothrobim Time) ([id number])Indication: Current use of termite inspector anticoagulation On: 05-Jan-2015 Request PT (Prothrobim Time) ([id number])Indication: Current use of termite inspector anticoagulation On: 29-Dec-2014 Request PT (Prothrobim Time) ([id number])Indication: Current use of termite inspector anticoagulation On: 22-Dec-2014 Request PT (Prothrobim Time) ([id number])Indication: Current use of retirement anticoagulation On: 15-Dec-2014 Request PT (Prothrobim Time) ([id number])Indication: Current use of retirement anticoagulation On: 08-Dec-2014 Request PT (Prothrobim Time) ([id number])Indication: Current use of retirement anticoagulation On: 01-Dec-2014 Request PT (Prothrobim Time) ([id number])Indication: Current use of termite inspector anticoagulation On: 24-Nov-2014 Request PT (Prothrobim Time) ([id number])Indication: Current use of retirement anticoagulation On: 17-Nov-2014 Request PT (Prothrobim Time) ([id number])Indication: Current use of termite inspector anticoagulation On: 10-Nov-2014 Request PT (Prothrobim Time) ([id number])Indication: Current use of retirement anticoagulation On: 03-Nov-2014 Request PT (Prothrobim Time) ([id number])Indication: Current use of retirement anticoagulation On: 27-Oct-2014 Request PT (Prothrobim Time) ([id number])Indication: Current use of retirement anticoagulation On: 20-Oct-2014 Request PT (Prothrobim Time) ([id number])Indication: Current use of retirement anticoagulation On: 13-Oct-2014 Request PT (Prothrobim Time) ([id number])Indication: Current use of termite inspector anticoagulation On: 06-Oct-2014 Request PT (Prothrobim Time) ([id number])Indication: Current use of retirement anticoagulation On: 29-Sep-2014 Request PT (Prothrobim Time) ([id number])Indication: Current use of retirement anticoagulation On: 22-Sep-2014 Request PT (Prothrobim Time) ([id number])Indication: Current use of termite inspector anticoagulation On: 15-Sep-2014 Request PT (Prothrobim Time) ([id number])Indication: Current use of retirement anticoagulation On: 08-Sep-2014 Request PT (Prothrobim Time) ([id number])Indication: Current use of termite inspector anticoagulation On: 01-Sep-2014 Request PT (Prothrobim Time) ([id number])Indication: Current use of retirement anticoagulation On: 25-Aug-2014 Request PT (PROTHROMBIN TIME) ([id number])Indication: Current use of termite inspector anticoagulation On: 20-Aug-2014 Request PT (Prothrobim Time) ([id number])Indication: Current use of termite inspector anticoagulation On: 18-Aug-2014 Request PT (Prothrobim Time) ([id number])Indication: Current use of termite inspector anticoagulation On: 11-Aug-2014 Request PT (Prothrobim Time) ([id number])Indication: Current use of retirement anticoagulation On: 04-Aug-2014 Request PT (Prothrobim Time) ([id number])Indication: Current use of retirement anticoagulation On: 28-Jul-2014 Request PT (Prothrobim Time) ([id number])Indication: Current use of termite inspector anticoagulation On: 21-Jul-2014 Request PT (PROTHROMBIN TIME) ([id number])Indication: Current use of retirement anticoagulation On: 21-Jul-2014 Request PT (Prothrobim Time) ([id number])Indication: Current use of termite inspector anticoagulation On: 07-Jul-2014 Request PT (Prothrobim Time) ([id number])Indication: Current use of termite inspector anticoagulation On: 30-Jun-2014 Request PT (Prothrobim Time) ([id number])Indication: Current use of retirement anticoagulation On: 23-Jun-2014 Request PT (Prothrobim Time) ([id number])Indication: Current use of termite inspector anticoagulation On: 16-Jun-2014 Request PT (Prothrobim Time) ([id number])Indication: Current use of termite inspector anticoagulation On: 09-Jun-2014 Request PT (Prothrobim Time) ([id number])Indication: Current use of termite inspector anticoagulation On: 02-Jun-2014 Request PT (Prothrobim Time) ([id number])Indication: Current use of termite inspector anticoagulation On: 26-May-2014 Request PT (Prothrobim Time) ([id number])Indication: Current use of retirement anticoagulation On: 19-May-2014 Request PT (Prothrobim Time) ([id number])Indication: Current use of retirement anticoagulation On: 12-May-2014 Request PT (Prothrobim Time) ([id number])Indication: Current use of termite inspector anticoagulation On: 05-May-2014 Request PT (Prothrobim Time) ([id number])Indication: Current use of termite inspector anticoagulation On: 28-Apr-2014 Request PT (Prothrobim Time) ([id number])Indication: Current use of retirement anticoagulation On: 21-Apr-2014 Request PT (Prothrobim Time) ([id number])Indication: Current use of retirement anticoagulation On: 14-Apr-2014 Request PT (Prothrobim Time) ([id number])Indication: Current use of termite inspector anticoagulation On: 07-Apr-2014 Request PT (Prothrobim Time) ([id number])Indication: Current use of retirement anticoagulation On: 31-Mar-2014 Request PT (Prothrobim Time) ([id number])Indication: Current use of retirement anticoagulation On: 24-Mar-2014 Request PT (Prothrobim Time) ([id number])Indication: Current use of retirement anticoagulation On: 17-Mar-2014 Request PT (Prothrobim Time) ([id number])Indication: Current use of termite inspector anticoagulation On: 10-Mar-2014 Request PT (Prothrobim Time) ([id number])Indication: Current use of termite inspector anticoagulation On: 03-Mar-2014 Request PT (Prothrobim Time) ([id number])Indication: Current use of retirement anticoagulation On: 24-Feb-2014 Request PT (Prothrobim Time) ([id number])Indication: Current use of retirement anticoagulation On: 17-Feb-2014 Request PT (Prothrobim Time) ([id number])Indication: Current use of retirement anticoagulation On: 10-Feb-2014 Request PT (Prothrobim Time) ([id number])Indication: Current use of retirement anticoagulation On: 03-Feb-2014 Request PT (Prothrobim Time) ([id number])Indication: Current use of termite inspector anticoagulation On: 20-Jan-2014 Request PT (Prothrobim Time) ([id number])Indication: Current use of termite inspector anticoagulation On: 13-Jan-2014 Request PT (Prothrobim Time) ([id number])Indication: Current use of termite inspector anticoagulation On: 06-Jan-2014 Request PT (Prothrobim Time) ([id number])Indication: Current use of retirement anticoagulation On: 30-Dec-2013 Request PT (Prothrobim Time) ([id number])Indication: Current use of termite inspector anticoagulation On: 23-Dec-2013 Request PT (Prothrobim Time) ([id number])Indication: Current use of retirement anticoagulation On: 16-Dec-2013 Request PT (Prothrobim Time) ([id number])Indication: Current use of retirement anticoagulation On: 09-Dec-2013 Request PT (Prothrobim Time) ([id number])Indication: Current use of retirement anticoagulation On: 02-Dec-2013 Request PT (Prothrobim Time) ([id number])Indication: Current use of retirement anticoagulation On: 25-Nov-2013 Request PT (Prothrobim Time) ([id number])Indication: Current use of retirement anticoagulation On: 18-Nov-2013 Request PT (Prothrobim Time) ([id number])Indication: Current use of retirement anticoagulation On: 11-Nov-2013 Request PT (Prothrobim Time) ([id number])Indication: Current use of retirement anticoagulation On: 04-Nov-2013 Request PT (Prothrobim Time) ([id number])Indication: Current use of retirement anticoagulation On: 28-Oct-2013 Request PT (Prothrobim Time) ([id number])Indication: Current use of termite inspector anticoagulation On: 14-Oct-2013 Request PT (Prothrobim Time) ([id number])Indication: Current use of retirement anticoagulation On: 07-Oct-2013 Request PT (Prothrobim Time) ([id number])Indication: Current use of termite inspector anticoagulation On: 30-Sep-2013 Request PT (Prothrobim Time) ([id number])Indication: Current use of termite inspector anticoagulation On: 23-Sep-2013 Request PT (Prothrobim Time) ([id number])Indication: Current use of retirement anticoagulation On: 16-Sep-2013 Request PT (Prothrobim Time) ([id number])Indication: Current use of termite inspector anticoagulation On: [id number] Request Comments: needs one today then q month or prn Planned Procedures Ultrasound - RenalBy: Danae LAN, On: 23-Mar-2015 Intent Tammie Hernandez CNP Aerosol Treatment ([id number])By: Slarb On: 23-Mar-2015 Intent 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, Davida FLU VAC, SPLIT, >3 YEARS, On: 14-Feb-2014 Intent INTRAMUSC ([id number])By: Danae LAN, Comments: lot # [id number] 10/28/14site- LDLTroute-IMdose- 0.5mlVIS and ABN signedCTyler 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Tammie Velarde CNP IMMUNIZ ADMNIN, 1 VAC, SNGL/COMBO On: 14-Feb-2014 Intent ([id number])By: Tammie Fink CNP, CNP, Mary E Instructions Name Dates Details Current use of termite inspector anticoagulation : How to access health information online Indication: Current use of termite inspector anticoagulation Current use of termite inspector anticoagulation : How to access health information online - Detail Indication: Current use of retirement anticoagulation Current use of termite inspector anticoagulation : Patient Instructions Indication: Current use of retirement anticoagulation Cough : Patient Instructions Indication: Cough [...] BMI 23.0-23.9, adult, Nonsmoker, Current use of retirement anticoagulation, Reflux, Leg cramps, Follicular lymphoma , [...] UTI symptoms, Cough, Nocturia, Current use of termite inspector anticoagulation, Pharyngitis, Flank pain [facility] [...] DVT (deep venous thrombosis), Current use of termite inspector anticoagulation, SCREENING FOR CANCER OF THE PROSTATE [...] DVT (deep venous thrombosis), Current use of termite inspector anticoagulation, Reflux [facility] Payers MedicareAARP/[place]; a guarantor
--- OUTSIDE RECORDS SUMMARY | 2018-07-19 23:45 | XMS RPT_ITS | Continuity of Care Document ---
:1950 Author Organization [facility] Address [facility] 2 [place] [address] Phone Care Team Providers Name Role Phone Kierstenlaury RIKYTammie E Unavailable Conchis RAMEY, Cesar Booth Unavailable Unavailable Dr. 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 associated with lymphoma on coumadin Status: Active Flank pain (R10.9, 789.09) Status: Active Follicular lymphoma (C82.90, 202.00) Comments: in remission, seeing Oncologist Status: Active History of skin cancer (Z85.828, V10.83) Comments: left face/neck area, removed skin CA in [place] Status: Active Hypercholesteremia (E78.00, 272.0) Status: Active Leg cramps (R25.2, 729.82) Status: Active Lesion of skin of face (L98.9, 709.9) Status: Active Lymphoma, follicular (C82.90, 202.00) Comments: needing local oncologistDiagnosed via biopsy in July [address] Arvin Reis at [facility] had chemo and radiation Last one in Dec Status: Active Need for prophylactic vaccination and inoculation against influenza (Z23, V04.81) Status: Active Need for prophylactic vaccination and inoculation against influenza (Renamed from Need for immunization against influenza) (Z23, V04.81) Status: Active Neoplasm of uncertain [...] {Capsule} Refills: 0 Ordered:24-Sep-2013 Tammie Fink CNP, CNP, Mary E Start : 24-Sep-2013 Active Rosuvastatin Calcium 10 MG Oral Tablet 1 (one) Tablet qhs for 0 days Quantity: 30 {Tablet} Refills: 11 Ordered:13-Apr-2018 Tammie Fink CNP, CNP, Mary E Start : 13-Apr-2018 Active Warfarin Sodium 4 MG Oral Tablet 1 (one) Tablet as directed for 0 days Quantity: 90 {Tablet} Refills: 3 Ordered:06-Apr-2018 Tammie Fink CNP, CNP, Mary E Start : 06-Apr-2018 Active Warfarin Sodium 5 MG Oral Tablet uad Tablet qd for 0 days Quantity: 90 {Tablet} Refills: 3 Ordered:09-Jun-2017 Tammie Fink CNP, CNP, Mary E Start : 09-Jun-2017 Active Delsym 30 MG/5ML Oral Suspension Extended Release 1 (one) Liquid ER q12h for 0 days Quantity: 1 {Box} Refills: 0 Ordered:18-Aug-2017 Fuad Wilson Start : 30-Mar-2015 End : 18-Aug-2017 Inactive DOXYCYCLINE HYCLATE, 100MG (Oral Tablet) 1 (one) Tablet bdi for 10 days Quantity: 20 {Tablet} Refills: 0 Ordered:30-Mar-2015 Danae LAN Tammie Benton CNP Start : 30-Mar-2015 End : 09-Apr-2015 Inactive [...] Visit Report Result: Comments: See Note; NOTES: [facility] On[facility] [place] [address] OFFICE VISIT Date of Service: 11/16/17 1102 MR#: [id number] Acct: [id number] Name: PATRIZIA CUBA Rep #: [id number] : 1950 From: Regis Fleming MD Age/Sex: [...] Chronic Code Visit Office Visits / Consults: [id number] OV L3 Est 11/16/17 1137 <Electronically signed by Regis Fleming MD&# 62; Date Regis Fleming MD Cosigner Signature: Date (if applicable) CC: 24-Mar-2015 Kidney and Bladder Result: Comments: See Note; NOTES: [facility] Imaging Services [address] [place] [address] Verdana 4d Kidney and Bladder MR#: [id number] Acct: [id number] Name: PATRIZIA CUBA Rep #: [id number] : 1950 M 64 From: Tarun Denis MD PCP: Tammie Fink Status: REG CLI Study: Kidney and Bladder Date of Exam: 03/24/15 Exam# [id number] Ordering Dr: Tammie Fink ST UDY: RENAL [...] MD at 22:21 EST , Service support [phone], CC: Tammie Fink Back Tender Cylinder: Signed 18-Feb-2015 Abdomen/Pelvis WITH Contrast Result: Comments: See Note; NOTES: [facility] Services [address] [place] [address] Verdana 4d Abdomen/Pelvis WITH Contrast MR#: [id number] Acct: [id number] Name : BEREKETPATRIZIA Rep #: [id number] : 1950 M 64 From: Nicoklas Mitchell DO PCP: Tammie Fink Status: REG CLI Study: Abdomen/Pelvis WITH Contrast Date of Exam: 02/18/15 Exam# [id number] Ordering Dr : Skyler Brewer MD STUDY: [...] DO at 10:24 EDT , Service support [phone], CC: Tammie Fink; Skyler Brewer Back Tender Cylinder: Signed 18-Feb-2015 Chest WITH Contrast Result: Comments: See Note; NOTES: [facility] Services [address] [place] [address] Verdana 4d Chest WITH Contrast MR#: [id number] Acct: [id number] Name: PATRIZIA CUBA Rep #: [id number] : 1950 M 64 From: Nickolas Mitchell DO PCP: Tammie Fink Status: REG CLI Study: Chest WITH Contrast Date of Exam: 02/18/15 Exam# [id number] Ordering Dr: Skyler Brewer MD STUDY: CT [...] DO at 9:28 EDT , Service support [phone], CC: Tammie Fink; Skyler Brewer Back Tender Cylinder: Signed 13-Feb-2015 Neck for Soft Tissue Result: Comments: See Note; NOTES: [facility] Services [address] [place] [address] Verdana 4d Neck for Soft Tissue MR#: [id number] Acct: [id number] Name: PATRIZIA DUMONT Rep #: [id number] : 1950 M 64 From: Evens Salas MD PCP: Tammie Fink Status: REG CLI Study: Neck for Soft Tissue Date of Exam: 02/13/15 Exam# [id number] Ordering Dr: Skyler Brewer MD STUDY: X-RAY [...] at 10:20 EDT Tel , Service support [phone], RAD/Neck for S oft Tissue IMPRESSION: Normal x-ray soft tissue neck. Electronically Signed: Evens Salas MD at 10:20 EDT Tel , Service support [phone], CC: Tammie Fink; Skyler Brewer Back Tender Cylinder: Signed 06-Jan-2014 PET/CT Tumor Base -Thigh Init Result: Comments: See Note; NOTES: [facility] [address] [place] [address] PET Scan Report MR#: [id number] Acct: [id number] Name: PATRIZIA CUBA Rep #: [id number] : 1950 M 63 From: Caleb Roberts DO PCP: Tammie Fink Status: REG CLI Study: PET/CT Tumor Base -Thigh Init Date of Exam: 01/06/14 Exam# [id number] Ordering Dr: Skyler Brewer MD INDICAT IONS: [...] Caleb Roberts DO at 15:00 EDT Tel [phone], Servic e support [phone], CC: Tammie Fink; RADHA; KULDIP Brewer Back Tender Cylinder: Signed 16-Dec-2013 Abdomen/Pelvis WITH Contrast Result: Comments: See Note; NOTES: [facility] Services [address] [place] [address] CAT Scan Report MR#: [id number] Acct: [id number] Name: PATRIZIA CUBA Rep #: [id number] : 1950 M 63 From: Jesus Webb MD PCP: Tammie Fink Status: REG CLI Study: Abdomen/Pelvis WITH Contrast Date of Exam: 12/16/13 Exam# [id number] Ordering Dr: Skyler Brewer MD ALFREDO DY: [...] Jesus Webb MD at 8:49 EDT Tel [phone], Service support [phone], CC: Tammie Schwartz sa; Skyler Brewer Back Tender Cylinder: Signed 16-Dec-2013 Chest WITH Contrast Result: Comments: See Note; NOTES: [facility] Services [address] [place] [address] CAT Scan Report MR#: [id number] Acct: [id number] Name: PATRIZIA CUBA Rep #: [id number] : 1950 M 63 From: Jesus Webb MD PCP: Tammie Fink Status: REG CLI Study: Chest WITH Contrast Date of Exam: 12/16/13 Exam# [id number] Ordering Dr: Skyler Brewer MD STUDY: CT [...] Jesus Webb MD at 8:52 EDT Tel [phone], Service support [phone], CC: Tammie Fink; Skyler Brewer Back Tender Cylinder: Signed 16-Dec-2013 Soft Tissue Neck WITH Contrast Result: Comments: See Note; NOTES: [facility] Services [address] [place] [address] CAT Scan Report MR#: [id number] Acct: [id number] Name: PATRIZIA CUBA Rep #: [id number] : 1950 M 63 From: Jesus Webb MD PCP: Tammie Fink Status: REG CLI Study: Soft Tissue Neck WITH Contrast Date of Exam: 12/16/13 Exam# [id number] Ordering Dr: Skyler Brewer MD S DY: CT SOFT TISSUE NECK WITH CONTRAST REASON [...] FINDINGS: Normal bilateral parotid glands. Normal bilateral punchboard stuffer spaces. Normal bilateral parapharyngeal spaces. Normal bilateral [...] Jesus Webb MD at 9:27 EDT Tel [phone], Service suppo rt [phone], CC: Tammie Fink; Skyler Brewer Back Tender Cylinder: Signed Family History Unknown Family Member Name Dates Details Brother 1 Comments: DVT Status: Active Father Comments: DVT Status: Active Social History Name Dates Details Caffeine Use Comments: coffee all day Status: Active Exercise History Comments: walking at work Status: Active Most Recent Primary Occupation Comments: [employer] working Status: Active No Drug Use Status: Active Non Drinker/No Alcohol Use Status: Active Non Smoker/No Tobacco Use Status: Active Vital Signs Date Test Result Details :53 Temperature 97.5 f Comments: Method: Temporal Pulse 94 /min Comments: Pattern: Regular Respiration Rate 18 /min Comments: Pattern: Unlabored O2 SAT 96 % Comments: Room air BP Systolic 130 mm[Hg] Comments: Patient Position: Sitting; Cuff Location: Left Arm; Cuff Size: Standard BP Diastolic 88 mm[Hg] Comments: Patient Position: Sitting; Cuff Location: Left Arm; Cuff Size: Standard Weight 184.375 lb Height 72 in Body Mass Index Calculated 25.01 kg/m2 Body Surface Area Calculated 2.06 m2 :05 Temperature 97.7 f Comments: Method: Temporal Pulse 68 /min Comments: Pattern: Regular Respiration Rate 16 /min Comments: Pattern: Unlabored O2 SAT 92 % Comments: Room air BP Systolic 112 mm[Hg] Comments: Patient Position: Sitting; Cuff Location: Left Arm; Cuff Size: Standard BP Diastolic 80 mm[Hg] Comments: Patient Position: Sitting; Cuff Location: Left Arm; Cuff Size: Standard Weight 185.375 lb Height 72 in Body Mass Index Calculated 25.14 kg/m2 Body Surface Area Calculated 2.06 m2 77-Qbb-866912:04 Temperature 97.8 f Pulse 76 /min Comments: [...] kg/m2 Body Surface Area Calculated 1.98 m2 83-Nfs-04152:53 Temperature 98 f Comments: Method: Oral Pulse [...] 1.98 m2 Results Date Description Value Details :43 PT (PROTHROMBIN TIME) (09061) Comments: STANDING ORDER; PATIENT NOT FASTINGPERFORMED BY: NOAM LabCoRobert [facility] SomersetYxiefn9537 [facility] [id number] Prothrombin Time 31.0 {sec} (Abnormal) Range: 9.1-12.0 INR 3.1 (Abnormal) Range: 0.8-1.2 Comments: Reference interval is for non-anticoagulated patients. . Suggested INR therapeutic range for Vitamin K anta gonist therapy: Standard Dose (moderate intensity therapeutic range): 2.0 - 3.0 Higher intensity therapeutic range 2.5 - 3.5 37-Unp-36247:21 Metabolic Panel, Comprehensive Comments: PATIENT WAS FASTINGPERFORMED BY: LabCoRobert Wood Johnson [facility] Hospital SomersetCymmgy2850 [facility] [id number] ([id number]) ALT (SGPT) 27 [iU]/L (Normal) Range: 0-44 AST (SGOT) 24 [iU]/L (Normal) Range: 0-40 Alkaline Phosphatase 62 [iU]/L (Normal) Range: 39-117 Bilirubin, Total 0.5 mg/dL (Normal) Range: 0.0-1.2 A/G Ratio 1.8 (Normal) Range: 1.2-2.2 Globulin, Total 2.5 g/dL (Normal) Range: 1.5-4.5 Albumin 4.4 g/dL (Normal) Range: 3.6-4.8 Protein, Total 6.9 g/dL (Normal) Range: 6.0-8.5 Calcium 9.3 mg/dL (Normal) Range: 8.6-10.2 Carbon Dioxide, Total 25 mmol/L (Normal) Range: 20-29 Chloride 103 mmol/L (Normal) Range: 96-106 Potassium 4.8 mmol/L (Normal) Range: 3.5-5.2 Sodium 142 mmol/L (Normal) Range: 134-144 BUN/Creatinine Ratio 14 (Normal) Range: 10-24 eGFR If Africn Am 106 mL/min/1.73 (Normal) eGFR If NonAfricn Am 91 mL/min/1.73 (Normal) Creatinine 0.85 mg/dL (Normal) Range: 0.76-1.27 BUN 12 mg/dL (Normal) Range: 8-27 Glucose 93 mg/dL (Normal) Range: 65-99 73-Unt-02381:21 CBC, Platelets & Auto Diff Comments: PATIENT WAS FASTINGPERFORMED BY: LabCo Dvavhh7692 [facility] [id number] ([id number]) Immature Grans (Abs) 0.0 {x10E3/uL} (Normal) Range: 0.0-0.1 Immature Granulocytes 0 % (Normal) Baso (Absolute) 0.0 {x10E3/uL} (Normal) Range: 0.0-0.2 Eos (Absolute) 0.1 {x10E3/uL} (Normal) Range: 0.0-0.4 Monocytes(Absolute) 0.4 {x10E3/uL} (Normal) Range: 0.1-0.9 Lymphs (Absolute) 1.0 {x10E3/uL} (Normal) Range: 0.7-3.1 Neutrophils (Absolute) 3.2 {x10E3/uL} (Normal) Range: 1.4-7.0 Basos 0 % (Normal) Eos 3 % (Normal) Monocytes 9 % (Normal) Lymphs 21 % (Normal) Neutrophils 67 % (Normal) Platelets 207 {x10E3/uL} (Normal) Range: 150-379 RDW 13.3 % (Normal) Range: 12.3-15.4 MCHC 34.0 g/dL (Normal) Range: 31.5-35.7 MCH 30.9 pg (Normal) Range: 26.6-33.0 MCV 91 fL (Normal) Range: 79-97 Hematocrit 45.3 % (Normal) Range: 37.5-51.0 Hemoglobin 15.4 g/dL (Normal) Range: 13.0-17.7 RBC 4.98 {x10E6/uL} (Normal) Range: 4.14-5.80 WBC 4.9 {x10E3/uL} (Normal) Range: 3.4-10.8 18-Wyx-50114:21 LIPID PANEL (83780) Comments: PATIENT WAS FASTINGPERFORMED BY: LabCoRobert [facility] SomersetDguykx5876 [facility] [id number] LDL/HDL Ratio 4.0 {ratio} (Abnormal) Range: 0.0-3.6 Comments: LDL/HDL Ratio Men Women 1/2 Avg.Risk 1.0 1.5 Av g.Risk 3.6 3.2 2X Avg.Risk 6.2 5.0 3X Avg.Risk 8.0 6.1 LDL Cholesterol Calc 164 mg/dL (Abnormal) Range: 0-99 VLDL Cholesterol [place] 43 mg/dL (Abnormal) Range: 5-40 HDL Cholesterol 41 mg/dL (Normal) Triglycerides 214 mg/dL (Abnormal) Range: 0-149 Cholesterol, Total 248 mg/dL (Abnormal) Range: 100-199 :21 PSA (PROSTATE SPECIFIC Comments: PATIENT WAS FASTINGPERFORMED BY: Mogad6370 [facility] [id number] ANTIGEN) (V76.44) Prostate Specific Ag, 0.7 ng/mL (Normal) Range: 0.0-4.0 Serum Comments: [employer] methodology. .According to the [place] [employer], Serum PSA shoulddecrease and remain at undetectable levels after radicalprostatectomy. The AUA defines biochemical recurrence as an initialPSA value 0.2 ng/mL or greater followed by a subsequent confirmatoryPSA value 0.2 ng/mL or greater.Values obtained with d ifferent assay methods or kits cannot be usedinterchangeably. Results cannot be interpreted as absolute evidenceof the presence or absence of malignant disease. :38 PT (PROTHROMBIN TIME) (77641) Comments: PATIENT NOT FASTINGPERFORMED BY: Mogad6370 DevlinRevision3Formerly [facility] [id number] Prothrombin Time 24.0 {sec} (Abnormal) Range: 9.1-12.0 INR 2.5 (Abnormal) Range: 0.8-1.2 Comments: Reference interval is for non-anticoagulated patients. . Suggested INR therapeutic range for Vitamin K anta gonist therapy: Standard Dose (moderate intensity therapeutic range): 2.0 - 3.0 Higher intensity therapeutic range 2.5 - 3.5 33-Xhx-773152:02 PT (PROTHROMBIN TIME) (83118) Comments: STANDING ORDER; PATIENT NOT FASTINGPERFORMED BY: PlatizaRobert Wood Johnson [facility] Hospital SomersetQaeysd6373 [facility] [id number] Prothrombin Time 37.7 {sec} (Abnormal) Range: 9.1-12.0 INR 3.8 (Abnormal) Range: 0.8-1.2 Comments: Client Requested Flag Reference interval is for non- anticoagulated patients. . Suggested INR therapeutic ra nge for Vitamin K antagonist therapy: Standard Dose (moderate intensity therapeutic range): 2.0 - 3.0 Higher intensity therapeutic range 2.5 - 3.5 :27 PT (PROTHROMBIN TIME) (99723) Comments: STANDING ORDER; PATIENT NOT FASTINGPERFORMED BY: LabMer[facility] Qrvawx1474 [facility] [id number] Prothrombin Time 36.8 {sec} (Abnormal) Range: 9.1-12.0 INR 3.7 (Abnormal) Range: 0.8-1.2 Comments: Client Requested Flag Reference interval is for non- anticoagulated patients. . Suggested INR therapeutic ra nge for Vitamin K antagonist therapy: Standard Dose (moderate intensity therapeutic range): 2.0 - 3.0 Higher intensity therapeutic range 2.5 - 3.5 :52 PT (PROTHROMBIN TIME) (87771) Comments: PATIENT NOT FASTINGPERFORMED BY: [facility]6370 [facility] [id number] Prothrombin Time 16.3 {sec} (Abnormal) Range: 9.1-12.0 INR 1.6 (Abnormal) Range: 0.8-1.2 Comments: Reference interval is for non-anticoagulated patients. . Suggested INR therapeutic range for Vitamin K anta gonist therapy: Standard Dose (moderate intensity therapeutic range): 2.0 - 3.0 Higher intensity therapeutic range 2.5 - 3.5 :28 PT (PROTHROMBIN TIME) (24657) Comments: STANDING ORDER; PATIENT NOT FASTINGPERFORMED BY: [facility]6370 [facility] [id number] Prothrombin Time 29.7 {sec} (Abnormal) Range: 9.1-12.0 INR 3.0 (Abnormal) Range: 0.8-1.2 Comments: Reference interval is for non-anticoagulated patients. . Suggested INR therapeutic range for Vitamin K anta gonist therapy: Standard Dose (moderate intensity therapeutic range): 2.0 - 3.0 Higher intensity therapeutic range 2.5 - 3.5 :11 PT (PROTHROMBIN TIME) (52145) Comments: PATIENT NOT FASTINGPERFORMED BY: LabHenry [facility] Hospital6370 [facility] [id number] Prothrombin Time 20.6 {sec} (Abnormal) Range: 9.1-12.0 INR 2.1 (Abnormal) Range: 0.8-1.2 Comments: Reference interval is for non-anticoagulated patients. . Suggested INR therapeutic range for Vitamin K anta gonist therapy: Standard Dose (moderate intensity therapeutic range): 2.0 - 3.0 Higher intensity therapeutic range 2.5 - 3.5 3-Ujq-999387:27 PT (PROTHROMBIN TIME) (01897) Comments: PATIENT NOT FASTINGPERFORMED BY: [facility] Xtmhip8508 [facility] [id number] Prothrombin Time 23.9 {sec} (Abnormal) Range: 9.1-12.0 INR 2.5 (Abnormal) Range: 0.8-1.2 Comments: Reference interval is for non-anticoagulated patients. . Suggested INR therapeutic range for Vitamin K anta gonist therapy: Standard Dose (moderate intensity therapeutic range): 2.0 - 3.0 Higher intensity therapeutic range 2.5 - 3.5 86-Aha-614379:31 CBC W/Diff, Automated Comments: [facility] Uaqigdlyfx[address] [place], [place], [id number] Absolute Lymph 1.01 {X10_3/ul} (Normal) Range: 0.83-4.51 [...] 4.6-6.2 WBC 4.3 K/mm3 (Abnormal) Range: 4.4-11.0 57-Jll-267179:30 Comprehensive Metabolic Profil Comments: Reason for Laboratory Test H/O NHL Z85.72Serial Specimen #1, #2 or #3? 1[facility] Vmnaybekwv8427 [facility]le[facility] [place], [place], [id number] GAP 5 (Normal) Range: 5-15 CO2 27.0 [...] Comments: Please note revised GLUCOSE reference range tgdntklaq84/02/2018. 25-Vtu-186493:30 LDH 190 U/L (Normal) Comments: Reason for Laboratory Test H/O NHL Z85.72Serial Specimen #1, #2 or #3? 1[facility] [address]aggc[address] [place], [address] Range: 87-241 08-Jun-20179:29 PT (PROTHROMBIN TIME) (94200) Comments: PATIENT NOT FASTINGPERFORMED BY: Von BismarkRobert Wood Johnson [facility] SomersetKokjlf[address] [place] [address] [id number] Prothrombin Time 22.4 {sec} (Abnormal) Range: 9.1-12.0 INR 2.3 (Abnormal) Range: 0.8-1.2 Comments: Reference interval is for non-anticoagulated patients. . Suggested INR therapeutic range for Vitamin K anta gonist therapy: Standard Dose (moderate intensity therapeutic range): 2.0 - 3.0 Higher intensity therapeutic range 2.5 - 3.5 96-Lfc-269748:20 PT (PROTHROMBIN TIME) (72624) Comments: PATIENT NOT FASTINGPERFORMED BY: [facility] SystemSupply VisionRobert Wood Johnson [facility] Hospital SomersetRqyair6210 [facility] [id number] Prothrombin Time 17.1 {sec} (Abnormal) Range: 9.1-12.0 INR 1.7 (Abnormal) Range: 0.8-1.2 Comments: Reference interval is for non-anticoagulated patients. . Suggested INR therapeutic range for Vitamin K anta gonist therapy: Standard Dose (moderate intensity therapeutic range): 2.0 - 3.0 Higher intensity therapeutic range 2.5 - 3.5 34-Xuu-022278:39 PT (PROTHROMBIN TIME) (22882) Comments: PATIENT NOT FASTINGPERFORMED BY: [place] 4872170 [facility] [id number] Prothrombin Time 23.4 {sec} (Abnormal) Range: 9.1-12.0 INR 2.4 (Abnormal) Range: 0.8-1.2 Comments: Reference interval is for non-anticoagulated patients. . Suggested INR therapeutic range for Vitamin K anta gonist therapy: Standard Dose (moderate intensity therapeutic range): 2.0 - 3.0 Higher intensity therapeutic range 2.5 - 3.5 23-Ffm-035999:10 TSH (THYROID STIMULATING Comments: PATIENT WAS FASTINGPERFORMED BY: Mogad6370 [facility] [id number] HORMONE) (32450) TSH 2.310 {uIU/mL} (Normal) Range: 0.450-4.500 24-Qlm-699526:10 PSA (PROSTATE SPECIFIC Comments: PATIENT WAS FASTINGPERFORMED BY: Mogad6370 [facility] [id number] ANTIGEN) (V76.44) Prostate Specific Ag, 0.7 ng/mL (Normal) Range: 0.0-4.0 Serum Comments: [employer] ECLIA methodology. .According to the [place] [employer], Serum PSA shoulddecrease and remain at undetectable levels after radicalprostatectomy. The AUA defines biochemical recurrence as an initialPSA value 0.2 ng/mL or greater followed by a subsequent confirmatoryPSA value 0.2 ng/mL or greater.Values obtained with d ifferent assay methods or kits cannot be usedinterchangeably. Results cannot be interpreted as absolute evidenceof the presence or absence of malignant disease. 47-Vpi-189904:10 CBC & PLATELETS (AUTO) Comments: PATIENT WAS FASTINGPERFORMED BY: Mogad6370 [facility] [id number] (28564) Platelets 181 {x10E3/uL} (Normal) Range: 150-379 RDW 13.5 % (Normal) Range: 12.3-15.4 MCHC 33.9 g/dL (Normal) Range: 31.5-35.7 MCH 31.1 pg (Normal) Range: 26.6-33.0 MCV 92 fL (Normal) Range: 79-97 Hematocrit 45.4 % (Normal) Range: 37.5-51.0 Hemoglobin 15.4 g/dL (Normal) Range: 13.0-17.7 RBC 4.95 {x10E6/uL} (Normal) Range: 4.14-5.80 WBC 4.4 {x10E3/uL} (Normal) Range: 3.4-10.8 68-Crr-953148:10 VITAMIN B12 AND FOLATES Comments: PATIENT WAS FASTINGPERFORMED BY: Von BismarkRobert Wood Johnson [facility] Hospital SomersetLjtado6438 [facility] [id number] ([id number]) Folate (Folic Acid), Serum 12.4 ng/mL (Normal) Comments: A serum folate concentration of less than 3.1 ng/mL isconsidered to represent clinical deficiency. Vitamin B12 411 pg/mL (Normal) Range: 232-1245 86-Xdf-659658:10 Metabolic Panel, Comprehensive Comments: PATIENT WAS FASTINGPERFORMED BY: Von BismarkRobert Wood Johnson [facility] Hospital SomersetVegowl3684 [facility] [id number] ([id number]) ALT (SGPT) 14 [iU]/L (Normal) Range: 0-44 [...] 8-27 Glucose 76 mg/dL (Normal) Range: 65-99 25-Ymv-933847:10 MAGNESIUM (49081) Comments: PATIENT WAS FASTINGPERFORMED BY: [facility]6370 [facility] [id number] Magnesium 2.4 mg/dL (Abnormal) Range: 1.6-2.3 73-Cse-702253:31 PT (PROTHROMBIN TIME) (44349) Comments: PATIENT NOT FASTINGPERFORMED BY: [place] 4872170 [facility] [id number] Prothrombin Time 21.0 {sec} (Abnormal) Range: 9.1-12.0 INR 2.1 (Abnormal) Range: 0.8-1.2 Comments: Reference interval is for non-anticoagulated patients. . Suggested INR therapeutic range for Vitamin K anta gonist therapy: Standard Dose (moderate intensity therapeutic range): 2.0 - 3.0 Higher intensity therapeutic range 2.5 - 3.5 26-Jrp-789818:19 PT (PROTHROMBIN TIME) (87786) Comments: PERFORMED BY: [facility]6370 [facility] [id number] Prothrombin Time 22.3 {sec} (Abnormal) Range: 9.1-12.0 INR 2.3 (Abnormal) Range: 0.8-1.2 Comments: Reference interval is for non-anticoagulated patients. . Suggested INR therapeutic range for Vitamin K anta gonist therapy: Standard Dose (moderate intensity therapeutic range): 2.0 - 3.0 Higher intensity therapeutic range 2.5 - 3.5 03-Too-563715:07 PT (PROTHROMBIN TIME) (97270) Comments: PATIENT NOT FASTINGPERFORMED BY: [facility] [id number] Prothrombin Time 21.2 {sec} (Abnormal) Range: 9.1-12.0 INR 2.1 (Abnormal) Range: 0.8-1.2 Comments: Reference interval is for non-anticoagulated patients. . Suggested INR therapeutic range for Vitamin K anta gonist therapy: Standard Dose (moderate intensity therapeutic range): 2.0 - 3.0 Higher intensity therapeutic range 2.5 - 3.5 72-Jrq-403277:21 PT (PROTHROMBIN TIME) (63383) Comments: PATIENT NOT FASTINGPERFORMED BY: [facility]6370 [facility] [id number] Prothrombin Time 23.1 {sec} (Abnormal) Range: 9.1-12.0 INR 2.3 (Abnormal) Range: 0.8-1.2 Comments: Reference interval is for non-anticoagulated patients. . Suggested INR therapeutic range for Vitamin K anta gonist therapy: Standard Dose (moderate intensity therapeutic range): 2.0 - 3.0 Higher intensity therapeutic range 2.5 - 3.5 :56 PT (PROTHROMBIN TIME) (10504) Comments: PATIENT NOT FASTINGPERFORMED BY: [facility] [id number] Prothrombin Time 24.2 {sec} (Abnormal) Range: 9.1-12.0 INR 2.4 (Abnormal) Range: 0.8-1.2 Comments: Reference interval is for non-anticoagulated patients. . Suggested INR therapeutic range for Vitamin K anta gonist therapy: Standard Dose (moderate intensity therapeutic range): 2.0 - 3.0 Higher intensity therapeutic range 2.5 - 3.5 :15 PT (PROTHROMBIN TIME) (54200) Comments: PATIENT NOT FASTINGPERFORMED BY: [facility] [id number] Prothrombin Time 25.2 {sec} (Abnormal) Range: 9.1-12.0 INR 2.5 (Abnormal) Range: 0.8-1.2 Comments: Reference interval is for non-anticoagulated patients. . Suggested INR therapeutic range for Vitamin K anta gonist therapy: Standard Dose (moderate intensity therapeutic range): 2.0 - 3.0 Higher intensity therapeutic range 2.5 - 3.5 :57 PT (PROTHROMBIN TIME) (09852) Comments: PATIENT NOT FASTINGPERFORMED BY: [facility] [id number] Prothrombin Time 18.5 {sec} (Abnormal) Range: 9.1-12.0 INR 1.8 (Abnormal) Range: 0.8-1.2 Comments: Reference interval is for non-anticoagulated patients. . Suggested INR therapeutic range for Vitamin K anta gonist therapy: Standard Dose (moderate intensity therapeutic range): 2.0 - 3.0 Higher intensity therapeutic range 2.5 - 3.5 95-Ogw-824529:26 PT (PROTHROMBIN TIME) (02227) Comments: PATIENT NOT FASTINGPERFORMED BY: [facility] Kh[address]yhr[address] [place] [id number] Prothrombin Time 16.4 {sec} (Abnormal) Range: 9.1-12.0 INR 1.6 (Abnormal) Range: 0.8-1.2 Comments: Reference interval is for non-anticoagulated patients. . Suggested INR therapeutic range for Vitamin K anta gonist therapy: Standard Dose (moderate intensity therapeutic range): 2.0 - 3.0 Higher intensity therapeutic range 2.5 - 3.5 64-Yii-602995:29 CBC W/Diff, Auto - EPLAB Comments: Order Date: 07/19/16Order Info: [id number] - *CBC w/Diff - oncology ONLYAt [facility] [place], [facility] Medical Oncologypatients receive CBC w/auto Differential ONLY. Physicianwill place an order fo Only r a manual differential or Pathologistreview at his discretion. [facility] OUTPATIENT [facility]. [address] [place] [address] [place] [address] PEDIATRIC ALLERGIST: ELISEO VICENTE DO PH:[phone] Rutan Hospital [address]iv[address]igpimk[address] [place], [address] Absolute Lymph 0.91 {X10_3/uL} (Normal) Range: 0.83-4.51 [...] 4.6-6.2 WBC 4.3 K/mm3 (Abnormal) Range: 4.4-11.0 28-Bea-640841:29 Comprehensive Metabolic Profil Comments: Order Date: 07/19/16Order Info: 0786-1 - *CMP Complete Metabolic PanelOrder Info: 2532-0 - *LDH -LDH (Lactate Dehydrogenase)Serial Specimen #1, #2 or #3? [facility] Hrkocxztxa0414 [place], [address] GAP 6 (Normal) Range: 5-15 CO2 27.0 [...] 7-18 GLU 84 mg/dL (Normal) Range: 70-110 16-Ezt-286426:29 LDH 173 U/L (Normal) Comments: Order Date: 07/19/16Order Info: 0786-1 - *CMP Complete Metabolic PanelOrder Info: 2532-0 - *LDH -LDH (Lactate Dehydrogenase)Serial Specimen #1, #2 or #3? [facility] Laborat kcv[address] [place], [address] Range: 87-241 :22 PT (PROTHROMBIN TIME) (36603) Comments: PATIENT NOT FASTINGPERFORMED BY: KabeExploration70 [facility]SpringFirst[facility] [id number] Prothrombin Time 32.4 {sec} (Abnormal) Range: 9.1-12.0 INR 3.2 (Abnormal) Range: 0.8-1.2 Comments: Reference interval is for non-anticoagulated patients. . Suggested INR therapeutic range for Vitamin K anta gonist therapy: Standard Dose (moderate intensity therapeutic range): 2.0 - 3.0 Higher intensity therapeutic range 2.5 - 3.5 :16 PT (PROTHROMBIN TIME) (16881) Comments: PATIENT NOT FASTINGPERFORMED BY: [employer]70 [facility] [id number] Prothrombin Time 20.2 {sec} (Abnormal) Range: 9.1-12.0 INR 2.0 (Abnormal) Range: 0.8-1.2 Comments: Reference interval is for non-anticoagulated patients. . Suggested INR therapeutic range for Vitamin K anta gonist therapy: Standard Dose (moderate intensity therapeutic range): 2.0 - 3.0 Higher intensity therapeutic range 2.5 - 3.5 :55 PT (PROTHROMBIN TIME) (77231) Comments: PATIENT NOT FASTINGPERFORMED BY: Platiza Izbfdy2466 [facility] [id number] Prothrombin Time 16.0 {sec} (Abnormal) Range: 9.1-12.0 INR 1.6 (Abnormal) Range: 0.8-1.2 Comments: Reference interval is for non-anticoagulated patients. . Suggested INR therapeutic range for Vitamin K anta gonist therapy: Standard Dose (moderate intensity therapeutic range): 2.0 - 3.0 Higher intensity therapeutic range 2.5 - 3.5 23-Viv-912873:36 PT (PROTHROMBIN TIME) (52030) Comments: PATIENT NOT FASTINGPERFORMED BY: [facility] Uuxayu4674 [facility] [id number] Prothrombin Time 25.9 {sec} (Abnormal) Range: 9.1-12.0 INR 2.5 (Abnormal) Range: 0.8-1.2 Comments: Reference interval is for non-anticoagulated patients. . Suggested INR therapeutic range for Vitamin K anta gonist therapy: Standard Dose (moderate intensity therapeutic range): 2.0 - 3.0 Higher intensity therapeutic range 2.5 - 3.5 63-Mbj-897915:15 CBC W/Diff, Auto - EPLAB Comments: Order Date: 03/29/16Order Info: [id number] - *CBC w/Diff - oncology ONLYAt [facility] [place], [facility] Medical Oncologypatients receive CBC w/auto Differential ONLY. Physicianwill place an order fo Only r a manual differential or Pathologistreview at his discretion. [facility] OUTPATIENT [facility]. [address] [place] [address] [address] PEDIATRIC ALLERGIST: ELISEO VICENTE DO PH:[phone] Date: 03/29/16Order Info: 0184-1E - *CBC w/Diff - oncology ONLYOrder Date: 03/29/16Order Info: 2532-0 - *LDH -LDH (Lactate Dehydrogenase)[facility] [address]ew[address] [place], [place], [id number] ; another doc Absolute Lymph 0.93 {X10_3/uL} [...] 4.6-6.2 WBC 5.4 K/mm3 (Normal) Range: 4.4-11.0 50-Qad-518505:15 Comprehensive Metabolic Profil Comments: Order Date: 03/29/16Order Info: 0786-1 - *CMP Complete Metabolic PanelOrder Info: 3084-1 - *Uric Acid BloodOrder Info: 2532-0 - *LDH -LDH (Lactate Dehydrogenase)Order Date: 03/29/16Order Info: 2532-0 - *LDH -LDH (Lactate Dehydrogenase)Serial Specimen #1, #2 or #3? [facility] Fpxjqdixiw8005 [place], [place], [address] ; Dr. Brewer, hemoc GAP 5 (Normal) [...] 7-18 GLU 86 mg/dL (Normal) Range: 70-110 01-Ioh-900224:15 LDH 231 U/L (Normal) Comments: Order Date: 03/29/16Order Info: 0786-1 - *CMP Complete Metabolic PanelOrder Info: 3083-1 - *Uric Acid BloodOrder Info: 2532-0 - *LDH -LDH (Lactate Dehydrogenase)Order Date: 03/29/16Order Info: 2532-0 - *LDH -LDH (Lactate Dehydrogenase)Serial Specimen #1, #2 or #3? [address] [place] [address] Rqzmxmwcyy0261 [facility] [place], [place], [address] Range: 87-241 Comments: Slight Hemolysis, Result may be falsely increased. 54-Kvl-030442:15 Uric Acid Comments: Order Date: 03/29/16Order Info: 0786-1 - *CMP Complete Metabolic PanelOrder Info: 4-1 - *Uric Acid BloodOrder Info: 2532-0 - *LDH -LDH (Lactate Dehydrogenase)Order Date: 03/29/16Order Info: 2532-0 - *LDH -LDH (Lactate Dehydrogenase)Serial Specimen #1, #2 or #3? [address] [place] [address] Vumadwzdkq6525 [place], [address] URIC 4.4 mg/dL (Normal) Range: 3.5-7.2 Comments: The drugs N-Acetylcysteine and Metamizole may falsely deressthis assay. :27 PT (PROTHROMBIN TIME) (74601) Comments: PATIENT NOT FASTINGPERFORMED BY: [facility] [id number] Prothrombin Time 30.1 {sec} (Abnormal) Range: 9.1-12.0 INR 3.0 (Abnormal) Range: 0.8-1.2 Comments: Reference interval is for non-anticoagulated patients. . Suggested INR therapeutic range for Vitamin K anta gonist therapy: Standard Dose (moderate intensity therapeutic range): 2.0 - 3.0 Higher intensity therapeutic range 2.5 - 3.5 :21 PT (PROTHROMBIN TIME) (39040) Comments: PATIENT NOT FASTINGPERFORMED BY: [facility] [id number] Prothrombin Time 30.7 {sec} (Abnormal) Range: 9.1-12.0 INR 3.0 (Abnormal) Range: 0.8-1.2 Comments: Reference interval is for non-anticoagulated patients. . Suggested INR therapeutic range for Vitamin K anta gonist therapy: Standard Dose (moderate intensity therapeutic range): 2.0 - 3.0 Higher intensity therapeutic range 2.5 - 3.5 :14 PT (PROTHROMBIN TIME) (67947) Comments: PATIENT NOT FASTINGPERFORMED BY: [facility] [id number] Prothrombin Time 19.0 {sec} (Abnormal) Range: 9.1-12.0 INR 1.9 (Abnormal) Range: 0.8-1.2 Comments: Reference interval is for non-anticoagulated patients. . Suggested INR therapeutic range for Vitamin K anta gonist therapy: Standard Dose (moderate intensity therapeutic range): 2.0 - 3.0 Higher intensity therapeutic range 2.5 - 3.5 :14 Sllw-9-Ebdfachrqtvqy, S Comments: Order Date: 12/29/15Order Date: 12/29/15Order Date: 12/29/15[facility] (refer to report for specific site)refer to report for address and phone number [phone] [id number] 1.2 mg/L (Normal) Range: 0.6-2.4 Comments: Performed at: - [facility] [address] [id number] Director: Ino Monsivais PhD, Phone: [phone] 60-Rdt-905730:14 CBC W/Diff, Auto - EPLAB Comments: At [facility] [place], [facility] Medical Oncologypatients receive CBC w/auto Differential ONLY. Physicianwill place an order for a manual differential or Pathologistreview at his discretion. [facility]. [address] [place] [address] PEDIATRIC ALLERGIST: ELISEO VICENTE DO PH:[phone] Rutan Hospital [address]plxo[address] [place], [address] Absolute Lymph 0.99 {X10_3/uL} (Normal) [...] 4.6-6.2 WBC 4.6 K/mm3 (Normal) Range: 4.4-11.0 84-Qib-429608:14 Comprehensive Metabolic Profil Comments: Order Date: 12/29/15Order Date: 12/29/15erial Specimen #1, #2 or #3? [address] [place] [address] [address] [place], [address] GAP 11 (Normal) Range: 5-15 CO2 25.0 [...] 7-18 GLU 89 mg/dL (Normal) Range: 70-110 11-Qwu-952338:14 LDH 196 U/L (Normal) Comments: Order Date: 12/29/15Order Date: 16Serial Specimen #1, #2 or #3? [address] [place] [address] [address] [place], [address] Range: 87-241 49-Uti-369907:14 Uric Acid Comments: Order Date: 12/29/15Order Date: 12/28/16Serial Specimen #1, #2 or #3? [facility] [address]beumtdr[address] [place], [address] URIC 4.1 mg/dL (Normal) Range: 3.5-7.2 Comments: The drugs N-Acetylcysteine and Metamizole may falsely deressthis assay. :54 PT (PROTHROMBIN TIME) (17829) Comments: PATIENT NOT FASTINGPERFORMED BY: O2Gen SolutionsMichael Ville 9116870 [facility] [id number] Prothrombin Time 16.1 {sec} (Abnormal) Range: 9.1-12.0 INR 1.6 (Abnormal) Range: 0.8-1.2 Comments: Reference interval is for non-anticoagulated patients. . Suggested INR therapeutic range for Vitamin K anta gonist therapy: Standard Dose (moderate intensity therapeutic range): 2.0 - 3.0 Higher intensity therapeutic range 2.5 - 3.5 20-Upm-323138:16 PT (PROTHROMBIN TIME) Comments: PATIENT NOT FASTINGPERFORMED BY: [facility] BismarkRobert [facility] SomersetJaxdkw9487 [facility] [id number] Information: [id number] (16129) Prothrombin Time 32.0 {sec} (Abnormal) Range: 9.1-12.0 INR 3.2 (Abnormal) Range: 0.8-1.2 Comments: Reference interval is for non-anticoagulated patients. . Suggested INR therapeutic range for Vitamin K anta gonist therapy: Standard Dose (moderate intensity therapeutic range): 2.0 - 3.0 Higher intensity therapeutic range 2.5 - 3.5 20-Zsc-149528:04 CBC W/Diff, Auto - EPLAB Comments: At [facility] Out[facility] [place] Medical Oncologypatients receive CBC w/auto Differential ONLY. Physicianwill place an order for a manual differential or Pathologistreview at his discretion. [facility]. [address] [place] [address] [place] [address] PEDIATRIC ALLERGIST: ELISEO VICENTE DO PH:[phone] Rutan Hospital [address]trintbjrj[address] [place], [address] Absolute Lymph 0.82 {X10_3/uL} (Abnormal) [...] 4.6-6.2 WBC 4.7 K/mm3 (Normal) Range: 4.4-11.0 95-Nuk-165195:04 Comprehensive Metabolic Profil Comments: Order Date: 12/29/15OV Order #: [id number] Specimen #1, #2 or #3? 1 [id number] [facility] [address]xua[address] [place], [address] GAP 5 (Normal) Range: 5-15 CO2 29.0 [...] 7-18 GLU 89 mg/dL (Normal) Range: 70-110 69-Bwe-238515:04 LDH 167 U/L (Normal) Comments: Order Date: 12/29/15OV Order #: [id number] Specimen #1, #2 or #3? [id number] [place] [address] [address] [place], [place], [address] Range: 87-241 09-Alk-179237:04 Uric Acid Comments: Order Date: 12/29/15OV Order #: [id number] Specimen #1, #2 or #3? [id number] [place] [address] X[address] [place], [place], [address](043) URIC 4.2 mg/dL (Normal) Range: 3.5-7.2 Comments: The drugs N-Acetylcysteine and Metamizole may falsely deressthis assay. 05-Sih-421641:17 PT (PROTHROMBIN TIME) (96194) Comments: PATIENT NOT FASTINGPERFORMED BY: [facility] [id number] Prothrombin Time 25.7 {sec} (Abnormal) Range: 9.1-12.0 INR 2.5 (Abnormal) Range: 0.8-1.2 Comments: Reference interval is for non-anticoagulated patients. . Suggested INR therapeutic range for Vitamin K anta gonist therapy: Standard Dose (moderate intensity therapeutic range): 2.0 - 3.0 Higher intensity therapeutic range 2.5 - 3.5 :32 PT (PROTHROMBIN TIME) Comments: PATIENT NOT FASTINGPERFORMED BY: [place] [id number] [facility] [id number] Information: [id number] (60344) Prothrombin Time 28.7 {sec} (Abnormal) Range: 9.1-12.0 INR 2.8 (Abnormal) Range: 0.8-1.2 Comments: Reference interval is for non-anticoagulated patients. . Suggested INR therapeutic range for Vitamin K anta gonist therapy: Standard Dose (moderate intensity therapeutic range): 2.0 - 3.0 Higher intensity therapeutic range 2.5 - 3.5 :53 PT (PROTHROMBIN TIME) Comments: PATIENT NOT FASTINGPERFORMED BY: [place] [id number] [facility] [id number] Information: [id number] (74037) Prothrombin Time 25.1 {sec} (Abnormal) Range: 9.1-12.0 INR 2.4 (Abnormal) Range: 0.8-1.2 Comments: Reference interval is for non-anticoagulated patients. . Suggested INR therapeutic range for Vitamin K anta gonist therapy: Standard Dose (moderate intensity therapeutic range): 2.0 - 3.0 Higher intensity therapeutic range 2.5 - 3.5 :15 PT (PROTHROMBIN TIME) Comments: PATIENT NOT FASTINGPERFORMED BY: [facility] [id number] Information: [id number] (91316) Prothrombin Time 23.0 {sec} (Abnormal) Range: 9.1-12.0 INR 2.3 (Abnormal) Range: 0.8-1.2 Comments: Reference interval is for non-anticoagulated patients. . Suggested INR therapeutic range for Vitamin K anta gonist therapy: Standard Dose (moderate intensity therapeutic range): 2.0 - 3.0 Higher intensity therapeutic range 2.5 - 3.5 1-Xfx-977437:42 CBC W/Diff, Auto - EPLAB Comments: At [facility] [place] Medical Oncologypatients receive CBC w/auto Differential ONLY. Physicianwill place an order for a manual differential or Pathologistreview at his discretion. [facility] OUTPATIENT [facility]. [address] [place] [place] [address] PEDIATRIC ALLERGIST: ELISEO VICENTE DO PH:[phone] Rutan Hospital [address]whxxudpy[address] [place], [place], [address] Absolute Lymph 0.97 {X10_3/uL} (Normal) Range: 0.83-4.51 [...] 4.6-6.2 WBC 4.4 K/mm3 (Normal) Range: 4.4-11.0 2-Opd-102980:42 Comprehensive Metabolic Profil Comments: Serial Specimen #1, #2 or #3? [address] [place] [address] [address] [place], [place], [address] GAP 7 (Normal) Range: 5-15 CO2 27.0 [...] 7-18 GLU 80 mg/dL (Normal) Range: 70-110 5-Ehi-826131:42 LDH 181 U/L (Normal) Comments: Serial Specimen #1, #2 or #3? [address] [place] [address] [address] [place], [place], [address] Range: 87-241 8-Mng-646331:42 Magnesium Comments: Serial Specimen #1, #2 or #3? [address] [place] [address] [address] [place], [address] MG 2.3 mg/dL (Normal) Range: 1.8-2.4 :42 Uric Acid Comments: Serial Specimen #1, #2 or #3? 1W[facility] [address]wohesamc4[address] [place], [address] URIC 3.9 mg/dL (Normal) Range: 3.5-7.2 :45 PT (PROTHROMBIN TIME) Comments: PATIENT NOT FASTINGPERFORMED BY: LabCoCarolyn Ville [id number] [facility] [id number] Information: [id number] ([id number]) Prothrombin Time 22.5 {sec} (Abnormal) Range: 9.1-12.0 INR 2.2 (Abnormal) Range: 0.8-1.2 Comments: Reference interval is for non-anticoagulated patients. . Suggested INR therapeutic range for Vitamin K anta gonist therapy: Standard Dose (moderate intensity therapeutic range): 2.0 - 3.0 Higher intensity therapeutic range 2.5 - 3.5 :30 PT (PROTHROMBIN TIME) Comments: PATIENT NOT FASTINGPERFORMED BY: [facility]CoRobert [facility] SomersetTurplu7267 [facility] [id number] Information: [id number] (01489) Prothrombin Time 22.9 {sec} (Abnormal) Range: 9.1-12.0 INR 2.2 (Abnormal) Range: 0.8-1.2 Comments: Reference interval is for non-anticoagulated patients. . Suggested INR therapeutic range for Vitamin K anta gonist therapy: Standard Dose (moderate intensity therapeutic range): 2.0 - 3.0 Higher intensity therapeutic range 2.5 - 3.5 :45 CBC W/Diff, Auto - EPLAB Comments: [facility] On[facility]patients receive CBC w/auto Differential ONLY. Physicianwill place an order for a manual differential or Pathologistreview at his discretion. [facility] OUTPATIENT [facility]. [address] [address] PEDIATRIC ALLERGIST: ELISEO VICENTE DO PH:[phone] Rutan Hospital [address]xssgyjb[address] [place], [address] Absolute Lymph 0.76 {X10_3/uL} (Abnormal) [...] 4.6-6.2 WBC 4.5 K/mm3 (Normal) Range: 4.4-11.0 02-Jul-20158:44 Comprehensive Metabolic Profil Comments: Serial Specimen #1, #2 or #3? 1[facility] Cqigprefbj84[address] [place], [place], [address] GAP 0 (Abnormal) Range: 5-15 CO2 30.0 [...] Comments: Serial Specimen #1, #2 or #3? [address] [place] [address] [address] [place], [place], [address](837) Range: 87-241 :44 Magnesium Comments: Serial Specimen #1, #2 or #3? [address] [place] [address] [place], [place], [address](775) MG 2.3 mg/dL (Normal) Range: 1.8-2.4 :44 Uric Acid Comments: Serial Specimen #1, #2 or #3? [address] [place] [address] [address] [place], [place], [address](888) URIC 4.5 mg/dL (Normal) Range: 3.5-7.2 :55 PT (PROTHROMBIN TIME) Comments: PATIENT NOT FASTINGPERFORMED BY: LabCoRobert Wood Johnson [facility] SomersetVshqul0152 [facility] [id number] Information: [id number] ([id number]) Prothrombin Time 21.2 {sec} (Abnormal) Range: 9.1-12.0 INR 2.0 (Abnormal) Range: 0.8-1.2 Comments: Reference interval is for non-anticoagulated patients. . Suggested INR therapeutic range for Vitamin K anta gonist therapy: Standard Dose (moderate intensity therapeutic range): 2.0 - 3.0 Higher intensity therapeutic range 2.5 - 3.5 02-Llo-769606:12 PT (PROTHROMBIN TIME) Comments: PATIENT NOT FASTINGPERFORMED BY: Von BismarkRobert Wood Johnson [facility] Hospital SomersetBpuehl1927 [facility] [id number] Information: [id number] (89261) Prothrombin Time 23.4 {sec} (Abnormal) Range: 9.1-12.0 INR 2.3 (Abnormal) Range: 0.8-1.2 Comments: Reference interval is for non-anticoagulated patients. . Suggested INR therapeutic range for Vitamin K anta gonist therapy: Standard Dose (moderate intensity therapeutic range): 2.0 - 3.0 Higher intensity therapeutic range 2.5 - 3.5 03-Apr-20159:39 Prothrombin Time w/INR Comments: [facility] Nnzrtsqyoc3490 [facility] [place], [place], [address] INR 2.5 (Normal) PROTIME 27.0 s (Abnormal) Range: 11.7-14.9 69-Drg-620019:55 Microscopic Examination Comments: PATIENT NOT FASTINGPERFORMED BY: O2Gen SolutionsHenry Ford [facility] Hospital6370 [facility] [id number] Bacteria Few (Normal) Mucus Threads Present (Normal) Epithelial Cells (non renal) None seen {/hpf} (Normal) Range: 0 - 10 RBC 0-2 {/hpf} (Normal) Range: 0 - 2 WBC 0-5 {/hpf} (Normal) Range: 0 - 5 93-Enu-448216:55 URINALYSIS (13884) Comments: PATIENT NOT FASTINGPERFORMED BY: O2Gen SolutionsHenry Ford [facility] Hospital6370 [facility] [id number]; apt. 03-30-15 Microscopic Examination See below: (Normal) Comments: Microscopic was indicated and was performed. Nitrite, Urine Negative (Normal) Urobilinogen,Semi-Qn 1.0 mg/dL (Normal) Range: 0.2-1.0 Bilirubin Negative (Normal) Occult Blood Negative (Normal) Ketones Trace (Abnormal) Glucose Negative (Normal) Protein 1+ (Abnormal) WBC Esterase Negative (Normal) Appearance Clear (Normal) Urine-Color Yellow (Normal) pH 6.0 (Normal) Range: 5.0-7.5 Specific [place] >=1.030 (Abnormal) Range: 1.005-1.030 25-Ftc-856156:55 CBC, Platelets & Auto Comments: PATIENT NOT FASTINGPERFORMED BY: [facility] Fjorra5252 [facility] [id number] Information: [id number] Diff (04523) Immature Grans (Abs) 0.0 {x10E3/uL} (Normal) Range: [...] 4.14-5.80 WBC 6.1 {x10E3/uL} (Normal) Range: 3.4-10.8 :55 Metabolic Panel, Comprehensive Comments: PATIENT NOT FASTINGPERFORMED BY: Von BismarkRobert Wood Johnson [facility] Hospital SomersetAmqkrb2840 [facility] [id number] (28261) ALT (SGPT) 23 [iU]/L (Normal) Range: 0-44 [...] Glucose, Serum 83 mg/dL (Normal) Range: 65-99 86-Pri-079529:55 PSA, TOTAL - DIAGNOSTIC Comments: PATIENT NOT FASTINGPERFORMED BY: O2Gen SolutionsHenry Ford [facility] Hospital6370 [facility] [id number] (07696) Prostate Specific Ag, 0.5 ng/mL (Normal) Range: 0.0-4.0 Serum Comments: Yulisa ECLIA methodology. .According to the [place] [employer], Serum PSA shoulddecrease and remain at undetectable levels after radicalprostatectomy. The AUA defines biochemical recurrence as an initialPSA value 0.2 ng/mL or greater followed by a subsequent confirmatoryPSA value 0.2 ng/mL or greater.Values obtained with d ifferent assay methods or kits cannot be usedinterchangeably. Results cannot be interpreted as absolute evidenceof the presence or absence of malignant disease. 09-Xwy-292142:59 URINE JAILENE CULTURE-THAD COL Comments: PATIENT NOT FASTINGPERFORMED BY: KabeExploration70 TalkableFormerly [facility] [id number] Information: SRC:[facility] [id number] COUNT (38280) Result 1 NG36 (Normal) Comments: No growth in 36 - 48 hours. Urine Culture,Comprehensive Final report (Normal) 38-Vla-302605:43 Urinalysis, Office (94520) UA - LEUKOCYTE ESTERASE Negative (Normal) UA - NITRITE Negative (Normal) URINE UROBILINGN THAD TIMED Normal mg/dL (Normal) UA - PROTEIN 30 mg/dL (Normal) UA - PH 6 (Abnormal) UA - BLOOD Non Hemolyzed Trace (Normal) UA - SPECIFIC GRAVITY 1.025 (Normal) UA - KETONES Moderate mg/dL (Normal) UA - BILIRUBIN Small (Normal) UA - GLUCOSE Negative (Normal) 50-Pvt-45701:19 PT (PROTHROMBIN TIME) Comments: PATIENT NOT FASTINGPERFORMED BY: Von Bismark Bckuad3164 [facility] [id number] Information: [id number] ([id number]) Prothrombin Time 30.2 {sec} (Abnormal) Range: 9.1-12.0 INR 2.9 (Abnormal) Range: 0.8-1.2 Comments: Reference interval is for non-anticoagulated patients. . Suggested INR therapeutic range for Vitamin K anta gonist therapy: Standard Dose (moderate intensity therapeutic range): 2.0 - 3.0 Higher intensity therapeutic range 2.5 - 3.5 :55 CBC W/Diff, Auto - EPLAB Comments: At [facility] Oncologypatients receive CBC w/auto Differential ONLY. Physicianwill place an order for a manual differential or Pathologistreview at his discretion. [facility]. [address] [place] [address] [address] PEDIATRIC ALLERGIST: ELISEO VICENTE DO PH:[phone] Rutan Hospital [address] [place], [address] Absolute Lymph 0.75 {X10_3/uL} (Abnormal) [...] Comments: Serial Specimen #1, #2 or #3? 1[facility] [address] [place], [address] GAP 7 (Normal) Range: 5-15 [...] Comments: Serial Specimen #1, #2 or #3? [address] [place] [address] [address] [place], [place], [id number] Range: 87-241 :55 Uric Acid Comments: Serial Specimen #1, #2 or #3? [address] [place] [address] [address] [place], [place], [id number] URIC 3.9 mg/dL (Normal) Range: 3.5-7.2 08-Skl-893533:20 PT (PROTHROMBIN TIME) Comments: PATIENT NOT FASTINGPERFORMED BY: [facility] SomersetTuixhc7731 [facility] [id number] Information: [id number] ([id number]) Prothrombin Time 27.9 {sec} (Abnormal) Range: 9.1-12.0 INR 2.7 (Abnormal) Range: 0.8-1.2 Comments: Reference interval is for non-anticoagulated patients. . Suggested INR therapeutic range for Vitamin K anta gonist therapy: Standard Dose (moderate intensity therapeutic range): 2.0 - 3.0 Higher intensity therapeutic range 2.5 - 3.5 37-Ubc-43461:27 Fact V Leiden Mutation Comments: [facility] (refer to report for specific site)refer to report for address and phone number COMMENT Comment Comments: Genetic counselors are available for health care providers to discuss results at [phone]).Methodology:DNA analysis of the Factor V gene was [...] elevated homocysteine levels,or a Factor II/prothrombin mutation (P11184X). [facility] for information on how to order theFactor II DNA test. :27 Factor II, DNA Analysis Comments: [facility] (refer to report for specific site)refer to report for address and phone number COMMENT Comment (Normal) Comments: Genetic Counselors are available for health care providersto discuss results at [phone] ([phone]).Methodology:DNA analysis of the Factor II gene was performed by PCRamplification followed by restric tion analysis. Thediagnostic sensitivity is >99% for both. All the tests mustbe combined with clinical information for the most accurateinterpretation. Molecular-based testing is highly accurate,but as in any laboratory test, diagnostic errors may occur.Marco At SR, et al. Blood. 1996; 88:8072-6684.Mary Ann EA. Circulation. 2004; 110:e15-e18.Tamiko I, et al. Arterioscler Thromb Vasc Biol. 1999;19:700 -703.Mitesh Andujar, PhDAgnes Ruiz, PhDNadege Finn, PhDBetty Solano, PhDFara Orozco, PhDGuido Fishman, PhDPerformed at: [address] [id number] National Account Executive: Larry Norman MD, Phone: [phone] at: [facility] [id number] [place], [place] [id number] Director: William Bustillo MD, Phone: [phone] FACTOR II,DNA Comment (Normal) Comments: NEGATIVENo mutation identified.Comment:A point mutation ([id number]) in the factor II (prothrombin)gene is the [...] individual mutations. This assaydetects only the prothrombin W34972F mutation and doesnot measure genetic abnormalities elsewhere i n thegenome. Other thrombotic risk factors may be pursuedthrough systematic clinical laboratory analysis. Thesefactors include the R506Q (Leiden) mutation in the Factor Vgene, plasma homocysteine levels , as well as testing fordeficiencies of antithrombin III, protein C and protein S. 23-Fwd-04967:27 Protein C Defic. Profile Comments: [facility] (refer [...] patient is diagnosed withcongenital Protein C deficiency. 92-Zoh-49437:27 Protein S Defic. Profile Comments: [facility] (refer [...] PROTEIN S,TOTAL 62 % (Normal) Range: 58-150 44-Qoz-20486:38 CBC W/Diff, Auto - EPLAB Comments: At [facility] [place] Oncologypatients receive CBC w/auto Differential ONLY. Physicianwill place an order for a manual differential or Pathologistreview at his discretion. [facility] OUTPATIENT [facility]. [address] [place] [address] PEDIATRIC ALLERGIST: ELISEO VICENTE DO PH:[phone] Rutan Hospital [address] [place], [address] Absolute Lymph 0.69 {X10_3/uL} (Abnormal) Range: 0.83-4.51 [...] Comments: Serial Specimen #1, #2 or #3? [address] [place] [address] [address] [place], [place], [id number] GAP 6 (Normal) Range: 5-15 CO2 29.0 [...] Comments: Serial Specimen #1, #2 or #3? [address] [place] [address] [address] [place], [place], [id number] Range: 87-241 :38 Uric Acid Comments: Serial Specimen #1, #2 or #3? 1[facility] [address] [place], [address] URIC 4.7 mg/dL (Normal) Range: 3.5-7.2 14-Waa-290752:31 PT (PROTHROMBIN TIME) ([id number]) Comments: PATIENT NOT FASTINGPERFORMED BY: [facility]6370 [facility] [id number] Prothrombin Time 21.0 {sec} (Abnormal) Range: 9.1-12.0 INR 2.1 (Abnormal) Range: 0.8-1.2 Comments: Reference interval is for non-anticoagulated patients. . Suggested INR therapeutic range for Vitamin K anta gonist therapy: Standard Dose (moderate intensity therapeutic range): 2.0 - 3.0 Higher intensity therapeutic range 2.5 - 3.5 :20 PT (PROTHROMBIN TIME) Comments: PATIENT NOT FASTINGPERFORMED BY: [facility]6370 [facility] [id number] Information: [id number] ([id number]) Prothrombin Time 34.6 {sec} (Abnormal) Range: 9.1-12.0 INR 3.3 (Abnormal) Range: 0.8-1.2 Comments: Reference interval is for non-anticoagulated patients. . Suggested INR therapeutic range for Vitamin K anta gonist therapy: Standard Dose (moderate intensity therapeutic range): 2.0 - 3.0 Higher intensity therapeutic range 2.5 - 3.5 :54 PT (PROTHROMBIN TIME) Comments: PATIENT NOT FASTINGPERFORMED BY: [facility] [id number] Information: [id number] ([id number]) Prothrombin Time 39.8 {sec} (Abnormal) Range: 9.1-12.0 INR 3.8 (Abnormal) Range: 0.8-1.2 Comments: Client Requested Flag Reference interval is for non- anticoagulated patients. . Suggested INR therapeutic ra nge for Vitamin K antagonist therapy: Standard Dose (moderate intensity therapeutic range): 2.0 - 3.0 Higher intensity therapeutic range 2.5 - 3.5 :56 Prothrombin Time (PT) Comments: PATIENT NOT FASTINGPERFORMED BY: [place] 4872170 [facility] [id number] Information: [id number] Prothrombin Time 20.1 {sec} (Abnormal) Range: 9.1-12.0 INR 1.9 (Abnormal) Range: 0.8-1.2 Comments: Reference interval is for non-anticoagulated patients. . Suggested INR therapeutic range for Vitamin K anta gonist therapy: Standard Dose (moderate intensity therapeutic range): 2.0 - 3.0 Higher intensity therapeutic range 2.5 - 3.5 :31 PT (PROTHROMBIN TIME) Comments: PATIENT NOT FASTINGPERFORMED BY: [place] 4872170 [facility] [id number] Information: [id number] ([id number]) Prothrombin Time 26.6 {sec} (Abnormal) Range: 9.1-12.0 INR 2.6 (Abnormal) Range: 0.8-1.2 Comments: Reference interval is for non-anticoagulated patients. . Suggested INR therapeutic range for Vitamin K anta gonist therapy: Standard Dose (moderate intensity therapeutic range): 2.0 - 3.0 Higher intensity therapeutic range 2.5 - 3.5 :10 Prothrombin Time (PT) Comments: PATIENT NOT FASTINGPERFORMED BY: [facility] [id number] Information: [id number] Prothrombin Time 32.6 {sec} (Abnormal) Range: 9.1-12.0 INR 3.0 (Abnormal) Range: 0.8-1.2 Comments: Reference interval is for non-anticoagulated patients. . Suggested INR therapeutic range for Vitamin K anta gonist therapy: Standard Dose (moderate intensity therapeutic range): 2.0 - 3.0 Higher intensity therapeutic range 2.5 - 3.5 :35 PT (PROTHROMBIN TIME) Comments: PATIENT NOT FASTINGPERFORMED BY: [place] 4872170 [facility] [id number] Information: [id number] ([id number]) Prothrombin Time 31.7 {sec} (Abnormal) Range: 9.1-12.0 INR 3.1 (Abnormal) Range: 0.8-1.2 Comments: Reference interval is for non-anticoagulated patients. . Suggested INR therapeutic range for Vitamin K anta gonist therapy: Standard Dose (moderate intensity therapeutic range): 2.0 - 3.0 Higher intensity therapeutic range 2.5 - 3.5 81-Kcb-590598:16 Prothrombin Time (PT) Comments: PATIENT NOT FASTINGPERFORMED BY: [facility] Copubm6131 [facility] [id number] Information: [id number] Prothrombin Time 25.6 {sec} (Abnormal) Range: 9.1-12.0 INR 2.4 (Abnormal) Range: 0.8-1.2 Comments: Reference interval is for non-anticoagulated patients. . Suggested INR therapeutic range for Vitamin K anta gonist therapy: Standard Dose (moderate intensity therapeutic range): 2.0 - 3.0 Higher intensity therapeutic range 2.5 - 3.5 57-Hew-24027:21 CBC W/Diff, Auto - EPLAB Only Comments: At [facility] Outpatient [facility] patientsreceive CBC w/auto Differential ONLY. Physician will placean order for a manual differential or Pathologist review athis discretion. [facility] OUT[facility]IENT [facility]. [address] [place] [address] [place] [address] PEDIATRIC ALLERGIST: ELISEO VICENTE DO PH:[phone] performed at:[facility] [address] [place] [address] Absolute Neut 3.1 {X10_3/uL} (Normal) Range: 2.0-7.7 [...] 4.6-6.2 WBC 4.3 K/mm3 (Abnormal) Range: 4.4-11.0 :21 Comprehensive Metabolic Profil Comments: Test performed at:[facility] [address] [place] [address] GAP 6 (Normal) Range: 5-15 CO2 29.0 [...] LDH 171 U/L (Normal) Comments: Test performed at:[facility] [address] [place] [address] Range: 84-246 91-Rso-92660:21 Uric Acid Comments: Test performed at:[facility] [address] [place] [address] URIC 4.2 mg/dL (Normal) Range: 3.5-7.2 :19 PT (Prothrobim Time) Comments: PATIENT NOT FASTINGPERFORMED BY: [address] [id number] Information: [id number] ([id number]) Prothrombin Time 29.7 {sec} (Abnormal) Range: 9.1-12.0 INR 2.7 (Abnormal) Range: 0.8-1.2 Comments: Reference interval is for non-anticoagulated patients. . Suggested INR therapeutic range for Vitamin K anta gonist therapy: Standard Dose (moderate intensity therapeutic range): 2.0 - 3.0 Higher intensity therapeutic range 2.5 - 3.5 :44 PT (PROTHROMBIN TIME) ([id number]) Comments: PERFORMED BY: [facility] [id number] Prothrombin Time 25.5 {sec} (Abnormal) Range: 9.1-12.0 INR 2.3 (Abnormal) Range: 0.8-1.2 Comments: Reference interval is for non-anticoagulated patients. . Suggested INR therapeutic range for Vitamin K anta gonist therapy: Standard Dose (moderate intensity therapeutic range): 2.0 - 3.0 Higher intensity therapeutic range 2.5 - 3.5 22-Pop-598065:28 PT (PROTHROMBIN TIME) Comments: PATIENT NOT FASTINGPERFORMED BY: [place] [id number] [facility] [id number] Information: [id number] ([id number]) Prothrombin Time 34.8 {sec} (Abnormal) Range: 9.1-12.0 INR 3.2 (Abnormal) Range: 0.8-1.2 Comments: Reference interval is for non-anticoagulated patients. . Suggested INR therapeutic range for Vitamin K anta gonist therapy: Standard Dose (moderate intensity therapeutic range): 2.0 - 3.0 Higher intensity therapeutic range 2.5 - 3.5 :02 PT (PROTHROMBIN TIME) Comments: PATIENT NOT FASTINGPERFORMED BY: [place] 4872170 [facility] [id number] Information: [id number] ([id number]) Prothrombin Time 30.2 {sec} (Abnormal) Range: 9.1-12.0 INR 2.8 (Abnormal) Range: 0.8-1.2 Comments: Reference interval is for non-anticoagulated patients. . Suggested INR therapeutic range for Vitamin K anta gonist therapy: Standard Dose (moderate intensity therapeutic range): 2.0 - 3.0 Higher intensity therapeutic range 2.5 - 3.5 :58 PT (PROTHROMBIN TIME) Comments: PATIENT NOT FASTINGPERFORMED BY: [facility] [id number] Information: [id number] ([id number]) Prothrombin Time 16.3 {sec} (Abnormal) Range: 9.1-12.0 INR 1.5 (Abnormal) Range: 0.8-1.2 Comments: Reference interval is for non-anticoagulated patients. . Suggested INR therapeutic range for Vitamin K anta gonist therapy: Standard Dose (moderate intensity therapeutic range): 2.0 - 3.0 Higher intensity therapeutic range 2.5 - 3.5 10-Tsk-529663:38 PT (PROTHROMBIN TIME) Comments: PATIENT NOT FASTINGPERFORMED BY: [facility] [id number] Information: [id number] ([id number]) Prothrombin Time 24.1 {sec} (Abnormal) Range: 9.1-12.0 INR 2.2 (Abnormal) Range: 0.8-1.2 Comments: Reference interval is for non-anticoagulated patients. . Suggested INR therapeutic range for Vitamin K anta gonist therapy: Standard Dose (moderate intensity therapeutic range): 2.0 - 3.0 Higher intensity therapeutic range 2.5 - 3.5 92-Eha-97461:48 Pathology Report Comments: PERFORMED BY: SOBEIDACYT [facility] [place] Cyto Pffwp31429 [facility] [id number] BY: [facility] Dermatopathology Ulsxaff[address] [id number] Information: [id number] See MATER Comments: Material submitted: .RIGHT DELTOID [...] SUBMITTEDENTIRELY IN A SINGLE CASSETTE.LMS/CRYPathologist provided ICD-9:173.61CPT .004158 43-Dlz-180398:16 PT (Prothrobim Time) Comments: PATIENT NOT FASTINGPERFORMED BY: NOAM [facility] Ikxsyc9782 [facility] [id number] Information: [id number] ([id number]) Prothrombin Time 30.4 {sec} (Abnormal) Range: 9.1-12.0 INR 2.8 (Abnormal) Range: 0.8-1.2 Comments: Reference interval is for non-anticoagulated patients. . Suggested INR therapeutic range for Vitamin K anta gonist therapy: Standard Dose (moderate intensity therapeutic range): 2.0 - 3.0 Higher intensity therapeutic range 2.5 - 3.5 :36 PT (PROTHROMBIN TIME) Comments: PATIENT NOT FASTINGPERFORMED BY: [facility] [id number] Information: [id number] ([id number]) Prothrombin Time 35.6 {sec} (Abnormal) Range: 9.1-12.0 INR 3.3 (Abnormal) Range: 0.8-1.2 Comments: Reference interval is for non-anticoagulated patients. . Suggested INR therapeutic range for Vitamin K anta gonist therapy: Standard Dose (moderate intensity therapeutic range): 2.0 - 3.0 Higher intensity therapeutic range 2.5 - 3.5 :40 PT (PROTHROMBIN TIME) Comments: PATIENT NOT FASTINGPERFORMED BY: [facility] [id number] Information: [id number] ([id number]) Prothrombin Time 44.9 {sec} (Abnormal) Range: 9.1-12.0 [...] (PROTHROMBIN TIME) Comments: PATIENT NOT FASTINGPERFORMED BY: O2Gen SolutionsMichael Ville 9116870 [facility] [id number] Information: [id number] ([id number]) Prothrombin Time 22.0 {sec} (Abnormal) Range: 9.1-12.0 INR 2.0 (Abnormal) Range: 0.8-1.2 Comments: Reference interval is for non-anticoagulated patients. . Suggested INR therapeutic range for Vitamin K anta gonist therapy: Standard Dose (moderate intensity therapeutic range): 2.0 - 3.0 Higher intensity therapeutic range 2.5 - 3.5 :48 PT (PROTHROMBIN TIME) Comments: PATIENT NOT FASTINGPERFORMED BY: [facility] [id number] Information: [id number] ([id number]) Prothrombin Time 16.2 {sec} (Abnormal) Range: 9.1-12.0 INR 1.6 (Abnormal) Range: 0.8-1.2 Comments: Reference interval is for non-anticoagulated patients. . Suggested INR therapeutic range for Vitamin K anta gonist therapy: Standard Dose (moderate intensity therapeutic range): 2.0 - 3.0 Higher intensity therapeutic range 2.5 - 3.5 51-Tos-867373:19 PT (Prothrobim Time) Comments: PATIENT NOT FASTINGPERFORMED BY: [facility]arkRobert [facility] SomersetFgfotu8617 [facility] [id number] Information: [id number] ([id number]) Prothrombin Time 31.0 {sec} (Abnormal) Range: 9.1-12.0 INR 2.8 (Abnormal) Range: 0.8-1.2 Comments: Reference interval is for non-anticoagulated patients. . Suggested INR therapeutic range for Vitamin K anta gonist therapy: Standard Dose (moderate intensity therapeutic range): 2.0 - 3.0 Higher intensity therapeutic range 2.5 - 3.5 :16 Metabolic Panel, Comprehensive Comments: PATIENT WAS FASTINGPERFORMED BY: [facility] BismarkRobert [facility] SomersetZjqpca2119 [facility] [id number] ([id number]) ALT (SGPT) 17 [iU]/L (Normal) Range: 0-44 [...] mg/dL (Normal) Range: 65-99 :16 Lipid Panel (57804) Comments: PATIENT WAS FASTINGPERFORMED BY: PlatizaRobert Wood Johnson [facility] Hospital SomersetPhikae9119 [facility] [id number] LDL/HDL Ratio 3.0 {ratio_units} (Normal) Range: 0.0-3.6 [...] Auto Diff Comments: PATIENT WAS FASTINGPERFORMED BY: Von BismarkRobert Wood [facility] SomersetTthfdu6534 [facility] [id number] Information: [id number] ([id number]) Immature Grans (Abs) 0.0 {x10E3/uL} (Normal) Range: [...] (PROSTATE SPECIFIC Comments: PATIENT WAS FASTINGPERFORMED BY: OfferSavvyFirstHealth [facility] [id number] ANTIGEN) (V76.44) Prostate Specific Ag, 0.5 ng/mL (Normal) Range: 0.0-4.0 Serum Comments: SeafileIA methodology. .According to the [place] [employer], Serum PSA shoulddecrease and remain [...] (PROTHROMBIN TIME) Comments: PATIENT NOT FASTINGPERFORMED BY: Mogad6370 TalentSpringFirst[facility] [id number] Information: [id number] ([id number]) Prothrombin Time 25.3 {sec} (Abnormal) Range: 9.1-12.0 INR 2.4 (Abnormal) Range: 0.8-1.2 Comments: Reference interval is for non-anticoagulated patients. . Suggested INR therapeutic range for Vitamin K anta gonist therapy: Standard Dose (moderate intensity therapeutic range): 2.0 - 3.0 Higher intensity therapeutic range 2.5 - 3.5 :47 PT (Prothrobim Time) Comments: PATIENT NOT FASTINGPERFORMED BY: [place] 4872170 [facility] [id number] Information: [id number] ([id number]) Prothrombin Time 30.5 {sec} (Abnormal) Range: 9.1-12.0 INR 2.9 (Abnormal) Range: 0.8-1.2 Comments: Reference interval is for non-anticoagulated patients. . Suggested INR therapeutic range for Vitamin K anta gonist therapy: Standard Dose (moderate intensity therapeutic range): 2.0 - 3.0 Higher intensity therapeutic range 2.5 - 3.5 56-Psq-910369:27 PT (Prothrobim Time) Comments: PATIENT NOT FASTINGPERFORMED BY: [facility] [id number] Information: [id number] ([id number]) Prothrombin Time 25.4 {sec} (Abnormal) Range: 9.1-12.0 INR 2.4 (Abnormal) Range: 0.8-1.2 Comments: Reference interval is for non-anticoagulated patients. . Suggested INR therapeutic range for Vitamin K anta gonist therapy: Standard Dose (moderate intensity therapeutic range): 2.0 - 3.0 Higher intensity therapeutic range 2.5 - 3.5 :27 PTT (Activated Partial Comments: PATIENT NOT FASTINGPERFORMED BY: [facility] [id number] Thromboplastin Time) ([id number]) aPTT 37 {sec} (Abnormal) Range: 24-33 Comments: This test has not been validated for monitoring unfractionated heparintherapy. aPTT-based therapeutic ranges for unfractionated heparintherapy have not been established. For general guidelines onHeparin monitoring, refer to the [facility] Directory of Services. Plan of Care Name Dates Details Instructions Nonsmoker : Follow up in 3 months Indication: Nonsmoker Nonsmoker : Eprescribed prescriptions (G8553) Indication: Nonsmoker SCREENING FOR HYPERLIPIDEMIA (Renamed from Encounter for screening for lipoid disorders) : Follow up in 6 months Indication: SCREENING FOR HYPERLIPIDEMIA (Renamed from Encounter for screening for lipoid disorders) Nonsmoker : Eprescribed prescriptions (G8553) Indication: Nonsmoker SCREENING FOR HYPERLIPIDEMIA (Renamed from Encounter for screening for lipoid disorders) : Follow up in 6 months Indication: SCREENING FOR HYPERLIPIDEMIA (Renamed from Encounter for screening for lipoid disorders) Current use of intermediate frame tender anticoagulation : Eprescribed prescriptions (G8553) Indication: Current [...] Indication: Reflux Planned Observations PT (PROTHROMBIN TIME) (72942)Indication: Current use of fdc anticoagulation On: :00 Request PT (PROTHROMBIN TIME) (41444)Indication: Current use of fdc anticoagulation On: :00 Request PT (PROTHROMBIN TIME) ([id number])Indication: Current use of fdc anticoagulation On: :00 Request PT (PROTHROMBIN TIME) (38126)Indication: Current use of intermediate frame tender anticoagulation On: :00 Request PT (PROTHROMBIN TIME) ([id number])Indication: Current use of fdc anticoagulation On: 14-Jun-2021 Request PT (PROTHROMBIN TIME) (11923)Indication: Current use of intermediate frame tender anticoagulation On: 15-May-2021 Request PT (PROTHROMBIN TIME) (30559)Indication: Current use of fdc anticoagulation On: 15-Apr-2021 Request PT (PROTHROMBIN TIME) (30621)Indication: Current use of intermediate frame tender anticoagulation On: 16-Mar-2021 Request PT (PROTHROMBIN TIME) ([id number])Indication: Current use of intermediate frame tender anticoagulation On: :00 Request PT (PROTHROMBIN TIME) ([id number])Indication: Current use of intermediate frame tender anticoagulation On: : Request PT (PROTHROMBIN TIME) (28095)Indication: Current use of intermediate frame tender anticoagulation On: : Request PT (PROTHROMBIN TIME) (30917)Indication: Current use of intermediate frame tender anticoagulation On: : Request PT (PROTHROMBIN TIME) (36087)Indication: Current use of intermediate frame tender anticoagulation On: : Request PT (PROTHROMBIN TIME) (41228)Indication: Current use of intermediate frame tender anticoagulation On: : Request PT (PROTHROMBIN TIME) (34328)Indication: Current use of fdc anticoagulation On: : Request PT (PROTHROMBIN TIME) (30802)Indication: Current use of fdc anticoagulation On: :00 Request PT (PROTHROMBIN TIME) (58584)Indication: Current use of fdc anticoagulation On: 19-Jun-2020 Request PT (PROTHROMBIN TIME) ([id number])Indication: Current use of fdc anticoagulation On: 20-May-2020 Request PT (PROTHROMBIN TIME) (38053)Indication: Current use of intermediate frame tender anticoagulation On: 20-Apr-2020 Request PT (PROTHROMBIN TIME) (55809)Indication: Current use of fdc anticoagulation On: 21-Mar-2020 Request PT (PROTHROMBIN TIME) (09847)Indication: Current use of fdc anticoagulation On: 20-Feb-2020 Request PT (PROTHROMBIN TIME) (32777)Indication: Current use of intermediate frame tender anticoagulation On: 21-Jan-2020 Request PT (PROTHROMBIN TIME) ([id number])Indication: Current use of fdc anticoagulation On: 22-Dec-2019 Request PT (PROTHROMBIN TIME) ([id number])Indication: Current use of intermediate frame tender anticoagulation On: 22-Nov-2019 Request PT (PROTHROMBIN TIME) ([id number])Indication: Current use of intermediate frame tender anticoagulation On: 23-Oct-2019 Request PT (PROTHROMBIN TIME) ([id number])Indication: Current use of intermediate frame tender anticoagulation On: 24-Aug-2019 Request PT (PROTHROMBIN TIME) ([id number])Indication: Current use of fdc anticoagulation On: 25-Jul-2019 Request PT (PROTHROMBIN TIME) ([id number])Indication: Current use of fdc anticoagulation On: 25-Jun-2019 Request PT (PROTHROMBIN TIME) ([id number])Indication: Current use of fdc anticoagulation On: 26-May-2019 Request PT (PROTHROMBIN TIME) ([id number])Indication: Current use of fdc anticoagulation On: 26-Apr-2019 Request PT (PROTHROMBIN TIME) ([id number])Indication: Current use of fdc anticoagulation On: 27-Mar-2019 Request PT (PROTHROMBIN TIME) ([id number])Indication: Current use of fdc anticoagulation On: 25-Feb-2019 Request PT (PROTHROMBIN TIME) ([id number])Indication: Current use of intermediate frame tender anticoagulation On: 26-Jan-2019 Request PT (PROTHROMBIN TIME) ([id number])Indication: Acute venous embolism and thrombosis of deep vessels of distal lower extremity, right On: 04-Jan-2019 Request Comments: STANDING ORDER PT (PROTHROMBIN TIME) ([id number])Indication: Current use of fdc anticoagulation On: 27-Dec-2018 Request PT (PROTHROMBIN TIME) ([id number])Indication: Acute venous embolism and thrombosis of deep vessels of distal lower extremity, right On: 05-Dec-2018 Request Comments: STANDING ORDER PT (PROTHROMBIN TIME) ([id number])Indication: Current use of intermediate frame tender anticoagulation On: 27-Nov-2018 Request PT (PROTHROMBIN TIME) ([id number])Indication: Acute venous embolism and thrombosis of deep vessels of distal lower extremity, right On: 05-Nov-2018 Request Comments: STANDING ORDER PT (PROTHROMBIN TIME) ([id number])Indication: Current use of fdc anticoagulation On: 28-Oct-2018 Request PT (PROTHROMBIN TIME) ([id number])Indication: Acute venous embolism and thrombosis of deep vessels of distal lower extremity, right On: 06-Oct-2018 Request Comments: STANDING ORDER PT (PROTHROMBIN TIME) ([id number])Indication: Current use of intermediate frame tender anticoagulation On: 28-Sep-2018 Request PT (PROTHROMBIN TIME) ([id number])Indication: Acute venous embolism and thrombosis of deep vessels of distal lower extremity, right On: 06-Sep-2018 Request Comments: STANDING ORDER PT (PROTHROMBIN TIME) ([id number])Indication: Current use of intermediate frame tender anticoagulation On: 29-Aug-2018 Request PT (PROTHROMBIN TIME) ([id number])Indication: Acute venous embolism and thrombosis of deep vessels of distal lower extremity, right On: 07-Aug-2018 Request Comments: STANDING ORDER PT (PROTHROMBIN TIME) ([id number])Indication: Current use of fdc anticoagulation On: 30-Jul-2018 Request PT (PROTHROMBIN TIME) ([id number])Indication: Acute venous embolism and thrombosis of deep vessels of distal lower extremity, right On: 08-Jul-2018 Request Comments: STANDING ORDER PT (PROTHROMBIN TIME) ([id number])Indication: Current use of fdc anticoagulation On: 30-Jun-2018 Request PT (PROTHROMBIN TIME) ([id number])Indication: Acute venous embolism and thrombosis of deep vessels of distal lower extremity, right On: 08-Jun-2018 Request Comments: STANDING ORDER PT (PROTHROMBIN TIME) ([id number])Indication: Current use of intermediate frame tender anticoagulation On: 31-May-2018 Request Lipid Panel ([id number])Indication: Hypercholesteremia On: 97-Jpn-969890:05 Request Metabolic Panel, Comprehensive ([id number])Indication: Hypercholesteremia On: 80-Yfr-312833:04 Request PT (PROTHROMBIN TIME) ([id number])Indication: Current use of fdc anticoagulation On: 02-Mar-2018 Request LIPID PANEL ([id number])Indication: SCREENING FOR HYPERLIPIDEMIA (Renamed from Encounter for screening for lipoid disorders) On: 04-Phf-597888:48 Request CALCIFEDIOL ([id number])Indication: Leg cramps On: 78-Xhn-408396:41 Request PT (PROTHROMBIN TIME) ([id number])Indication: Current use of fdc anticoagulation On: 06-Jan-2017 Request PT (PROTHROMBIN TIME) ([id number])Indication: Current use of intermediate frame tender anticoagulation On: 11-Apr-2016 Request PT (PROTHROMBIN TIME) ([id number])Indication: Current use of intermediate frame tender anticoagulation On: 11-Feb-2016 Request PT (Prothrobim Time) ([id number])Indication: Current use of intermediate frame tender anticoagulation On: 20-Jul-2015 Request PT (Prothrobim Time) ([id number])Indication: Current use of intermediate frame tender anticoagulation On: 13-Jul-2015 Request PT (Prothrobim Time) ([id number])Indication: Current use of intermediate frame tender anticoagulation On: 06-Jul-2015 Request PT (Prothrobim Time) ([id number])Indication: Current use of fdc anticoagulation On: 29-Jun-2015 Request PT (Prothrobim Time) ([id number])Indication: Current use of fdc anticoagulation On: 22-Jun-2015 Request PT (Prothrobim Time) ([id number])Indication: Current use of fdc anticoagulation On: 15-Jun-2015 Request PT (Prothrobim Time) ([id number])Indication: Current use of intermediate frame tender anticoagulation On: 08-Jun-2015 Request PT (Prothrobim Time) ([id number])Indication: Current use of intermediate frame tender anticoagulation On: 01-Jun-2015 Request PT (Prothrobim Time) ([id number])Indication: Current use of intermediate frame tender anticoagulation On: 25-May-2015 Request PT (Prothrobim Time) ([id number])Indication: Current use of fdc anticoagulation On: 18-May-2015 Request PT (Prothrobim Time) ([id number])Indication: Current use of intermediate frame tender anticoagulation On: 11-May-2015 Request PT (Prothrobim Time) ([id number])Indication: Current use of intermediate frame tender anticoagulation On: 04-May-2015 Request PT (Prothrobim Time) ([id number])Indication: Current use of fdc anticoagulation On: 27-Apr-2015 Request PT (Prothrobim Time) ([id number])Indication: Current use of fdc anticoagulation On: 20-Apr-2015 Request PT (PROTHROMBIN TIME) ([id number])Indication: Current use of intermediate frame tender anticoagulation On: 17-Apr-2015 Request PT (Prothrobim Time) ([id number])Indication: Current use of intermediate frame tender anticoagulation On: 13-Apr-2015 Request PT (Prothrobim Time) ([id number])Indication: Current use of intermediate frame tender anticoagulation On: 06-Apr-2015 Request PT (Prothrobim Time) ([id number])Indication: Current use of fdc anticoagulation On: 30-Mar-2015 Request PT (Prothrobim Time) ([id number])Indication: Current use of fdc anticoagulation On: 23-Mar-2015 Request PT (Prothrobim Time) ([id number])Indication: Current use of intermediate frame tender anticoagulation On: 16-Mar-2015 Request PT (Prothrobim Time) ([id number])Indication: Current use of intermediate frame tender anticoagulation On: 09-Mar-2015 Request PT (Prothrobim Time) ([id number])Indication: Current use of fdc anticoagulation On: 02-Mar-2015 Request PT (Prothrobim Time) ([id number])Indication: Current use of fdc anticoagulation On: 23-Feb-2015 Request PT (Prothrobim Time) ([id number])Indication: Current use of fdc anticoagulation On: 16-Feb-2015 Request PT (Prothrobim Time) ([id number])Indication: Current use of intermediate frame tender anticoagulation On: 09-Feb-2015 Request PT (Prothrobim Time) ([id number])Indication: Current use of intermediate frame tender anticoagulation On: 02-Feb-2015 Request PT (Prothrobim Time) ([id number])Indication: Current use of intermediate frame tender anticoagulation On: 26-Jan-2015 Request PT (Prothrobim Time) ([id number])Indication: Current use of intermediate frame tender anticoagulation On: 19-Jan-2015 Request PT (Prothrobim Time) ([id number])Indication: Current use of fdc anticoagulation On: 12-Jan-2015 Request PT (Prothrobim Time) ([id number])Indication: Current use of intermediate frame tender anticoagulation On: 05-Jan-2015 Request PT (Prothrobim Time) ([id number])Indication: Current use of intermediate frame tender anticoagulation On: 29-Dec-2014 Request PT (Prothrobim Time) ([id number])Indication: Current use of intermediate frame tender anticoagulation On: 22-Dec-2014 Request PT (Prothrobim Time) ([id number])Indication: Current use of intermediate frame tender anticoagulation On: 15-Dec-2014 Request PT (Prothrobim Time) ([id number])Indication: Current use of intermediate frame tender anticoagulation On: 08-Dec-2014 Request PT (Prothrobim Time) ([id number])Indication: Current use of fdc anticoagulation On: 01-Dec-2014 Request PT (Prothrobim Time) ([id number])Indication: Current use of fdc anticoagulation On: 24-Nov-2014 Request PT (Prothrobim Time) ([id number])Indication: Current use of fdc anticoagulation On: 17-Nov-2014 Request PT (Prothrobim Time) ([id number])Indication: Current use of fdc anticoagulation On: 10-Nov-2014 Request PT (Prothrobim Time) ([id number])Indication: Current use of fdc anticoagulation On: 03-Nov-2014 Request PT (Prothrobim Time) ([id number])Indication: Current use of intermediate frame tender anticoagulation On: 27-Oct-2014 Request PT (Prothrobim Time) ([id number])Indication: Current use of intermediate frame tender anticoagulation On: 20-Oct-2014 Request PT (Prothrobim Time) ([id number])Indication: Current use of intermediate frame tender anticoagulation On: 13-Oct-2014 Request PT (Prothrobim Time) ([id number])Indication: Current use of fdc anticoagulation On: 06-Oct-2014 Request PT (Prothrobim Time) ([id number])Indication: Current use of intermediate frame tender anticoagulation On: 29-Sep-2014 Request PT (Prothrobim Time) ([id number])Indication: Current use of fdc anticoagulation On: 22-Sep-2014 Request PT (Prothrobim Time) ([id number])Indication: Current use of intermediate frame tender anticoagulation On: 15-Sep-2014 Request PT (Prothrobim Time) ([id number])Indication: Current use of fdc anticoagulation On: 08-Sep-2014 Request PT (Prothrobim Time) ([id number])Indication: Current use of intermediate frame tender anticoagulation On: 01-Sep-2014 Request PT (Prothrobim Time) ([id number])Indication: Current use of intermediate frame tender anticoagulation On: 25-Aug-2014 Request PT (PROTHROMBIN TIME) ([id number])Indication: Current use of fdc anticoagulation On: 20-Aug-2014 Request PT (Prothrobim Time) ([id number])Indication: Current use of intermediate frame tender anticoagulation On: 18-Aug-2014 Request PT (Prothrobim Time) ([id number])Indication: Current use of intermediate frame tender anticoagulation On: 11-Aug-2014 Request PT (Prothrobim Time) ([id number])Indication: Current use of intermediate frame tender anticoagulation On: 04-Aug-2014 Request PT (Prothrobim Time) ([id number])Indication: Current use of fdc anticoagulation On: 28-Jul-2014 Request PT (Prothrobim Time) ([id number])Indication: Current use of fdc anticoagulation On: 21-Jul-2014 Request PT (PROTHROMBIN TIME) ([id number])Indication: Current use of intermediate frame tender anticoagulation On: 21-Jul-2014 Request PT (Prothrobim Time) ([id number])Indication: Current use of intermediate frame tender anticoagulation On: 07-Jul-2014 Request PT (Prothrobim Time) ([id number])Indication: Current use of intermediate frame tender anticoagulation On: 30-Jun-2014 Request PT (Prothrobim Time) ([id number])Indication: Current use of fdc anticoagulation On: 23-Jun-2014 Request PT (Prothrobim Time) ([id number])Indication: Current use of intermediate frame tender anticoagulation On: 16-Jun-2014 Request PT (Prothrobim Time) ([id number])Indication: Current use of intermediate frame tender anticoagulation On: 09-Jun-2014 Request PT (Prothrobim Time) ([id number])Indication: Current use of fdc anticoagulation On: 02-Jun-2014 Request PT (Prothrobim Time) ([id number])Indication: Current use of intermediate frame tender anticoagulation On: 26-May-2014 Request PT (Prothrobim Time) ([id number])Indication: Current use of intermediate frame tender anticoagulation On: 19-May-2014 Request PT (Prothrobim Time) ([id number])Indication: Current use of fdc anticoagulation On: 12-May-2014 Request PT (Prothrobim Time) ([id number])Indication: Current use of intermediate frame tender anticoagulation On: 05-May-2014 Request PT (Prothrobim Time) ([id number])Indication: Current use of intermediate frame tender anticoagulation On: 28-Apr-2014 Request PT (Prothrobim Time) ([id number])Indication: Current use of intermediate frame tender anticoagulation On: 21-Apr-2014 Request PT (Prothrobim Time) ([id number])Indication: Current use of fdc anticoagulation On: 14-Apr-2014 Request PT (Prothrobim Time) ([id number])Indication: Current use of intermediate frame tender anticoagulation On: 07-Apr-2014 Request PT (Prothrobim Time) ([id number])Indication: Current use of fdc anticoagulation On: 31-Mar-2014 Request PT (Prothrobim Time) ([id number])Indication: Current use of fdc anticoagulation On: 24-Mar-2014 Request PT (Prothrobim Time) ([id number])Indication: Current use of intermediate frame tender anticoagulation On: 17-Mar-2014 Request PT (Prothrobim Time) ([id number])Indication: Current use of fdc anticoagulation On: 10-Mar-2014 Request PT (Prothrobim Time) ([id number])Indication: Current use of fdc anticoagulation On: 03-Mar-2014 Request PT (Prothrobim Time) ([id number])Indication: Current use of intermediate frame tender anticoagulation On: 24-Feb-2014 Request PT (Prothrobim Time) ([id number])Indication: Current use of intermediate frame tender anticoagulation On: 17-Feb-2014 Request PT (Prothrobim Time) ([id number])Indication: Current use of intermediate frame tender anticoagulation On: 10-Feb-2014 Request PT (Prothrobim Time) ([id number])Indication: Current use of intermediate frame tender anticoagulation On: 03-Feb-2014 Request PT (Prothrobim Time) ([id number])Indication: Current use of fdc anticoagulation On: 20-Jan-2014 Request PT (Prothrobim Time) ([id number])Indication: Current use of intermediate frame tender anticoagulation On: 13-Jan-2014 Request PT (Prothrobim Time) ([id number])Indication: Current use of intermediate frame tender anticoagulation On: 06-Jan-2014 Request PT (Prothrobim Time) ([id number])Indication: Current use of fdc anticoagulation On: 30-Dec-2013 Request PT (Prothrobim Time) ([id number])Indication: Current use of fdc anticoagulation On: 23-Dec-2013 Request PT (Prothrobim Time) ([id number])Indication: Current use of fdc anticoagulation On: 16-Dec-2013 Request PT (Prothrobim Time) ([id number])Indication: Current use of fdc anticoagulation On: 09-Dec-2013 Request PT (Prothrobim Time) ([id number])Indication: Current use of fdc anticoagulation On: 02-Dec-2013 Request PT (Prothrobim Time) ([id number])Indication: Current use of intermediate frame tender anticoagulation On: 25-Nov-2013 Request PT (Prothrobim Time) ([id number])Indication: Current use of intermediate frame tender anticoagulation On: 18-Nov-2013 Request PT (Prothrobim Time) ([id number])Indication: Current use of fdc anticoagulation On: 11-Nov-2013 Request PT (Prothrobim Time) ([id number])Indication: Current use of fdc anticoagulation On: 04-Nov-2013 Request PT (Prothrobim Time) ([id number])Indication: Current use of intermediate frame tender anticoagulation On: 28-Oct-2013 Request PT (Prothrobim Time) ([id number])Indication: Current use of intermediate frame tender anticoagulation On: 14-Oct-2013 Request PT (Prothrobim Time) ([id number])Indication: Current use of fdc anticoagulation On: 07-Oct-2013 Request PT (Prothrobim Time) ([id number])Indication: Current use of intermediate frame tender anticoagulation On: 30-Sep-2013 Request PT (Prothrobim Time) ([id number])Indication: Current use of fdc anticoagulation On: 23-Sep-2013 Request PT (Prothrobim Time) ([id number])Indication: Current use of fdc anticoagulation On: 16-Sep-2013 Request PT (Prothrobim Time) ([id number])Indication: Current use of intermediate frame tender anticoagulation On: 40-Aju-244674:16 Request Comments: needs one today then q month or prn Planned Procedures CT ABDOMEN AND PELVIS WITHOUT On: 06-Apr-2018 Intent CONTRAST ([id number])By: Tammie Fink CNP, CNP, Mary E Flu Vaccine (Quadrivalent) On: 06-Apr-2018 Intent 87047Tv: Tammie Fink CNP Comments: Lot #[id number]-L dltd, IMDose prefilled syringegiven by: JUANIS RussellVIS reviewed and ABN signed Tammie LAN Ultrasound - RenalBy: Danae LAN, On: 23-Mar-2015 Intent Tammie Hernandez CNP Aerosol Treatment ([id number])By: Olmanrb On: 23-Mar-2015 Intent Davida OLIVAREZ VAC, SPLIT, >3 YEARS, On: 14-Feb-2014 Intent INTRAMUSC ([id number])By: Danae LAN, Comments: lot # [id number] 10/28/14site- LDLTroute-IMdose- 0.5mlVIS and ABN signedCTyler 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 Tammie Hernandez CNP IMMUNIZ ADMNIN, 1 VAC, SNGL/COMBO On: 14-Feb-2014 Intent ([id number])By: Tammie Fink CNP, CNP, Mary E Instructions Name Dates Details Nonsmoker : Patient Instructions Indication: Nonsmoker Nonsmoker : How to access health information online Indication: Nonsmoker Nonsmoker : How to access health information online - Detail Indication: Nonsmoker Nonsmoker : Patient Instructions Indication: Nonsmoker Nonsmoker : How to access health information online Indication: Nonsmoker Nonsmoker : How to access health information online - Detail Indication: Nonsmoker BMI 25.0-25.9,adult : Patient Instructions Indication: BMI 25.0-25.9,adult Current use of intermediate frame tender anticoagulation : How to access health information online Indication: Current use of intermediate frame tender anticoagulation Current use of fdc anticoagulation : How to access health information online - Detail Indication: Current use of intermediate frame tender anticoagulation Current use of intermediate frame tender anticoagulation : Patient Instructions Indication: Current use of fdc anticoagulation Cough : Patient Instructions Indication: Cough Screening for prostate cancer : Patient Instructions Indication: Screening for prostate cancer Encounters Office Visit On: 13-Apr-2018 13:51 Encounter Reason: Follow up tests - Diagnostic tests include other (labs). Note for Discuss procedure results: Here for review of labs particularly lipidEncounter Diagnosis: BMI 25.0-25.9,adult, Nonsmoker, Hypercholesteremia, End: 13-Apr-2018 14:08 Current use of fdc anticoagulation [facility] Office Visit On: 06-Apr-2018 14:04 Encounter Reason: Follow up for chronic medical issues - The patient feels well with minor complaints, has good energy level and is sleeping well. Patient has been compliant with instructions. Current medication use: no End: 06-Apr-2018 14:57 side effects, compliant with dosing regimen and considered effective by patient. Patient sleeps 8 (broken) hours per night. Nutrition: balanced diet. The medical issues the patient is following up for i nclude All identified problems below, gastric reflux and other (DVT). Note for Follow up for chronic medical issues: Is on coumadin and needs refill., [ADDITIONAL REASON] Hernia, Inguinal - Symptoms include inguinal bulge. Onset was year(s) ago. Note for Inguinal hernia: Has bilateral inguinal hernia with repair in past Encounter Diagnosis: Nonsmoker, BMI 25.0-25.9,adult, Need for prophylactic vaccination and inoculation against influenza (Renamed from Need for immunization against influenza), Acute venous embolism and thrombosis of deep vessels of distal lower extremity, right, Current use of fdc anticoagulation, Bilateral recurrent inguinal hernias, Screening for prostate cancer, SCREENING FOR HYPERLIPIDEMIA (Renamed from Encounter for screening for lipoid disorders) [facility] Annotation/Addendum On: 03-Apr-2018 9:26 [facility] End: 03-Apr-2018 9:28 Annotation/Addendum On: 05-Mar-2018 11:18 [facility] [...] UTI symptoms, Cough, Nocturia, Current use of fdc anticoagulation, Pharyngitis, Flank pain [facility] [...] DVT (deep venous thrombosis), Current use of fdc anticoagulation, SCREENING FOR CANCER OF THE PROSTATE [...] DVT (deep venous thrombosis), Current use of fdc anticoagulation, Reflux [facility] Payers MedicareAARP/ADVENTHEALTHMaricel [place]; isaac guarantor
--- OUTSIDE RECORDS SUMMARY | 2018-07-19 23:45 | XMS RPT_ITS | Clinical Summary ---
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, ADDRESSING MACHINE OPERATOR s lymphoma, stage 1 large cell (clinical) Problem excluded from report: 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 Posten COUMADIN 2.5 One tablet by WARFARIN SODIUM [id number] Mccormick M MG TABS mouth daily. 3 Alam PREVACID 15 MG One tablet by LANSOPRAZOLE [id number] Pat A CPDR mouth daily. Posten COUMADIN 2.5 One tablet by WARFARIN SODIUM [id number] Florecita R MG TABS mouth daily or Patrizia as directed ADDRESSING MACHINE OPERATOR Medications Administered No information available. Allergies, Adverse Reactions, Alerts Observed no known allergies at Results Date Name Value Unit Range Flag Description Lab Report: CBC W/Diff, Auto - EPLAB Only ABS PMNS 3.1 X10 3/UL {Cells}/uL 2.0-7.7 Absolute Neutrophil count Lab Report: LDH LDH, TOTAL 171 U/L 84-246 lactate dehydrogenase, serum Lab Report: Protein S Defic. Profile PROT S FUNC 19 % 60-145 L Protein S, Functional ZZ-GE-[id number] 34 % 56-124 L GE use only - for [employer] import when terms are not otherwise specified Lab Report: Protein C Defic. Profile PROTEIN C AG 55 % 70-140 L protein C antigen, plasma Lab Report: Factor II, DNA Analysis FACT II MUTN Comment . prothrombin [id number] mutation, DNA testing by PCR, whole blood Lab Report: Fact V Leiden Mutation COAG COMMENT Comment . coagulation comments FAC V LEIDEN Comment . H factor V Leiden, DNA testing by PCR, whole blood Lab Report: Magnesium MAGNESIUM 2.3 mg/dL 1.8-2.4 magnesium, serum Office Visit: 4 month f/u (Factor V, Follicular Lymphoma) COLONOSCOPY Normal Colonoscopy (procedure) Lab Report: [id number], S B2MI 1.2 mg/L 0.6-2.4 beta-2 microglobulin Lab Report: CBC W/Diff, Auto - EPLAB Only LYMPHCT AUTO 0.93 X10 3/UL 10*3/mm3 0.83-4.51 lymphocyte count, blood, automated ANC 3.8 X10 3/UL 10*3/mm3 2.0-7.7 neutrophil count, blood BASOPHIL % 0.8 % 0-1 basophils as percent of blood leukocytes EOSINOPHIL % 2.0 % 0-5 eosinophils as percent of blood leukocytes MONOCYTE % 10.3 % 0-10 H monocytes as percent of blood leukocytes LYMPHS % 17.1 % 19-41 L lymphocytes as percent of blood leukocytes PMN % 69.9 % 47-70 neutrophils as percent of blood leukocytes MPV 6.3 fL 6.2-12.0 mean platelet volume PLATELETS 261 10*3/mm3 150-450 platelet count RDW 11.4 % 11.6-14.6 L red blood cell distribution width MCHC RBC 33.0 g/dL 32-36 mean corpuscular hemoglobin concentration, RBC MCH 31.1 pg 27.0-32.0 mean corpuscular hemoglobin, RBC MCV 94.2 fL 80-94 H mean corpuscular volume, RBC HCT 43.9 % 40-54 hematocrit, blood HGB 14.5 g/dL 13.0-16.5 hemoglobin, blood RBC M/UL 4.66 10*6/uL 4.6-6.2 red blood count WBC BLOOD 5.4 10*9/L 4.4-11.0 leukocyte (white blood cells) count, blood Office Visit: 4 month f/u (Factor V/Follicular Lymphoma) PHQ9 COMPLETED PHQ-9 SCORE 0 Adult depression screening assessment PHQ2 SCORE 0 Adult depression screening assessment MEDS REVIEW Done Documentation of current medications (procedure) SMOK STATUS Never smoker Tobacco use [facility] Lab Report: Comprehensive Metabolic Profil ANION GAP 5 5-15 anion gap, serum CO2 27.0 mmol/L 21.0-32.0 carbon dioxide, venous blood CHLORIDE 109 mmol/L 98-107 H chloride, serum POTASSIUM 4.5 mmol/L 3.5-5.1 potassium, serum SODIUM 141 mmol/L 136-145 sodium, serum BILI TOTAL 0.20 mg/dL 0.20-1.00 bilirubin, serum, total SGPT (ALT) 56 U/L 12-78 alanine aminotransferase (SGPT), serum ALK PHOS 60 U/L 45-117 alkaline phosphatase, serum SGOT (AST) 32 U/L 15-37 aspartate aminotransferase (SGOT), serum CALCIUM 8.8 mg/dL 8.5-10.1 calcium, serum A/G RATIO 0.9 RATIO 0.9-2.4 albumin/globulin ratio, serum GLOBULIN TOT 3.7 g/dL 2.3-3.5 H globulins, serum, total ALBUMIN 3.4 g/dL 3.4-5.0 albumin, serum PROTEIN, TOT 7.1 g/dL 6.4-8.2 protein, total, serum BUN/CREAT 17.1 RATIO 10-20 urea nitrogen/creatinine ratio, serum GFRAA 105 mL/min >60 Glomerular Filtration rate GFR EST 86 mL/min >60 estimated glomerular filtration rate CREATININE 0.94 mg/dL 0.70-1.30 creatinine, serum BUN 16 mg/dL 7-18 urea nitrogen, blood GLUCOSE SER 86 mg/dL 70-110 blood glucose Lab Report: Uric Acid URIC ACID 4.4 mg/dL 3.5-7.2 uric acid, serum Lab Report: LDH LDH SERUM 231 U/L 87-241 lactate dehydrogenase - serum Plan of Care Type Date Detail Pending order *CBC w/Diff - oncology ONLY Pending order *CMP Complete Metabolic Panel Pending order *LDH -LDH (Lactate Dehydrogenase) Pending order *CMP Complete Metabolic Panel Pending order *LDH -LDH (Lactate Dehydrogenase) Pending order *Uric Acid Blood Pending order *CBC w/Diff - oncology ONLY Pending order [id number] Ofc Vst, Est Level IV Pending order *CBC with Differential Pending order *CMP Complete Metabolic Panel Pending order *LDH -LDH (Lactate Dehydrogenase) Pending order *Uric Acid Blood Pending order *B2MIC - Beta-2 Microglobulin Pending order *CBC with Differential Pending order *CMP Complete Metabolic Panel Pending order *LDH -LDH (Lactate Dehydrogenase) Pending order *Uric Acid Blood Pending order *Magnesium Pending order *CBC with Differential Pending order *CMP Complete Metabolic Panel Pending order *LDH -LDH (Lactate Dehydrogenase) Pending order *Uric Acid Blood Pending order *CBC with Differential Pending order *CMP Complete Metabolic Panel Pending order *LDH -LDH (Lactate Dehydrogenase) Pending order *Uric Acid Blood Pending order *Magnesium Pending order *CBC with Differential Pending order *CMP Complete Metabolic Panel Pending order *LDH -LDH (Lactate Dehydrogenase) Pending order *Uric Acid Blood Pending order *CBC with Differential Pending order *CMP Complete Metabolic Panel Pending order *LDH -LDH (Lactate Dehydrogenase) Pending order *Uric Acid Blood Pending order *CBC with Differential Pending order *CMP Complete Metabolic Panel Pending order *LDH -LDH (Lactate Dehydrogenase) Pending order *Uric Acid Blood Procedures Code Procedure Name Date Entry Date 0184-1E *CBC w/Diff - oncology ONLY 2532-0 *LDH -LDH (Lactate Dehydrogenase) 3084-1 *Uric Acid Blood 0786-1 *CMP Complete Metabolic Panel 0786-1 *CMP Complete Metabolic Panel 3084-1 *Uric Acid Blood 2532-0 *LDH -LDH (Lactate Dehydrogenase) 1952-1 *B2MIC - Beta-2 Microglobulin 2532-0 *LDH -LDH (Lactate Dehydrogenase) 16070-9 *Magnesium 3084-1 *Uric Acid Blood 0786-1 *CMP Complete Metabolic Panel 43406-3 *Magnesium 0786-1 *CMP Complete Metabolic Panel 2532-0 *LDH -LDH (Lactate Dehydrogenase) 3084-1 *Uric Acid Blood 2532-0 *LDH -LDH (Lactate Dehydrogenase) 3084-1 *Uric Acid Blood 0786-1 *CMP Complete Metabolic Panel 2532-0 *LDH -LDH (Lactate Dehydrogenase) 3084-1 *Uric Acid Blood 0786-1 *CMP Complete Metabolic Panel 0184-1 *CBC with Differential 0786-1 *CMP Complete Metabolic Panel 2532-0 *LDH -LDH (Lactate Dehydrogenase) 3084-1 *Uric Acid Blood Vital Signs Date Name Value Unit Description BMI (Body Mass Index) 23.85 kg/m2 Body Mass Index [Ratio] Body Temperature 98.0 [degF] temperature E&M BP Diastolic 75 mm[Hg] blood pressure, diastolic - 8462-4 BP Systolic 112 mm[Hg] blood pressure, systolic - 8480-6 BSA (Body Surface Area) 1.97 body surface area Heart Rate 71 /min pulse rate E&M - 8867-4 Height 180.34 cm height in centimeters E&M Respiratory Rate 16 /min respiratory rate E&M - 9279-1 Weight Measured 171.0 [lb_av] weight E&M - 3141-9 Weight Measured 77.73 kg weight in kilograms E&M Body Temperature 36.56 Luz temperature in centigrade E&M Height 71 [in_us] height E&M - 8302-2
--- OUTSIDE RECORDS SUMMARY | 2018-07-19 23:46 | XMS RPT_ITS | Continuity of Care Document ---
:1950 Author Organization [facility] Address [facility] [address] [place] [address] Phone Care Team Providers Name Role Phone Kierstenlaury RIKYTammie E Unavailable Conchis RAMEY, Cesar Booth Unavailable Unavailable Dr. Vinny Taylor Unavailable Guerita RAMEY, Nickolas Kelly Unavailable Xiomara Gale Unavailable Unavailable Unavailable Unavailable [...] (R05, 786.2) Status: Active Current use of technician terminal and repeater anticoagulation (Z51.81, V58.61) Status: Active DVT (deep venous thrombosis) (I82.409, 453.40) Comments: bilater lower ext occured October of 2012 ? associated with lymphoma on coumadin Status: Active Flank pain (R10.9, 789.09) Status: Active Follicular lymphoma (C82.90, 202.00) Comments: in remission, seeing Oncologist Status: Active History of skin cancer (Z85.828, V10.83) Comments: left face/neck area, removed skin CA in [place] Status: Active Leg cramps (R25.2, 729.82) Status: Active Lesion of skin of face (L98.9, 709.9) Status: Active Lymphoma, follicular (C82.90, 202.00) Comments: needing local oncologistDiagnosed via biopsy in July [address] Arvin Reis at [place] had chemo and radiation Last one in [...] CNP, Mary E Start : 24-Sep-2013 Active Warfarin Sodium 4 MG Oral Tablet 1 (one) Tablet as directed for 0 days Quantity: 90 {Tablet} Refills: 3 Ordered:06-Apr-2018 Tammie Fink CNP, CNP, Mary E Start : 06-Apr-2018 Active Warfarin Sodium 5 MG Oral Tablet uad Tablet qd for 0 days Quantity: 90 {Tablet} Refills: 3 Ordered:09-Jun-2017 Danae LAN, Tammie Aguilar CNP, Tammie Rodriguez Start : 09-Jun-2017 Active Delsym 30 MG/5ML [...] Visit Report Result: Comments: See Note; NOTES: [facility] [address] [address] OFFICE VISIT Date of Service: 11/16/17 1102 MR#: [id number] Acct: [id number] Name: PATRIZIA CUBA Rep #: [id number] : 1950 From: Regis Fleming MD Age/Sex: 67/M Location: OMD Status: Signed Subjective - Date of Service Date of Service:: 11/16/17 - Chief Complaint F/u for NHL. - History of Present Illness 67y.o.man was diagnosed with NHL, Follicular type stage II in 2013, received R-CHOP x 3 cycles from 09/27/2012 [...] Chronic Code Visit Office Visits / Consults: [id number] OV L3 Est 11/16/17 1137 <Electronically signed by Regis Fleming MD&# 62; Date Regis Fleming MD Cosigner Signature: Date (if applicable) CC: 24-Mar-2015 Kidney and Bladder Result: Comments: See Note; NOTES: [facility] Imaging Services [address] [place] [address] Verdana 4d Kidney and Bladder MR#: [id number] Acct: [id number] Name: PATRIZIA CUBA Rep #: [id number] : 1950 64 From: Tarun Denis MD PCP: Tammie Fink Status: REG CLI Study: Kidney and Bladder Date of Exam: 03/24/15 Exam# [id number] Ordering Dr: Tammie Fink ST UDY: RENAL [...] MD at 22:21 EST , Service support [phone], CC: Tammie Fink Director Of Premium Seat Sales: Signed 18-Feb-2015 Abdomen/Pelvis WITH Contrast Result: Comments: See Note; NOTES: [facility] Imaging Services [address] [place] [address] Verdana 4d Abdomen/Pelvis WITH Contrast MR#: [id number] Acct: [id number] Name : PATRIZIA CUBA Rep #: [id number] : 1950 M 64 From: Nickolas Mitchell DO PCP: Tammie Fink Status: REG CLI Study: Abdomen/Pelvis WITH Contrast Date of Exam: 02/18/15 Exam# [id number] Ordering Dr : Skyler Brewer MD STUDY: [...] DO at 10:24 EDT , Service support [phone], CC: Tammie Fink; Skyler Brewer Director Of Premium Seat Sales: Signed 18-Feb-2015 Chest WITH Contrast Result: Comments: See Note; NOTES: [facility] Imaging Services [address] [place] [address] Gangadana 4d Chest WITH Contrast MR#: [id number] Acct: [id number] Name: PATRIZIA CUBA Rep #: [id number] : 1950 M 64 From: Nickolas Mitchell DO PCP: Tammie Fink Status: REG CLI Study: Chest WITH Contrast Date of Exam: 02/18/15 Exam# [id number] Ordering Dr: Skyler Brewer MD STUDY: CT [...] DO at 9:28 EDT , Service support [phone], CC: Tammie Fink; Skyler Brewer Director Of Premium Seat Sales: Signed 13-Feb-2015 Neck for Soft Tissue Result: Comments: See Note; NOTES: [facility] Imaging Services [address] [place] [address] Verdana 4d Neck for Soft Tissue MR#: [id number] Acct: [id number] Name: DARRELPATRIZIA Garcia Rep #: [id number] : 1950 M 64 From: Evens Salas MD PCP: Tammie Fink Status: REG CLI Study: Neck for Soft Tissue Date of Exam: 02/13/15 Exam# [id number] Ordering Dr: Skyler Brewer MD STUDY: X-RAY [...] at 10:20 EDT Tel , Service support [phone], RAD/Neck for S oft Tissue IMPRESSION: Normal x-ray soft tissue neck. Electronically Signed: Evens Salas MD at 10:20 EDT Tel , Service support [phone], CC: Tammie Fink; Skyler Brewer Director Of Premium Seat Sales: Signed 06-Jan-2014 PET/CT Tumor Base -Thigh Init Result: Comments: See Note; NOTES: [facility] Imaging Services [address] [place] [address] PET Scan Report MR#: [id number] Acct: [id number] Name: PATRIZIA CUBA Rep #: [id number] : 1950 M 63 From: Caleb Roberts DO PCP: Tammie Fink Status: REG CLI Study: PET/CT Tumor Base -Thigh Init Date of Exam: 01/06/14 Exam# [id number] Ordering Dr: Skyler Brewer MD INDICAT IONS: [...] Caleb Roberts DO at 15:00 EDT Tel [phone], [employer] e support [phone], CC: Tammie Fink; RADHA; EUGENIO; Skyler Brewer Director Of Premium Seat Sales: Signed 16-Dec-2013 Abdomen/Pelvis WITH Contrast Result: Comments: See Note; NOTES: [facility] Imaging Services [address] [place] [address] CAT Scan Report MR#: [id number] Acct: [id number] Name: PATRIZIA CUBA Rep #: [id number] : 1950 M 63 From: Jesus Webb MD PCP: Tammie Fink Status: REG CLI Study: Abdomen/Pelvis WITH Contrast Date of Exam: 12/16/13 Exam# [id number] Ordering Dr: Skyler Brewer MD ALFREDO DY: [...] Jesus Webb MD at 8:49 EDT Tel [phone], Service support [phone], CC: Tammie Schwartz sa; Skyler Brewer Director Of Premium Seat Sales: Signed 16-Dec-2013 Chest WITH Contrast Result: Comments: See Note; NOTES: [facility] Imaging Services [address] [place] [address] CAT Scan Report MR#: [id number] Acct: [id number] Name: PATRIZIA CUBA Rep #: [id number] : 1950 M 63 From: Jesus Webb MD PCP: Tammie Fink Status: REG CLI Study: Chest WITH Contrast Date of Exam: 12/16/13 Exam# [id number] Ordering Dr: Skyler Brewer MD STUDY: CT [...] Jesus Webb MD at 8:52 EDT Tel [phone], Service support [phone], CC: Tammie Fink; Skyler Brewer Director Of Premium Seat Sales: Signed 16-Dec-2013 Soft Tissue Neck WITH Contrast Result: Comments: See Note; NOTES: [facility] Imaging Services [address] [place] [address] CAT Scan Report MR#: [id number] Acct: [id number] Name: PATRIZIA CUBA Rep #: [id number] : 1950 M 63 From: Jesus Webb MD PCP: Tammie Fink Status: REG CLI Study: Soft Tissue Neck WITH Contrast Date of Exam: 12/16/13 Exam# [id number] Ordering Dr: Skyler Brewer MD: CT SOFT TISSUE NECK WITH CONTRAST REASON [...] FINDINGS: Normal bilateral parotid glands. Normal bilateral disaster recovery specialist spaces. Normal bilateral parapharyngeal spaces. Normal bilateral [...] Jesus Webb MD at 9:27 EDT Tel [phone], Service suppo rt [phone], CC: Tammie Fink; Skyler Brewer Director Of Premium Seat Sales: Signed Family History Unknown Family Member Name Dates Details Brother 1 Comments: DVT Status: Active Father Comments: DVT Status: Active Social History Name Dates Details Caffeine Use Comments: coffee all day Status: Active Exercise History Comments: walking at work Status: Active Most Recent Primary Occupation Comments: [address] working Status: Active No Drug Use Status: Active Non Drinker/No Alcohol Use Status: Active Non Smoker/No Tobacco Use Status: Active Vital Signs Date Test Result Details [id number]-Knn-[id number]:05 Temperature 97.7 f Comments: Method: Temporal Pulse [...] kg/m2 Body Surface Area Calculated 2.06 m2 :04 Temperature 97.8 f Pulse 76 /min Comments: [...] 1.98 m2 Results Date Description Value Details :38 PT (PROTHROMBIN TIME) (87227) Comments: PATIENT NOT FASTINGPERFORMED BY: [employer]6370 [facility] [id number] Prothrombin Time 24.0 {sec} (Abnormal) Range: 9.1-12.0 INR 2.5 (Abnormal) Range: 0.8-1.2 Comments: Reference interval is for non-anticoagulated patients. . Suggested INR therapeutic range for Vitamin K anta gonist therapy: Standard Dose (moderate intensity therapeutic range): 2.0 - 3.0 Higher intensity therapeutic range 2.5 - 3.5 :02 PT (PROTHROMBIN TIME) (29452) Comments: STANDING ORDER; PATIENT NOT FASTINGPERFORMED BY: [employer] Uldvpd6216 [facility] [id number] Prothrombin Time 37.7 {sec} (Abnormal) Range: 9.1-12.0 INR 3.8 (Abnormal) Range: 0.8-1.2 Comments: Client Requested Flag Reference interval is for non- anticoagulated patients. . Suggested INR therapeutic ra nge for Vitamin K antagonist therapy: Standard Dose (moderate intensity therapeutic range): 2.0 - 3.0 Higher intensity therapeutic range 2.5 - 3.5 :27 PT (PROTHROMBIN TIME) (89002) Comments: STANDING ORDER; PATIENT NOT FASTINGPERFORMED BY: [facility] Glpxjw0696 [facility] [id number] Prothrombin Time 36.8 {sec} (Abnormal) Range: 9.1-12.0 INR 3.7 (Abnormal) Range: 0.8-1.2 Comments: Client Requested Flag Reference interval is for non- anticoagulated patients. . Suggested INR therapeutic ra nge for Vitamin K antagonist therapy: Standard Dose (moderate intensity therapeutic range): 2.0 - 3.0 Higher intensity therapeutic range 2.5 - 3.5 :52 PT (PROTHROMBIN TIME) (49735) Comments: PATIENT NOT FASTINGPERFORMED BY: [facility]6370 [facility] [id number] Prothrombin Time 16.3 {sec} (Abnormal) Range: 9.1-12.0 INR 1.6 (Abnormal) Range: 0.8-1.2 Comments: Reference interval is for non-anticoagulated patients. . Suggested INR therapeutic range for Vitamin K anta gonist therapy: Standard Dose (moderate intensity therapeutic range): 2.0 - 3.0 Higher intensity therapeutic range 2.5 - 3.5 :28 PT (PROTHROMBIN TIME) (75568) Comments: STANDING ORDER; PATIENT NOT FASTINGPERFORMED BY: [facility]6370 [facility] [id number] Prothrombin Time 29.7 {sec} (Abnormal) Range: 9.1-12.0 INR 3.0 (Abnormal) Range: 0.8-1.2 Comments: Reference interval is for non-anticoagulated patients. . Suggested INR therapeutic range for Vitamin K anta gonist therapy: Standard Dose (moderate intensity therapeutic range): 2.0 - 3.0 Higher intensity therapeutic range 2.5 - 3.5 :11 PT (PROTHROMBIN TIME) (65970) Comments: PATIENT NOT FASTINGPERFORMED BY: [facility]6370 [facility] [id number] Prothrombin Time 20.6 {sec} (Abnormal) Range: 9.1-12.0 INR 2.1 (Abnormal) Range: 0.8-1.2 Comments: Reference interval is for non-anticoagulated patients. . Suggested INR therapeutic range for Vitamin K anta gonist therapy: Standard Dose (moderate intensity therapeutic range): 2.0 - 3.0 Higher intensity therapeutic range 2.5 - 3.5 :27 PT (PROTHROMBIN TIME) (63884) Comments: PATIENT NOT FASTINGPERFORMED BY: [facility] Ynjgad0492 [facility] [id number] Prothrombin Time 23.9 {sec} (Abnormal) Range: 9.1-12.0 INR 2.5 (Abnormal) Range: 0.8-1.2 Comments: Reference interval is for non-anticoagulated patients. . Suggested INR therapeutic range for Vitamin K anta gonist therapy: Standard Dose (moderate intensity therapeutic range): 2.0 - 3.0 Higher intensity therapeutic range 2.5 - 3.5 48-Iro-613829:31 CBC W/Diff, Automated Comments: [facility] [address] [place], [place], [address] Absolute Lymph 1.01 {X10_3/ul} (Normal) Range: 0.83-4.51 [...] 4.6-6.2 WBC 4.3 K/mm3 (Abnormal) Range: 4.4-11.0 76-Rwy-564520:30 Comprehensive Metabolic Profil Comments: Reason for Laboratory Test H/O [facility] Z85.72Serial Specimen #1, #2 or #3? 1[facility] [address] [place], [place], [address] GAP 5 (Normal) Range: 5-15 CO2 27.0 [...] Comments: Please note revised GLUCOSE reference range umnmtmdoh16/02/2018. 92-Jco-959298:30 LDH 190 U/L (Normal) Comments: Reason for Laboratory Test H/O NHL Z85.72Serial Specimen #1, #2 or #3? 1[facility] [address] [place], [address] Range: 87-241 08-Jun-20179:29 PT (PROTHROMBIN TIME) (33140) Comments: PATIENT NOT FASTINGPERFORMED BY: [employer] [id number] Prothrombin Time 22.4 {sec} (Abnormal) Range: 9.1-12.0 INR 2.3 (Abnormal) Range: 0.8-1.2 Comments: Reference interval is for non-anticoagulated patients. . Suggested INR therapeutic range for Vitamin K anta gonist therapy: Standard Dose (moderate intensity therapeutic range): 2.0 - 3.0 Higher intensity therapeutic range 2.5 - 3.5 :20 PT (PROTHROMBIN TIME) (92112) Comments: PATIENT NOT FASTINGPERFORMED BY: LikeLike.comAstra Health CenterLemaih9960 [facility] [id number] Prothrombin Time 17.1 {sec} (Abnormal) Range: 9.1-12.0 INR 1.7 (Abnormal) Range: 0.8-1.2 Comments: Reference interval is for non-anticoagulated patients. . Suggested INR therapeutic range for Vitamin K anta gonist therapy: Standard Dose (moderate intensity therapeutic range): 2.0 - 3.0 Higher intensity therapeutic range 2.5 - 3.5 00-Zoi-710630:39 PT (PROTHROMBIN TIME) (62266) Comments: PATIENT NOT FASTINGPERFORMED BY: [place] 8554270 [facility] [id number] Prothrombin Time 23.4 {sec} (Abnormal) Range: 9.1-12.0 INR 2.4 (Abnormal) Range: 0.8-1.2 Comments: Reference interval is for non-anticoagulated patients. . Suggested INR therapeutic range for Vitamin K anta gonist therapy: Standard Dose (moderate intensity therapeutic range): 2.0 - 3.0 Higher intensity therapeutic range 2.5 - 3.5 71-Mmh-492829:10 TSH (THYROID STIMULATING Comments: PATIENT WAS FASTINGPERFORMED BY: [employer]6370 [facility] [id number] HORMONE) (60607) TSH 2.310 {uIU/mL} (Normal) Range: 0.450-4.500 58-Hpx-383082:10 PSA (PROSTATE SPECIFIC Comments: PATIENT WAS FASTINGPERFORMED BY: [facility]6370 [facility] [id number] ANTIGEN) (V76.44) Prostate Specific Ag, 0.7 ng/mL (Normal) Range: 0.0-4.0 Serum Comments: DNage ECLIA methodology. .According to the [place] [employer], Serum PSA shoulddecrease and remain at undetectable levels after radicalprostatectomy. The AUA defines biochemical recurrence as an initialPSA value 0.2 ng/mL or greater followed by a subsequent confirmatoryPSA value 0.2 ng/mL or greater.Values obtained with d ifferent assay methods or kits cannot be usedinterchangeably. Results cannot be interpreted as absolute evidenceof the presence or absence of malignant disease. 40-Ajk-874659:10 CBC & PLATELETS (AUTO) Comments: PATIENT WAS FASTINGPERFORMED BY: [employer]6370 [facility] [id number] (71649) Platelets 181 {x10E3/uL} (Normal) Range: 150-379 RDW 13.5 % (Normal) Range: 12.3-15.4 MCHC 33.9 g/dL (Normal) Range: 31.5-35.7 MCH 31.1 pg (Normal) Range: 26.6-33.0 MCV 92 fL (Normal) Range: 79-97 Hematocrit 45.4 % (Normal) Range: 37.5-51.0 Hemoglobin 15.4 g/dL (Normal) Range: 13.0-17.7 RBC 4.95 {x10E6/uL} (Normal) Range: 4.14-5.80 WBC 4.4 {x10E3/uL} (Normal) Range: 3.4-10.8 33-Ojq-857968:10 VITAMIN B12 AND FOLATES Comments: PATIENT WAS FASTINGPERFORMED BY: LikeLike.comAstra Health CenterLzjbpm6876 [facility] [id number] (92225) Folate (Folic Acid), Serum 12.4 ng/mL (Normal) Comments: A serum folate concentration of less than 3.1 ng/mL isconsidered to represent clinical deficiency. Vitamin B12 411 pg/mL (Normal) Range: 232-1245 10-Ofn-370284:10 Metabolic Panel, Comprehensive Comments: PATIENT WAS FASTINGPERFORMED BY: LikeLike.comAstra Health CenterJlbxsj1275 [facility] [id number] (36889) ALT (SGPT) 14 [iU]/L (Normal) Range: 0-44 [...] 8-27 Glucose 76 mg/dL (Normal) Range: 65-99 98-Keh-831245:10 MAGNESIUM (65731) Comments: PATIENT WAS FASTINGPERFORMED BY: [place] 8554270 [facility] [id number] Magnesium 2.4 mg/dL (Abnormal) Range: 1.6-2.3 10-Zhw-306782:31 PT (PROTHROMBIN TIME) (48190) Comments: PATIENT NOT FASTINGPERFORMED BY: [place] 8554270 [facility] [id number] Prothrombin Time 21.0 {sec} (Abnormal) Range: 9.1-12.0 INR 2.1 (Abnormal) Range: 0.8-1.2 Comments: Reference interval is for non-anticoagulated patients. . Suggested INR therapeutic range for Vitamin K anta gonist therapy: Standard Dose (moderate intensity therapeutic range): 2.0 - 3.0 Higher intensity therapeutic range 2.5 - 3.5 54-Fwa-599114:19 PT (PROTHROMBIN TIME) (68488) Comments: PERFORMED BY: [facility]6370 [facility] [id number] Prothrombin Time 22.3 {sec} (Abnormal) Range: 9.1-12.0 INR 2.3 (Abnormal) Range: 0.8-1.2 Comments: Reference interval is for non-anticoagulated patients. . Suggested INR therapeutic range for Vitamin K anta gonist therapy: Standard Dose (moderate intensity therapeutic range): 2.0 - 3.0 Higher intensity therapeutic range 2.5 - 3.5 86-Vnr-675643:07 PT (PROTHROMBIN TIME) (49460) Comments: PATIENT NOT FASTINGPERFORMED BY: [facility]6370 [facility] [id number] Prothrombin Time 21.2 {sec} (Abnormal) Range: 9.1-12.0 INR 2.1 (Abnormal) Range: 0.8-1.2 Comments: Reference interval is for non-anticoagulated patients. . Suggested INR therapeutic range for Vitamin K anta gonist therapy: Standard Dose (moderate intensity therapeutic range): 2.0 - 3.0 Higher intensity therapeutic range 2.5 - 3.5 67-Apq-156739:21 PT (PROTHROMBIN TIME) (75346) Comments: PATIENT NOT FASTINGPERFORMED BY: [facility]6370 [facility] [id number] Prothrombin Time 23.1 {sec} (Abnormal) Range: 9.1-12.0 INR 2.3 (Abnormal) Range: 0.8-1.2 Comments: Reference interval is for non-anticoagulated patients. . Suggested INR therapeutic range for Vitamin K anta gonist therapy: Standard Dose (moderate intensity therapeutic range): 2.0 - 3.0 Higher intensity therapeutic range 2.5 - 3.5 :56 PT (PROTHROMBIN TIME) (22959) Comments: PATIENT NOT FASTINGPERFORMED BY: [facility]6370 [facility] [id number] Prothrombin Time 24.2 {sec} (Abnormal) Range: 9.1-12.0 INR 2.4 (Abnormal) Range: 0.8-1.2 Comments: Reference interval is for non-anticoagulated patients. . Suggested INR therapeutic range for Vitamin K anta gonist therapy: Standard Dose (moderate intensity therapeutic range): 2.0 - 3.0 Higher intensity therapeutic range 2.5 - 3.5 :15 PT (PROTHROMBIN TIME) (94655) Comments: PATIENT NOT FASTINGPERFORMED BY: [facility]6370 [facility] [id number] Prothrombin Time 25.2 {sec} (Abnormal) Range: 9.1-12.0 INR 2.5 (Abnormal) Range: 0.8-1.2 Comments: Reference interval is for non-anticoagulated patients. . Suggested INR therapeutic range for Vitamin K anta gonist therapy: Standard Dose (moderate intensity therapeutic range): 2.0 - 3.0 Higher intensity therapeutic range 2.5 - 3.5 :57 PT (PROTHROMBIN TIME) (84405) Comments: PATIENT NOT FASTINGPERFORMED BY: [facility]6370 [facility] [id number] Prothrombin Time 18.5 {sec} (Abnormal) Range: 9.1-12.0 INR 1.8 (Abnormal) Range: 0.8-1.2 Comments: Reference interval is for non-anticoagulated patients. . Suggested INR therapeutic range for Vitamin K anta gonist therapy: Standard Dose (moderate intensity therapeutic range): 2.0 - 3.0 Higher intensity therapeutic range 2.5 - 3.5 97-Dbe-731197:26 PT (PROTHROMBIN TIME) (32253) Comments: PATIENT NOT FASTINGPERFORMED BY: [facility] Xtwmes65[address] [place] [id number] Prothrombin Time 16.4 {sec} (Abnormal) Range: 9.1-12.0 INR 1.6 (Abnormal) Range: 0.8-1.2 Comments: Reference interval is for non-anticoagulated patients. . Suggested INR therapeutic range for Vitamin K anta gonist therapy: Standard Dose (moderate intensity therapeutic range): 2.0 - 3.0 Higher intensity therapeutic range 2.5 - 3.5 19-Wuq-288285:29 CBC W/Diff, Auto - EPLAB Comments: Order Date: 07/19/16Order Info: [id number] - *CBC w/Diff - oncology ONLYAt [facility] Medical Oncologypatients receive CBC w/auto Differential ONLY. Physicianwill place an order fo Only r a manual differential or Pathologistreview at his discretion. [facility] OUTPATIENT [facility]. [address] [place] [address] [place] [address] HAND DRILLER: ELISEO VICENTE DO PH:[phone] [facility] of [facility] [address] [place], [address] Absolute Lymph 0.91 {X10_3/uL} (Normal) Range: 0.83-4.51 [...] 4.6-6.2 WBC 4.3 K/mm3 (Abnormal) Range: 4.4-11.0 60-Orc-447299:29 Comprehensive Metabolic Profil Comments: Order Date: 07/19/16Order Info: 0786-1 - *CMP Complete Metabolic PanelOrder Info: 2532-0 - *LDH -LDH (Lactate Dehydrogenase)Serial Specimen #1, #2 or #3? 1WThe [facility] [address]kiudpf[address] [place], [address] GAP 6 (Normal) Range: 5-15 CO2 27.0 [...] 7-18 GLU 84 mg/dL (Normal) Range: 70-110 64-Wwc-347519:29 LDH 173 U/L (Normal) Comments: Order Date: 07/19/16Order Info: 0786-1 - *CMP Complete Metabolic PanelOrder Info: 2532-0 - *LDH -LDH (Lactate Dehydrogenase)Serial Specimen #1, #2 or #3? 1WThe [facility] Laborat jbr[address] [place], [address] Range: 87-241 :22 PT (PROTHROMBIN TIME) (93050) Comments: PATIENT NOT FASTINGPERFORMED BY: [employer]70 [facility] [id number] Prothrombin Time 32.4 {sec} (Abnormal) Range: 9.1-12.0 INR 3.2 (Abnormal) Range: 0.8-1.2 Comments: Reference interval is for non-anticoagulated patients. . Suggested INR therapeutic range for Vitamin K anta gonist therapy: Standard Dose (moderate intensity therapeutic range): 2.0 - 3.0 Higher intensity therapeutic range 2.5 - 3.5 :16 PT (PROTHROMBIN TIME) (24571) Comments: PATIENT NOT FASTINGPERFORMED BY: [employer] Jwbmba1719 [facility] [id number] Prothrombin Time 20.2 {sec} (Abnormal) Range: 9.1-12.0 INR 2.0 (Abnormal) Range: 0.8-1.2 Comments: Reference interval is for non-anticoagulated patients. . Suggested INR therapeutic range for Vitamin K anta gonist therapy: Standard Dose (moderate intensity therapeutic range): 2.0 - 3.0 Higher intensity therapeutic range 2.5 - 3.5 :55 PT (PROTHROMBIN TIME) (16422) Comments: PATIENT NOT FASTINGPERFORMED BY: [employer] Dfyslp1434 [facility] [id number] Prothrombin Time 16.0 {sec} (Abnormal) Range: 9.1-12.0 INR 1.6 (Abnormal) Range: 0.8-1.2 Comments: Reference interval is for non-anticoagulated patients. . Suggested INR therapeutic range for Vitamin K anta gonist therapy: Standard Dose (moderate intensity therapeutic range): 2.0 - 3.0 Higher intensity therapeutic range 2.5 - 3.5 22-Aqt-399318:36 PT (PROTHROMBIN TIME) (18368) Comments: PATIENT NOT FASTINGPERFORMED BY: [facility] Ojyydk0566 [facility] [id number] Prothrombin Time 25.9 {sec} (Abnormal) Range: 9.1-12.0 INR 2.5 (Abnormal) Range: 0.8-1.2 Comments: Reference interval is for non-anticoagulated patients. . Suggested INR therapeutic range for Vitamin K anta gonist therapy: Standard Dose (moderate intensity therapeutic range): 2.0 - 3.0 Higher intensity therapeutic range 2.5 - 3.5 86-Kow-075003:15 CBC W/Diff, Auto - EPLAB Comments: Order Date: 03/29/16Order Info: [id number] - *CBC w/Diff - oncology ONLYAt [facility] Medical Oncologypatients receive CBC w/auto Differential ONLY. Physicianwill place an order fo Only r a manual differential or Pathologistreview at his discretion. [facility] OUTPATIENT [facility]. [address] [place] [address] [address] HAND DRILLER: ELISEO VICENTE DO PH:[phone] Date: 03/29/16Order Info: [id number] - *CBC w/Diff - oncology ONLYOrder Date: 03/29/16Order Info: 2532-0 - *LDH -LDH (Lactate Dehydrogenase)[facility] Ushbsvvsgy[address] [place], [place], [id number] ; another doc Absolute Lymph 0.93 {X10_3/uL} [...] 4.6-6.2 WBC 5.4 K/mm3 (Normal) Range: 4.4-11.0 70-Nfp-067138:15 Comprehensive Metabolic Profil Comments: Order Date: 03/29/16Order Info: 0786-1 - *CMP Complete Metabolic PanelOrder Info: 3084-1 - *Uric Acid BloodOrder Info: 2532-0 - *LDH -LDH (Lactate Dehydrogenase)Order Date: 03/29/16Order Info: 2532-0 - *LDH -LDH (Lactate Dehydrogenase)Serial Specimen #1, #2 or #3? [facility] Dvfkenglhf3116 [place], [place], [address] ; Dr. Brewer, hemoc GAP 5 (Normal) [...] 7-18 GLU 86 mg/dL (Normal) Range: 70-110 86-Gik-588065:15 LDH 231 U/L (Normal) Comments: Order Date: 03/29/16Order Info: 0786-1 - *CMP Complete Metabolic PanelOrder Info: 3084-1 - *Uric Acid BloodOrder Info: 2532-0 - *LDH -LDH (Lactate Dehydrogenase)Order Date: 03/29/16Order Info: 2532-0 - *LDH -LDH (Lactate Dehydrogenase)Serial Specimen #1, #2 or #3? [address] [place] [address] Fshzkvyidy0363 [place], [place], [address] Range: 87-241 Comments: Slight Hemolysis, Result may be falsely increased. 49-Zmc-295547:15 Uric Acid Comments: Order Date: 03/29/16Order Info: 0786-1 - *CMP Complete Metabolic PanelOrder Info: 4-1 - *Uric Acid BloodOrder Info: 2532-0 - *LDH -LDH (Lactate Dehydrogenase)Order Date: 03/29/16Order Info: 2532-0 - *LDH -LDH (Lactate Dehydrogenase)Serial Specimen #1, #2 or #3? [address] [place] [address] Ttlgwtxdlf4397 [place], [address] URIC 4.4 mg/dL (Normal) Range: 3.5-7.2 Comments: The drugs N-Acetylcysteine and Metamizole may falsely deressthis assay. :27 PT (PROTHROMBIN TIME) (26190) Comments: PATIENT NOT FASTINGPERFORMED BY: [facility]6370 [facility] [id number] Prothrombin Time 30.1 {sec} (Abnormal) Range: 9.1-12.0 INR 3.0 (Abnormal) Range: 0.8-1.2 Comments: Reference interval is for non-anticoagulated patients. . Suggested INR therapeutic range for Vitamin K anta gonist therapy: Standard Dose (moderate intensity therapeutic range): 2.0 - 3.0 Higher intensity therapeutic range 2.5 - 3.5 :21 PT (PROTHROMBIN TIME) (51085) Comments: PATIENT NOT FASTINGPERFORMED BY: [facility]6370 [facility] [id number] Prothrombin Time 30.7 {sec} (Abnormal) Range: 9.1-12.0 INR 3.0 (Abnormal) Range: 0.8-1.2 Comments: Reference interval is for non-anticoagulated patients. . Suggested INR therapeutic range for Vitamin K anta gonist therapy: Standard Dose (moderate intensity therapeutic range): 2.0 - 3.0 Higher intensity therapeutic range 2.5 - 3.5 :14 PT (PROTHROMBIN TIME) (31580) Comments: PATIENT NOT FASTINGPERFORMED BY: [facility]6370 [facility] [id number] Prothrombin Time 19.0 {sec} (Abnormal) Range: 9.1-12.0 INR 1.9 (Abnormal) Range: 0.8-1.2 Comments: Reference interval is for non-anticoagulated patients. . Suggested INR therapeutic range for Vitamin K anta gonist therapy: Standard Dose (moderate intensity therapeutic range): 2.0 - 3.0 Higher intensity therapeutic range 2.5 - 3.5 :14 Weus-2-Fzyaarpttctqf, S Comments: Order Date: 12/29/15Order Date: 12/29/15Order Date: 12/29/15[facility] (refer to report for specific site)refer to report for address and phone number [phone] 1.2 mg/L (Normal) Range: 0.6-2.4 Comments: Performed at: - [facility] [address] [id number] Director: Ino Monsivais PhD, Phone: [phone] 79-Wdb-537285:14 CBC W/Diff, Auto - EPLAB Comments: At [facility] Outpatient [facility] Medical Oncologypatients receive CBC w/auto Differential ONLY. Physicianwill place an order for a manual differential or Pathologistreview at his discretion. [facility]. [address] [place] [address] HAND DRILLER: ELISEO VICENTE DO PH:[phone] Clinic Children'S Hospital For [facility] Rsccazazst0374 [place], [address] Absolute Lymph 0.99 {X10_3/uL} (Normal) [...] 4.6-6.2 WBC 4.6 K/mm3 (Normal) Range: 4.4-11.0 27-Nzd-207908:14 Comprehensive Metabolic Profil Comments: Order Date: 12/29/15Order Date: 12/29/15erial Specimen #1, #2 or #3? [address] [place] [address] Kojqdygzqi1302 [place], [address] GAP 11 (Normal) Range: 5-15 CO2 25.0 [...] 7-18 GLU 89 mg/dL (Normal) Range: 70-110 21-Rnf-824743:14 LDH 196 U/L (Normal) Comments: Order Date: 12/29/15Order Date: 12/29/15erial Specimen #1, #2 or #3? [address] [place] [address] [address]aygbu[address] [place], [address] Range: 87-241 23-Mis-615538:14 Uric Acid Comments: Order Date: 12/29/15Order Date: 12/28/16Serial Specimen #1, #2 or #3? 1[facility] Znucrbcxdt9284 [place], [address] URIC 4.1 mg/dL (Normal) Range: 3.5-7.2 Comments: The drugs N-Acetylcysteine and Metamizole may falsely deressthis assay. :54 PT (PROTHROMBIN TIME) (27339) Comments: PATIENT NOT FASTINGPERFORMED BY: LikeLike.comAstra Health CenterAhdrjc0872 [facility] [id number] Prothrombin Time 16.1 {sec} (Abnormal) Range: 9.1-12.0 INR 1.6 (Abnormal) Range: 0.8-1.2 Comments: Reference interval is for non-anticoagulated patients. . Suggested INR therapeutic range for Vitamin K anta gonist therapy: Standard Dose (moderate intensity therapeutic range): 2.0 - 3.0 Higher intensity therapeutic range 2.5 - 3.5 85-Ckr-179542:16 PT (PROTHROMBIN TIME) Comments: PATIENT NOT FASTINGPERFORMED BY: LikeLike.comAstra Health CenterAsoxvm4717 [facility] [id number] Information: [id number] (02604) Prothrombin Time 32.0 {sec} (Abnormal) Range: 9.1-12.0 INR 3.2 (Abnormal) Range: 0.8-1.2 Comments: Reference interval is for non-anticoagulated patients. . Suggested INR therapeutic range for Vitamin K anta gonist therapy: Standard Dose (moderate intensity therapeutic range): 2.0 - 3.0 Higher intensity therapeutic range 2.5 - 3.5 92-Zuk-871404:04 CBC W/Diff, Auto - EPLAB Comments: At [facility] Outpatient [facility] [place] Medical Oncologypatients receive CBC w/auto Differential ONLY. Physicianwill place an order for a manual differential or Pathologistreview at his discretion. [facility]. [address] [place] [address] HAND DRILLER: ELISEO VICENTE DO PH:[phone] Clinic Children'S Hospital For Rehabilitation Gjquabysqg9974 [place], [address] Absolute Lymph 0.82 {X10_3/uL} (Abnormal) [...] 4.6-6.2 WBC 4.7 K/mm3 (Normal) Range: 4.4-11.0 90-Wmb-828059:04 Comprehensive Metabolic Profil Comments: Order Date: 12/29/15OV Order #: [id number] Specimen #1, #2 or #3? 1 [id number] [facility] of [facility] Psbzzuhwvh1064 [place], [address] GAP 5 (Normal) Range: 5-15 CO2 [...] 7-18 GLU 89 mg/dL (Normal) Range: 70-110 85-Jqj-995319:04 LDH 167 U/L (Normal) Comments: Order Date: 12/29/15OV Order #: [id number] Specimen #1, #2 or #3? [id number] [place] [address] Emjkfdvnbv9887 [address] [place], [place], [address] Range: 87-241 91-Ulr-249603:04 Uric Acid Comments: Order Date: 12/29/15OV Order #: [id number] Specimen #1, #2 or #3? [id number] [place] [address] Dlbuzfqgts9400 [address] [place], [place], [address](187) URIC 4.2 mg/dL (Normal) Range: 3.5-7.2 Comments: The drugs N-Acetylcysteine and Metamizole may falsely deressthis assay. 27-Haq-899872:17 PT (PROTHROMBIN TIME) (41338) Comments: PATIENT NOT FASTINGPERFORMED BY: [facility]6370 [facility] [id number] Prothrombin Time 25.7 {sec} (Abnormal) Range: 9.1-12.0 INR 2.5 (Abnormal) Range: 0.8-1.2 Comments: Reference interval is for non-anticoagulated patients. . Suggested INR therapeutic range for Vitamin K anta gonist therapy: Standard Dose (moderate intensity therapeutic range): 2.0 - 3.0 Higher intensity therapeutic range 2.5 - 3.5 :32 PT (PROTHROMBIN TIME) Comments: PATIENT NOT FASTINGPERFORMED BY: [place] 8554270 [facility] [id number] Information: [id number] ([id number]) Prothrombin Time 28.7 {sec} (Abnormal) Range: 9.1-12.0 INR 2.8 (Abnormal) Range: 0.8-1.2 Comments: Reference interval is for non-anticoagulated patients. . Suggested INR therapeutic range for Vitamin K anta gonist therapy: Standard Dose (moderate intensity therapeutic range): 2.0 - 3.0 Higher intensity therapeutic range 2.5 - 3.5 :53 PT (PROTHROMBIN TIME) Comments: PATIENT NOT FASTINGPERFORMED BY: [place] 8554270 [facility] [id number] Information: [id number] (26340) Prothrombin Time 25.1 {sec} (Abnormal) Range: 9.1-12.0 INR 2.4 (Abnormal) Range: 0.8-1.2 Comments: Reference interval is for non-anticoagulated patients. . Suggested INR therapeutic range for Vitamin K anta gonist therapy: Standard Dose (moderate intensity therapeutic range): 2.0 - 3.0 Higher intensity therapeutic range 2.5 - 3.5 :15 PT (PROTHROMBIN TIME) Comments: PATIENT NOT FASTINGPERFORMED BY: [facility]6370 [facility] [id number] Information: [id number] ([id number]) Prothrombin Time 23.0 {sec} (Abnormal) Range: 9.1-12.0 INR 2.3 (Abnormal) Range: 0.8-1.2 Comments: Reference interval is for non-anticoagulated patients. . Suggested INR therapeutic range for Vitamin K anta gonist therapy: Standard Dose (moderate intensity therapeutic range): 2.0 - 3.0 Higher intensity therapeutic range 2.5 - 3.5 6-Yda-293988:42 CBC W/Diff, Auto - EPLAB Comments: At [facility] Outpatient [facility] Medical Oncologypatients receive CBC w/auto Differential ONLY. Physicianwill place an order for a manual differential or Pathologistreview at his discretion. [facility] OUTPATIENT [facility]. [address] [place] [place] [address] HAND DRILLER: ELISEO VICENTE DO PH:[phone] Clinic Children'S Hospital For Rehabilitation [address]xgvmyhbry[address] [place], [address] Absolute Lymph 0.97 {X10_3/uL} (Normal) Range: 0.83-4.51 [...] 4.6-6.2 WBC 4.4 K/mm3 (Normal) Range: 4.4-11.0 8-Kvr-577735:42 Comprehensive Metabolic Profil Comments: Serial Specimen #1, #2 or #3? [address] [place] [address] [address]sb[address]ep9377 [address] [place], [place], [address] GAP 7 (Normal) Range: 5-15 CO2 27.0 [...] 7-18 GLU 80 mg/dL (Normal) Range: 70-110 3-Pjj-906528:42 LDH 181 U/L (Normal) Comments: Serial Specimen #1, #2 or #3? [address] [place] [address] Kziacpoeum8884 [address] [place], [place], [address] Range: 87-241 2-Jns-435542:42 Magnesium Comments: Serial Specimen #1, #2 or #3? [address] [place] [address] Jtmacxqvzz1627 [address] [place], [address] MG 2.3 mg/dL (Normal) Range: 1.8-2.4 :42 Uric Acid Comments: Serial Specimen #1, #2 or #3? 1WThe [facility] Igmdfxikms0469 [place], [address] URIC 3.9 mg/dL (Normal) Range: 3.5-7.2 :45 PT (PROTHROMBIN TIME) Comments: PATIENT NOT FASTINGPERFORMED BY: LabCoKenneth [place]ille 2397470 [facility] [id number] Information: [id number] ([id number]) Prothrombin Time 22.5 {sec} (Abnormal) Range: 9.1-12.0 INR 2.2 (Abnormal) Range: 0.8-1.2 Comments: Reference interval is for non-anticoagulated patients. . Suggested INR therapeutic range for Vitamin K anta gonist therapy: Standard Dose (moderate intensity therapeutic range): 2.0 - 3.0 Higher intensity therapeutic range 2.5 - 3.5 :30 PT (PROTHROMBIN TIME) Comments: PATIENT NOT FASTINGPERFORMED BY: LabCoAstra Health CenterIqmpiy6148 [facility] [id number] Information: [id number] ([id number]) Prothrombin Time 22.9 {sec} (Abnormal) Range: 9.1-12.0 INR 2.2 (Abnormal) Range: 0.8-1.2 Comments: Reference interval is for non-anticoagulated patients. . Suggested INR therapeutic range for Vitamin K anta gonist therapy: Standard Dose (moderate intensity therapeutic range): 2.0 - 3.0 Higher intensity therapeutic range 2.5 - 3.5 :45 CBC W/Diff, Auto - EPLAB Comments: At [facility] Outpatient [facility] [place] Medical Oncologypatients receive CBC w/auto Differential ONLY. Physicianwill place an order for a manual differential or Pathologistreview at his discretion. [facility] OUTPATIENT [facility]. [address] [place] [address] HAND DRILLER: ELISEO VICENTE DO PH:[phone] Clinic Children'S Hospital For Rehabilitation Htodjydorn0116 [place], [address] Absolute Lymph 0.76 {X10_3/uL} (Abnormal) [...] Comments: Serial Specimen #1, #2 or #3? 1[facility] Ipgcppmuwv0858 [address] [place], [place], [address] GAP 0 (Abnormal) Range: 5-15 CO2 30.0 [...] Comments: Serial Specimen #1, #2 or #3? [address] [place] [address] Srukofpvxn3782 [address] [place], [place], [address](885) Range: 87-241 :44 Magnesium Comments: Serial Specimen #1, #2 or #3? [address] [place] [address] Yquiwfujlh9592 [address] [place], [place], [address] MG 2.3 mg/dL (Normal) Range: 1.8-2.4 :44 Uric Acid Comments: Serial Specimen #1, #2 or #3? [address] [place] [address] Fjasguodem8073 [address] [place], [place], [address] URIC 4.5 mg/dL (Normal) Range: 3.5-7.2 :55 PT (PROTHROMBIN TIME) Comments: PATIENT NOT FASTINGPERFORMED BY: LabCoSan Juan Regional Medical CenterTxjjpl2376 [facility] [id number] Information: [id number] ([id number]) Prothrombin Time 21.2 {sec} (Abnormal) Range: 9.1-12.0 INR 2.0 (Abnormal) Range: 0.8-1.2 Comments: Reference interval is for non-anticoagulated patients. . Suggested INR therapeutic range for Vitamin K anta gonist therapy: Standard Dose (moderate intensity therapeutic range): 2.0 - 3.0 Higher intensity therapeutic range 2.5 - 3.5 71-Vgq-190425:12 PT (PROTHROMBIN TIME) Comments: PATIENT NOT FASTINGPERFORMED BY: LikeLike.comAstra Health CenterRfrpoc8450 [facility] [id number] Information: [id number] ([id number]) Prothrombin Time 23.4 {sec} (Abnormal) Range: 9.1-12.0 INR 2.3 (Abnormal) Range: 0.8-1.2 Comments: Reference interval is for non-anticoagulated patients. . Suggested INR therapeutic range for Vitamin K anta gonist therapy: Standard Dose (moderate intensity therapeutic range): 2.0 - 3.0 Higher intensity therapeutic range 2.5 - 3.5 03-Apr-20159:39 Prothrombin Time w/INR Comments: [facility] Iijijwxkjd4651 [place], [place], [address] INR 2.5 (Normal) PROTIME 27.0 s (Abnormal) Range: 11.7-14.9 22-Rue-860258:55 Microscopic Examination Comments: PATIENT NOT FASTINGPERFORMED BY: twidoxBronson [facility] Hospital6370 [facility] [id number] Bacteria Few (Normal) Mucus Threads Present (Normal) Epithelial Cells (non renal) None seen {/hpf} (Normal) Range: 0 - 10 RBC 0-2 {/hpf} (Normal) Range: 0 - 2 WBC 0-5 {/hpf} (Normal) Range: 0 - 5 34-Ljb-555866:55 URINALYSIS (39397) Comments: PATIENT NOT FASTINGPERFORMED BY: LikeLike.comAstra Health CenterNxtehn9148 [facility] [id number]; apt. 03-30-15 Microscopic Examination See below: (Normal) Comments: Microscopic was indicated and was performed. Nitrite, Urine Negative (Normal) Urobilinogen,Semi-Qn 1.0 mg/dL (Normal) Range: 0.2-1.0 Bilirubin Negative (Normal) Occult Blood Negative (Normal) Ketones Trace (Abnormal) Glucose Negative (Normal) Protein 1+ (Abnormal) WBC Esterase Negative (Normal) Appearance Clear (Normal) Urine-Color Yellow (Normal) pH 6.0 (Normal) Range: 5.0-7.5 Specific [place] >=1.030 (Abnormal) Range: 1.005-1.030 98-Cin-985435:55 CBC, Platelets & Auto Comments: PATIENT NOT FASTINGPERFORMED BY: [facility] Nnlkeq9200 [facility] [id number] Information: [id number] Diff (94574) Immature Grans (Abs) 0.0 {x10E3/uL} (Normal) Range: [...] Panel, Comprehensive Comments: PATIENT NOT FASTINGPERFORMED BY: [employer]es [facility] [id number] (69357) ALT (SGPT) 23 [iU]/L (Normal) Range: 0-44 [...] Glucose, Serum 83 mg/dL (Normal) Range: 65-99 :55 PSA, TOTAL - DIAGNOSTIC Comments: PATIENT NOT FASTINGPERFORMED BY: [employer] Wxqkve9605 [facility] [id number] ([id number]) Prostate Specific Ag, 0.5 ng/mL (Normal) Range: 0.0-4.0 Serum Comments: Yulisa ECLIA methodology. .According to the [place] [employer], Serum PSA shoulddecrease and remain at undetectable levels after radicalprostatectomy. The AUA defines biochemical recurrence as an initialPSA value 0.2 ng/mL or greater followed by a subsequent confirmatoryPSA value 0.2 ng/mL or greater.Values obtained with d ifferent assay methods or kits cannot be usedinterchangeably. Results cannot be interpreted as absolute evidenceof the presence or absence of malignant disease. 77-Ffi-615752:59 URINE JAILENE CULTURE-THAD COL Comments: PATIENT NOT FASTINGPERFORMED BY: [employer] SeekSherpaFirstHealth [id number] Information: SRC:[facility] [id number] COUNT (88475) Result 1 NG36 (Normal) Comments: No growth in 36 - 48 hours. Urine Culture,Comprehensive Final report (Normal) 21-Jhb-421946:43 Urinalysis, Office (38576) UA - LEUKOCYTE ESTERASE Negative (Normal) UA - NITRITE Negative (Normal) URINE UROBILINGN THAD TIMED Normal mg/dL (Normal) UA - PROTEIN 30 mg/dL (Normal) UA - PH 6 (Abnormal) UA - BLOOD Non Hemolyzed Trace (Normal) UA - SPECIFIC GRAVITY 1.025 (Normal) UA - KETONES Moderate mg/dL (Normal) UA - BILIRUBIN Small (Normal) UA - GLUCOSE Negative (Normal) 50-Uqp-59777:19 PT (PROTHROMBIN TIME) Comments: PATIENT NOT FASTINGPERFORMED BY: [employer] Rderjv6580 [facility]linTexas [facility] [id number] Information: [id number] (68598) Prothrombin Time 30.2 {sec} (Abnormal) Range: 9.1-12.0 INR 2.9 (Abnormal) Range: 0.8-1.2 Comments: Reference interval is for non-anticoagulated patients. . Suggested INR therapeutic range for Vitamin K anta gonist therapy: Standard Dose (moderate intensity therapeutic range): 2.0 - 3.0 Higher intensity therapeutic range 2.5 - 3.5 :55 CBC W/Diff, Auto - EPLAB Comments: At [facility] Oncologypatients receive CBC w/auto Differential ONLY. Physicianwill place an order for a manual differential or Pathologistreview at his discretion. [facility] [place] [facility]. [address] [place] [address] [address] HAND DRILLER: ELISEO VICENTE DO PH:[phone] Clinic Children'S Hospital For Rehabilitation Ofhtyjgfxh6190 [place], [address] Absolute Lymph 0.75 {X10_3/uL} (Abnormal) [...] 4.6-6.2 WBC 3.6 K/mm3 (Abnormal) Range: 4.4-11.0 05-Mar-20158:55 Comprehensive Metabolic Profil Comments: Serial Specimen #1, #2 or #3? 1[facility] Nywbqqpdwi0379 [place], [address] GAP 7 (Normal) Range: 5-15 [...] Comments: Serial Specimen #1, #2 or #3? [address] [place] [address] Pikevhmsvg5930 Yulietjevon Myrick [place], [place], [address] Range: 87-241 :55 Uric Acid Comments: Serial Specimen #1, #2 or #3? [address] [place] [address] Qsjymzclcl1502 Yul[address] DaveleathaAntonette [place], [place], [address] URIC 3.9 mg/dL (Normal) Range: 3.5-7.2 88-Oso-182487:20 PT (PROTHROMBIN TIME) Comments: PATIENT NOT FASTINGPERFORMED BY: LabCoSan Juan Regional Medical CenterJfmdps0559 [facility] [id number] Information: [id number] ([id number]) Prothrombin Time 27.9 {sec} (Abnormal) Range: 9.1-12.0 INR 2.7 (Abnormal) Range: 0.8-1.2 Comments: Reference interval is for non-anticoagulated patients. . Suggested INR therapeutic range for Vitamin K anta gonist therapy: Standard Dose (moderate intensity therapeutic range): 2.0 - 3.0 Higher intensity therapeutic range 2.5 - 3.5 90-Bjv-25519:27 Fact V Leiden Mutation Comments: [facility] (refer to report for specific site)refer to report for address and phone number COMMENT Comment Comments: Genetic counselors are available for health care providers to discuss results at [phone]).Methodology:DNA analysis of the Factor V gene was [...] elevated homocysteine levels,or a Factor II/prothrombin mutation (J73966N). [facility] for information on how to order theFactor II DNA test. :27 Factor II, DNA Analysis Comments: [facility] (refer to report for specific site)refer to report for address and phone number COMMENT Comment (Normal) Comments: Genetic Counselors are available for health care providersto discuss results at [phone] ([phone]).Methodology:DNA analysis of the Factor II gene was performed by PCRamplification followed by restric tion analysis. Thediagnostic sensitivity is >99% for both. All the tests mustbe combined with clinical information for the most accurateinterpretation. Molecular-based testing is highly accurate,but as in any laboratory test, diagnostic errors may occur.Marco At SR, et al. Blood. 1996; 88:9635-5785.Mary Ann EA. Circulation. 2004; 110:e15-e18.Tamiko I, et al. Arterioscler Thromb Vasc Biol. 1999;19:700 -703.Mitesh Andujar, PhDAgnes Ruiz, PhDNadege Finn, PhDBetty Solano, PhDFara Orozco, PhDGuido Fishman, PhDPerformed at: [address] [id number] [employer] Box Machine Helper: Larry Norman MD, Phone: [phone] at: [facility] JMG3700 [place], [place] [id number] Director: William Bustillo MD, Phone: [phone] FACTOR II,DNA Comment (Normal) Comments: NEGATIVENo mutation identified.Comment:A point mutation ([id number]) in the factor II (prothrombin)gene is the [...] individual mutations. This assaydetects only the prothrombin R94981E mutation and doesnot measure genetic abnormalities elsewhere i n thegenome. Other thrombotic risk factors may be pursuedthrough systematic clinical laboratory analysis. Thesefactors include the R506Q (Leiden) mutation in the Factor Vgene, plasma homocysteine levels , as well as testing fordeficiencies of antithrombin III, protein C and protein S. 40-Zvg-16711:27 Protein C Defic. Profile Comments: [facility] (refer [...] patient is diagnosed withcongenital Protein C deficiency. 66-Jak-72146:27 Protein S Defic. Profile Comments: [facility] (refer [...] PROTEIN S,TOTAL 62 % (Normal) Range: 58-150 59-Exz-41296:38 CBC W/Diff, Auto - EPLAB Comments: At [facility] Outpatient [facility] Medical Oncologypatients receive CBC w/auto Differential ONLY. Physicianwill place an order for a manual differential or Pathologistreview at his discretion. [facility] OUTPATIENT [facility]. [address] [place] [address] HAND DRILLER: ELISEO VICENTE DO PH:[phone] Clinic Children'S Hospital For Rehabilitation Hpigmhpsrq5239 [place], [address] Absolute Lymph 0.69 {X10_3/uL} (Abnormal) Range: 0.83-4.51 [...] Comments: Serial Specimen #1, #2 or #3? [address] [place] [address] Fdzgyqxtse1684 [address] [place], [place], [address] GAP 6 (Normal) Range: 5-15 CO2 29.0 [...] Comments: Serial Specimen #1, #2 or #3? [address] [place] [address] Rfmmfibuni7194 [address] [place], [place], [address] Range: 87-241 :38 Uric Acid Comments: Serial Specimen #1, #2 or #3? 1[facility] Kpvpabaujb6496 [address] [place], [address] URIC 4.7 mg/dL (Normal) Range: 3.5-7.2 37-Zmc-111886:31 PT (PROTHROMBIN TIME) (94559) Comments: PATIENT NOT FASTINGPERFORMED BY: [facility]6370 [facility] [id number] Prothrombin Time 21.0 {sec} (Abnormal) Range: 9.1-12.0 INR 2.1 (Abnormal) Range: 0.8-1.2 Comments: Reference interval is for non-anticoagulated patients. . Suggested INR therapeutic range for Vitamin K anta gonist therapy: Standard Dose (moderate intensity therapeutic range): 2.0 - 3.0 Higher intensity therapeutic range 2.5 - 3.5 :20 PT (PROTHROMBIN TIME) Comments: PATIENT NOT FASTINGPERFORMED BY: [facility] [id number] Information: [id number] ([id number]) Prothrombin Time 34.6 {sec} (Abnormal) Range: 9.1-12.0 INR 3.3 (Abnormal) Range: 0.8-1.2 Comments: Reference interval is for non-anticoagulated patients. . Suggested INR therapeutic range for Vitamin K anta gonist therapy: Standard Dose (moderate intensity therapeutic range): 2.0 - 3.0 Higher intensity therapeutic range 2.5 - 3.5 :54 PT (PROTHROMBIN TIME) Comments: PATIENT NOT FASTINGPERFORMED BY: [facility] [id number] Information: [id number] ([id number]) Prothrombin Time 39.8 {sec} (Abnormal) Range: 9.1-12.0 INR 3.8 (Abnormal) Range: 0.8-1.2 Comments: Client Requested Flag Reference interval is for non- anticoagulated patients. . Suggested INR therapeutic ra nge for Vitamin K antagonist therapy: Standard Dose (moderate intensity therapeutic range): 2.0 - 3.0 Higher intensity therapeutic range 2.5 - 3.5 :56 Prothrombin Time (PT) Comments: PATIENT NOT FASTINGPERFORMED BY: [address] [id number] Information: [id number] Prothrombin Time 20.1 {sec} (Abnormal) Range: 9.1-12.0 INR 1.9 (Abnormal) Range: 0.8-1.2 Comments: Reference interval is for non-anticoagulated patients. . Suggested INR therapeutic range for Vitamin K anta gonist therapy: Standard Dose (moderate intensity therapeutic range): 2.0 - 3.0 Higher intensity therapeutic range 2.5 - 3.5 :31 PT (PROTHROMBIN TIME) Comments: PATIENT NOT FASTINGPERFORMED BY: [address] [id number] Information: [id number] ([id number]) Prothrombin Time 26.6 {sec} (Abnormal) Range: 9.1-12.0 INR 2.6 (Abnormal) Range: 0.8-1.2 Comments: Reference interval is for non-anticoagulated patients. . Suggested INR therapeutic range for Vitamin K anta gonist therapy: Standard Dose (moderate intensity therapeutic range): 2.0 - 3.0 Higher intensity therapeutic range 2.5 - 3.5 :10 Prothrombin Time (PT) Comments: PATIENT NOT FASTINGPERFORMED BY: [place] [id number] [facility] [id number] Information: [id number] Prothrombin Time 32.6 {sec} (Abnormal) Range: 9.1-12.0 INR 3.0 (Abnormal) Range: 0.8-1.2 Comments: Reference interval is for non-anticoagulated patients. . Suggested INR therapeutic range for Vitamin K anta gonist therapy: Standard Dose (moderate intensity therapeutic range): 2.0 - 3.0 Higher intensity therapeutic range 2.5 - 3.5 :35 PT (PROTHROMBIN TIME) Comments: PATIENT NOT FASTINGPERFORMED BY: [address] [id number] Information: [id number] ([id number]) Prothrombin Time 31.7 {sec} (Abnormal) Range: 9.1-12.0 INR 3.1 (Abnormal) Range: 0.8-1.2 Comments: Reference interval is for non-anticoagulated patients. . Suggested INR therapeutic range for Vitamin K anta gonist therapy: Standard Dose (moderate intensity therapeutic range): 2.0 - 3.0 Higher intensity therapeutic range 2.5 - 3.5 96-Yuz-209667:16 Prothrombin Time (PT) Comments: PATIENT NOT FASTINGPERFORMED BY: [facility] Qtlopo3732 [facility] [id number] Information: [id number] Prothrombin Time 25.6 {sec} (Abnormal) Range: 9.1-12.0 INR 2.4 (Abnormal) Range: 0.8-1.2 Comments: Reference interval is for non-anticoagulated patients. . Suggested INR therapeutic range for Vitamin K anta gonist therapy: Standard Dose (moderate intensity therapeutic range): 2.0 - 3.0 Higher intensity therapeutic range 2.5 - 3.5 09-Oxy-75359:21 CBC W/Diff, Auto - EPLAB Only Comments: At [facility] patientsreceive CBC w/auto Differential ONLY. Physician will placean order for a manual differential or Pathologist review athis discretion. [facility] OUTPATIENT [facility]. [address] [place] [address] [place] [address] HAND DRILLER: ELISEO VICENTE DO PH:[phone] performed at:[facility] [address] [place], [place] [address] Absolute Neut 3.1 {X10_3/uL} (Normal) Range: 2.0-7.7 [...] 4.6-6.2 WBC 4.3 K/mm3 (Abnormal) Range: 4.4-11.0 34-Dkf-21140:21 Comprehensive Metabolic Profil Comments: Test performed at:[facility] [address] [place] [address] GAP 6 (Normal) Range: 5-15 CO2 29.0 [...] LDH 171 U/L (Normal) Comments: Test performed at:[facility] [address] [place] [address] Range: 84-246 :21 Uric Acid Comments: Test performed at:[facility] [address] [place] [address] URIC 4.2 mg/dL (Normal) Range: 3.5-7.2 :19 PT (Prothrobim Time) Comments: PATIENT NOT FASTINGPERFORMED BY: [address] [id number] Information: [id number] ([id number]) Prothrombin Time 29.7 {sec} (Abnormal) Range: 9.1-12.0 INR 2.7 (Abnormal) Range: 0.8-1.2 Comments: Reference interval is for non-anticoagulated patients. . Suggested INR therapeutic range for Vitamin K anta gonist therapy: Standard Dose (moderate intensity therapeutic range): 2.0 - 3.0 Higher intensity therapeutic range 2.5 - 3.5 :44 PT (PROTHROMBIN TIME) ([id number]) Comments: PERFORMED BY: [facility] [id number] Prothrombin Time 25.5 {sec} (Abnormal) Range: 9.1-12.0 INR 2.3 (Abnormal) Range: 0.8-1.2 Comments: Reference interval is for non-anticoagulated patients. . Suggested INR therapeutic range for Vitamin K anta gonist therapy: Standard Dose (moderate intensity therapeutic range): 2.0 - 3.0 Higher intensity therapeutic range 2.5 - 3.5 44-Ral-958506:28 PT (PROTHROMBIN TIME) Comments: PATIENT NOT FASTINGPERFORMED BY: [facility] [id number] Information: [id number] ([id number]) Prothrombin Time 34.8 {sec} (Abnormal) Range: 9.1-12.0 INR 3.2 (Abnormal) Range: 0.8-1.2 Comments: Reference interval is for non-anticoagulated patients. . Suggested INR therapeutic range for Vitamin K anta gonist therapy: Standard Dose (moderate intensity therapeutic range): 2.0 - 3.0 Higher intensity therapeutic range 2.5 - 3.5 :02 PT (PROTHROMBIN TIME) Comments: PATIENT NOT FASTINGPERFORMED BY: [place] 8554270 [facility] [id number] Information: [id number] ([id number]) Prothrombin Time 30.2 {sec} (Abnormal) Range: 9.1-12.0 INR 2.8 (Abnormal) Range: 0.8-1.2 Comments: Reference interval is for non-anticoagulated patients. . Suggested INR therapeutic range for Vitamin K anta gonist therapy: Standard Dose (moderate intensity therapeutic range): 2.0 - 3.0 Higher intensity therapeutic range 2.5 - 3.5 :58 PT (PROTHROMBIN TIME) Comments: PATIENT NOT FASTINGPERFORMED BY: [place] 8554270 [facility] [id number] Information: [id number] ([id number]) Prothrombin Time 16.3 {sec} (Abnormal) Range: 9.1-12.0 INR 1.5 (Abnormal) Range: 0.8-1.2 Comments: Reference interval is for non-anticoagulated patients. . Suggested INR therapeutic range for Vitamin K anta gonist therapy: Standard Dose (moderate intensity therapeutic range): 2.0 - 3.0 Higher intensity therapeutic range 2.5 - 3.5 01-Ruf-997894:38 PT (PROTHROMBIN TIME) Comments: PATIENT NOT FASTINGPERFORMED BY: [facility] [id number] Information: [id number] ([id number]) Prothrombin Time 24.1 {sec} (Abnormal) Range: 9.1-12.0 INR 2.2 (Abnormal) Range: 0.8-1.2 Comments: Reference interval is for non-anticoagulated patients. . Suggested INR therapeutic range for Vitamin K anta gonist therapy: Standard Dose (moderate intensity therapeutic range): 2.0 - 3.0 Higher intensity therapeutic range 2.5 - 3.5 59-Dwo-68235:48 Pathology Report Comments: PERFORMED BY: CELE[facility] [place] [facility] Nxxdr88263 Interchange [facility] [id number] BY: [facility] Dermatopathology Tbezzzg250 [address] [id number] Information: [id number] See MATER Comments: Material submitted: .RIGHT DELTOID [...] SUBMITTEDENTIRELY IN A SINGLE CASSETTE.LMS/CRYPathologist provided ICD-9:173.61CPT .366192 94-Vwe-718212:16 PT (Prothrobim Time) Comments: PATIENT NOT FASTINGPERFORMED BY: NOAM [facility] Xjrybt9726 [facility] [id number] Information: [id number] ([id number]) Prothrombin Time 30.4 {sec} (Abnormal) Range: 9.1-12.0 INR 2.8 (Abnormal) Range: 0.8-1.2 Comments: Reference interval is for non-anticoagulated patients. . Suggested INR therapeutic range for Vitamin K anta gonist therapy: Standard Dose (moderate intensity therapeutic range): 2.0 - 3.0 Higher intensity therapeutic range 2.5 - 3.5 :36 PT (PROTHROMBIN TIME) Comments: PATIENT NOT FASTINGPERFORMED BY: [facility] [id number] Information: [id number] ([id number]) Prothrombin Time 35.6 {sec} (Abnormal) Range: 9.1-12.0 INR 3.3 (Abnormal) Range: 0.8-1.2 Comments: Reference interval is for non-anticoagulated patients. . Suggested INR therapeutic range for Vitamin K anta gonist therapy: Standard Dose (moderate intensity therapeutic range): 2.0 - 3.0 Higher intensity therapeutic range 2.5 - 3.5 :40 PT (PROTHROMBIN TIME) Comments: PATIENT NOT FASTINGPERFORMED BY: [facility] [id number] Information: [id number] ([id number]) Prothrombin Time 44.9 {sec} (Abnormal) Range: 9.1-12.0 [...] (PROTHROMBIN TIME) Comments: PATIENT NOT FASTINGPERFORMED BY: [place] 9706270 [facility] [id number] Information: [id number] ([id number]) Prothrombin Time 22.0 {sec} (Abnormal) Range: 9.1-12.0 INR 2.0 (Abnormal) Range: 0.8-1.2 Comments: Reference interval is for non-anticoagulated patients. . Suggested INR therapeutic range for Vitamin K anta gonist therapy: Standard Dose (moderate intensity therapeutic range): 2.0 - 3.0 Higher intensity therapeutic range 2.5 - 3.5 :48 PT (PROTHROMBIN TIME) Comments: PATIENT NOT FASTINGPERFORMED BY: [facility] [id number] Information: [id number] ([id number]) Prothrombin Time 16.2 {sec} (Abnormal) Range: 9.1-12.0 INR 1.6 (Abnormal) Range: 0.8-1.2 Comments: Reference interval is for non-anticoagulated patients. . Suggested INR therapeutic range for Vitamin K anta gonist therapy: Standard Dose (moderate intensity therapeutic range): 2.0 - 3.0 Higher intensity therapeutic range 2.5 - 3.5 70-Ayn-291303:19 PT (Prothrobim Time) Comments: PATIENT NOT FASTINGPERFORMED BY: LikeLike.comAstra Health CenterNoiwfv9143 [facility] [id number] Information: [id number] ([id number]) Prothrombin Time 31.0 {sec} (Abnormal) Range: 9.1-12.0 INR 2.8 (Abnormal) Range: 0.8-1.2 Comments: Reference interval is for non-anticoagulated patients. . Suggested INR therapeutic range for Vitamin K anta gonist therapy: Standard Dose (moderate intensity therapeutic range): 2.0 - 3.0 Higher intensity therapeutic range 2.5 - 3.5 :16 Metabolic Panel, Comprehensive Comments: PATIENT WAS FASTINGPERFORMED BY: [facility] Ssdnor0350 [facility] [id number] ([id number]) ALT (SGPT) 17 [iU]/L (Normal) Range: 0-44 [...] mg/dL (Normal) Range: 65-99 :16 Lipid Panel ([id number]) Comments: PATIENT WAS FASTINGPERFORMED BY: MusicmetricAstra Health CenterJsahkh8591 [facility] [id number] LDL/HDL Ratio 3.0 {ratio_units} (Normal) Range: 0.0-3.6 [...] Auto Diff Comments: PATIENT WAS FASTINGPERFORMED BY: LikeLike.comAstra Health CenterLtnfkq5878 [facility] [id number] Information: [id number] ([id number]) Immature Grans (Abs) 0.0 {x10E3/uL} (Normal) Range: [...] (PROSTATE SPECIFIC Comments: PATIENT WAS FASTINGPERFORMED BY: [place] [id number] ANTIGEN) (V76.44) Prostate Specific Ag, 0.5 ng/mL (Normal) Range: 0.0-4.0 Serum Comments: Phonezoo CommunicationsIA methodology. .According to the [place] [employer], Serum PSA shoulddecrease and remain [...] (PROTHROMBIN TIME) Comments: PATIENT NOT FASTINGPERFORMED BY: [facility]6370 [facility] [id number] Information: [id number] ([id number]) Prothrombin Time 25.3 {sec} (Abnormal) Range: 9.1-12.0 INR 2.4 (Abnormal) Range: 0.8-1.2 Comments: Reference interval is for non-anticoagulated patients. . Suggested INR therapeutic range for Vitamin K anta gonist therapy: Standard Dose (moderate intensity therapeutic range): 2.0 - 3.0 Higher intensity therapeutic range 2.5 - 3.5 :47 PT (Prothrobim Time) Comments: PATIENT NOT FASTINGPERFORMED BY: [place] 8554270 [facility] [id number] Information: [id number] ([id number]) Prothrombin Time 30.5 {sec} (Abnormal) Range: 9.1-12.0 INR 2.9 (Abnormal) Range: 0.8-1.2 Comments: Reference interval is for non-anticoagulated patients. . Suggested INR therapeutic range for Vitamin K anta gonist therapy: Standard Dose (moderate intensity therapeutic range): 2.0 - 3.0 Higher intensity therapeutic range 2.5 - 3.5 53-Bda-755718:27 PT (Prothrobim Time) Comments: PATIENT NOT FASTINGPERFORMED BY: [facility] [id number] Information: [id number] ([id number]) Prothrombin Time 25.4 {sec} (Abnormal) Range: 9.1-12.0 INR 2.4 (Abnormal) Range: 0.8-1.2 Comments: Reference interval is for non-anticoagulated patients. . Suggested INR therapeutic range for Vitamin K anta gonist therapy: Standard Dose (moderate intensity therapeutic range): 2.0 - 3.0 Higher intensity therapeutic range 2.5 - 3.5 :27 PTT (Activated Partial Comments: PATIENT NOT FASTINGPERFORMED BY: [facility] [id number] Thromboplastin Time) ([id number]) aPTT 37 {sec} (Abnormal) Range: 24-33 Comments: This test has not been validated for monitoring unfractionated heparintherapy. aPTT-based therapeutic ranges for unfractionated heparintherapy have not been established. For general guidelines onHeparin monitoring, refer to the [facility] Directory of Services. Plan of Care [...] screening for lipoid disorders) Current use of technician terminal and repeater anticoagulation : Eprescribed prescriptions (G8553) Indication: Current use of senior living anticoagulation Cough : Follow up if no [...] Indication: Reflux Planned Observations PT (PROTHROMBIN TIME) ([id number])Indication: Current use of senior living anticoagulation On: :00 Request PT (PROTHROMBIN TIME) ([id number])Indication: Current use of technician terminal and repeater anticoagulation On: 49-Mib-75446:00 Request PT (PROTHROMBIN TIME) ([id number])Indication: Current use of technician terminal and repeater anticoagulation On: :00 Request PT (PROTHROMBIN TIME) ([id number])Indication: Current use of senior living anticoagulation On: :00 Request PT (PROTHROMBIN TIME) ([id number])Indication: Current use of technician terminal and repeater anticoagulation On: 14-Jun-2021 Request PT (PROTHROMBIN TIME) ([id number])Indication: Current use of technician terminal and repeater anticoagulation On: 15-May-2021 Request PT (PROTHROMBIN TIME) ([id number])Indication: Current use of senior living anticoagulation On: 15-Apr-2021 Request PT (PROTHROMBIN TIME) ([id number])Indication: Current use of technician terminal and repeater anticoagulation On: 16-Mar-2021 Request PT (PROTHROMBIN TIME) ([id number])Indication: Current use of technician terminal and repeater anticoagulation On: :00 Request PT (PROTHROMBIN TIME) ([id number])Indication: Current use of senior living anticoagulation On: : Request PT (PROTHROMBIN TIME) ([id number])Indication: Current use of senior living anticoagulation On: : Request PT (PROTHROMBIN TIME) ([id number])Indication: Current use of senior living anticoagulation On: : Request PT (PROTHROMBIN TIME) ([id number])Indication: Current use of technician terminal and repeater anticoagulation On: : Request PT (PROTHROMBIN TIME) ([id number])Indication: Current use of technician terminal and repeater anticoagulation On: : Request PT (PROTHROMBIN TIME) ([id number])Indication: Current use of senior living anticoagulation On: : Request PT (PROTHROMBIN TIME) ([id number])Indication: Current use of senior living anticoagulation On: : Request PT (PROTHROMBIN TIME) ([id number])Indication: Current use of senior living anticoagulation On: 19-Jun-2020 Request PT (PROTHROMBIN TIME) ([id number])Indication: Current use of senior living anticoagulation On: 20-May-2020 Request PT (PROTHROMBIN TIME) ([id number])Indication: Current use of senior living anticoagulation On: 20-Apr-2020 Request PT (PROTHROMBIN TIME) ([id number])Indication: Current use of senior living anticoagulation On: 21-Mar-2020 Request PT (PROTHROMBIN TIME) ([id number])Indication: Current use of senior living anticoagulation On: 20-Feb-2020 Request PT (PROTHROMBIN TIME) ([id number])Indication: Current use of senior living anticoagulation On: 21-Jan-2020 Request PT (PROTHROMBIN TIME) ([id number])Indication: Current use of technician terminal and repeater anticoagulation On: 22-Dec-2019 Request PT (PROTHROMBIN TIME) ([id number])Indication: Current use of technician terminal and repeater anticoagulation On: 22-Nov-2019 Request PT (PROTHROMBIN TIME) ([id number])Indication: Current use of technician terminal and repeater anticoagulation On: 23-Oct-2019 Request PT (PROTHROMBIN TIME) ([id number])Indication: Current use of technician terminal and repeater anticoagulation On: 24-Aug-2019 Request PT (PROTHROMBIN TIME) ([id number])Indication: Current use of technician terminal and repeater anticoagulation On: 25-Jul-2019 Request PT (PROTHROMBIN TIME) ([id number])Indication: Current use of senior living anticoagulation On: 25-Jun-2019 Request PT (PROTHROMBIN TIME) ([id number])Indication: Current use of senior living anticoagulation On: 26-May-2019 Request PT (PROTHROMBIN TIME) ([id number])Indication: Current use of technician terminal and repeater anticoagulation On: 26-Apr-2019 Request PT (PROTHROMBIN TIME) ([id number])Indication: Current use of technician terminal and repeater anticoagulation On: 27-Mar-2019 Request PT (PROTHROMBIN TIME) ([id number])Indication: Current use of technician terminal and repeater anticoagulation On: 25-Feb-2019 Request PT (PROTHROMBIN TIME) ([id number])Indication: Current use of senior living anticoagulation On: 26-Jan-2019 Request PT (PROTHROMBIN TIME) ([id number])Indication: Acute venous embolism and thrombosis of deep vessels of distal lower extremity, right On: 04-Jan-2019 Request Comments: STANDING ORDER PT (PROTHROMBIN TIME) ([id number])Indication: Current use of technician terminal and repeater anticoagulation On: 27-Dec-2018 Request PT (PROTHROMBIN TIME) ([id number])Indication: Acute venous embolism and thrombosis of deep vessels of distal lower extremity, right On: 05-Dec-2018 Request Comments: STANDING ORDER PT (PROTHROMBIN TIME) ([id number])Indication: Current use of technician terminal and repeater anticoagulation On: 27-Nov-2018 Request PT (PROTHROMBIN TIME) ([id number])Indication: Acute venous embolism and thrombosis of deep vessels of distal lower extremity, right On: 05-Nov-2018 Request Comments: STANDING ORDER PT (PROTHROMBIN TIME) ([id number])Indication: Current use of technician terminal and repeater anticoagulation On: 28-Oct-2018 Request PT (PROTHROMBIN TIME) ([id number])Indication: Acute venous embolism and thrombosis of deep vessels of distal lower extremity, right On: 06-Oct-2018 Request Comments: STANDING ORDER PT (PROTHROMBIN TIME) ([id number])Indication: Current use of senior living anticoagulation On: 28-Sep-2018 Request PT (PROTHROMBIN TIME) ([id number])Indication: Acute venous embolism and thrombosis of deep vessels of distal lower extremity, right On: 06-Sep-2018 Request Comments: STANDING ORDER PT (PROTHROMBIN TIME) ([id number])Indication: Current use of senior living anticoagulation On: 29-Aug-2018 Request PT (PROTHROMBIN TIME) ([id number])Indication: Acute venous embolism and thrombosis of deep vessels of distal lower extremity, right On: 07-Aug-2018 Request Comments: STANDING ORDER PT (PROTHROMBIN TIME) ([id number])Indication: Current use of technician terminal and repeater anticoagulation On: 30-Jul-2018 Request PT (PROTHROMBIN TIME) ([id number])Indication: Acute venous embolism and thrombosis of deep vessels of distal lower extremity, right On: 08-Jul-2018 Request Comments: STANDING ORDER PT (PROTHROMBIN TIME) ([id number])Indication: Current use of senior living anticoagulation On: 30-Jun-2018 Request PT (PROTHROMBIN TIME) ([id number])Indication: Acute venous embolism and thrombosis of deep vessels of distal lower extremity, right On: 08-Jun-2018 Request Comments: STANDING ORDER PT (PROTHROMBIN TIME) ([id number])Indication: Current use of technician terminal and repeater anticoagulation On: 31-May-2018 Request Metabolic Panel, Comprehensive ([id number])Indication: Acute venous embolism and thrombosis of deep vessels of distal lower extremity, right On: 2-Wja-179585:53 Request CBC, Platelets & Auto Diff ([id number])Indication: Acute venous embolism and thrombosis of deep vessels of distal lower extremity, right On: 7-Tqj-710333:53 Request LIPID PANEL ([id number])Indication: SCREENING FOR HYPERLIPIDEMIA (Renamed from Encounter for screening for lipoid disorders) On: 9-Itq-311966:53 Request PSA (PROSTATE SPECIFIC ANTIGEN) (V76.44)Indication: Screening for prostate cancer On: 1-Vrw-220306:53 Request PT (PROTHROMBIN TIME) ([id number])Indication: Current use of technician terminal and repeater anticoagulation On: 02-Mar-2018 Request LIPID PANEL ([id number])Indication: SCREENING FOR HYPERLIPIDEMIA (Renamed from Encounter for screening for lipoid disorders) On: 69-Xtm-952363:48 Request CALCIFEDIOL ([id number])Indication: Leg cramps On: 14-Kzt-628929:41 Request PT (PROTHROMBIN TIME) ([id number])Indication: Current use of technician terminal and repeater anticoagulation On: 06-Jan-2017 Request PT (PROTHROMBIN TIME) ([id number])Indication: Current use of senior living anticoagulation On: 11-Apr-2016 Request PT (PROTHROMBIN TIME) ([id number])Indication: Current use of senior living anticoagulation On: 11-Feb-2016 Request PT (Prothrobim Time) ([id number])Indication: Current use of senior living anticoagulation On: 20-Jul-2015 Request PT (Prothrobim Time) ([id number])Indication: Current use of technician terminal and repeater anticoagulation On: 13-Jul-2015 Request PT (Prothrobim Time) ([id number])Indication: Current use of technician terminal and repeater anticoagulation On: 06-Jul-2015 Request PT (Prothrobim Time) ([id number])Indication: Current use of senior living anticoagulation On: 29-Jun-2015 Request PT (Prothrobim Time) ([id number])Indication: Current use of senior living anticoagulation On: 22-Jun-2015 Request PT (Prothrobim Time) ([id number])Indication: Current use of senior living anticoagulation On: 15-Jun-2015 Request PT (Prothrobim Time) ([id number])Indication: Current use of technician terminal and repeater anticoagulation On: 08-Jun-2015 Request PT (Prothrobim Time) ([id number])Indication: Current use of technician terminal and repeater anticoagulation On: 01-Jun-2015 Request PT (Prothrobim Time) ([id number])Indication: Current use of technician terminal and repeater anticoagulation On: 25-May-2015 Request PT (Prothrobim Time) ([id number])Indication: Current use of senior living anticoagulation On: 18-May-2015 Request PT (Prothrobim Time) ([id number])Indication: Current use of technician terminal and repeater anticoagulation On: 11-May-2015 Request PT (Prothrobim Time) ([id number])Indication: Current use of senior living anticoagulation On: 04-May-2015 Request PT (Prothrobim Time) ([id number])Indication: Current use of senior living anticoagulation On: 27-Apr-2015 Request PT (Prothrobim Time) ([id number])Indication: Current use of senior living anticoagulation On: 20-Apr-2015 Request PT (PROTHROMBIN TIME) ([id number])Indication: Current use of technician terminal and repeater anticoagulation On: 17-Apr-2015 Request PT (Prothrobim Time) ([id number])Indication: Current use of senior living anticoagulation On: 13-Apr-2015 Request PT (Prothrobim Time) ([id number])Indication: Current use of senior living anticoagulation On: 06-Apr-2015 Request PT (Prothrobim Time) ([id number])Indication: Current use of senior living anticoagulation On: 30-Mar-2015 Request PT (Prothrobim Time) ([id number])Indication: Current use of senior living anticoagulation On: 23-Mar-2015 Request PT (Prothrobim Time) ([id number])Indication: Current use of technician terminal and repeater anticoagulation On: 16-Mar-2015 Request PT (Prothrobim Time) ([id number])Indication: Current use of technician terminal and repeater anticoagulation On: 09-Mar-2015 Request PT (Prothrobim Time) ([id number])Indication: Current use of technician terminal and repeater anticoagulation On: 02-Mar-2015 Request PT (Prothrobim Time) ([id number])Indication: Current use of senior living anticoagulation On: 23-Feb-2015 Request PT (Prothrobim Time) ([id number])Indication: Current use of technician terminal and repeater anticoagulation On: 16-Feb-2015 Request PT (Prothrobim Time) ([id number])Indication: Current use of technician terminal and repeater anticoagulation On: 09-Feb-2015 Request PT (Prothrobim Time) ([id number])Indication: Current use of senior living anticoagulation On: 02-Feb-2015 Request PT (Prothrobim Time) ([id number])Indication: Current use of technician terminal and repeater anticoagulation On: 26-Jan-2015 Request PT (Prothrobim Time) ([id number])Indication: Current use of technician terminal and repeater anticoagulation On: 19-Jan-2015 Request PT (Prothrobim Time) ([id number])Indication: Current use of senior living anticoagulation On: 12-Jan-2015 Request PT (Prothrobim Time) ([id number])Indication: Current use of senior living anticoagulation On: 05-Jan-2015 Request PT (Prothrobim Time) ([id number])Indication: Current use of senior living anticoagulation On: 29-Dec-2014 Request PT (Prothrobim Time) ([id number])Indication: Current use of technician terminal and repeater anticoagulation On: 22-Dec-2014 Request PT (Prothrobim Time) ([id number])Indication: Current use of senior living anticoagulation On: 15-Dec-2014 Request PT (Prothrobim Time) ([id number])Indication: Current use of technician terminal and repeater anticoagulation On: 08-Dec-2014 Request PT (Prothrobim Time) ([id number])Indication: Current use of technician terminal and repeater anticoagulation On: 01-Dec-2014 Request PT (Prothrobim Time) ([id number])Indication: Current use of senior living anticoagulation On: 24-Nov-2014 Request PT (Prothrobim Time) ([id number])Indication: Current use of technician terminal and repeater anticoagulation On: 17-Nov-2014 Request PT (Prothrobim Time) ([id number])Indication: Current use of technician terminal and repeater anticoagulation On: 10-Nov-2014 Request PT (Prothrobim Time) ([id number])Indication: Current use of technician terminal and repeater anticoagulation On: 03-Nov-2014 Request PT (Prothrobim Time) ([id number])Indication: Current use of senior living anticoagulation On: 27-Oct-2014 Request PT (Prothrobim Time) ([id number])Indication: Current use of senior living anticoagulation On: 20-Oct-2014 Request PT (Prothrobim Time) ([id number])Indication: Current use of technician terminal and repeater anticoagulation On: 13-Oct-2014 Request PT (Prothrobim Time) ([id number])Indication: Current use of senior living anticoagulation On: 06-Oct-2014 Request PT (Prothrobim Time) ([id number])Indication: Current use of senior living anticoagulation On: 29-Sep-2014 Request PT (Prothrobim Time) ([id number])Indication: Current use of technician terminal and repeater anticoagulation On: 22-Sep-2014 Request PT (Prothrobim Time) ([id number])Indication: Current use of senior living anticoagulation On: 15-Sep-2014 Request PT (Prothrobim Time) ([id number])Indication: Current use of senior living anticoagulation On: 08-Sep-2014 Request PT (Prothrobim Time) ([id number])Indication: Current use of senior living anticoagulation On: 01-Sep-2014 Request PT (Prothrobim Time) ([id number])Indication: Current use of senior living anticoagulation On: 25-Aug-2014 Request PT (PROTHROMBIN TIME) ([id number])Indication: Current use of senior living anticoagulation On: 20-Aug-2014 Request PT (Prothrobim Time) ([id number])Indication: Current use of technician terminal and repeater anticoagulation On: 18-Aug-2014 Request PT (Prothrobim Time) ([id number])Indication: Current use of senior living anticoagulation On: 11-Aug-2014 Request PT (Prothrobim Time) ([id number])Indication: Current use of technician terminal and repeater anticoagulation On: 04-Aug-2014 Request PT (Prothrobim Time) ([id number])Indication: Current use of technician terminal and repeater anticoagulation On: 28-Jul-2014 Request PT (Prothrobim Time) ([id number])Indication: Current use of technician terminal and repeater anticoagulation On: 21-Jul-2014 Request PT (PROTHROMBIN TIME) ([id number])Indication: Current use of technician terminal and repeater anticoagulation On: 21-Jul-2014 Request PT (Prothrobim Time) ([id number])Indication: Current use of technician terminal and repeater anticoagulation On: 07-Jul-2014 Request PT (Prothrobim Time) ([id number])Indication: Current use of technician terminal and repeater anticoagulation On: 30-Jun-2014 Request PT (Prothrobim Time) ([id number])Indication: Current use of senior living anticoagulation On: 23-Jun-2014 Request PT (Prothrobim Time) ([id number])Indication: Current use of senior living anticoagulation On: 16-Jun-2014 Request PT (Prothrobim Time) ([id number])Indication: Current use of senior living anticoagulation On: 09-Jun-2014 Request PT (Prothrobim Time) ([id number])Indication: Current use of technician terminal and repeater anticoagulation On: 02-Jun-2014 Request PT (Prothrobim Time) ([id number])Indication: Current use of technician terminal and repeater anticoagulation On: 26-May-2014 Request PT (Prothrobim Time) ([id number])Indication: Current use of technician terminal and repeater anticoagulation On: 19-May-2014 Request PT (Prothrobim Time) ([id number])Indication: Current use of technician terminal and repeater anticoagulation On: 12-May-2014 Request PT (Prothrobim Time) ([id number])Indication: Current use of senior living anticoagulation On: 05-May-2014 Request PT (Prothrobim Time) ([id number])Indication: Current use of technician terminal and repeater anticoagulation On: 28-Apr-2014 Request PT (Prothrobim Time) ([id number])Indication: Current use of senior living anticoagulation On: 21-Apr-2014 Request PT (Prothrobim Time) ([id number])Indication: Current use of senior living anticoagulation On: 14-Apr-2014 Request PT (Prothrobim Time) ([id number])Indication: Current use of senior living anticoagulation On: 07-Apr-2014 Request PT (Prothrobim Time) ([id number])Indication: Current use of technician terminal and repeater anticoagulation On: 31-Mar-2014 Request PT (Prothrobim Time) ([id number])Indication: Current use of senior living anticoagulation On: 24-Mar-2014 Request PT (Prothrobim Time) ([id number])Indication: Current use of technician terminal and repeater anticoagulation On: 17-Mar-2014 Request PT (Prothrobim Time) ([id number])Indication: Current use of senior living anticoagulation On: 10-Mar-2014 Request PT (Prothrobim Time) ([id number])Indication: Current use of senior living anticoagulation On: 03-Mar-2014 Request PT (Prothrobim Time) ([id number])Indication: Current use of technician terminal and repeater anticoagulation On: 24-Feb-2014 Request PT (Prothrobim Time) ([id number])Indication: Current use of technician terminal and repeater anticoagulation On: 17-Feb-2014 Request PT (Prothrobim Time) ([id number])Indication: Current use of technician terminal and repeater anticoagulation On: 10-Feb-2014 Request PT (Prothrobim Time) ([id number])Indication: Current use of technician terminal and repeater anticoagulation On: 03-Feb-2014 Request PT (Prothrobim Time) ([id number])Indication: Current use of technician terminal and repeater anticoagulation On: 20-Jan-2014 Request PT (Prothrobim Time) ([id number])Indication: Current use of technician terminal and repeater anticoagulation On: 13-Jan-2014 Request PT (Prothrobim Time) ([id number])Indication: Current use of senior living anticoagulation On: 06-Jan-2014 Request PT (Prothrobim Time) ([id number])Indication: Current use of senior living anticoagulation On: 30-Dec-2013 Request PT (Prothrobim Time) ([id number])Indication: Current use of technician terminal and repeater anticoagulation On: 23-Dec-2013 Request PT (Prothrobim Time) ([id number])Indication: Current use of technician terminal and repeater anticoagulation On: 16-Dec-2013 Request PT (Prothrobim Time) ([id number])Indication: Current use of senior living anticoagulation On: 09-Dec-2013 Request PT (Prothrobim Time) ([id number])Indication: Current use of technician terminal and repeater anticoagulation On: 02-Dec-2013 Request PT (Prothrobim Time) ([id number])Indication: Current use of senior living anticoagulation On: 25-Nov-2013 Request PT (Prothrobim Time) ([id number])Indication: Current use of senior living anticoagulation On: 18-Nov-2013 Request PT (Prothrobim Time) ([id number])Indication: Current use of senior living anticoagulation On: 11-Nov-2013 Request PT (Prothrobim Time) ([id number])Indication: Current use of senior living anticoagulation On: 04-Nov-2013 Request PT (Prothrobim Time) ([id number])Indication: Current use of technician terminal and repeater anticoagulation On: 28-Oct-2013 Request PT (Prothrobim Time) ([id number])Indication: Current use of senior living anticoagulation On: 14-Oct-2013 Request PT (Prothrobim Time) ([id number])Indication: Current use of technician terminal and repeater anticoagulation On: 07-Oct-2013 Request PT (Prothrobim Time) ([id number])Indication: Current use of technician terminal and repeater anticoagulation On: 30-Sep-2013 Request PT (Prothrobim Time) ([id number])Indication: Current use of senior living anticoagulation On: 23-Sep-2013 Request PT (Prothrobim Time) ([id number])Indication: Current use of senior living anticoagulation On: 16-Sep-2013 Request PT (Prothrobim Time) ([id number])Indication: Current use of senior living anticoagulation On: [id number] Request Comments: needs one today then q month or prn Planned Procedures CT ABDOMEN AND PELVIS WITHOUT On: 06-Apr-2018 Intent CONTRAST ([id number])By: Tammie Fink CNP, CNP, Mary E Flu Vaccine (Quadrivalent) On: 06-Apr-2018 Intent 88917Ew: Tammie Fink CNP Comments: Lot #[id number]-L dltd, IMDose prefilled syringegiven by: JUANIS RussellVIS reviewed and ABN signed Tammie LAN Ultrasound - RenalBy: Danae LAN, On: 23-Mar-2015 Intent Tammie Hernandez CNP Aerosol Treatment ([id number])By: Olmanrb On: 23-Mar-2015 Intent Davida OLIVAREZ FLU VAC, SPLIT, >3 YEARS, On: 14-Feb-2014 Intent INTRAMUSC ([id number])By: Danae LAN, Comments: lot # [id number]- 10/28/14site- LDLTroute-IMdose- 0.5mlVIS and ABN 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 CNP IMMUNIZ ADMNIN, 1 VAC, SNGL/COMBO On: 14-Feb-2014 Intent ([id number])By: Tammie Fink CNP, CNP, Mary E Instructions Name Dates Details Nonsmoker : How to access health information online Indication: Nonsmoker Nonsmoker : How to access health information online - Detail Indication: Nonsmoker BMI 25.0-25.9,adult : Patient Instructions Indication: BMI 25.0-25.9,adult Current use of technician terminal and repeater anticoagulation : How to access health information online Indication: Current use of senior living anticoagulation Current use of technician terminal and repeater anticoagulation : How to access health information online - Detail Indication: Current use of technician terminal and repeater anticoagulation Current use of senior living anticoagulation : Patient Instructions Indication: Current use of technician terminal and repeater anticoagulation Cough : Patient Instructions Indication: Cough Screening for prostate cancer : Patient Instructions Indication: Screening for prostate cancer Encounters Office Visit On: 06-Apr-2018 14:04 Encounter Reason: [...] distal lower extremity, right, Current use of senior living anticoagulation, Bilateral recurrent inguinal hernias, Screening for [...] BMI 23.0-23.9, adult, Nonsmoker, Current use of senior living anticoagulation, Reflux, Leg cramps, Follicular lymphoma , [...] UTI symptoms, Cough, Nocturia, Current use of technician terminal and repeater anticoagulation, Pharyngitis, Flank pain [facility] [...] DVT (deep venous thrombosis), Current use of senior living anticoagulation, SCREENING FOR CANCER OF THE PROSTATE [...] screening, visual acuity ( last mo, Dr ajmes ) and PSA (2012).Encounter Diagnosis: Lymphoma, follicular, DVT (deep venous thrombosis), Current use of senior living anticoagulation, Reflux [facility] Payers MedicareAARP/[place]; isaac guarantor
--- OUTSIDE RECORDS SUMMARY | 2018-07-19 23:47 | XMS RPT_ITS | Continuity of Care Document ---
:1950 Author Organization [facility] Address [facility] 2 [place] [address] Phone Care Team Providers Name Role Phone [...] (R05, 786.2) Status: Active Current use of senior care anticoagulation (Z51.81, V58.61) Status: Active DVT (deep venous thrombosis) (I82.409, 453.40) Comments: bilater lower ext occured October of 2012 ? 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 Arvin Reis at [facility] had chemo and radiation Last one in [...] Visit Report Result: Comments: See Note; NOTES: [facility] [place] [address] OFFICE VISIT Date of Service: 11/16/17 1102 MR#: [id number] Acct: [id number] Name: BEREKETPATRIZIA L Rep #: [id number] : 1950 From: Regis Fleming MD Age/Sex: [...] Chronic Code Visit Office Visits / Consults: [id number] OV L3 Est 11/16/17 1137 <Electronically signed by Regis Fleming MD&# 62; Date Regis Fleming MD Cosigner Signature: Date (if applicable) CC: 24-Mar-2015 Kidney and Bladder Result: Comments: See Note; NOTES: [facility] Imaging Services [address] [place] [address] Verdana 4d Kidney and Bladder MR#: [id number] Acct: [id number] Name: PATRIZIA CUBA Rep #: [id number] : 1950 M 64 From: Tarun Denis MD PCP: Tammie Fink Status: REG CLI Study: Kidney and Bladder Date of Exam: 03/24/15 Exam# [id number] Ordering Dr: Tammie Fink ST UDY: RENAL [...] MD at 22:21 EST , Service support [phone], CC: Tammie Fink Setter Automatic Spinning Lathe: Signed 18-Feb-2015 Abdomen/Pelvis WITH Contrast Result: Comments: See Note; NOTES: [facility] Imaging Services [address] [place] [address] Verdana 4d Abdomen/Pelvis WITH Contrast MR#: [id number] Acct: [id number] Name : PATRIZIA CUBA Rep #: [id number] : 1950 M 64 From: Nickolas Mitchell DO PCP: Tammie Fink Status: REG CLI Study: Abdomen/Pelvis WITH Contrast Date of Exam: 02/18/15 Exam# [id number] Ordering Dr : Skyler Brewer MD STUDY: [...] DO at 10:24 EDT , Service support [phone], CC: Tammie Brewer Setter Automatic Spinning Lathe: Signed 18-Feb-2015 Chest WITH Contrast Result: Comments: See Note; NOTES: [facility] Imaging Services [address] [place] [address] Verdana 4d Chest WITH Contrast MR#: [id number] Acct: [id number] Name: PATRIZIA CUBA Rep #: [id number] : 1950 M 64 From: Nickolas Mitchell DO PCP: Tammie Fink Status: REG CLI Study: Chest WITH Contrast Date of Exam: 02/18/15 Exam# [id number] Ordering Dr: Skyler Brewer MD STUDY: CT [...] DO at 9:28 EDT , Service support [phone], CC: Tammie Fink; Skyler Brewer Setter Automatic Spinning Lathe: Signed 13-Feb-2015 Neck for Soft Tissue Result: Comments: See Note; NOTES: [facility] Imaging Services [address] [place] [address] Verdana 4d Neck for Soft Tissue MR#: [id number] Acct: [id number] Name: PATRIZIA DUMONT Rep #: [id number] : 1950 M 64 From: Evens Salas MD PCP: Tammie Fink Status: REG CLI Study: Neck for Soft Tissue Date of Exam: 02/13/15 Exam# [id number] Ordering Dr: Skyler Brewer MD STUDY: X-RAY [...] at 10:20 EDT Tel , Service support [phone], RAD/Neck for S oft Tissue IMPRESSION: Normal x-ray soft tissue neck. Electronically Signed: Evens Salas MD at 10:20 EDT Tel , Service support [phone], CC: Tammie Fink; Skyler Brewer Setter Automatic Spinning Lathe: Signed 06-Jan-2014 PET/CT Tumor Base -Thigh Init Result: Comments: See Note; NOTES: [facility] Imaging Services [address] [place] [address] PET Scan Report MR#: [id number] Acct: [id number] Name: PATRIZIA CUBA Rep #: [id number] : 1950 M 63 From: Caleb Armando MARTINEZ PCP: Tammie Fink Status: REG CLI Study: PET/CT Tumor Base -Thigh Init Date of Exam: 01/06/14 Exam# [id number] Ordering Dr: Skyler Brewer MD INDICAT IONS: [...] Caleb Roberts DO at 15:00 EDT Tel [phone], [employer] support [phone], CC: Tammie Fink; RADHA; EUGENIO; Skyler Brewer Setter Automatic Spinning Lathe: Signed 16-Dec-2013 Abdomen/Pelvis WITH Contrast Result: Comments: See Note; NOTES: [facility] Imaging Services [address] [place] [address] CAT Scan Report MR#: [id number] Acct: [id number] Name: PATRIZIA CUBA Rep #: [id number] : 1950 M 63 From: Jesus Webb MD PCP: Tammie Fink Status: REG CLI Study: Abdomen/Pelvis WITH Contrast Date of Exam: 12/16/13 Exam# [id number] Ordering Dr: Skyler Brewer MD ALFREDO DY: [...] Jesus Webb MD at 8:49 EDT Tel [phone], Service support [phone], CC: Tammie Schwartz sa; Skyler Brewer Setter Automatic Spinning Lathe: Signed 16-Dec-2013 Chest WITH Contrast Result: Comments: See Note; NOTES: [facility] Imaging Services [address] [place] [address] CAT Scan Report MR#: [id number] Acct: [id number] Name: PATRIZIA CUBA Rep #: [id number] : 1950 M 63 From: Jesus Webb MD PCP: Tammie Fink Status: REG CLI Study: Chest WITH Contrast Date of Exam: 12/16/13 Exam# [id number] Ordering Dr: Skyler Brewer MD STUDY: CT [...] Jesus Webb MD at 8:52 EDT Tel [phone], Service support [phone], CC: Tammie Fink; Skyler Brewer Setter Automatic Spinning Lathe: Signed 16-Dec-2013 Soft Tissue Neck WITH Contrast Result: Comments: See Note; NOTES: [facility] Imaging Services [address] [place] [address] CAT Scan Report MR#: [id number] Acct: [id number] Name: PATRIZIA CUBA Rep #: [id number] : 1950 M 63 From: Jesus Webb MD PCP: Tammie Fink Status: REG CLI Study: Soft Tissue Neck WITH Contrast Date of Exam: 12/16/13 Exam# [id number] Ordering Dr: Skyler Brewer MD [facility]: CT SOFT TISSUE NECK WITH CONTRAST [...] FINDINGS: Normal bilateral parotid glands. 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 Normal bilateral parapharyngeal spaces. Normal bilateral [...] Jesus Webb MD at 9:27 EDT Tel [phone], Service suppo rt [phone], CC: Tammie Fink; Skyler Brewer Setter Automatic Spinning Lathe: Signed Family History Unknown Family Member Name Dates Details Brother 1 Comments: DVT Status: Active Father Comments: DVT Status: Active Social History Name Dates Details Caffeine Use Comments: coffee all day Status: Active Exercise History Comments: walking at work Status: Active Most Recent Primary Occupation Comments: [employer] working Status: Active No Drug Use Status: Active Non Drinker/No Alcohol Use Status: Active Non Smoker/No Tobacco Use Status: Active Vital Signs Date Test Result Details 05-Alm-608250:04 Temperature 97.8 f Pulse 76 /min Comments: [...] Description Value Details :38 PT (PROTHROMBIN TIME) (39120) Comments: PATIENT NOT FASTINGPERFORMED BY: NOAM Field Qvxijr9399 [facility] [id number] Prothrombin Time 24.0 {sec} (Abnormal) Range: 9.1-12.0 INR 2.5 (Abnormal) Range: 0.8-1.2 Comments: Reference interval is for non-anticoagulated patients. . Suggested INR therapeutic range for Vitamin K anta gonist therapy: Standard Dose (moderate intensity therapeutic range): 2.0 - 3.0 Higher intensity therapeutic range 2.5 - 3.5 64-Plh-411573:02 PT (PROTHROMBIN TIME) (28047) Comments: STANDING ORDER; PATIENT NOT FASTINGPERFORMED BY: NOAM [facility] Zdalkk1527 [facility] [id number] Prothrombin Time 37.7 {sec} (Abnormal) Range: 9.1-12.0 INR 3.8 (Abnormal) Range: 0.8-1.2 Comments: Client Requested Flag Reference interval is for non- anticoagulated patients. . Suggested INR therapeutic ra nge for Vitamin K antagonist therapy: Standard Dose (moderate intensity therapeutic range): 2.0 - 3.0 Higher intensity therapeutic range 2.5 - 3.5 11-Xdo-496250:27 PT (PROTHROMBIN TIME) (20067) Comments: STANDING ORDER; PATIENT NOT FASTINGPERFORMED BY: [facility] [id number] Prothrombin Time 36.8 {sec} (Abnormal) Range: 9.1-12.0 INR 3.7 (Abnormal) Range: 0.8-1.2 Comments: Client Requested Flag Reference interval is for non- anticoagulated patients. . Suggested INR therapeutic ra nge for Vitamin K antagonist therapy: Standard Dose (moderate intensity therapeutic range): 2.0 - 3.0 Higher intensity therapeutic range 2.5 - 3.5 :52 PT (PROTHROMBIN TIME) (33972) Comments: PATIENT NOT FASTINGPERFORMED BY: [facility] [id number] Prothrombin Time 16.3 {sec} (Abnormal) Range: 9.1-12.0 INR 1.6 (Abnormal) Range: 0.8-1.2 Comments: Reference interval is for non-anticoagulated patients. . Suggested INR therapeutic range for Vitamin K anta gonist therapy: Standard Dose (moderate intensity therapeutic range): 2.0 - 3.0 Higher intensity therapeutic range 2.5 - 3.5 84-Hij-210633:28 PT (PROTHROMBIN TIME) (71495) Comments: STANDING ORDER; PATIENT NOT FASTINGPERFORMED BY: [facility]6370 [facility] [id number] Prothrombin Time 29.7 {sec} (Abnormal) Range: 9.1-12.0 INR 3.0 (Abnormal) Range: 0.8-1.2 Comments: Reference interval is for non-anticoagulated patients. . Suggested INR therapeutic range for Vitamin K anta gonist therapy: Standard Dose (moderate intensity therapeutic range): 2.0 - 3.0 Higher intensity therapeutic range 2.5 - 3.5 71-Jos-736066:11 PT (PROTHROMBIN TIME) (62608) Comments: PATIENT NOT FASTINGPERFORMED BY: [facility]6370 [facility] [id number] Prothrombin Time 20.6 {sec} (Abnormal) Range: 9.1-12.0 INR 2.1 (Abnormal) Range: 0.8-1.2 Comments: Reference interval is for non-anticoagulated patients. . Suggested INR therapeutic range for Vitamin K anta gonist therapy: Standard Dose (moderate intensity therapeutic range): 2.0 - 3.0 Higher intensity therapeutic range 2.5 - 3.5 4-Yyf-669191:27 PT (PROTHROMBIN TIME) (93937) Comments: PATIENT NOT FASTINGPERFORMED BY: [facility] [id number] Prothrombin Time 23.9 {sec} (Abnormal) Range: 9.1-12.0 INR 2.5 (Abnormal) Range: 0.8-1.2 Comments: Reference interval is for non-anticoagulated patients. . Suggested INR therapeutic range for Vitamin K anta gonist therapy: Standard Dose (moderate intensity therapeutic range): 2.0 - 3.0 Higher intensity therapeutic range 2.5 - 3.5 15-Hkn-255354:31 CBC W/Diff, Automated Comments: [facility] [address] [place], [address] Absolute Lymph 1.01 {X10_3/ul} (Normal) Range: 0.83-4.51 [...] 4.6-6.2 WBC 4.3 K/mm3 (Abnormal) Range: 4.4-11.0 48-Umv-850419:30 [facility] Met[facility] Profil Comments: Reason for Laboratory Test H/O NHL Z85.72Serial Specimen #1, #2 or #3? 1[facility] [address] [place], [place], [address] GAP 5 (Normal) Range: 5-15 CO2 27.0 [...] Comments: Please note revised GLUCOSE reference range zfkrsiepn17/02/2018. 89-Rtg-246706:30 LDH 190 U/L (Normal) Comments: Reason for Laboratory Test H/O NHL Z85.72Serial Specimen #1, #2 or #3? 1[facility] [address] [place], [place], [address] Range: 87-241 08-Jun-20179:29 PT (PROTHROMBIN TIME) (24582) Comments: PATIENT NOT FASTINGPERFORMED BY: [facility]CoCommunity [facility] CenterEvvjvx3467 [facility] [id number] Prothrombin Time 22.4 {sec} (Abnormal) Range: 9.1-12.0 INR 2.3 (Abnormal) Range: 0.8-1.2 Comments: Reference interval is for non-anticoagulated patients. . Suggested INR therapeutic range for Vitamin K anta gonist therapy: Standard Dose (moderate intensity therapeutic range): 2.0 - 3.0 Higher intensity therapeutic range 2.5 - 3.5 26-Uzd-442705:20 PT (PROTHROMBIN TIME) (17231) Comments: PATIENT NOT FASTINGPERFORMED BY: [employer]70 [facility] [id number] Prothrombin Time 17.1 {sec} (Abnormal) Range: 9.1-12.0 INR 1.7 (Abnormal) Range: 0.8-1.2 Comments: Reference interval is for non-anticoagulated patients. . Suggested INR therapeutic range for Vitamin K anta gonist therapy: Standard Dose (moderate intensity therapeutic range): 2.0 - 3.0 Higher intensity therapeutic range 2.5 - 3.5 69-Yrb-714928:39 PT (PROTHROMBIN TIME) (16279) Comments: PATIENT NOT FASTINGPERFORMED BY: [employer]6370 [facility] [id number] Prothrombin Time 23.4 {sec} (Abnormal) Range: 9.1-12.0 INR 2.4 (Abnormal) Range: 0.8-1.2 Comments: Reference interval is for non-anticoagulated patients. . Suggested INR therapeutic range for Vitamin K anta gonist therapy: Standard Dose (moderate intensity therapeutic range): 2.0 - 3.0 Higher intensity therapeutic range 2.5 - 3.5 29-Zhm-286364:10 TSH (THYROID STIMULATING Comments: PATIENT WAS FASTINGPERFORMED BY: [facility] Mwjgwm4861 [facility] [id number] HORMONE) (33632) TSH 2.310 {uIU/mL} (Normal) Range: 0.450-4.500 57-Hpo-274759:10 PSA (PROSTATE SPECIFIC Comments: PATIENT WAS FASTINGPERFORMED BY: [facility] [id number] ANTIGEN) (V76.44) Prostate Specific Ag, 0.7 ng/mL (Normal) Range: 0.0-4.0 Serum Comments: Yulisa ECLIA methodology. .According to the [place] [employer], Serum PSA shoulddecrease and remain at undetectable levels after radicalprostatectomy. The AUA defines biochemical recurrence as an initialPSA value 0.2 ng/mL or greater followed by a subsequent confirmatoryPSA value 0.2 ng/mL or greater.Values obtained with d ifferent assay methods or kits cannot be usedinterchangeably. Results cannot be interpreted as absolute evidenceof the presence or absence of malignant disease. 00-Duq-063388:10 CBC & PLATELETS (AUTO) Comments: PATIENT WAS FASTINGPERFORMED BY: [employer] [facility] [id number] (80273) Platelets 181 {x10E3/uL} (Normal) Range: 150-379 RDW 13.5 % (Normal) Range: 12.3-15.4 MCHC 33.9 g/dL (Normal) Range: 31.5-35.7 MCH 31.1 pg (Normal) Range: 26.6-33.0 MCV 92 fL (Normal) Range: 79-97 Hematocrit 45.4 % (Normal) Range: 37.5-51.0 Hemoglobin 15.4 g/dL (Normal) Range: 13.0-17.7 RBC 4.95 {x10E6/uL} (Normal) Range: 4.14-5.80 WBC 4.4 {x10E3/uL} (Normal) Range: 3.4-10.8 07-Ysh-287185:10 VITAMIN B12 AND FOLATES Comments: PATIENT WAS FASTINGPERFORMED BY: [facility] [place] [facility] [id number] (84871) Folate (Folic Acid), Serum 12.4 ng/mL (Normal) Comments: A serum folate concentration of less than 3.1 ng/mL isconsidered to represent clinical deficiency. Vitamin B12 411 pg/mL (Normal) Range: 232-1245 64-Zcd-225903:10 Metabolic Panel, Comprehensive Comments: PATIENT WAS FASTINGPERFORMED BY: [facility] [place] [facility] [id number] (46371) ALT (SGPT) 14 [iU]/L (Normal) Range: 0-44 [...] 8-27 Glucose 76 mg/dL (Normal) Range: 65-99 35-Bgn-526402:10 MAGNESIUM (78863) Comments: PATIENT WAS FASTINGPERFORMED BY: [facility] Vbglws6120 [facility] [id number] Magnesium 2.4 mg/dL (Abnormal) Range: 1.6-2.3 48-Nuh-284493:31 PT (PROTHROMBIN TIME) (15986) Comments: PATIENT NOT FASTINGPERFORMED BY: [facility] Daniob6313 [facility] [id number] Prothrombin Time 21.0 {sec} (Abnormal) Range: 9.1-12.0 INR 2.1 (Abnormal) Range: 0.8-1.2 Comments: Reference interval is for non-anticoagulated patients. . Suggested INR therapeutic range for Vitamin K anta gonist therapy: Standard Dose (moderate intensity therapeutic range): 2.0 - 3.0 Higher intensity therapeutic range 2.5 - 3.5 :19 PT (PROTHROMBIN TIME) (91336) Comments: PERFORMED BY: [facility] [id number] Prothrombin Time 22.3 {sec} (Abnormal) Range: 9.1-12.0 INR 2.3 (Abnormal) Range: 0.8-1.2 Comments: Reference interval is for non-anticoagulated patients. . Suggested INR therapeutic range for Vitamin K anta gonist therapy: Standard Dose (moderate intensity therapeutic range): 2.0 - 3.0 Higher intensity therapeutic range 2.5 - 3.5 96-Xob-396935:07 PT (PROTHROMBIN TIME) (10309) Comments: PATIENT NOT FASTINGPERFORMED BY: [place] 1811370 [facility] [id number] Prothrombin Time 21.2 {sec} (Abnormal) Range: 9.1-12.0 INR 2.1 (Abnormal) Range: 0.8-1.2 Comments: Reference interval is for non-anticoagulated patients. . Suggested INR therapeutic range for Vitamin K anta gonist therapy: Standard Dose (moderate intensity therapeutic range): 2.0 - 3.0 Higher intensity therapeutic range 2.5 - 3.5 :21 PT (PROTHROMBIN TIME) (45600) Comments: PATIENT NOT FASTINGPERFORMED BY: [facility] [id number] Prothrombin Time 23.1 {sec} (Abnormal) Range: 9.1-12.0 INR 2.3 (Abnormal) Range: 0.8-1.2 Comments: Reference interval is for non-anticoagulated patients. . Suggested INR therapeutic range for Vitamin K anta gonist therapy: Standard Dose (moderate intensity therapeutic range): 2.0 - 3.0 Higher intensity therapeutic range 2.5 - 3.5 :56 PT (PROTHROMBIN TIME) (52902) Comments: PATIENT NOT FASTINGPERFORMED BY: [facility] [id number] Prothrombin Time 24.2 {sec} (Abnormal) Range: 9.1-12.0 INR 2.4 (Abnormal) Range: 0.8-1.2 Comments: Reference interval is for non-anticoagulated patients. . Suggested INR therapeutic range for Vitamin K anta gonist therapy: Standard Dose (moderate intensity therapeutic range): 2.0 - 3.0 Higher intensity therapeutic range 2.5 - 3.5 95-Vxl-766317:15 PT (PROTHROMBIN TIME) (74213) Comments: PATIENT NOT FASTINGPERFORMED BY: [facility] [id number] Prothrombin Time 25.2 {sec} (Abnormal) Range: 9.1-12.0 INR 2.5 (Abnormal) Range: 0.8-1.2 Comments: Reference interval is for non-anticoagulated patients. . Suggested INR therapeutic range for Vitamin K anta gonist therapy: Standard Dose (moderate intensity therapeutic range): 2.0 - 3.0 Higher intensity therapeutic range 2.5 - 3.5 :57 PT (PROTHROMBIN TIME) (41158) Comments: PATIENT NOT FASTINGPERFORMED BY: [facility] [id number] Prothrombin Time 18.5 {sec} (Abnormal) Range: 9.1-12.0 INR 1.8 (Abnormal) Range: 0.8-1.2 Comments: Reference interval is for non-anticoagulated patients. . Suggested INR therapeutic range for Vitamin K anta gonist therapy: Standard Dose (moderate intensity therapeutic range): 2.0 - 3.0 Higher intensity therapeutic range 2.5 - 3.5 93-Pru-759584:26 PT (PROTHROMBIN TIME) (89089) Comments: PATIENT NOT FASTINGPERFORMED BY: [facility] [id number] Prothrombin Time 16.4 {sec} (Abnormal) Range: 9.1-12.0 INR 1.6 (Abnormal) Range: 0.8-1.2 Comments: Reference interval is for non-anticoagulated patients. . Suggested INR therapeutic range for Vitamin K anta gonist therapy: Standard Dose (moderate intensity therapeutic range): 2.0 - 3.0 Higher intensity therapeutic range 2.5 - 3.5 66-Uhw-274542:29 CBC W/Diff, Auto - EPLAB Comments: Order Date: 07/19/16Order Info: 0184-1E - *CBC w/Diff - oncology ONLYAt [facility] Medical Oncologypatients receive CBC w/auto Differential ONLY. Physicianwimelissa place an order fo Only r a manual differential or Pathologistreview at his discretion. [facility] OUTPATIENT [facility]. [address] [place] [address] [place] [address] SHEEP HERDER: ELISEO VICENTE DO PH:[phone] [facility] [address] [place], [address] Absolute Lymph 0.91 {X10_3/uL} (Normal) Range: 0.83-4.51 [...] 4.6-6.2 WBC 4.3 K/mm3 (Abnormal) Range: 4.4-11.0 39-Qeg-749658:29 Comprehensive Metabolic Profil Comments: Order Date: 07/19/16Order Info: 0786-1 - *CMP Complete Metabolic PanelOrder Info: 2532-0 - *LDH -LDH (Lactate Dehydrogenase)Serial Specimen #1, #2 or #3? 1[facility] [address] [place], [place], [address] GAP 6 (Normal) Range: 5-15 CO2 27.0 [...] 7-18 GLU 84 mg/dL (Normal) Range: 70-110 59-Bqf-357923:29 LDH 173 U/L (Normal) Comments: Order Date: 07/19/16Order Info: 0786-1 - *CMP Complete Metabolic PanelOrder Info: 2532-0 - *LDH -LDH (Lactate Dehydrogenase)Serial Specimen #1, #2 or #3? 1[facility] Laborat brk[address] [place], [place], [address] Range: 87-241 76-Qfm-41728:22 PT (PROTHROMBIN TIME) (66518) Comments: PATIENT NOT FASTINGPERFORMED BY: [facility] [id number] Prothrombin Time 32.4 {sec} (Abnormal) Range: 9.1-12.0 INR 3.2 (Abnormal) Range: 0.8-1.2 Comments: Reference interval is for non-anticoagulated patients. . Suggested INR therapeutic range for Vitamin K anta gonist therapy: Standard Dose (moderate intensity therapeutic range): 2.0 - 3.0 Higher intensity therapeutic range 2.5 - 3.5 :16 PT (PROTHROMBIN TIME) (90247) Comments: PATIENT NOT FASTINGPERFORMED BY: [facility] [id number] Prothrombin Time 20.2 {sec} (Abnormal) Range: 9.1-12.0 INR 2.0 (Abnormal) Range: 0.8-1.2 Comments: Reference interval is for non-anticoagulated patients. . Suggested INR therapeutic range for Vitamin K anta gonist therapy: Standard Dose (moderate intensity therapeutic range): 2.0 - 3.0 Higher intensity therapeutic range 2.5 - 3.5 :55 PT (PROTHROMBIN TIME) (64763) Comments: PATIENT NOT FASTINGPERFORMED BY: [facility] [id number] Prothrombin Time 16.0 {sec} (Abnormal) Range: 9.1-12.0 INR 1.6 (Abnormal) Range: 0.8-1.2 Comments: Reference interval is for non-anticoagulated patients. . Suggested INR therapeutic range for Vitamin K anta gonist therapy: Standard Dose (moderate intensity therapeutic range): 2.0 - 3.0 Higher intensity therapeutic range 2.5 - 3.5 :36 PT (PROTHROMBIN TIME) (46528) Comments: PATIENT NOT FASTINGPERFORMED BY: [facility] [id number] Prothrombin Time 25.9 {sec} (Abnormal) Range: 9.1-12.0 INR 2.5 (Abnormal) Range: 0.8-1.2 Comments: Reference interval is for non-anticoagulated patients. . Suggested INR therapeutic range for Vitamin K anta gonist therapy: Standard Dose (moderate intensity therapeutic range): 2.0 - 3.0 Higher intensity therapeutic range 2.5 - 3.5 68-Njr-453826:15 CBC W/Diff, Auto - EPLAB Comments: Order Date: 03/29/16Order Info: 0184-1E - *CBC w/Diff - oncology ONLYAt [facility] Out[facility] Medical Oncologypatients receive CBC w/auto Differential ONLY. Physicianwill place an order fo Only r a manual differential or Pathologistreview at his discretion. [facility] OUTPATIENT [facility]. [address] [place] [address] [place] [address] SHEEP HERDER: ELISEO VICENTE DO PH:[phone] Date: 03/29/16Order Info: 0184-1E - *CBC w/Diff - oncology ONLYOrder Date: 03/29/16Order Info: 2532-0 - *LDH -LDH (Lactate Dehydrogenase)[facility] [address] [place], [place], [id number] ; another doc Absolute Lymph 0.93 {X10_3/uL} [...] 4.6-6.2 WBC 5.4 K/mm3 (Normal) Range: 4.4-11.0 85-Nbb-118503:15 Comprehensive Metabolic Profil Comments: Order Date: 03/29/16Order Info: 0786-1 - *CMP Complete Metabolic PanelOrder Info: 3084-1 - *Uric Acid BloodOrder Info: 2532-0 - *LDH -LDH (Lactate Dehydrogenase)Order Date: 03/29/16Order Info: 2531-0 - *LDH -LDH (Lactate Dehydrogenase)Serial Specimen #1, #2 or #3? 1[facility] [address] [place], [address] ; Dr. Brewer, hemoc GAP 5 (Normal) [...] 7-18 GLU 86 mg/dL (Normal) Range: 70-110 66-Kkp-806615:15 LDH 231 U/L (Normal) Comments: Order Date: 03/29/16Order Info: 0786-1 - *CMP Complete Metabolic PanelOrder Info: 3084-1 - *Uric Acid BloodOrder Info: 2532-0 - *LDH -LDH (Lactate Dehydrogenase)Order Date: 03/29/16Order Info: 2532-0 - *LDH -LDH (Lactate Dehydrogenase)Serial Specimen #1, #2 or #3? 1[facility] [address] [place], [place], [address] Range: 87-241 Comments: Slight Hemolysis, Result may be falsely increased. 65-Xie-702201:15 Uric Acid Comments: Order Date: 03/29/16Order Info: 0786-1 - *CMP Complete Metabolic PanelOrder Info: 3084-1 - *Uric Acid BloodOrder Info: 2532-0 - *LDH -LDH (Lactate Dehydrogenase)Order Date: 03/29/16Order Info: 2532-0 - *LDH -LDH (Lactate Dehydrogenase)Serial Specimen #1, #2 or #3? [address] [place] [address] Bdqqmbjtcv[address] [place], [place], [address] URIC 4.4 mg/dL (Normal) Range: 3.5-7.2 Comments: The drugs N-Acetylcysteine and Metamizole may falsely deressthis assay. 54-Ubh-280807:27 PT (PROTHROMBIN TIME) (13716) Comments: PATIENT NOT FASTINGPERFORMED BY: [facility] Ieiufu8145 [facility] [id number] Prothrombin Time 30.1 {sec} (Abnormal) Range: 9.1-12.0 INR 3.0 (Abnormal) Range: 0.8-1.2 Comments: Reference interval is for non-anticoagulated patients. . Suggested INR therapeutic range for Vitamin K anta gonist therapy: Standard Dose (moderate intensity therapeutic range): 2.0 - 3.0 Higher intensity therapeutic range 2.5 - 3.5 31-Sow-229463:21 PT (PROTHROMBIN TIME) (54972) Comments: PATIENT NOT FASTINGPERFORMED BY: [address] [id number] Prothrombin Time 30.7 {sec} (Abnormal) Range: 9.1-12.0 INR 3.0 (Abnormal) Range: 0.8-1.2 Comments: Reference interval is for non-anticoagulated patients. . Suggested INR therapeutic range for Vitamin K anta gonist therapy: Standard Dose (moderate intensity therapeutic range): 2.0 - 3.0 Higher intensity therapeutic range 2.5 - 3.5 94-Gwz-415352:14 PT (PROTHROMBIN TIME) (97864) Comments: PATIENT NOT FASTINGPERFORMED BY: [address] [id number] Prothrombin Time 19.0 {sec} (Abnormal) Range: 9.1-12.0 INR 1.9 (Abnormal) Range: 0.8-1.2 Comments: Reference interval is for non-anticoagulated patients. . Suggested INR therapeutic range for Vitamin K anta gonist therapy: Standard Dose (moderate intensity therapeutic range): 2.0 - 3.0 Higher intensity therapeutic range 2.5 - 3.5 16-Yre-637110:14 Jxct-6-Xtcpwwzspriyk, S Comments: Order Date: 12/29/15Order Date: 12/29/15Order Date: 12/29/15[facility] (refer to report for specific site)refer to report for address and phone number [phone] [id number] 1.2 mg/L (Normal) Range: 0.6-2.4 Comments: Performed at: [facility]Co[address] [id number] Director: Ino Monsivais PhD, Phone: [phone] 61-Bgg-175018:14 CBC W/Diff, Auto - EPLAB Comments: At [facility] Medical Oncologypatients receive CBC w/auto Differential ONLY. Physicianwill place an order for a manual differential or Pathologistreview at his discretion. [facility]. [address] [place] [address] [address] SHEEP HERDER: ELISEO VICENTE DO PH:[phone] Valley Hospital Hwmobsnzca032[address] [place], [address] Absolute Lymph 0.99 {X10_3/uL} (Normal) [...] 4.6-6.2 WBC 4.6 K/mm3 (Normal) Range: 4.4-11.0 25-Ohh-962358:14 Comprehensive Metabolic Profil Comments: Order Date: 12/29/15Order Date: 12/29/15erial Specimen #1, #2 or #3? 1[facility] Ppsnswkoww5[address] [place], [place], [address] GAP 11 (Normal) Range: 5-15 CO2 25.0 [...] 7-18 GLU 89 mg/dL (Normal) Range: 70-110 80-Vqz-783062:14 LDH 196 U/L (Normal) Comments: Order Date: 12/29/15Order Date: 16Serial Specimen #1, #2 or #3? [address] [place] [address] Umqlqu[address] [place], [place], [address] Range: 87-241 61-Qme-186069:14 Uric Acid Comments: Order Date: 12/29/15Order Date: 16Serial Specimen #1, #2 or #3? [address] [place] [address] Upjfndlogz6[address] [place], [place], [address] URIC 4.1 mg/dL (Normal) Range: 3.5-7.2 Comments: The drugs N-Acetylcysteine and Metamizole may falsely deressthis assay. 42-Yqo-66829:54 PT (PROTHROMBIN TIME) (20143) Comments: PATIENT NOT FASTINGPERFORMED BY: [facility] Wmeomu2452 [facility] [id number] Prothrombin Time 16.1 {sec} (Abnormal) Range: 9.1-12.0 INR 1.6 (Abnormal) Range: 0.8-1.2 Comments: Reference interval is for non-anticoagulated patients. . Suggested INR therapeutic range for Vitamin K anta gonist therapy: Standard Dose (moderate intensity therapeutic range): 2.0 - 3.0 Higher intensity therapeutic range 2.5 - 3.5 53-Ojg-105263:16 PT (PROTHROMBIN TIME) Comments: PATIENT NOT FASTINGPERFORMED BY: [facility]CoCommunity Medical CenterBaxlpv8855 [facility] [id number] Information: [id number] (97196) Prothrombin Time 32.0 {sec} (Abnormal) Range: 9.1-12.0 INR 3.2 (Abnormal) Range: 0.8-1.2 Comments: Reference interval is for non-anticoagulated patients. . Suggested INR therapeutic range for Vitamin K anta gonist therapy: Standard Dose (moderate intensity therapeutic range): 2.0 - 3.0 Higher intensity therapeutic range 2.5 - 3.5 83-Zuk-149343:04 CBC W/Diff, Auto - EPLAB Comments: At [facility] Medical Oncologypatients receive CBC w/auto Differential ONLY. Physicianwill place an order for a manual differential or Pathologistreview at his discretion. [facility]. [address] [place] [address] [place] [address] SHEEP HERDER: ELISEO VICENTE DO PH:[phone] Valley Hospital Omvkonnfka668[address] [place], [place], [address] Absolute Lymph 0.82 {X10_3/uL} (Abnormal) Range: 0.83-4.51 [...] 4.6-6.2 WBC 4.7 K/mm3 (Normal) Range: 4.4-11.0 63-Oon-394517:04 Comprehensive Metabolic Profil Comments: Order Date: 12/29/15OV Order #: [id number] Specimen #1, #2 or #3? 1 [id number] [facility] Jsbuwcuxju6[address] [place], [place], [address] GAP 5 (Normal) Range: 5-15 CO2 29.0 [...] 7-18 GLU 89 mg/dL (Normal) Range: 70-110 81-Ykp-876796:04 LDH 167 U/L (Normal) Comments: Order Date: 12/29/15OV Order #: [id number] Specimen #1, #2 or #3? [id number] [place] [address] [place], [place], [address] Range: 87-241 50-Dom-657036:04 Uric Acid Comments: Order Date: 12/29/15OV Order #: [id number] Specimen #1, #2 or #3? [id number] [place] [address] [place], [place], [address] URIC 4.2 mg/dL (Normal) Range: 3.5-7.2 Comments: The drugs N-Acetylcysteine and Metamizole may falsely deressthis assay. :17 PT (PROTHROMBIN TIME) (06057) Comments: PATIENT NOT FASTINGPERFORMED BY: UAV Navigation6370 [facility] [id number] Prothrombin Time 25.7 {sec} (Abnormal) Range: 9.1-12.0 INR 2.5 (Abnormal) Range: 0.8-1.2 Comments: Reference interval is for non-anticoagulated patients. . Suggested INR therapeutic range for Vitamin K anta gonist therapy: Standard Dose (moderate intensity therapeutic range): 2.0 - 3.0 Higher intensity therapeutic range 2.5 - 3.5 :32 PT (PROTHROMBIN TIME) Comments: PATIENT NOT FASTINGPERFORMED BY: UAV Navigation6370 [facility] [id number] Information: [id number] (54711) Prothrombin Time 28.7 {sec} (Abnormal) Range: 9.1-12.0 INR 2.8 (Abnormal) Range: 0.8-1.2 Comments: Reference interval is for non-anticoagulated patients. . Suggested INR therapeutic range for Vitamin K anta gonist therapy: Standard Dose (moderate intensity therapeutic range): 2.0 - 3.0 Higher intensity therapeutic range 2.5 - 3.5 :53 PT (PROTHROMBIN TIME) Comments: PATIENT NOT FASTINGPERFORMED BY: [place] [id number] [facility] [id number] Information: [id number] (79741) Prothrombin Time 25.1 {sec} (Abnormal) Range: 9.1-12.0 INR 2.4 (Abnormal) Range: 0.8-1.2 Comments: Reference interval is for non-anticoagulated patients. . Suggested INR therapeutic range for Vitamin K anta gonist therapy: Standard Dose (moderate intensity therapeutic range): 2.0 - 3.0 Higher intensity therapeutic range 2.5 - 3.5 :15 PT (PROTHROMBIN TIME) Comments: PATIENT NOT FASTINGPERFORMED BY: [facility]6370 [facility] [id number] Information: [id number] (37172) Prothrombin Time 23.0 {sec} (Abnormal) Range: 9.1-12.0 INR 2.3 (Abnormal) Range: 0.8-1.2 Comments: Reference interval is for non-anticoagulated patients. . Suggested INR therapeutic range for Vitamin K anta gonist therapy: Standard Dose (moderate intensity therapeutic range): 2.0 - 3.0 Higher intensity therapeutic range 2.5 - 3.5 :42 CBC W/Diff, Auto - EPLAB Comments: At [facility] Medical Oncologypatients receive CBC w/auto Differential ONLY. Physicianwill place an order for a manual differential or Pathologistreview at his discretion. [facility]. [address] [address] [place] [address] SHEEP HERDER: ELISEO VICENTE DO PH:[phone] Valley Hospital Qcnwhunmlb7[address] [place], [address] Absolute Lymph 0.97 {X10_3/uL} (Normal) Range: 0.83-4.51 [...] 4.6-6.2 WBC 4.4 K/mm3 (Normal) Range: 4.4-11.0 4-Opc-245241:42 Comprehensive Metabolic Profil Comments: Serial Specimen #1, #2 or #3? 1WLake[facility] Bqngazjark75[address] [place], [place], [address] GAP 7 (Normal) Range: 5-15 CO2 27.0 [...] 7-18 GLU 80 mg/dL (Normal) Range: 70-110 0-Uvn-773513:42 LDH 181 U/L (Normal) Comments: Serial Specimen #1, #2 or #3? [address] [place] [address] [address] [place], [address] Range: 87-241 2-Bas-421285:42 Magnesium Comments: Serial Specimen #1, #2 or #3? [address] [place] [address] Gsdjppjpsu6[address] [place], [address] MG 2.3 mg/dL (Normal) Range: 1.8-2.4 7-Fjk-322596:42 Uric Acid Comments: Serial Specimen #1, #2 or #3? [address] [place] [address] Lduunhazzu7973 [facility] [place], [address] URIC 3.9 mg/dL (Normal) Range: 3.5-7.2 88-Npu-27381:45 PT (PROTHROMBIN TIME) Comments: PATIENT NOT FASTINGPERFORMED BY: [facility] Hvzidt2771 [place] [facility] [id number] Information: [id number] (59801) Prothrombin Time 22.5 {sec} (Abnormal) Range: 9.1-12.0 INR 2.2 (Abnormal) Range: 0.8-1.2 Comments: Reference interval is for non-anticoagulated patients. . Suggested INR therapeutic range for Vitamin K anta gonist therapy: Standard Dose (moderate intensity therapeutic range): 2.0 - 3.0 Higher intensity therapeutic range 2.5 - 3.5 :30 PT (PROTHROMBIN TIME) Comments: PATIENT NOT FASTINGPERFORMED BY: LabCoCommunity Medical CenterCkmfqd0397 [place] [id number] Information: [id number] (41688) Prothrombin Time 22.9 {sec} (Abnormal) Range: 9.1-12.0 INR 2.2 (Abnormal) Range: 0.8-1.2 Comments: Reference interval is for non-anticoagulated patients. . Suggested INR therapeutic range for Vitamin K anta gonist therapy: Standard Dose (moderate intensity therapeutic range): 2.0 - 3.0 Higher intensity therapeutic range 2.5 - 3.5 :45 CBC W/Diff, Auto - EPLAB Comments: At [facility] Medical Oncologypatients receive CBC w/auto Differential ONLY. Physicianwill place an order for a manual differential or Pathologistreview at his discretion. [facility]. [address] [place] [address] [address] SHEEP HERDER: ELISEO VICENTE DO PH:[phone] Valley Hospital Subfxcevgs47[address] [place], [address] Absolute Lymph 0.76 {X10_3/uL} (Abnormal) Range: 0.83-4.51 [...] Comments: Serial Specimen #1, #2 or #3? 1[facility] [address]rmdodrw[address] [place], [address] GAP 0 (Abnormal) Range: 5-15 [...] Comments: Serial Specimen #1, #2 or #3? [address] [place] [address] [place], [place], [id number](977) Range: 87-241 :44 Magnesium Comments: Serial Specimen #1, #2 or #3? [address] [place] [address] [place], [address] MG 2.3 mg/dL (Normal) Range: 1.8-2.4 :44 Uric Acid Comments: Serial Specimen #1, #2 or #3? [address] [place] [address] [place], [place], [address]) URIC 4.5 mg/dL (Normal) Range: 3.5-7.2 :55 PT (PROTHROMBIN TIME) Comments: PATIENT NOT FASTINGPERFORMED BY: Tantalus SystemsCommunity Medical CenterEgmxmv5763 [facility] [id number] Information: [id number] (92662) Prothrombin Time 21.2 {sec} (Abnormal) Range: 9.1-12.0 INR 2.0 (Abnormal) Range: 0.8-1.2 Comments: Reference interval is for non-anticoagulated patients. . Suggested INR therapeutic range for Vitamin K anta gonist therapy: Standard Dose (moderate intensity therapeutic range): 2.0 - 3.0 Higher intensity therapeutic range 2.5 - 3.5 89-Aua-076338:12 PT (PROTHROMBIN TIME) Comments: PATIENT NOT FASTINGPERFORMED BY: [facility]6370 [facility] [id number] Information: [id number] (38908) Prothrombin Time 23.4 {sec} (Abnormal) Range: 9.1-12.0 INR 2.3 (Abnormal) Range: 0.8-1.2 Comments: Reference interval is for non-anticoagulated patients. . Suggested INR therapeutic range for Vitamin K anta gonist therapy: Standard Dose (moderate intensity therapeutic range): 2.0 - 3.0 Higher intensity therapeutic range 2.5 - 3.5 :39 Prothrombin Time w/INR Comments: [facility] X[address]uelhixt[address] [place], [address] INR 2.5 (Normal) PROTIME 27.0 s (Abnormal) Range: 11.7-14.9 90-Gmt-335753:55 Microscopic Examination Comments: PATIENT NOT FASTINGPERFORMED BY: [facility] [id number] Bacteria Few (Normal) Mucus Threads Present (Normal) Epithelial Cells (non renal) None seen {/hpf} (Normal) Range: 0 - 10 RBC 0-2 {/hpf} (Normal) Range: 0 - 2 WBC 0-5 {/hpf} (Normal) Range: 0 - 5 :55 URINALYSIS (28443) Comments: PATIENT NOT FASTINGPERFORMED BY: [facility] Special SurgeryGlam .fr FranceNovant Health [facility] [id number]; apt. 03-30-15 Microscopic Examination See below: (Normal) Comments: Microscopic was indicated and was performed. Nitrite, Urine Negative (Normal) Urobilinogen,Semi-Qn 1.0 mg/dL (Normal) Range: 0.2-1.0 Bilirubin Negative (Normal) Occult Blood Negative (Normal) Ketones Trace (Abnormal) Glucose Negative (Normal) Protein 1+ (Abnormal) WBC Esterase Negative (Normal) Appearance Clear (Normal) Urine-Color Yellow (Normal) pH 6.0 (Normal) Range: 5.0-7.5 Specific [place] >=1.030 (Abnormal) Range: 1.005-1.030 :55 CBC, Platelets & Auto Comments: PATIENT NOT FASTINGPERFORMED BY: [facility] [id number] Information: [id number] Diff (78703) Immature Grans (Abs) 0.0 {x10E3/uL} (Normal) Range: [...] 4.14-5.80 WBC 6.1 {x10E3/uL} (Normal) Range: 3.4-10.8 68-Kmk-918128:55 Metabolic Panel, Comprehensive Comments: PATIENT NOT FASTINGPERFORMED BY: LabCoCommunity Medical CenterBezseo0568 [facility] [id number] (83705) ALT (SGPT) 23 [iU]/L (Normal) Range: 0-44 [...] Glucose, Serum 83 mg/dL (Normal) Range: 65-99 14-Kex-323088:55 PSA, TOTAL - DIAGNOSTIC Comments: PATIENT NOT FASTINGPERFORMED BY: [facility]AV Navigation6370 [facility] [id number] (53368) Prostate Specific Ag, 0.5 ng/mL (Normal) Range: 0.0-4.0 Serum Comments: Shopperception ECLIA methodology. .According to the [place] [employer], Serum PSA shoulddecrease and remain at undetectable levels after radicalprostatectomy. The AUA defines biochemical recurrence as an initialPSA value 0.2 ng/mL or greater followed by a subsequent confirmatoryPSA value 0.2 ng/mL or greater.Values obtained with d ifferent assay methods or kits cannot be usedinterchangeably. Results cannot be interpreted as absolute evidenceof the presence or absence of malignant disease. 37-Jby-832859:59 URINE JAILENE CULTURE-THAD COL Comments: PATIENT NOT FASTINGPERFORMED BY: SQI DiagnosticsCommunity Medical CenterZdhjeq5681 [facility] [id number] Information: SRC:UR [id number] COUNT (11619) Result 1 NG36 (Normal) Comments: No growth in 36 - 48 hours. Urine Culture,Comprehensive Final report (Normal) 83-Nch-660908:43 Urinalysis, Office (04055) UA - LEUKOCYTE ESTERASE Negative (Normal) UA - NITRITE Negative (Normal) URINE UROBILINGN THAD TIMED Normal mg/dL (Normal) UA - PROTEIN 30 mg/dL (Normal) UA - PH 6 (Abnormal) UA - BLOOD Non Hemolyzed Trace (Normal) UA - SPECIFIC GRAVITY 1.025 (Normal) UA - KETONES Moderate mg/dL (Normal) UA - BILIRUBIN Small (Normal) UA - GLUCOSE Negative (Normal) 90-Dpg-14065:19 PT (PROTHROMBIN TIME) Comments: PATIENT NOT FASTINGPERFORMED BY: [facility] Mxrgwl0862 [facility] [id number] Information: [id number] (43813) Prothrombin Time 30.2 {sec} (Abnormal) Range: 9.1-12.0 INR 2.9 (Abnormal) Range: 0.8-1.2 Comments: Reference interval is for non-anticoagulated patients. . Suggested INR therapeutic range for Vitamin K anta gonist therapy: Standard Dose (moderate intensity therapeutic range): 2.0 - 3.0 Higher intensity therapeutic range 2.5 - 3.5 :55 CBC W/Diff, Auto - EPLAB Comments: At [facility] Medical Oncologypatients receive CBC w/auto Differential ONLY. Physicianwill place an order for a manual differential or Pathologistreview at his discretion. [facility]. [address] [place] [address] [place] [address] SHEEP HERDER: ELISEO VICENTE DO PH:[phone] Valley Hospital [address]kygzbgsc[address] [place], [address] Absolute Lymph 0.75 {X10_3/uL} (Abnormal) Range: 0.83-4.51 [...] Comments: Serial Specimen #1, #2 or #3? 1[facility] Hgbnvphmct3884 [place], [place], [address] GAP 7 (Normal) Range: 5-15 CO2 27.0 [...] Comments: Serial Specimen #1, #2 or #3? [address] [place] [address] [address] [place], [place], [address] Range: 87-241 :55 Uric Acid Comments: Serial Specimen #1, #2 or #3? [address] [place] [address] Kkdqmufcuh7[address] [place], [place], [address] URIC 3.9 mg/dL (Normal) Range: 3.5-7.2 06-Fna-221069:20 PT (PROTHROMBIN TIME) Comments: PATIENT NOT FASTINGPERFORMED BY: LabCoMarcia Ville [id number] [facility] [id number] Information: [id number] (86342) Prothrombin Time 27.9 {sec} (Abnormal) Range: 9.1-12.0 INR 2.7 (Abnormal) Range: 0.8-1.2 Comments: Reference interval is for non-anticoagulated patients. . Suggested INR therapeutic range for Vitamin K anta gonist therapy: Standard Dose (moderate intensity therapeutic range): 2.0 - 3.0 Higher intensity therapeutic range 2.5 - 3.5 :27 Fact V Leiden Mutation Comments: [facility] (refer to report for specific site)refer to report for address and phone number COMMENT Comment Comments: Genetic counselors are available for health care providers to discuss results at [phone] ([phone]).Methodology:DNA analysis of the Factor V gene was [...] elevated homocysteine levels,or a Factor II/prothrombin mutation (V07388V). [facility] for information on how to order theFactor II DNA test. 33-Dvu-14099:27 Factor II, DNA Analysis Comments: [facility] (refer to report for specific site)refer to report for address and phone number COMMENT Comment (Normal) Comments: Genetic Counselors are available for health care providersto discuss results at [phone]).Methodology:DNA analysis of the Factor II gene was performed by PCRamplification followed by restric tion analysis. Thediagnostic sensitivity is >99% for both. All the tests mustbe combined with clinical information for the most accurateinterpretation. Molecular-based testing is highly accurate,but as in any laboratory test, diagnostic errors may occur.Marco At SR, et al. Blood. 1996; 88:6526-1662.Mary Ann LOPEZ. Circulation. 2004; 110:e15-e18.Tamiko I, et al. Arterioscler Thromb Vasc Biol. 1999;19:700 -703.Mitesh Andujar, PhDAgnes Ruiz, PhDNadege Finn, PhDBetty Solano, PhDFara Orozco, PhDGuido Fishman, PhDPerformed at: [facility] LabCoP[facility] Medical CenterOgvurxvsmf[address] [place] [id number] Building [employer] Grounds Supervisor: Larry Norman MD, Phone: [phone] at: [facility] TPU1450 [place], [place] [id number] Director: William Bustillo MD, Phone: [phone] FACTOR II,DNA Comment (Normal) Comments: NEGATIVENo mutation identified.Comment:A point mutation ([id number]) in the factor II (prothrombin)gene is the [...] individual mutations. This assaydetects only the prothrombin G47342J mutation and doesnot measure genetic abnormalities elsewhere i n thegenome. Other thrombotic risk factors may be pursuedthrough systematic clinical laboratory analysis. Thesefactors include the R506Q (Leiden) mutation in the Factor Vgene, plasma homocysteine levels , as well as testing fordeficiencies of antithrombin III, protein C and protein S. :27 Protein C Defic. Profile Comments: [facility] (refer [...] patient is diagnosed withcongenital Protein C deficiency. :27 Protein S Defic. Profile Comments: [facility] (refer [...] PROTEIN S,TOTAL 62 % (Normal) Range: 58-150 35-Zxx-31490:38 CBC W/Diff, Auto - EPLAB Comments: At [facility] Medical Oncologypatients receive CBC w/auto Differential ONLY. Physicianwill place an order for a manual differential or Pathologistreview at his discretion. [facility]. [address] [place] [address] [address] SHEEP HERDER: ELISEO VICENTE DO PH:[phone] Valley Hospital Uynmossijr[address] [place], [address] Absolute Lymph 0.69 {X10_3/uL} (Abnormal) Range: 0.83-4.51 [...] 4.6-6.2 WBC 4.2 K/mm3 (Abnormal) Range: 4.4-11.0 82-Jot-79425:38 Comprehensive Metabolic Profil Comments: Serial Specimen #1, #2 or #3? 1[facility] Ruwhjtwuun[address] [place], [address] GAP 6 (Normal) Range: 5-15 CO2 29.0 [...] Comments: Serial Specimen #1, #2 or #3? [address] [place] [address] Zbheawvkuw2131 [address] [place], [place], [address] Range: 87-241 26-Vfz-97449:38 Uric Acid Comments: Serial Specimen #1, #2 or #3? [address] [place] [address] Voxcthookb5770 [facility] [place], [place], [address] URIC 4.7 mg/dL (Normal) Range: 3.5-7.2 21-Uay-778161:31 PT (PROTHROMBIN TIME) (73261) Comments: PATIENT NOT FASTINGPERFORMED BY: [facility] Dzlwzf4398 [facility] [id number] Prothrombin Time 21.0 {sec} (Abnormal) Range: 9.1-12.0 INR 2.1 (Abnormal) Range: 0.8-1.2 Comments: Reference interval is for non-anticoagulated patients. . Suggested INR therapeutic range for Vitamin K anta gonist therapy: Standard Dose (moderate intensity therapeutic range): 2.0 - 3.0 Higher intensity therapeutic range 2.5 - 3.5 :20 PT (PROTHROMBIN TIME) Comments: PATIENT NOT FASTINGPERFORMED BY: [place] [id number] [facility] [id number] Information: [id number] (36271) Prothrombin Time 34.6 {sec} (Abnormal) Range: 9.1-12.0 INR 3.3 (Abnormal) Range: 0.8-1.2 Comments: Reference interval is for non-anticoagulated patients. . Suggested INR therapeutic range for Vitamin K anta gonist therapy: Standard Dose (moderate intensity therapeutic range): 2.0 - 3.0 Higher intensity therapeutic range 2.5 - 3.5 :54 PT (PROTHROMBIN TIME) Comments: PATIENT NOT FASTINGPERFORMED BY: [facility]6370 [facility] [id number] Information: [id number] (73794) Prothrombin Time 39.8 {sec} (Abnormal) Range: 9.1-12.0 INR 3.8 (Abnormal) Range: 0.8-1.2 Comments: Client Requested Flag Reference interval is for non- anticoagulated patients. . Suggested INR therapeutic ra nge for Vitamin K antagonist therapy: Standard Dose (moderate intensity therapeutic range): 2.0 - 3.0 Higher intensity therapeutic range 2.5 - 3.5 :56 Prothrombin Time (PT) Comments: PATIENT NOT FASTINGPERFORMED BY: [facility] [id number] Information: [id number] Prothrombin Time 20.1 {sec} (Abnormal) Range: 9.1-12.0 INR 1.9 (Abnormal) Range: 0.8-1.2 Comments: Reference interval is for non-anticoagulated patients. . Suggested INR therapeutic range for Vitamin K anta gonist therapy: Standard Dose (moderate intensity therapeutic range): 2.0 - 3.0 Higher intensity therapeutic range 2.5 - 3.5 :31 PT (PROTHROMBIN TIME) Comments: PATIENT NOT FASTINGPERFORMED BY: [place] [id number] [facility] [id number] Information: [id number] ([id number]) Prothrombin Time 26.6 {sec} (Abnormal) Range: 9.1-12.0 INR 2.6 (Abnormal) Range: 0.8-1.2 Comments: Reference interval is for non-anticoagulated patients. . Suggested INR therapeutic range for Vitamin K anta gonist therapy: Standard Dose (moderate intensity therapeutic range): 2.0 - 3.0 Higher intensity therapeutic range 2.5 - 3.5 60-Eme-56989:10 Prothrombin Time (PT) Comments: PATIENT NOT FASTINGPERFORMED BY: [address] [id number] Information: [id number] Prothrombin Time 32.6 {sec} (Abnormal) Range: 9.1-12.0 INR 3.0 (Abnormal) Range: 0.8-1.2 Comments: Reference interval is for non-anticoagulated patients. . Suggested INR therapeutic range for Vitamin K anta gonist therapy: Standard Dose (moderate intensity therapeutic range): 2.0 - 3.0 Higher intensity therapeutic range 2.5 - 3.5 33-Ozk-629057:35 PT (PROTHROMBIN TIME) Comments: PATIENT NOT FASTINGPERFORMED BY: [address] [id number] Information: [id number] ([id number]) Prothrombin Time 31.7 {sec} (Abnormal) Range: 9.1-12.0 INR 3.1 (Abnormal) Range: 0.8-1.2 Comments: Reference interval is for non-anticoagulated patients. . Suggested INR therapeutic range for Vitamin K anta gonist therapy: Standard Dose (moderate intensity therapeutic range): 2.0 - 3.0 Higher intensity therapeutic range 2.5 - 3.5 25-Vrd-268465:16 Prothrombin Time (PT) Comments: PATIENT NOT FASTINGPERFORMED BY: [place] [address] [facility] [id number] Information: [id number] Prothrombin Time 25.6 {sec} (Abnormal) Range: 9.1-12.0 INR 2.4 (Abnormal) Range: 0.8-1.2 Comments: Reference interval is for non-anticoagulated patients. . Suggested INR therapeutic range for Vitamin K anta gonist therapy: Standard Dose (moderate intensity therapeutic range): 2.0 - 3.0 Higher intensity therapeutic range 2.5 - 3.5 :21 CBC W/Diff, Auto - EPLAB Only Comments: At [facility] Outpatient [facility], [facility] patientsreceive CBC w/auto Differential ONLY. Physician will placean order for a manual differential or Pathologist review athis discretion. [facility]. [address] [place] [address] [address] SHEEP HERDER: ELISEO VICENTE DO PH:[phone] performed at:[facility] [address] [place] [address] Absolute Neut 3.1 {X10_3/uL} (Normal) Range: 2.0-7.7 [...] :21 Comprehensive Metabolic Profil Comments: Test performed at:[facility] [address] [place] [address] GAP 6 (Normal) Range: 5-15 CO2 29.0 [...] LDH 171 U/L (Normal) Comments: Test performed at:[facility] [address] [place] [address] Range: 84-246 :21 Uric Acid Comments: Test performed at:[facility] [address] [place] [address] URIC 4.2 mg/dL (Normal) Range: 3.5-7.2 :19 PT (Prothrobim Time) Comments: PATIENT NOT FASTINGPERFORMED BY: [facility] Lnbsyg5662 [facility] [id number] Information: [id number] ([id number]) Prothrombin Time 29.7 {sec} (Abnormal) Range: 9.1-12.0 INR 2.7 (Abnormal) Range: 0.8-1.2 Comments: Reference interval is for non-anticoagulated patients. . Suggested INR therapeutic range for Vitamin K anta gonist therapy: Standard Dose (moderate intensity therapeutic range): 2.0 - 3.0 Higher intensity therapeutic range 2.5 - 3.5 :44 PT (PROTHROMBIN TIME) ([id number]) Comments: PERFORMED BY: [place] [id number] [facility] [id number] Prothrombin Time 25.5 {sec} (Abnormal) Range: 9.1-12.0 INR 2.3 (Abnormal) Range: 0.8-1.2 Comments: Reference interval is for non-anticoagulated patients. . Suggested INR therapeutic range for Vitamin K anta gonist therapy: Standard Dose (moderate intensity therapeutic range): 2.0 - 3.0 Higher intensity therapeutic range 2.5 - 3.5 :28 PT (PROTHROMBIN TIME) Comments: PATIENT NOT FASTINGPERFORMED BY: [facility] [id number] Information: [id number] ([id number]) Prothrombin Time 34.8 {sec} (Abnormal) Range: 9.1-12.0 INR 3.2 (Abnormal) Range: 0.8-1.2 Comments: Reference interval is for non-anticoagulated patients. . Suggested INR therapeutic range for Vitamin K anta gonist therapy: Standard Dose (moderate intensity therapeutic range): 2.0 - 3.0 Higher intensity therapeutic range 2.5 - 3.5 :02 PT (PROTHROMBIN TIME) Comments: PATIENT NOT FASTINGPERFORMED BY: [facility] [id number] Information: [id number] ([id number]) Prothrombin Time 30.2 {sec} (Abnormal) Range: 9.1-12.0 INR 2.8 (Abnormal) Range: 0.8-1.2 Comments: Reference interval is for non-anticoagulated patients. . Suggested INR therapeutic range for Vitamin K anta gonist therapy: Standard Dose (moderate intensity therapeutic range): 2.0 - 3.0 Higher intensity therapeutic range 2.5 - 3.5 :58 PT (PROTHROMBIN TIME) Comments: PATIENT NOT FASTINGPERFORMED BY: [facility] [id number] Information: [id number] ([id number]) Prothrombin Time 16.3 {sec} (Abnormal) Range: 9.1-12.0 INR 1.5 (Abnormal) Range: 0.8-1.2 Comments: Reference interval is for non-anticoagulated patients. . Suggested INR therapeutic range for Vitamin K anta gonist therapy: Standard Dose (moderate intensity therapeutic range): 2.0 - 3.0 Higher intensity therapeutic range 2.5 - 3.5 65-Fft-491280:38 PT (PROTHROMBIN TIME) Comments: PATIENT NOT FASTINGPERFORMED BY: [facility] [id number] Information: [id number] ([id number]) Prothrombin Time 24.1 {sec} (Abnormal) Range: 9.1-12.0 INR 2.2 (Abnormal) Range: 0.8-1.2 Comments: Reference interval is for non-anticoagulated patients. . Suggested INR therapeutic range for Vitamin K anta gonist therapy: Standard Dose (moderate intensity therapeutic range): 2.0 - 3.0 Higher intensity therapeutic range 2.5 - 3.5 :48 Pathology Report Comments: PERFORMED BY: [facility] Cyto Fqztz77876 [facility] [id number] BY: [facility] Dermatopathology [address] [id number] Information: [id number] See MATER Comments: Material submitted: .RIGHT DELTOID SHAVE BIOPSYClinician provided ICD-9:238.2 ; Neoplasm of uncertain behavior of skinClinical history: Note (Normal) .FOR MARGINSETIOLOGY UNKNOWNATYPICAL NEVI?KERATOSISDiagnosis:BASAL CELL CARCINOMA WITH SQUAMOUS METAPLASIA..COMMENT:BA JJ CELL CARCINOMA EXTENDS TO THE TRANSECTED TISSUE EDGE.02/18/2014Diagnosis provided by: .Marilee Garg MD, DermatopathologistElectronically signed: .Marilee Garg MD, DermatopathologistGross description: .RECEIVED IN FORMALIN LABELED PATRIZIA CUBA WITH NO DESIGNATIONON THE CONTAINER DESIGNATED RIGHT DELTOID ON THE REQUISITION IS ATAN/YELLOW FRAGMENT OF SKIN MEASURING 1.0 X 0.7 X 0.1 CM. THEMARGIN IS MA RKED WITH GREEN INK. IT IS TRISECTED AND SUBMITTEDENTIRELY IN A SINGLE CASSETTE.LMS/CRYPathologist provided ICD-9:173.61CPT .727212 52-Orq-034066:16 PT (Prothrobim Time) Comments: PATIENT NOT FASTINGPERFORMED BY: [facility] IndustriesUp [facility] [id number] Information: [id number] ([id number]) Prothrombin Time 30.4 {sec} (Abnormal) Range: 9.1-12.0 INR 2.8 (Abnormal) Range: 0.8-1.2 Comments: Reference interval is for non-anticoagulated patients. . Suggested INR therapeutic range for Vitamin K anta gonist therapy: Standard Dose (moderate intensity therapeutic range): 2.0 - 3.0 Higher intensity therapeutic range 2.5 - 3.5 04-Poz-527883:36 PT (PROTHROMBIN TIME) Comments: PATIENT NOT FASTINGPERFORMED BY: [facility] [id number] Information: [id number] ([id number]) Prothrombin Time 35.6 {sec} (Abnormal) Range: 9.1-12.0 INR 3.3 (Abnormal) Range: 0.8-1.2 Comments: Reference interval is for non-anticoagulated patients. . Suggested INR therapeutic range for Vitamin K anta gonist therapy: Standard Dose (moderate intensity therapeutic range): 2.0 - 3.0 Higher intensity therapeutic range 2.5 - 3.5 :40 PT (PROTHROMBIN TIME) Comments: PATIENT NOT FASTINGPERFORMED BY: [facility]CoCommunity [facility] CenterSeqiip0131 [facility] [id number] Information: [id number] ([id number]) Prothrombin Time 44.9 {sec} (Abnormal) Range: 9.1-12.0 [...] (PROTHROMBIN TIME) Comments: PATIENT NOT FASTINGPERFORMED BY: [place] [address] [facility] [id number] Information: [id number] ([id number]) Prothrombin Time 22.0 {sec} (Abnormal) Range: 9.1-12.0 INR 2.0 (Abnormal) Range: 0.8-1.2 Comments: Reference interval is for non-anticoagulated patients. . Suggested INR therapeutic range for Vitamin K anta gonist therapy: Standard Dose (moderate intensity therapeutic range): 2.0 - 3.0 Higher intensity therapeutic range 2.5 - 3.5 :48 PT (PROTHROMBIN TIME) Comments: PATIENT NOT FASTINGPERFORMED BY: [facility] [id number] Information: [id number] ([id number]) Prothrombin Time 16.2 {sec} (Abnormal) Range: 9.1-12.0 INR 1.6 (Abnormal) Range: 0.8-1.2 Comments: Reference interval is for non-anticoagulated patients. . Suggested INR therapeutic range for Vitamin K anta gonist therapy: Standard Dose (moderate intensity therapeutic range): 2.0 - 3.0 Higher intensity therapeutic range 2.5 - 3.5 :19 PT (Prothrobim Time) Comments: PATIENT NOT FASTINGPERFORMED BY: [place] [address] [facility] [id number] Information: [id number] ([id number]) Prothrombin Time 31.0 {sec} (Abnormal) Range: 9.1-12.0 INR 2.8 (Abnormal) Range: 0.8-1.2 Comments: Reference interval is for non-anticoagulated patients. . Suggested INR therapeutic range for Vitamin K anta gonist therapy: Standard Dose (moderate intensity therapeutic range): 2.0 - 3.0 Higher intensity therapeutic range 2.5 - 3.5 :16 Metabolic Panel, Comprehensive Comments: PATIENT WAS FASTINGPERFORMED BY: [employer]6[facility] [id number] ([id number]) ALT (SGPT) 17 [iU]/L (Normal) Range: 0-44 [...] mg/dL (Normal) Range: 65-99 :16 Lipid Panel ([id number]) Comments: PATIENT WAS FASTINGPERFORMED BY: [facility] IndustriesCoSTATS Group70 [facility] [id number] LDL/HDL Ratio 3.0 {ratio_units} (Normal) Range: 0.0-3.6 HDL Cholesterol 47 mg/dL (Normal) Comments: According to ATP-III Guidelines, HDL-C >59 mg/dL is considered anegative risk factor for CHD. LDL Cholesterol Calc 143 mg/dL (Abnormal) Range: 0-99 VLDL Cholesterol [place] 18 mg/dL (Normal) Range: 5-40 Cholesterol, Total 208 mg/dL (Abnormal) Range: 100-199 Triglycerides 92 mg/dL (Normal) Range: 0-149 16-Vgf-72528:16 CBC, Platelets & Auto Diff Comments: PATIENT WAS FASTINGPERFORMED BY: [facility]yi1640 [facility] [id number] Information: [id number] ([id number]) Immature Grans (Abs) 0.0 {x10E3/uL} (Normal) Range: [...] (PROSTATE SPECIFIC Comments: PATIENT WAS FASTINGPERFORMED BY: [facility] [id number] ANTIGEN) (V76.44) Prostate Specific Ag, 0.5 ng/mL (Normal) Range: 0.0-4.0 Serum Comments: [employer] methodology. .According to the [place] [employer], Serum PSA shoulddecrease and remain [...] (PROTHROMBIN TIME) Comments: PATIENT NOT FASTINGPERFORMED BY: [facility] [id number] Information: [id number] ([id number]) Prothrombin Time 25.3 {sec} (Abnormal) Range: 9.1-12.0 INR 2.4 (Abnormal) Range: 0.8-1.2 Comments: Reference interval is for non-anticoagulated patients. . Suggested INR therapeutic range for Vitamin K anta gonist therapy: Standard Dose (moderate intensity therapeutic range): 2.0 - 3.0 Higher intensity therapeutic range 2.5 - 3.5 :47 PT (Prothrobim Time) Comments: PATIENT NOT FASTINGPERFORMED BY: [facility] [id number] Information: [id number] ([id number]) Prothrombin Time 30.5 {sec} (Abnormal) Range: 9.1-12.0 INR 2.9 (Abnormal) Range: 0.8-1.2 Comments: Reference interval is for non-anticoagulated patients. . Suggested INR therapeutic range for Vitamin K anta gonist therapy: Standard Dose (moderate intensity therapeutic range): 2.0 - 3.0 Higher intensity therapeutic range 2.5 - 3.5 88-Fdf-356657:27 PT (Prothrobim Time) Comments: PATIENT NOT FASTINGPERFORMED BY: [facility] [id number] Information: [id number] ([id number]) Prothrombin Time 25.4 {sec} (Abnormal) Range: 9.1-12.0 INR 2.4 (Abnormal) Range: 0.8-1.2 Comments: Reference interval is for non-anticoagulated patients. . Suggested INR therapeutic range for Vitamin K anta gonist therapy: Standard Dose (moderate intensity therapeutic range): 2.0 - 3.0 Higher intensity therapeutic range 2.5 - 3.5 78-Koh-789057:27 PTT (Activated Partial Comments: PATIENT NOT FASTINGPERFORMED BY: [facility] [id number] Thromboplastin Time) ([id number]) aPTT 37 {sec} (Abnormal) Range: 24-33 Comments: This test has not been validated for monitoring unfractionated heparintherapy. aPTT-based therapeutic ranges for unfractionated heparintherapy have not been established. For general guidelines onHeparin monitoring, refer to the [facility] Directory of Services. Plan of Care Name Dates Details Instructions SCREENING FOR HYPERLIPIDEMIA (Renamed from Encounter for screening for lipoid disorders) : Follow up in 6 months Indication: SCREENING FOR HYPERLIPIDEMIA (Renamed from Encounter for screening for lipoid disorders) Current use of termite treater anticoagulation : Eprescribed prescriptions (G8553) Indication: Current use of termite treater anticoagulation Cough : Follow up if no [...] Indication: Reflux Planned Observations PT (PROTHROMBIN TIME) ([id number])Indication: Current use of termite treater anticoagulation On: :00 Request PT (PROTHROMBIN TIME) ([id number])Indication: Current use of senior care anticoagulation On: :00 Request PT (PROTHROMBIN TIME) ([id number])Indication: Current use of termite treater anticoagulation On: : Request PT (PROTHROMBIN TIME) ([id number])Indication: Current use of senior care anticoagulation On: :00 Request PT (PROTHROMBIN TIME) ([id number])Indication: Current use of senior care anticoagulation On: 14-Jun-2021 Request PT (PROTHROMBIN TIME) ([id number])Indication: Current use of termite treater anticoagulation On: 15-May-2021 Request PT (PROTHROMBIN TIME) ([id number])Indication: Current use of senior care anticoagulation On: 15-Apr-2021 Request PT (PROTHROMBIN TIME) ([id number])Indication: Current use of senior care anticoagulation On: 16-Mar-2021 Request PT (PROTHROMBIN TIME) ([id number])Indication: Current use of senior care anticoagulation On: :00 Request PT (PROTHROMBIN TIME) ([id number])Indication: Current use of termite treater anticoagulation On: :00 Request PT (PROTHROMBIN TIME) ([id number])Indication: Current use of termite treater anticoagulation On: :00 Request PT (PROTHROMBIN TIME) ([id number])Indication: Current use of senior care anticoagulation On: :00 Request PT (PROTHROMBIN TIME) ([id number])Indication: Current use of termite treater anticoagulation On: :00 Request PT (PROTHROMBIN TIME) ([id number])Indication: Current use of termite treater anticoagulation On: : Request PT (PROTHROMBIN TIME) ([id number])Indication: Current use of termite treater anticoagulation On: :00 Request PT (PROTHROMBIN TIME) ([id number])Indication: Current use of termite treater anticoagulation On: :00 Request PT (PROTHROMBIN TIME) ([id number])Indication: Current use of termite treater anticoagulation On: 19-Jun-2020 Request PT (PROTHROMBIN TIME) ([id number])Indication: Current use of senior care anticoagulation On: 20-May-2020 Request PT (PROTHROMBIN TIME) ([id number])Indication: Current use of termite treater anticoagulation On: 20-Apr-2020 Request PT (PROTHROMBIN TIME) ([id number])Indication: Current use of termite treater anticoagulation On: 21-Mar-2020 Request PT (PROTHROMBIN TIME) ([id number])Indication: Current use of senior care anticoagulation On: 20-Feb-2020 Request PT (PROTHROMBIN TIME) ([id number])Indication: Current use of termite treater anticoagulation On: 21-Jan-2020 Request PT (PROTHROMBIN TIME) ([id number])Indication: Current use of senior care anticoagulation On: 22-Dec-2019 Request PT (PROTHROMBIN TIME) ([id number])Indication: Current use of termite treater anticoagulation On: 22-Nov-2019 Request PT (PROTHROMBIN TIME) ([id number])Indication: Current use of senior care anticoagulation On: 23-Oct-2019 Request PT (PROTHROMBIN TIME) ([id number])Indication: Current use of senior care anticoagulation On: 24-Aug-2019 Request PT (PROTHROMBIN TIME) ([id number])Indication: Current use of senior care anticoagulation On: 25-Jul-2019 Request PT (PROTHROMBIN TIME) ([id number])Indication: Current use of senior care anticoagulation On: 25-Jun-2019 Request PT (PROTHROMBIN TIME) ([id number])Indication: Current use of termite treater anticoagulation On: 26-May-2019 Request PT (PROTHROMBIN TIME) ([id number])Indication: Current use of termite treater anticoagulation On: 26-Apr-2019 Request PT (PROTHROMBIN TIME) ([id number])Indication: Current use of senior care anticoagulation On: 27-Mar-2019 Request PT (PROTHROMBIN TIME) ([id number])Indication: Current use of senior care anticoagulation On: 25-Feb-2019 Request PT (PROTHROMBIN TIME) ([id number])Indication: Current use of termite treater anticoagulation On: 26-Jan-2019 Request PT (PROTHROMBIN TIME) ([id number])Indication: Acute venous embolism and thrombosis of deep vessels of distal lower extremity, right On: 04-Jan-2019 Request Comments: STANDING ORDER PT (PROTHROMBIN TIME) ([id number])Indication: Current use of senior care anticoagulation On: 27-Dec-2018 Request PT (PROTHROMBIN TIME) ([id number])Indication: Acute venous embolism and thrombosis of deep vessels of distal lower extremity, right On: 05-Dec-2018 Request Comments: STANDING ORDER PT (PROTHROMBIN TIME) ([id number])Indication: Current use of termite treater anticoagulation On: 27-Nov-2018 Request PT (PROTHROMBIN TIME) ([id number])Indication: Acute venous embolism and thrombosis of deep vessels of distal lower extremity, right On: 05-Nov-2018 Request Comments: STANDING ORDER PT (PROTHROMBIN TIME) ([id number])Indication: Current use of senior care anticoagulation On: 28-Oct-2018 Request PT (PROTHROMBIN TIME) ([id number])Indication: Acute venous embolism and thrombosis of deep vessels of distal lower extremity, right On: 06-Oct-2018 Request Comments: STANDING ORDER PT (PROTHROMBIN TIME) ([id number])Indication: Current use of senior care anticoagulation On: 28-Sep-2018 Request PT (PROTHROMBIN TIME) ([id number])Indication: Acute venous embolism and thrombosis of deep vessels of distal lower extremity, right On: 06-Sep-2018 Request Comments: STANDING ORDER PT (PROTHROMBIN TIME) ([id number])Indication: Current use of senior care anticoagulation On: 29-Aug-2018 Request PT (PROTHROMBIN TIME) ([id number])Indication: Acute venous embolism and thrombosis of deep vessels of distal lower extremity, right On: 07-Aug-2018 Request Comments: STANDING ORDER PT (PROTHROMBIN TIME) ([id number])Indication: Current use of senior care anticoagulation On: 30-Jul-2018 Request PT (PROTHROMBIN TIME) ([id number])Indication: Acute venous embolism and thrombosis of deep vessels of distal lower extremity, right On: 08-Jul-2018 Request Comments: STANDING ORDER PT (PROTHROMBIN TIME) ([id number])Indication: Current use of termite treater anticoagulation On: 30-Jun-2018 Request PT (PROTHROMBIN TIME) ([id number])Indication: Acute venous embolism and thrombosis of deep vessels of distal lower extremity, right On: 08-Jun-2018 Request Comments: STANDING ORDER PT (PROTHROMBIN TIME) ([id number])Indication: Current use of termite treater anticoagulation On: 31-May-2018 Request PT (PROTHROMBIN TIME) ([id number])Indication: Current use of senior care anticoagulation On: 02-Mar-2018 Request LIPID PANEL ([id number])Indication: SCREENING FOR HYPERLIPIDEMIA (Renamed from Encounter for screening for lipoid disorders) On: 98-Sgf-162543:48 Request CALCIFEDIOL ([id number])Indication: Leg cramps On: 71-Nkk-990819:41 Request PT (PROTHROMBIN TIME) ([id number])Indication: Current use of termite treater anticoagulation On: 06-Jan-2017 Request PT (PROTHROMBIN TIME) ([id number])Indication: Current use of termite treater anticoagulation On: 11-Apr-2016 Request PT (PROTHROMBIN TIME) ([id number])Indication: Current use of termite treater anticoagulation On: 11-Feb-2016 Request PT (Prothrobim Time) ([id number])Indication: Current use of termite treater anticoagulation On: 20-Jul-2015 Request PT (Prothrobim Time) ([id number])Indication: Current use of senior care anticoagulation On: 13-Jul-2015 Request PT (Prothrobim Time) ([id number])Indication: Current use of senior care anticoagulation On: 06-Jul-2015 Request PT (Prothrobim Time) ([id number])Indication: Current use of senior care anticoagulation On: 29-Jun-2015 Request PT (Prothrobim Time) ([id number])Indication: Current use of senior care anticoagulation On: 22-Jun-2015 Request PT (Prothrobim Time) ([id number])Indication: Current use of senior care anticoagulation On: 15-Jun-2015 Request PT (Prothrobim Time) ([id number])Indication: Current use of senior care anticoagulation On: 08-Jun-2015 Request PT (Prothrobim Time) ([id number])Indication: Current use of termite treater anticoagulation On: 01-Jun-2015 Request PT (Prothrobim Time) ([id number])Indication: Current use of senior care anticoagulation On: 25-May-2015 Request PT (Prothrobim Time) ([id number])Indication: Current use of senior care anticoagulation On: 18-May-2015 Request PT (Prothrobim Time) ([id number])Indication: Current use of senior care anticoagulation On: 11-May-2015 Request PT (Prothrobim Time) ([id number])Indication: Current use of termite treater anticoagulation On: 04-May-2015 Request PT (Prothrobim Time) ([id number])Indication: Current use of termite treater anticoagulation On: 27-Apr-2015 Request PT (Prothrobim Time) ([id number])Indication: Current use of senior care anticoagulation On: 20-Apr-2015 Request PT (PROTHROMBIN TIME) ([id number])Indication: Current use of senior care anticoagulation On: 17-Apr-2015 Request PT (Prothrobim Time) ([id number])Indication: Current use of senior care anticoagulation On: 13-Apr-2015 Request PT (Prothrobim Time) ([id number])Indication: Current use of termite treater anticoagulation On: 06-Apr-2015 Request PT (Prothrobim Time) ([id number])Indication: Current use of senior care anticoagulation On: 30-Mar-2015 Request PT (Prothrobim Time) ([id number])Indication: Current use of termite treater anticoagulation On: 23-Mar-2015 Request PT (Prothrobim Time) ([id number])Indication: Current use of termite treater anticoagulation On: 16-Mar-2015 Request PT (Prothrobim Time) ([id number])Indication: Current use of termite treater anticoagulation On: 09-Mar-2015 Request PT (Prothrobim Time) ([id number])Indication: Current use of termite treater anticoagulation On: 02-Mar-2015 Request PT (Prothrobim Time) ([id number])Indication: Current use of termite treater anticoagulation On: 23-Feb-2015 Request PT (Prothrobim Time) ([id number])Indication: Current use of senior care anticoagulation On: 16-Feb-2015 Request PT (Prothrobim Time) ([id number])Indication: Current use of senior care anticoagulation On: 09-Feb-2015 Request PT (Prothrobim Time) ([id number])Indication: Current use of termite treater anticoagulation On: 02-Feb-2015 Request PT (Prothrobim Time) ([id number])Indication: Current use of senior care anticoagulation On: 26-Jan-2015 Request PT (Prothrobim Time) ([id number])Indication: Current use of termite treater anticoagulation On: 19-Jan-2015 Request PT (Prothrobim Time) ([id number])Indication: Current use of termite treater anticoagulation On: 12-Jan-2015 Request PT (Prothrobim Time) ([id number])Indication: Current use of termite treater anticoagulation On: 05-Jan-2015 Request PT (Prothrobim Time) ([id number])Indication: Current use of senior care anticoagulation On: 29-Dec-2014 Request PT (Prothrobim Time) ([id number])Indication: Current use of senior care anticoagulation On: 22-Dec-2014 Request PT (Prothrobim Time) ([id number])Indication: Current use of senior care anticoagulation On: 15-Dec-2014 Request PT (Prothrobim Time) ([id number])Indication: Current use of termite treater anticoagulation On: 08-Dec-2014 Request PT (Prothrobim Time) ([id number])Indication: Current use of senior care anticoagulation On: 01-Dec-2014 Request PT (Prothrobim Time) ([id number])Indication: Current use of senior care anticoagulation On: 24-Nov-2014 Request PT (Prothrobim Time) ([id number])Indication: Current use of senior care anticoagulation On: 17-Nov-2014 Request PT (Prothrobim Time) ([id number])Indication: Current use of senior care anticoagulation On: 10-Nov-2014 Request PT (Prothrobim Time) ([id number])Indication: Current use of termite treater anticoagulation On: 03-Nov-2014 Request PT (Prothrobim Time) ([id number])Indication: Current use of senior care anticoagulation On: 27-Oct-2014 Request PT (Prothrobim Time) ([id number])Indication: Current use of senior care anticoagulation On: 20-Oct-2014 Request PT (Prothrobim Time) ([id number])Indication: Current use of termite treater anticoagulation On: 13-Oct-2014 Request PT (Prothrobim Time) ([id number])Indication: Current use of senior care anticoagulation On: 06-Oct-2014 Request PT (Prothrobim Time) ([id number])Indication: Current use of senior care anticoagulation On: 29-Sep-2014 Request PT (Prothrobim Time) ([id number])Indication: Current use of senior care anticoagulation On: 22-Sep-2014 Request PT (Prothrobim Time) ([id number])Indication: Current use of senior care anticoagulation On: 15-Sep-2014 Request PT (Prothrobim Time) ([id number])Indication: Current use of senior care anticoagulation On: 08-Sep-2014 Request PT (Prothrobim Time) ([id number])Indication: Current use of termite treater anticoagulation On: 01-Sep-2014 Request PT (Prothrobim Time) ([id number])Indication: Current use of senior care anticoagulation On: 25-Aug-2014 Request PT (PROTHROMBIN TIME) ([id number])Indication: Current use of senior care anticoagulation On: 20-Aug-2014 Request PT (Prothrobim Time) ([id number])Indication: Current use of senior care anticoagulation On: 18-Aug-2014 Request PT (Prothrobim Time) ([id number])Indication: Current use of termite treater anticoagulation On: 11-Aug-2014 Request PT (Prothrobim Time) ([id number])Indication: Current use of termite treater anticoagulation On: 04-Aug-2014 Request PT (Prothrobim Time) ([id number])Indication: Current use of termite treater anticoagulation On: 28-Jul-2014 Request PT (Prothrobim Time) ([id number])Indication: Current use of senior care anticoagulation On: 21-Jul-2014 Request PT (PROTHROMBIN TIME) ([id number])Indication: Current use of senior care anticoagulation On: 21-Jul-2014 Request PT (Prothrobim Time) ([id number])Indication: Current use of termite treater anticoagulation On: 07-Jul-2014 Request PT (Prothrobim Time) ([id number])Indication: Current use of senior care anticoagulation On: 30-Jun-2014 Request PT (Prothrobim Time) ([id number])Indication: Current use of termite treater anticoagulation On: 23-Jun-2014 Request PT (Prothrobim Time) ([id number])Indication: Current use of termite treater anticoagulation On: 16-Jun-2014 Request PT (Prothrobim Time) ([id number])Indication: Current use of termite treater anticoagulation On: 09-Jun-2014 Request PT (Prothrobim Time) ([id number])Indication: Current use of termite treater anticoagulation On: 02-Jun-2014 Request PT (Prothrobim Time) ([id number])Indication: Current use of senior care anticoagulation On: 26-May-2014 Request PT (Prothrobim Time) ([id number])Indication: Current use of senior care anticoagulation On: 19-May-2014 Request PT (Prothrobim Time) ([id number])Indication: Current use of termite treater anticoagulation On: 12-May-2014 Request PT (Prothrobim Time) ([id number])Indication: Current use of termite treater anticoagulation On: 05-May-2014 Request PT (Prothrobim Time) ([id number])Indication: Current use of termite treater anticoagulation On: 28-Apr-2014 Request PT (Prothrobim Time) ([id number])Indication: Current use of senior care anticoagulation On: 21-Apr-2014 Request PT (Prothrobim Time) ([id number])Indication: Current use of senior care anticoagulation On: 14-Apr-2014 Request PT (Prothrobim Time) ([id number])Indication: Current use of senior care anticoagulation On: 07-Apr-2014 Request PT (Prothrobim Time) ([id number])Indication: Current use of senior care anticoagulation On: 31-Mar-2014 Request PT (Prothrobim Time) ([id number])Indication: Current use of termite treater anticoagulation On: 24-Mar-2014 Request PT (Prothrobim Time) ([id number])Indication: Current use of senior care anticoagulation On: 17-Mar-2014 Request PT (Prothrobim Time) ([id number])Indication: Current use of senior care anticoagulation On: 10-Mar-2014 Request PT (Prothrobim Time) ([id number])Indication: Current use of termite treater anticoagulation On: 03-Mar-2014 Request PT (Prothrobim Time) ([id number])Indication: Current use of termite treater anticoagulation On: 24-Feb-2014 Request PT (Prothrobim Time) ([id number])Indication: Current use of termite treater anticoagulation On: 17-Feb-2014 Request PT (Prothrobim Time) ([id number])Indication: Current use of termite treater anticoagulation On: 10-Feb-2014 Request PT (Prothrobim Time) ([id number])Indication: Current use of termite treater anticoagulation On: 03-Feb-2014 Request PT (Prothrobim Time) ([id number])Indication: Current use of senior care anticoagulation On: 20-Jan-2014 Request PT (Prothrobim Time) ([id number])Indication: Current use of senior care anticoagulation On: 13-Jan-2014 Request PT (Prothrobim Time) ([id number])Indication: Current use of termite treater anticoagulation On: 06-Jan-2014 Request PT (Prothrobim Time) ([id number])Indication: Current use of senior care anticoagulation On: 30-Dec-2013 Request PT (Prothrobim Time) ([id number])Indication: Current use of senior care anticoagulation On: 23-Dec-2013 Request PT (Prothrobim Time) ([id number])Indication: Current use of senior care anticoagulation On: 16-Dec-2013 Request PT (Prothrobim Time) ([id number])Indication: Current use of termite treater anticoagulation On: 09-Dec-2013 Request PT (Prothrobim Time) ([id number])Indication: Current use of senior care anticoagulation On: 02-Dec-2013 Request PT (Prothrobim Time) ([id number])Indication: Current use of senior care anticoagulation On: 25-Nov-2013 Request PT (Prothrobim Time) ([id number])Indication: Current use of termite treater anticoagulation On: 18-Nov-2013 Request PT (Prothrobim Time) ([id number])Indication: Current use of senior care anticoagulation On: 11-Nov-2013 Request PT (Prothrobim Time) ([id number])Indication: Current use of senior care anticoagulation On: 04-Nov-2013 Request PT (Prothrobim Time) ([id number])Indication: Current use of senior care anticoagulation On: 28-Oct-2013 Request PT (Prothrobim Time) ([id number])Indication: Current use of senior care anticoagulation On: 14-Oct-2013 Request PT (Prothrobim Time) ([id number])Indication: Current use of senior care anticoagulation On: 07-Oct-2013 Request PT (Prothrobim Time) ([id number])Indication: Current use of senior care anticoagulation On: 30-Sep-2013 Request PT (Prothrobim Time) ([id number])Indication: Current use of termite treater anticoagulation On: 23-Sep-2013 Request PT (Prothrobim Time) ([id number])Indication: Current use of termite treater anticoagulation On: 16-Sep-2013 Request PT (Prothrobim Time) ([id number])Indication: Current use of termite treater anticoagulation On: [id number] Request Comments: needs one today then q month or prn Planned Encounters Medical; 6 Month FU - On: 06-Apr-2018 14:15 [facility] Tammie Fink CNP, CNP, Mary E Planned Procedures Ultrasound - RenalBy: Danae LAN, On: 23-Mar-2015 Intent Tammie Hernandez CNP Aerosol Treatment ([id number])By: Olmanrb On: 23-Mar-2015 Intent LIFE INSURANCE AGENT, Davida FLU VAC, SPLIT, >3 YEARS, On: 14-Feb-2014 Intent INTRAMUSC ([id number])By: Danae LAN, Comments: lot # [id number]- 10/28/14site- LDLTroute-IMdose- 0.5mlVIS and ABN signedCTyler LIFE INSURANCE AGENT Tammie Hernandez CNP IMMUNIZ ADMNIN, 1 VAC, SNGL/COMBO On: 14-Feb-2014 Intent ([id number])By: Tammie Fink CNP, CNP, Mary E Instructions Name Dates Details Current use of termite treater anticoagulation : How to access health information online Indication: Current use of senior care anticoagulation Current use of senior care anticoagulation : How to access health information online - Detail Indication: Current use of termite treater anticoagulation Current use of termite treater anticoagulation : Patient Instructions Indication: Current use of termite treater anticoagulation Cough : Patient Instructions Indication: Cough Screening for prostate cancer : Patient Instructions Indication: Screening for prostate cancer Encounters Annotation/Addendum On: 03-Apr-2018 9:26 [facility] [...] 23.0-23.9, adult, Nonsmoker, Current use of senior care anticoagulation, Reflux, Leg cramps, Follicular lymphoma , [...] UTI symptoms, Cough, Nocturia, Current use of senior care anticoagulation, Pharyngitis, Flank pain [facility] [...] (deep venous thrombosis), Current use of senior care anticoagulation, SCREENING FOR CANCER OF THE PROSTATE [...] (deep venous thrombosis), Current use of senior care anticoagulation, Reflux [facility] Payers MedicareAARP/Gregoria [place]; a guarantor
--- OUTSIDE RECORDS SUMMARY | 2018-07-19 23:48 | XMS RPT_ITS ---
:1950 Author Organization OHIP Care Team Providers Name Role Phone Tammie Fink Attending Unavailable Radha Hubbard MD Referring Unavailable Tammie Fink Consulting Unavailable Tammie Fink Attending Unavailable Tammie Fink Referring Unavailable Danae Tammie Primary Care Unavailable Nickolas Castillo Attending Unavailable Tammie Fink Referring Unavailable Nickolas Castillo Attending Unavailable Nickolas Castillo Referring Unavailable Tammie Fink Primary Care Unavailable Keadr Borrero Consulting Unavailable Nickolas Castillo Attending Unavailable Nickolas Castillo Referring Unavailable Tammie Fink Primary Care Unavailable Kedar Borrero Consulting Unavailable Jonathan, Nickolas Consulting Unavailable SelinaNoe Attending Unavailable JonathanGarretel Referring Unavailable Bailey SWANSON, Jo Ann Attending Unavailable Tammie Fink Referring Unavailable Lonnie, Regis Attending Unavailable Tammie Fink Primary Care Unavailable Regis Fleming Attending Unavailable Danae Tammie Primary Care Unavailable Lonnie, Regis Consulting Unavailable PROBLEMS PROBLEMS DATE TYPE CONDITION / CODE ATTENDING STATUS SOURCE 05/10/2018 Unknown K40.91 - Unilateral Jonathan Nickolas Active [facility] inguinal hernia, Community without obstruction Hospital or gangrene, Repository recurrent / K40.91(ICD-10) 05/16/2018 Unknown Z01.810 - Encounter Noe Marks Active [facility] for preprocedural [facility] Hospital examination / Repository Z01.810(ICD-10) 11/16/2017 Unknown Z85.72 - Personal Regis Fleming Active [facility] history of [facility] non-Hodgkin [facility] lymphomas / Repository Z85.72(ICD-10) PROCEDURES PROCEDURES No Procedure Records FoundRESULTS RESULTS SURGERY VISIT REPORT Observed: 05/17/2018 Status: F Source: [place] 12:40 PM [facility] REPOSITORY [facility] [address] [place] [address]. [address] [place] [address] OFFICE VISIT Date of Service: 05/17/18 MR#: [id number] Acct: [id number] Name: PATRIZIA CUBA Rep #: [id number] : 1950 Provider: Jo Ann Avalos PA-C Age/Sex: 68/M Location: [facility] Status: Signed Intake Intake Visit Reasons: PO Lt Inguinal Hernia 05/10 Chief Complaint: post [facility] Snuff Blender Required: No Is patient in pain?: No Allergies No Known Allergies Allergy (Verified 05/17/18 12:31) Medications Lansoprazole [Prevacid] 15 mg PO DAILY 07/25/16 [History Confirmed 05/07/18] Warfarin [Coumadin (PBKC)] 4 mg PO DAILY 07/25/16 [History Confirmed 05/07/18] rosuvastatin 10 mg tablet 10 mg PO QHS 04/19/18 [History Confirmed 05/07/18] Subjective Details: Patient is a 68 y/o male I am following for recurrent left inguinal hernia. Dr. Castillo performed an open left inguinal hernia repair with mesh on 05/10/18. Patient tolerated the procedure well. Patient notes intermittent left hip discomfort. He is back on his Coumadin. He notes appetite has returned to normal. Bowel habits have returned to normal. Objective Details: Left groin- incision c/d/i. No erythema or infection noted. Minimal amount of ecchymosis noted. Assessment AND Plan Problems 1. Recurrent left inguinal hernia K40.91 Plan - Recommend no lifting greater than 20 pounds for 6 weeks - Follow-up as needed Coding Level of Care Code Global Post Op Diagnoses Recurrent left inguinal hernia K40.91 05/17/18 1240 <Electronically signed by Jo Ann Avlaos PA-C> Date Jo Ann Avalos PA-C Cosigner Signature: Date (if applicable) CC: Tammie Fink NP OPERATIVE REPORT Observed: 05/10/2018 Status: F Source: [place] 9:55 AM [facility] REPOSITORY [facility] Medical Records Department [address] [place] [address] Operative Report 05/10/18 0918 MR#: [id number] Acct: [id number] Name: PATRIZIA CUBA Rep #: [id number] : 1950 68 From: Nickolas Castillo MD PCP: Tammie Fink NP Status: REG [facility] Y Location: [place] [address] Problem List (1) Recurrent left inguinal hernia Status: Acute Report of Operation Date of Procedure: 05/10/18 Pre-Operative Diagnosis: Recurrent left inguinal hernia Post-Operative Diagnosis: Same Surgery/Procedure Performed:: Open repair of a recurrent left inguinal hernia with mesh Type of Anesthesia:: General Anesthesiologist: Lyndon Shay Estimated Blood Loss (mL): <25 cc Fluids Replaced: 1 liter lr Description of Procedure: Patient was brought into the operating room. Placed in the supine position. Under excellent general anesthetic left inguinal area was sterilely prepped and draped in usual fashion. Local was injected. A left inguinal incision was made. Dissection was carried down through Sherie's layer. I did not encounter the inferior superficial epigastric vessels. [place] retractor was placed in the wound. I dissected all the way down to the fascia. I incised the fascia with a scalpel. I then used Metzenbaum scissors to both go cephalad and caudal. Identified the ilioinguinal nerve. I dissected it free. I placed it medially. I dissected out a direct inguinal hernia. I placed it back into its prepared position. I placed an extra large mesh plug into this defect. I sutured it to the surrounding fascia with 2 sutures of 0 Prolene. I placed the onlay piece of mesh. I attached it to the pubic tubercle with 2 sutures of 0 Prolene 1 of the sutures went along the ilioinguinal ligament the other went along the transversalis fascia. Keyhole was brought directly where the indirect inguinal canal was identified. I placed the ilioinguinal nerve through the keyhole and then sutured the 2 superiorly bringing the mesh together. I had enough of the defect and the keyhole to accept my index finger I had good supply of blood which I was easily able to palpate in the cord and vessel structures. During this process he did have some preperitoneal fat located on the cord and vessel structures which I dissected free and placed it back into its preperitoneal position. Once I did all of this I then injected local into the and around the ilioinguinal nerve I then brought the external oblique fascia together with 2-0 Vicryl making sure not to entrap the nerve. Sherie's layer was brought together with a 2-0 Vicryl deep dermal stitches of 3-0 Vicryl in a running 4-0 Monocryl in the skin Steri- Strips are applied sterile dressings were applied and the patient tolerated the procedure well. - Admit VTE Documentation VTE Present on Admission: No VTE Mechan Device Prophylaxis: SCD's VTE Pharm Prophylaxis ordered?: No Reason prophylaxis not ordered:: Treatment Not Indicated 05/10/18 0955 <Electronically signed by Nickolas Castillo MD> Date Nickolas Castillo MD CC: Tammie Fink NP; Kedar Borrero MD; Nickolas Castillo MD Signed DISCHARGE INSTRUCTION Observed: 05/10/2018 Status: F Source: [place] 9:17 AM [facility] REPOSITORY [facility] Medical Records Department [address] [place] [address] Instructions for Home/Discharge Instructions 05/10/18 0917 MR#: [id number] Acct: [id number] Name: PATRIZIA CUBA Rep #: [id number] : 1950 68 From: Nickolas Castillo MD PCP: Tammie Fink NP Status: REG SDC Discharge Diet: Light diet - advance as tolerated Discharge Activity: Return to Normal Activity, May Drive - when you are no longer taking narcotic pain medications., May Shower - with the bandage in place 1-2 days after surgery. Lifting Restrictions: 20 pounds for 8 weeks. Additional Activity Instructions:: Climbing stairs is fine, walking is encouraged. Sitting in bed may be uncomfortable. Sitting up using your lateral muscles (sitting up sideways) is usually more comfortable. Do not drive, work heavy equipment of sign legal documents for 24 hours. If your hernia repair was an ingunial repair, you may have scrotal swelling, an ice pack and/or athletic support can provide more comfort. Pain medications may cause nausea, you should typically eat light foods as you take your pain medications. Pain medications may also cause constipation. If you have difficulty with this, discuss with your doctor. Call your doctor if your incision/area has: Continuous Slow Oozing, Sudden Increased Bleeding, Increased Pain/ Swelling, Increased Redness, Foul Smelling Discharge Call your doctor if you observe: Fever of 101 or Higher Suture Line Care: Avoid Pulling/Pushing, Avoid Pinching/Bending Additional Dressing/Incision Instructions:: Leave the operative bandage on for 2-3 days. When you remove the bandage, leave the steri-strips on place until your follow up appointment or they fall off. Allergies/Adverse Reactions: Allergies No Known Allergies Allergy (Verified 05/07/18 08:13) Medications to take at Discharge Lansoprazole [Prevacid] 15 mg PO DAILY 07/25/16 Warfarin [Coumadin (PBKC)] 4 mg PO DAILY 07/25/16 rosuvastatin 10 mg tablet 10 mg PO QHS 04/19/18 Hydrocodone Bitart/Apap 5-325 [[place]lass 5MG-325MG] 1 - 2 tab PO Q4H PRN PRN 5 Days #30 tab 05/10/18 The following prescriptions were given: Hydrocodone Bitart/Apap 5-325 [Douglass 5MG-325MG] 1 - 2 tab PO Q4H PRN PRN 5 Days #30 tab PRN Reason: Pain Orders to be completed after discharge: 12 Lead EKG [CVS] Time Frame: 05/07/18, Location: None Selected Chest PA and Lateral [RAD] Time Frame: 05/07/18, Location: None Selected CBC-Complete Blood Cnt No Diff Time Frame: 05/07/18, Location: Laboratory Primary Care Physician: Tammie Fink MANAGER INTEGRITY-C [Primary Care Provider] - Test Results: Test results from this visit will be discussed in further detail at your follow-up appointment, if applicable. Please Follow Up With: Nickolas Castillo MD - [phone] When: Plan to have a follow up appointment in 7 days. Call to schedule. 05/10/18 0917 <Electronically signed by Nickolas Castillo MD> Date Nickolas Castillo MD CC: Tammie Fink MANAGER INTEGRITY; Kedar Borrero MD Signed PROTIME W/INR Collected: 05/10/2018 Status: F Source: [place] 7:37 AM [facility] REPOSITORY TYPE CODE TESTS RESULT OUT OF RANGE REFERENCE UNITS LAB L9200.1001 11.9-14.4 SEC Normal PROTIME ISTAT 12.4 Result Comment: Reference Range 11.9 - 14.4 LAB L9200.2000 Normal INR ISTAT 1.00 Result Comment: Critical Value > 3.5 Performed By: #### L9200.0000 #### [facility] Point of Care [address] [place] [address] CBC-COMPLETE BLOOD CNT Collected: 05/10/2018 Status: F Source: [place] NO DIFF 7:30 AM [facility] REPOSITORY TYPE CODE TESTS RESULT OUT OF RANGE REFERENCE UNITS LAB L100.1000 4.4-11.0 K/mm3 Normal WBC 5.2 LAB L100.1200 4.6-6.2 M/mm3 Normal RBC 4.98 LAB L100.1300 13.0-16.5 g/dl Normal HGB 15.6 LAB L100.1400 40-54 % Normal HCT 46.2 LAB L100.1500 80-94 fL Normal MCV 92.8 LAB L100.1600 27.0-32.0 pg Normal MCH 31.3 LAB L100.1700 32-36 g/gl Normal MCHC 33.8 LAB L100.1810 11.6-14.6 % Normal RDW CV 12.6 LAB L100.1820 35.1-43.9 fl Normal RDW SD 42.3 LAB L100.1900 150-450 K/mm3 Normal PLT 210 LAB L100.2000 6.2-12.0 fl Normal MPV 10.3 Performed By: #### L100.0500 #### [facility] [address] [facility] [place], [address] 12 LEAD ELECTROCARDIOGRAM Observed: 05/08/2018 Status: F Source: [place] 9:43 AM [facility] REPOSITORY [facility] Cardiovascular Services [address] [place] [address] 12 Lead EKG 05/07/18 1015 MR#: [id number] Acct: [id number] Name: PATRIZIA CUBA Rep #: [id number] : 1950 68 From: Noe Marks MD Attending Dr: Nickolas Castillo MD Status: PRE [facility] Ordering Dr: Nickolas Castillo MD Date: 05/07/18 Location: [facility] Sex: M C Admitted: Test Reason : PRE-OP Blood Pressure : / mmHG Vent. Rate : 062 BPM Atrial Rate : 062 BPM P-R Int : 190 ms QRS Dur : 080 ms QT Int : 398 ms P-R-T Axes : 025 002 067 degrees QTc Int : 403 ms Normal sinus rhythm Normal ECG Confirmed by NOE MARKS MD ([id number]), industrial editor STEVE HERNÁNDEZ ([id number]) on 05/08/2018 9:42:49 AM Referred By: Nickolas Castillo Confirmed By:NOE MARKS MD 05/08/18 0942 Date Noe Mraks MD CC: Tammie Fink NP; Nickolas Castillo MD Signed CHEST PA AND LATERAL Observed: 05/07/2018 Status: F Source: [place] 9:50 AM [facility] REPOSITORY [facility] Imaging Services [address] [place] [address] Chest PA and Lateral MR#: [id number] Acct: [id number] Name: PATRIZIA CUBA Rep #: [id number] : 1950 M 68 From: Jesus Webb MD PCP: Tammie Fink NP Status: PRE SDC Study: Chest PA and Lateral Date of Exam: 05/07/18 Exam# [id number] Ordering Dr: Nickolas Castillo MD STUDY: X-RAY CHEST REASON FOR EXAM: Male, 68 years old. Preoperative evaluation. TECHNIQUE: PA and lateral views of the chest. COMPARISON: None. FINDINGS: Calcified granuloma in the right lower lobe. There is no demonstrated pleural abnormality. Normal size heart. Normal mediastinum and marielena. Normal visualized pulmonary arteries. Normal visualized aortic arch and descending thoracic aorta. There are mild degenerative changes of the visualized thoracic spine. Normal visualized ribs, clavicles, and shoulders. There is no demonstrated abnormality of the visualized soft tissue structures of the upper abdomen. RAD/Chest PA and Lateral IMPRESSION: No acute abnormality is seen. Electronically Signed: Jesus Webb MD at 10:52 EST Tel [phone], Service support , CC: Tammie Fink MANAGER INTEGRITY; Nickolas Castillo MD Licensed Funeral Director: Signed SURGERY VISIT REPORT Observed: 04/23/2018 Status: F Source: [place] 3:49 PM [facility] REPOSITORY [facility] [address] [place] [address] OFFICE VISIT Date of Service: 04/19/18 MR#: [id number] Acct: [id number] Name: PATRIZIA CUBA Rep #: [id number] : 1950 Provider: Nickolas Castillo MD Age/Sex: 68/M Location: [facility] Status: Signed Intake Vital Signs04/19/18 Body Mass Index (BMI) 24.0 04/19/18 Height 6 ft 04/19/18 Weight: 185 lb 6 oz 04/19/18 Body Mass Index (BMI) 25.1 04/19/18 Blood Pressure 104/70 Intake Visit Reasons: Bilat Inguinal Hernia CT [facility] 04/17 Chief Complaint: bilateral groin pain, hx BIH repair Snuff Blender Required: No Is patient in pain?: Yes Pain scale (1-10): 3 Allergies No Known Allergies Allergy (Verified 04/19/18 13:07) Medications Lansoprazole [Prevacid] 15 mg PO DAILY 07/25/16 [History Confirmed 04/19/18] Warfarin [Coumadin (PBKC)] 2.5 mg PO DAILY 07/25/16 [History Confirmed 04/19/18] rosuvastatin 10 mg tablet 10 mg PO DAILY 04/19/18 [History Confirmed 04/19/18] [facility] Medical History DVT (deep venous thrombosis) (Acute) Factor V Leiden mutation (Acute) GERD (gastroesophageal reflux disease) (Acute) Homozygous Factor V Leiden mutation (Acute) Hyperlipidemia (Acute) Lymphoma (Acute) lymph node disection (Acute) Surgical History History of colonoscopy (Acute 2016) History of hernia repair (Acute) Family History Father Clotting disorder DVT (deep venous thrombosis) Social History Smoking Status: Never smoker HPI HPI HPI: PATRIZIA CUBA, is a 68 M who presents to the office today for evaluation of bilateral groin pain. Patient states that his pain is slightly worse on the right than it is on the left. He doesnotice a bulge on the left side. Patient has a history of a laparoscopic bilateral inguinal hernia repair long time ago. He is unsure of the time. He is unsure whether or not they put mesh in it. Patient has had a CAT scan of his abdomen and pelvis which was completed [facility] on 04/17/2018. This shows a small left inguinal hernia containing fat no other intra-abdominal or intrapelvic processes is going on at that time. No hernia on the right side was identified on the CAT scan. ROS General General: No weight change, appetite, fatigue, colon cancer, breast cancer or weakness HEENT HEENT: No difficulty swallowing, eye injury, eye surgery, swollen glands or hoarseness Endo Endocrine: No thyroid disease, diabetes mellitus, thyroid cancer, Hair loss, heat intolerance or cold intolerance Musc Musculoskeletal: No back problems, arthritis, rheumatoid arthritis, gout or joint pain Cardio Cardiovascular: No murmur, pacemaker, heart disease, atrial fibrillation, high blood pressure, heart attack, heart stent, palpitations, shortness of breat with exertion or chest pain Resp Respiratory: No shortness of breath, No sleep apnea, No cough, No COPD, No asthma, No emphysema, No wheezing Gastro Gastrointestinal: No abdominal pain, No nausea or vomiting, No diarrhea, No constipation, No blood in stool, Yes acid reflux, No hemorrhoids, No ulcers, No gallbladder problem, No black,tarry stools [place] Hematologic: Yes blood thinners, No blood disorders, No bleeding, Yes anemia, No blood clots Additional Details: DVT--coumadin Neuro Neurologic: No weakness Exam Const General: well developed, no acute distress, well hydrated Orientation: oriented to person, oriented to place, oriented to time [facility] Head: normocephalic, atraumatic Ears: external ears normal Mouth: moist mucous membranes Eyes Sclera: sclerae normal Pupils: normal by confrontation Neck Neck: no lymphadenopathy noted Neck mass: No Thyroid: symmetrical, thyroid normal Chest Chest palpation AND inspection: normal inspection of the chest Resp Effort AND Inspection: normal respiratory effort Auscultation: clear to auscultation bilaterally Percussion: percussion normal Cardio Rate: regular rate Rhythm: regular rhythm Heart Sounds: no murmurs GI Palpation: soft, tender, no masses, no hepatosplenomegaly Rectal Exam: other Other: Patient has a reducible hernia on his left inguinal exam. The right side is stable on those no hernia identified Rectal exam deferred. Extrem General: no clubbing, cyanosis or edema, normal to inspection Assessment AND Plan Problems 1. Recurrent right inguinal hernia K40.91 Plan My plan is to perform an open left inguinal hernia repair with mesh. The planned surgical procedure was discussed extensively with the patient. The risks, benefits, anticipated outcomes and possible complication were mentioned. The patient understands that all hernia repair surgery has a chance of recurrence and/or chronic post-operative pain. My staff has also explained the procedure in understandable terms and the patient was given the option to take printed material concerning the planned procedure. The patient had the opportunity to ask questions concerning the planned procedure. The patient freely consents to the planned procedure. Patient will be off his Coumadin for 7 days prior to the procedure. Coding Level of Care Code Off vis,new,level 3 Diagnoses Recurrent right inguinal hernia K40.91 04/23/18 1549 <Electronically signed by Nickolas Castillo MD> Date Nickolas Castillo MD Cosigner Signature: Date (if applicable) CC: Tammie Fink NP ABDOMEN/PELVIS WITHOUT Observed: 04/17/2018 Status: F Source: [place] CONT 1:10 PM [facility] REPOSITORY [facility] Imaging Services [address] [place] [address] Abdomen/Pelvis without Cont MR#: [id number] Acct: [id number] Name: PATRIZIA CUBA Rep #: [id number] : 1950 M 68 From: Caleb Murrieta MD PCP: Tammie Fink NP Status: REG CLI Study: Abdomen/Pelvis without Cont Date of Exam: 04/17/18 Exam# [id number] Ordering Dr: Tammie Fink STUDY: CT ABDOMEN AND PELVIS WITHOUT CONTRAST REASON FOR EXAM: Male, 68 years old. Bilateral inguinal hernias, recurrent. 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 On Coumadin for prior DVT. RADIATION DOSAGE (If Supplied By Facility): CTDIvol = ( 11.65 ) mGy, DLP = ( 577.42 ) mGycm TECHNIQUE: Transaxial images were obtained from the dome of the diaphragm to the symphysis pubis without oral contrast, and without intravenous contrast. Sagittal and coronal images were reconstructed. Individualized dose optimization techniques were used for this CT. COMPARISON: CT abdomen and pelvis 02/18/[address] chest 02/18/2015. FINDINGS: Body wall soft tissues: Left inguinal hernia containing only fat, similar features seen on prior CT imaging of 2014, hernia defect 1.9 cm. Osseous structures: No acute process. Prominent degenerative disc disease L-1-L2, L2-L3, L5-S1 without apparent stenosis. Slight scoliosis. Osteopenia. Inferior chest: Lung bases clear, normal distal esophagus, unremarkable cardiac base. Hepatobiliary: Mild hepatomegaly, craniocaudal right liver 19 cm. Normal gallbladder and biliary tree. Pancreas: No acute process. Spleen: Normal. Adrenal glands: Normal. Urogenital: Normal kidneys, collecting systems, ureters, urinary bladder, prostate and seminal vesicles. Pelvic floor and sidewalls and retroperitoneum: No mass or adenopathy. Vasculature: No acute process. Stomach: No acute process. Small bowel and mesentery: No acute process. Large bowel: Normal appendix. Unremarkable large bowel and rectum. Free fluid or free air: None. CT/Abdomen/Pelvis without Cont IMPRESSION: No acute intra-abdominal or intrapelvic process is evident. Small left inguinal hernia containing only fat. Similar features were seen on prior imaging of 2014. Electronically Signed: Caleb Murrieta MD at 16:35 EST Tel , Service support , CC: Tammie Fink NP Licensed Funeral Director: Signed ONCOLOGY VISIT REPORT Observed: 11/16/2017 Status: F Source: [place] 11:37 AM [facility] REPOSITORY [facility] [place] [address] OFFICE VISIT Date of Service: 11/16/17 1102 MR#: [id number] Acct: [id number] Name: PATRIZIA CUBA Rep #: [id number] : 1950 From: Regis Fleming MD Age/Sex: [...] History Past Medical History: GERD Other Past Medical History: FACTOR V LEIDEN MUTATION, HOMOZYQOUS Cancer: Lymphoma Past Surgical History Surgical: Hernia repair Other Surgical History: LYMPH NODES REMOVED Family History Paternal Past Medical History: Clotting disorder Maternal Past Medical History: Unknown Social History Smoking Status Never smoker Review of Systems Constitutional:: Denies: Fever, Sweats, Weight loss, Appetite change, Chills Cardiovascular:: Denies: Chest pain, Palpitations, Dyspnea on exertion, Orthopnea, PND, Shortness of breath Respiratory: Denies: Cough, Hemoptysis, Shortness of Breath, Wheezing Gastrointestinal:: Denies: Abdominal pain, Nausea, Vomiting, Diarrhea, Constipation, Hematochezia Genitourinary: Denies: Dysuria, Hematuria, 15, Flank pain Musculoskeletal:: Denies: Back pain, Myalgia, Arthralgia Skin: Denies: Rash, Skin Changes, Wounds Neurological:: Denies: Headache, Dizziness, Visual changes, Tinnitus, Hearing loss Psychiatric: Denies: Anxiety, Depression, Homicidal Ideations, Suicidal Ideations Vital Signs Height 5 ft 11 in Weight: 78.018 kg Weight in Pounds 172.0 lbs Pulse Ox 96 - Physical Exam General: Alert, Oriented x3, No apparent distress HEENT: Atraumatic, PERRLA, EOMI, Normocephalic Oropharynx:: Dry mucosa Neck:: Supple, Trachea midline. Negative for: JVD, bilateral Cardiac:: Regular rate, Regular rhythm, Normal S1, Normal S2. Negative for: Murmur Lungs: Clear to auscultation, Excusion symmetrical. Negative for: Rhonchi, Wheezes Abdomen:: Bowel sounds x 4, Soft, Non-tender, Non-distended. Negative for: Hepatosplenomegaly Extremities:: Negative for: Cyanosis, Edema Neurological: Neuro grossly intact Skin:: Negative for: Lesions, Rash, Petechiae, Ecchymosis Psychiatric:: Appropriate affect, Euthymic Lymphatics:: Negative for: Cervical lymphadenopathy, Supraclavicular lymphadenopathy, Axillary lymphadenopathy Laboratory Data: Laboratory Tests WBC 4.3 L Cancelled Corrected WBC (auto) Cancelled Corrected WBC Cancelled RBC 4.67 Cancelled Assessment and Plan NHL-Follicular type stage II. No evidence of disease clinically. Factor V Leiden mutation on chronic Coumadin therapy. Plan is to continue observation. RTC 1 yr with CBC/CMP/LDH. Primary Care Provider: Tammie Fink Referring Provider: - Problem List (1) History of follicular lymphoma Status: Chronic Code Visit Office Visits / Consults: [id number] OV L3 Est 11/16/17 1137 <Electronically signed by Regis Fleming MD> Date Regis Fleming MD Cosigner Signature: Date (if applicable) CC: CBC W/DIFF, AUTOMATED Collected: 11/16/2017 Status: F Source: [place] 10:31 AM [facility] REPOSITORY TYPE CODE TESTS RESULT OUT OF RANGE REFERENCE UNITS LAB L100.1000 4.4-11.0 K/mm3 Low WBC 4.3 LAB L100.1200 4.6-6.2 M/mm3 Normal RBC 4.67 LAB L100.1300 13.0-16.5 g/dl Normal HGB 14.5 LAB L100.1400 40-54 % Normal HCT 43.2 LAB L100.1500 80-94 fL Normal MCV 92.5 LAB L100.1600 27.0-32.0 pg Normal MCH 31.0 LAB L100.1700 32-36 g/gl Normal MCHC 33.6 LAB L100.1810 11.6-14.6 % Normal RDW CV 12.9 LAB L100.1820 35.1-43.9 fl Normal RDW SD 43.3 LAB L100.1900 150-450 K/mm3 Normal PLT 177 LAB L100.2000 6.2-12.0 fl Normal MPV 10.0 LAB L100.2100 47-70 % Normal NEUT% 64.8 LAB L100.2200 19-41 % Normal LY% 23.7 LAB L100.2300 0-10 % Normal MONO% 8.9 LAB L100.2400 0-5 % Normal EO% 2.1 LAB L100.2500 0-1 % Normal BASO% 0.5 LAB L100.2550 0.0-0.9 % Normal IM GRAN % 0.000 Result Comment: IG% - Immature Granulocytes (promyelocytes, myelocytes and metamyelocytes) > 1% indicates that a LEFT SHIFT is Present. LAB L100.2620 2.0-7.7 X10 3/uL Normal Absolute Neut 2.8 LAB L100.2720 0.83-4.51 X10 3/ul Normal Absolute Lymph 1.01 Performed By: #### L100.0100 #### [facility] [address] 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 1 TYPE CODE TESTS RESULT OUT OF RANGE REFERENCE UNITS LAB L501.0100 74-106 mg/dL Normal GLU 87 Result Comment: Please note revised GLUCOSE reference range effective 2017. LAB L501.1000 7-18 mg/dL Normal BUN 14 LAB L501.1100 0.70-1.30 mg/dL Normal CREAT,SERUM 0.84 Result Comment: The validity of the calculated GFR AND GFRAA in patients over 70 years has not been determined. Clinical correlation is essential. LAB L501.1110 >60 mL/min Normal EST GFR 97 Result Comment: Non- GFR Calc LAB L501.1115 >60 mL/min Normal EST GFR - AA 118 Result Comment: GFR Calc LAB L501.1255 ml/min Normal Estimated CRCL 93.38 LAB L501.1300 10-20 RATIO Normal BUN/CRE 16.6 LAB L501.1500 6.4-8. g/dL Normal 2 T PROT 7.1 LAB L501.1800 3.2-5. g/dL Normal 0 ALB 3.7 LAB L501.1950 2.2-4. g/dL Normal 2 GLOB 3.4 LAB L501.2000 0.9-2. RATIO Normal 4 A/G 1.1 LAB L501.2200 8.5-10 mg/dL Normal .1 CA 8.5 LAB L501.4100 15-37 U/L Normal AST 22 LAB L501.4305 45-117 U/L Normal ALK P 56 LAB L501.4405 16-61 U/L Normal ALT 32 LAB L501.4600 0.20-1 mg/dL Normal .00 T BILI 0.50 LAB L501.5300 136-14 mmol/L Normal 5 NA 137 LAB L501.5600 3.5-5. mmol/L Normal 1 K 4.1 LAB L501.5900 98-107 mmol/L Normal CL 105 LAB L501.6100 21.0-3 mmol/L Normal 2.0 CO2 27.0 LAB L501.6200 5-15 Normal GAP 5 Performed By: #### L500.4050, L504.2610 #### [facility] [address] 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 1 TYPE CODE TESTS RESULT OUT OF RANGE REFERENCE UNITS LAB L504.2610 87-241 U/L Normal LDH 190 Performed By: #### L500.4050, L504.2610 #### [facility] [address] [place], [address] ALLERGIES ALLERGIES DATE TYPE / CODE NAME / CODE REACTION SEVERITY SOURCE 05/17/2018 Drug No Known Unknown [facility] Allergy/4160 Allergies/F00 Hospital 51690(SNOMED [id number](RXNOR Repository CT) M) ENCOUNTERS ENCOUNTERS ADMIT/DISCHARGE ACCOUNT ADMITTING ENCOUNTER LOCATION SOURCE NUMBER CLASS 05/17/2018/ [id number] Ambulatory BMSBuilding:B Angel[place] 9 7 [facility] Repository 05/10/2018 [id number] Ambulatory BMSBuilding:B [place] 6 MS.[facility] Repository 05/10/2018/ [id number] Ambulatory [place] Angel[place] [address] [facility] ing:SDCRoom: Repository AC14 05/07/2018 [id number] Ambulatory BMSBuilding:W [place] 7 [facility] Repository 04/23/2018 [id number] Ambulatory Building:[facility] Practices Repository 04/19/2018/ [id number] Ambulatory BMSBuilding:B [place] 8 1 [facility] Repository 04/17/2018 [id number] Ambulatory [facility] 2 [facility] ing:CT Repository 11/16/2017 [id number] Ambulatory [facility] 2 [facility] ing:OMD Repository 11/16/2017 [id number] Ambulatory BMSBuilding:B [place] 3 MS.CF.[facility] Repository PAYERS PAYERS ENCOUNTER GUARANTOR PAYER SUBSCRIBER SOURCE 05/17/2018 PATRIZIA Rothman Primary PATRIZIA [id number] Insurance:MEDICARE WINKLERDOB: [facility] [id number] Number: Repository [id number]: [phone] [id number] [phone] () Date:2018-05-11 05/17/2018 Secondary PATRIZIA L Angel[place] Insurance:AARPPolicy WINKLERDOB: Community Number: [id number] [id number] Repository Date:0698-29-78[address], [place] [address]CP: 05/17/2018 Tertiary NOT GIVENUNK [place] Insurance:SELF PAY [facility] Number: Effective Repository Date:2018-05-17 05/10/2018 PATRIZIA L Primary PATRIZIA L [place] [id number] Insurance:MEDICARE WINKLERDOB: Community SIRIA PART A [facility] [id number] Number: Repository [address]Nmx: 330 [id number] [phone] () Date:2018-04-20 05/10/2018 Secondary PATRIZIA L [place] Insurance:AARPPolicy WINKLERDOB: Community Number: [id number] Hospital [id number] Repository Date:0798-05-41[address], [place] [address]PT: 05/10/2018 Tertiary NOT GIVENUNK [place] Insurance:SELF PAY [facility] Number: Effective Repository Date:2018-05-10 05/10/2018 PATRIZIA L Primary PATRIZIA L [place] [id number] Insurance:MEDICARE WINKLERDOB: Community SIRIA PART A [facility] [id number] Number: Repository [address]Bnk: 330 [id number] [phone] () Date:2018-04-20 05/10/2018 Secondary PATRIZIA L [place] Insurance:AARPPolicy WINKLERDOB: Community Number: [id number] Hospital [id number] Repository Date:3142-11-61[address], [place] [address]JX: 05/10/2018 Tertiary NOT GIVENUNK [place] Insurance:SELF PAY [facility] Number: Effective Repository Date:2018-04-20 05/07/2018 PATRIZIA L Primary PATRIZIA L [place] [id number] Insurance:MEDICARE WINKLERDOB: [facility] PART A [facility] [id number] Number: Repository [address]Xsd: [phone] [id number] [phone] (HP) Date:2018-04-20 05/07/2018 Secondary PATRIZIA L Angel[place] Insurance:[facility] WINKLERDOB: Community Number: [id number] Hospital [id number] Repository Date:7576-72-05[address]STQ[place], [place] [address]EC: 05/07/2018 Tertiary NOT GIVENUNK [place] Insurance:SELF PAY [facility] Number: Effective Repository Date:2018-05-07 04/23/2018 Patrizia L Primary Patrizia L OHIP Practices WinklerDOB: Insurance:MedicarePol WinklerDOB: Repository [id number] icy Number: [id number] Kauffman AS47Hsrlcleur [address] [place] [address] Date:5922-84-70PvwcVerona, [place] [address]Pdx: ([phone]) Name:[facility] [address]Hho: () [id number], [place] [phone] () [address]KK: 04/23/2018 Secondary Patrizia L OHIP Practices Insurance:AARP/UHCPol WinklerDOB: Repository icy Number: [id number] [address] [place] [address] Date:8543-38-95ZscjVerona, [place] Name:[facility] [address] [address]Pwv: [phone] 080016Z[place], [place] [phone] (HP) [id number]: 04/23/2018 Tertiary Patrizia L OHIP Practices Insurance:Medical WinklerDOB: Repository [facility] [id number] Number: 73 [facility] [id number] AveSterling, [place] Date:2016-05-01 - [address]Luu: [phone] (HP) Name:[address] [id number]: 04/23/2018 Tertiary Patrizia L OHIP Practices Insurance:Medical WinklerDOB: [facility] [id number] Number: 73 [facility] [id number], [place] Date:2016-07-30 - [address]Hip: [phone] (HP) Name:[address] [id number]: 04/19/2018 PATRIZIA L Primary PATRIZIA L [place] [id number] Insurance:MEDICARE WINKLERDOB: [facility] PART A [facility] [id number] Number: Repository [address]Mkb: 330 [id number] [phone] () Date:2018-04-11 04/19/2018 Secondary PATRIZIA L [place] Insurance:AARPPolicy WINKLERDOB: Community Number: [id number] [id number] Repository Date:4846-90-89[address] [address]RO: 04/19/2018 Tertiary NOT GIVENUNK [place] Insurance:SELF PAY [facility] Number: Effective Repository Date:2018-04-19 04/17/2018 PATRIZIA L Primary PATRIZIA L [place] [id number] Insurance:MEDICARE WINKLERDOB: [facility] PART [facility] [id number] Number: Repository [id number]: 330 [id number] [phone] (HP) Date:2018-04-09 04/17/2018 Secondary PATRIZIA L [place] Insurance:AARPPolicy [facility] Community Number: [id number] [facility] [id number] Repository Date:1389-96-04WN [address]TEYYQQ, [place] [address]NF: 04/17/2018 Tertiary NOT GIVENUNK [place] Insurance:SELF PAY [facility] Number: Effective Repository Date:2018-04-09 11/16/2017 PATRIZIA L Primary PATRIZIA Merino [id number] Insurance:MEDICARE WINKLERDOB: Community SIRIA PART A [facility] [id number] [place], [place] Number: Repository [address]Rxa: 330 [id number] [phone] () Date:2016-07-19 11/16/2017 Secondary PATRIZIA L [place] Insurance:AARPPolicy WINKLERDOB: Community Number: [id number] Hospital [id number] Repository Date:5151-53-07DH [address], [place] [address]SO: 11/16/2017 Tertiary NOT GIVENUNK [place] Insurance:SELF PAY [facility] Number: Effective Repository Date:2016-07-19 11/16/2017 PATRIZIA L Primary PATRIZIA Merino [id number] Insurance:MEDICARE WINKLERDOB: Community SIRIA PART A [facility] [id number] [place] Number: Repository [address]Lte: 330 [id number] [phone] () Date:2016-07-19 11/16/2017 Secondary PATRIZIA Rothman Angelique Insurance:AARPPolicy WINKLERDOB: Community Number: [id number] [facility] [id number] Repository Date:0753-93-66[address]JHZEVXX, [place] [address]FY: 11/16/2017 Tertiary NOT GIVENUNK Angelique Insurance:SELF PAY [facility] Number: Effective Repository Date:2017-11-16
== END ==
PROVIDERS: Family Provider Nurse Practitioner; PCP Nurse Practitioner; Referring Provider Nurse Practitioner; Visit Provider Nurse Practitioner
DX: K40.21 Bilateral inguinal hernia, without obstruction or gangrene, recurrent (principal)
CPT/HCPCS: 74176

== ENCOUNTER 2018-05-10 07:02 | Day surgery (SDC) | payer MEDICARE, OTHER, SELFPAY ==
[2018-04-19 13:08] VITALS: BMI 24.0
--- NOTE | 2018-05-07 09:57 | RAD_ITS ---
STUDY: X-RAY CHEST REASON FOR EXAM: Male, 68 years old. Preoperative evaluation. TECHNIQUE: PA and lateral views of the chest. COMPARISON: None. FINDINGS: Calcified granuloma in the right lower lobe. There is no demonstrated pleural abnormality. Normal size heart. Normal mediastinum and marielena. Normal visualized pulmonary arteries. Normal visualized aortic arch and descending thoracic aorta. There are mild degenerative changes of the visualized thoracic spine. Normal visualized ribs, clavicles, and shoulders. There is no demonstrated abnormality of the visualized soft tissue structures of the upper abdomen. RAD/Chest PA and Lateral IMPRESSION: No acute abnormality is seen. Electronically Signed: Jesus Webb MD at 10:52 EST Tel [phone], Service support ,
--- NOTE | 2018-05-07 10:03 | EKG12_ITS ---
Test Reason : PRE-OP Blood Pressure : / mmHG Vent. Rate : 062 BPM Atrial Rate : 062 BPM P-R Int : 190 ms QRS Dur : 080 ms QT Int : 398 ms P-R-T Axes : 025 002 067 degrees QTc Int : 403 ms Normal sinus rhythm Normal ECG Confirmed by ALFONSO RAMEY, MARU ([id number]), supervising editor trailer STEVE HERNÁNDEZ ([id number]) on 05/08/2018 9:42:49 AM Referred By: Nickolas Castillo Confirmed By:MARU HAMILTON MD
[2018-05-10] VITALS (7 sets, daily range): BP systolic 116–154; BP diastolic 51–79; PULSE 58–84; RESP 14–18; TEMP 36.4–36.6; O2SAT 92–100; BMI 25.7
[2018-05-10 07:46] LABS: Prothrombin Time Fingerstick 12.4 SEC (11.9-14.4)
[2018-05-10 07:56] LABS: Hematocrit 46.2 % (40-54); Hemoglobin 15.6 g/dl (13.0-16.5); Mean Corp Hgb Conc 33.8 g/gl (32-36); Mean Corpuscular Hgb 31.3 pg (27.0-32.0); Mean Corpuscular Volume 92.8 fL (80-94); Mean Platelet Vol. 10.3 fl (6.2-12.0); Platelet Count 210 K/mm3 (150-450); RBC Distribution Width CV 12.6 % (11.6-14.6); RBC Distribution Width SD 42.3 fl (35.1-43.9); Red Blood Count 4.98 M/mm3 (4.6-6.2); Scan Indicated on CBC? Y/N NO; White Blood Count 5.2 K/mm3 (4.4-11.0)
[2018-05-10] MEDS: Cefazolin 2 GM in 0.9% Normal Saline 100 ML IV (09:06)
--- NOTE | 2018-05-10 09:17 | PCM.DC.HER ---
Discharge Diet: Light diet - advance as tolerated Discharge Activity: Return to Normal Activity, May Drive - when you are no longer taking narcotic pain medications., May Shower - with the bandage in place 1-2 days after surgery. Lifting Restrictions: 20 pounds for 8 weeks. Additional Activity Instructions:: Climbing stairs is fine, walking is encouraged. Sitting in bed may be uncomfortable. Sitting up using your lateral muscles (sitting up sideways) is usually more comfortable. Do not drive, work heavy equipment of sign legal documents for 24 hours. If your hernia repair was an ingunial repair, you may have scrotal swelling, an ice pack and/or athletic support can provide more comfort. Pain medications may cause nausea, you should typically eat light foods as you take your pain medications. Pain medications may also cause constipation. If you have difficulty with this, discuss with your doctor. Call your doctor if your incision/area has: Continuous Slow Oozing, Sudden Increased Bleeding, Increased Pain/ Swelling, Increased Redness, Foul Smelling Discharge Call your doctor if you observe: Fever of 101 or Higher Suture Line Care: Avoid Pulling/Pushing, Avoid Pinching/Bending Additional Dressing/Incision Instructions:: Leave the operative bandage on for 2-3 days. When you remove the bandage, leave the steri-strips on place until your follow up appointment or they fall off. Allergies/Adverse Reactions: Allergies No Known Allergies Allergy (Verified 05/07/18 08:13) Medications to take at Discharge Lansoprazole [Prevacid] 15 mg PO DAILY 07/25/16 Warfarin [Coumadin ([facility])] 4 mg PO DAILY 07/25/16 rosuvastatin 10 mg tablet 10 mg PO QHS 04/19/18 Hydrocodone Bitart/Apap 5-325 [[facility] [place] 5MG-325MG] 1 - 2 tab PO Q4H PRN PRN 5 Days #30 tab 05/10/18 The following prescriptions were given: Hydrocodone Bitart/Apap 5-325 [[facility] 5MG-325MG] 1 - 2 tab PO Q4H PRN PRN 5 Days #30 tab PRN Reason: Pain Orders to be completed after discharge: 12 Lead EKG [[facility]] Time Frame: 05/07/18, Location: None Selected Chest PA and Lateral [RAD] Time Frame: 05/07/18, Location: None Selected CBC-Complete Blood Cnt No Diff Time Frame: 05/07/18, Location: Laboratory Primary Care Physician: Tammie Fink NP-C [Primary Care Provider] - Test Results: Test results from this visit will be discussed in further detail at your follow-up appointment, if applicable. Please Follow Up With: Nickolas Castillo MD - [phone] When: Plan to have a follow up appointment in 7 days. Call to schedule.
--- NOTE | 2018-05-10 09:18 | PCM.OPRPT ---
Problem List (1) Recurrent left inguinal hernia Status: Acute Report of Operation Date of Procedure: 05/10/18 Pre-Operative Diagnosis: Recurrent left inguinal hernia Post-Operative Diagnosis: Same Surgery/Procedure Performed:: Open repair of a recurrent left inguinal hernia with mesh Type of Anesthesia:: General Anesthesiologist: Lyndon Shay Estimated Blood Loss (mL): <25 cc Fluids Replaced: 1 liter lr Description of Procedure: Patient was brought into the operating room. Placed in the supine position. Under excellent general anesthetic left inguinal area was sterilely prepped and draped in usual fashion. Local was injected. A left inguinal incision was made. Dissection was carried down through Sherie's layer. I did not encounter the inferior superficial epigastric vessels. Bremer retractor was placed in the wound. I dissected all the way down to the fascia. I incised the fascia with a scalpel. I then used Metzenbaum scissors to both go cephalad and caudal. Identified the ilioinguinal nerve. I dissected it free. I placed it medially. I dissected out a direct inguinal hernia. I placed it back into its prepared position. I placed an extra large mesh plug into this defect. I sutured it to the surrounding fascia with 2 sutures of 0 Prolene. I placed the onlay piece of mesh. I attached it to the pubic tubercle with 2 sutures of 0 Prolene 1 of the sutures went along the ilioinguinal ligament the other went along the transversalis fascia. Keyhole was brought directly where the indirect inguinal canal was identified. I placed the ilioinguinal nerve through the keyhole and then sutured the 2 superiorly bringing the mesh together. I had enough of the defect and the keyhole to accept my index finger I had good supply of blood which I was easily able to palpate in the cord and vessel structures. During this process he did have some preperitoneal fat located on the cord and vessel structures which I dissected free and placed it back into its preperitoneal position. Once I did all of this I then injected local into the and around the ilioinguinal nerve I then brought the external oblique fascia together with 2-0 Vicryl making sure not to entrap the nerve. Sherie's layer was brought together with a 2-0 Vicryl deep dermal stitches of 3-0 Vicryl in a running 4-0 Monocryl in the skin Steri-Strips are applied sterile dressings were applied and the patient tolerated the procedure well. - Admit VTE Documentation VTE Present on Admission: No VTE Mechan Device Prophylaxis: SCD's VTE Pharm Prophylaxis ordered?: No Reason prophylaxis not ordered:: Treatment Not Indicated
[2018-05-10] MEDS: Bupivacaine 0.5% PF 10 ML VIAL (09:25)
[2018-05-10] MEDS: HYDROcodone Bitartrate/Apap 5/325 Tablet PO (12:16)
== END 2018-05-10 12:30 | disposition home or self-care (01) ==
LOC: SDC 07:03 → AC 07:07
PROVIDERS: Anesthesiology; Family Provider Nurse Practitioner; PCP Nurse Practitioner; Referring Provider Surgery; Visit Provider Surgery
PROC: (CPT 49520; principal; 2018-05-10 08:55)
DX: K40.91 Unilateral inguinal hernia, without obstruction or gangrene, recurrent (principal); Z86.718 Personal history of other venous thrombosis and embolism; D68.51 Activated protein C resistance; Z79.01 Long term (current) use of anticoagulants; Z79.899 Other long term (current) drug therapy; K21.9 Gastro-esophageal reflux disease without esophagitis; E78.5 Hyperlipidemia, unspecified; C85.90 Non-Hodgkin lymphoma, unspecified, unspecified site
CPT/HCPCS: 49520; 36416; 71046; 85027; 85610; 93005; J7120; C1781; J2405

== ENCOUNTER → 2018-06-06 12:55 | Outpatient (CLI) | payer MEDICARE, OTHER, SELFPAY ==
[2018-05-10 07:36] VITALS: BMI 25.7
[2018-06-06 13:08] LABS: Erythrocyte Sedimentation Rate 9 mm/hr (0-20)
[2018-06-06 13:56] LABS: CRP < 2.90 mg/L (0.0-3.0)
== END ==
PROVIDERS: Family Provider Nurse Practitioner; PCP Nurse Practitioner; Visit Provider Internal Medicine
DX: H57.12 Ocular pain, left eye (principal)
CPT/HCPCS: 85652; 86140

== ENCOUNTER → 2018-08-20 | Outpatient (CLI) | payer MEDICARE, OTHER, SELFPAY ==
[2018-05-10 07:36] VITALS: BMI 25.7
--- NOTE | 2018-08-20 11:32 | RAD_ITS ---
STUDY: X-RAY - RIGHT KNEE REASON FOR EXAM: Male, 68 years old. Increasing right knee pain. TECHNIQUE: 4 view(s) of the knee. COMPARISON: None. FINDINGS: Alignments are anatomic without acute fracture lucency or cortical step-off. There is minimal tricompartmental osteoarthritis. There is no evident chondrocalcinosis. There is no plain film evident joint loose body. There may be a tiny effusion. A small, well-corticated, degenerative spur extends from the posterior superior patellar pole. RAD/Knee 4 or More Views IMPRESSION: No evident acute osseous abnormality. Very minimal tricompartmental osteoarthritis. Probable small effusion. Posterior superior patellar degenerative spur. No radiopaque joint loose body. Recommendation: If internal derangement is clinically suspected, recommend evaluation with MRI.. Electronically Signed: Catalino Aldridge MD at 16:00 EDT , Service support ,
== END | disposition home or self-care (01) ==
LOC: HPRAD 11:30
PROVIDERS: Family Provider Nurse Practitioner; PCP Nurse Practitioner
DX: M25.561 Pain in right knee (principal)
CPT/HCPCS: 73564

== ENCOUNTER → 2020-02-26 11:19 | Outpatient (CLI) | payer MEDICARE, OTHER, SELFPAY ==
[2019-11-11 14:13] VITALS: BMI 24.6
--- NOTE | 2020-02-26 11:24 | US_ITS ---
STUDY: RENAL ULTRASOUND - COMPLETE REASON FOR EXAM: Male, 69 years old. LLQ PAIN TECHNIQUE: Ultrasound evaluation of the kidneys was performed with real-time and static barone-scale imaging. COMPARISON: Comparison is made with prior examination dated 03/24/2015. FINDINGS: RIGHT KIDNEY: Normal location of the right kidney, which is normal in size. The right kidney measures 11.3 cm x 5.6 cm x 6.5 cm. There is a normal cortex of the right kidney. The renal cortex measures 2.2 cm. There is no right renal mass or cyst. There are no right renal calculi. There is no right hydronephrosis. DISTAL RIGHT URETER: There is non-visualization of the distal right ureter. There is no demonstrated right ureterovesical junction calculus. There is a visualized right ureteral jet. LEFT KIDNEY: Normal location of the left kidney, which is normal in size. The left kidney measures 11.7 cm x 4.4 cm x 5.6 cm. There is a normal cortex of the left kidney. The renal cortex measures 2.2 cm. There is no left renal mass or cyst. There are no left renal calculi. There is no left hydronephrosis. DISTAL LEFT URETER: There is non-visualization of the distal left ureter. There is no demonstrated left ureterovesical junction calculus. There is a visualized left ureteral jet. BLADDER: The distended urinary bladder has a volume of 150 ml. US/Kidney and Bladder IMPRESSION: Normal ultrasound of the kidneys and urinary bladder. Electronically Signed: Jesus Webb, at 13:06 EDT , Service support ,
== END ==
PROVIDERS: PCP Nurse Practitioner; Referring Provider Nurse Practitioner; Visit Provider Nurse Practitioner
DX: R10.9 Unspecified abdominal pain (principal)
CPT/HCPCS: 76770

== ENCOUNTER → 2020-04-22 15:54 | Outpatient (CLI) | payer MEDICARE, OTHER, SELFPAY ==
[2019-11-11 14:13] VITALS: BMI 24.6
--- NOTE | 2020-04-22 15:57 | RAD_ITS ---
STUDY: X-RAY - LEFT KNEE REASON FOR EXAM: Male, 70 years old. chronic pain of the left knee TECHNIQUE: 4 view(s) of the knee. Weightbearing COMPARISON: None. FINDINGS: Normal visualized distal femur. Normal visualized proximal tibia and fibula. Normal proximal tibiofibular articulation. Normal medial femorotibial compartment. Normal lateral femorotibial compartment. Normal patellofemoral articulation. The soft tissue structures are unremarkable. RAD/Knee 4 or More Views IMPRESSION: Normal x-ray examination of the knee. Electronically Signed: Siva Johnson DO at 10:45 EST Tel , Service support ,
== END ==
PROVIDERS: PCP Nurse Practitioner; Referring Provider Internal Medicine; Visit Provider Internal Medicine
DX: M25.562 Pain in left knee (principal); G89.29 Other chronic pain
CPT/HCPCS: 73564

== ENCOUNTER → 2020-08-05 10:31 | Outpatient (CLI) | payer MEDICARE, OTHER, SELFPAY ==
[2019-11-11 14:13] VITALS: BMI 24.6
[2020-08-05 12:30] LABS: Absolute Lymphocyte Count 0.87 X10^3/uL (0.83-4.51); Basophil# 0.04 X10^3/uL; Basophil% 0.9 % (0-1); Eosinophil# 0.09 X10^3/uL; Hemoglobin 14.9 g/dL (13.0-16.5); Lymphocyte # 0.87 X10^3/ul (4.0); Lymphocyte % 19.3 % (19-41); Mean Corp Hgb Conc 32.4 g/dL (32-36); Mean Corpuscular Hgb 30.7 pg (27.0-32.0); Mean Corpuscular Volume 94.8 fL (80-94); Monocyte# 0.53 X10^3/uL; Monocyte% 11.8 % (0-10); NRBC Flagged by Analyzer 0 % (0-5); Neutrophil # 2.96 X10^3/uL (2.7-7.7); Neutrophil % 65.6 % (47-70); Platelet Count 233 K/mm3 (150-450); RBC Distribution Width CV 13.1 % (11.6-14.6); RBC Distribution Width SD 45.7 fl (35.1-43.9); Red Blood Count 4.85 M/mm3 (4.6-6.2); White Blood Count 4.5 K/mm3 (4.4-11.0)
[2020-08-05 13:15] LABS: ALB/GLOB Ratio 1.1 RATIO (0.9-2.4); AST(SGOT) 20 U/L (15-37); Alanine Aminotransfer ALT/SGPT 26 U/L (16-61); Albumin, Serum 3.6 g/dL (3.2-5.0); Alkaline Phosphatase 62 U/L (45-117); Anion Gap 2 (5-15); BUN 17 mg/dL (7-18); BUN/Creat Ratio 22.2 RATIO (10-20); Calcium,Total 8.9 mg/dL (8.5-10.1); Chloride 107 mmol/L (98-107); Cholesterol 271 mg/dL (200); Creatinine, Serum 0.76 mg/dL (0.70-1.30); EST Glomerular Filtration Rate 108 mL/min (>60); Est Glom Filt Rate - Afr Amer 130 mL/min (>60); Globulin 3.4 g/dL (2.2-4.2); Glucose 84 mg/dL (74-106); High Density Lipoprotein 47 mg/dL; PSA,Total - Annual Screen 0.87 ng/mL (0.00-4.00); Potassium 4.1 mmol/L (3.5-5.1); Sodium Level 138 mmol/L (136-145); Triglycerides 97 mg/dL; Very Low Density Lipoprotein 19 mg/dL (5-40)
[2020-08-05 13:41] LABS: Hepatitis C Antibody Non-Reactive (Nonreactive)
== END ==
PROVIDERS: PCP Nurse Practitioner; Referring Provider Nurse Practitioner; Visit Provider Nurse Practitioner
DX: E78.00 Pure hypercholesterolemia, unspecified (principal); Z11.59 Encounter for screening for other viral diseases; Z12.5 Encounter for screening for malignant neoplasm of prostate; C85.90 Non-Hodgkin lymphoma, unspecified, unspecified site
CPT/HCPCS: 36415; 80053; 80061; 84153; 85025; 86803; G0103

== ENCOUNTER 2022-03-23 09:45 | Outpatient (CLI) | payer MEDICARE, OTHER, SELFPAY ==
--- NOTE | 2022-03-23 09:47 | VDLE_ITS ---
Reason For Study: Pain Procedure LEFT This is a venous duplex using B-mode, color GSV is normal. flow and spectral Doppler. CFV is compressible, spontaneous, phasic, Exam performed in department. competent, and demonstrates normal A preliminary report was called and/or faxed augmentation. to [facility]. FV is compressible, spontaneous, phasic, competent and demonstrates normal augmentation. POP V is compressible, spontaneous, phasic, competent and demonstrates normal augmentation. T/P Trunk is compressible. PTV is compressible. LT PerV is compressible. VL/Venous Duplex US, Unilateral Interpretation Summary There is no evidence of left lower extremity deep vein thrombosis. Left great s aphenous vein appears patent and compressible segmentally. Ordering Physician: Wendy Ro Referring Physician: Wendy Ro M.D. Performed By: Deneen Beauchamp RVT
--- NOTE | 2022-03-23 09:47 | ART_ITS ---
Reason For Study: Pain Procedure A bilateral lower extremity continuous wave Doppler with analog waveform analysis,segmental pressures,and ankle brachial indexes with exercise. Left Segmental Pressures Left brachial= 115mmHg. Left posterior tibial artery = 139mmHg. Left dorsalis pedis artery = 141mmHg. The left dorsalis pedis waveforms are triphasic. The left posterior tibial artery waveforms are triphasic. Right Segmental Pressures Right brachial= 112mmHg. Right posterior tibial artery = 151mmHg. Right dorsalis pedis artery = 143mmHg. The right dorsalis pedis waveforms are triphasic. The right posterior tibial artery waveforms are triphasic. Indices The right ankle brachial index by the dorsalis pedis is 1.24. The right ankle brachial index by the posterior tibial artery is 1.31. The right post exercise ankle brachial index is 1.34. The left ankle brachial index by the dorsalis pedis is 1.23. The left ankle brachial index by the posterior tibial artery is 1.21. The left post exercise ankle brachial index is 1.23. VL/Lower Ext Art Exam w/ Exercise Interpretation Summary Normal right lower extremity posterior tibialis and dorsalis pedis ankle-brachi al indices of 1.31 and 1.24 respectively with normal triphasic Doppler waveforms. Normal exercise response with a post exercise immediate index of 1.34 Normal left lower extremity posterior tibialis and dorsalis pedis ankle-brachia l indices of 1.21 and 1.23 respectively with normal triphasic Doppler waveforms. Normal left lower ex tremity exercise response with a post exercise index of 1.23 Ordering Physician: Wendy Ro Referring Physician: Wendy Ro M.D. Performed By: Deneen Beauchamp RVT
== END 2022-03-23 23:59 | disposition home or self-care (01) ==
LOC: CVS 09:46
PROVIDERS: PCP Internal Medicine; Visit Provider Internal Medicine
DX: M79.605 Pain in left leg (principal); I73.9 Peripheral vascular disease, unspecified
CPT/HCPCS: 93924; 93971

== ENCOUNTER → 2022-05-31 | Outpatient (CLI) | payer MEDICARE, OTHER, SELFPAY ==
--- NOTE | 2022-05-31 10:14 | MRI_ITS ---
EXAM: MR LEFT LOWER EXTREMITY WITHOUT INTRAVENOUS CONTRAST, KNEE CLINICAL INDICATION: LEFT KNEE PAIN TECHNIQUE: Multiplanar and multisequence MR images of the left knee without intravenous contrast. This report was created using [facility] report [employer] technology. COMPARISON: None. FINDINGS: BONES/JOINTS: Small intra-articular body involving the central aspect of the posterior medial tibial plateau measuring 5 mm. Additional 3 mm intra-articular body along the anteromedial aspect of the joint. Bone marrow signal alteration involving the medial greater than lateral plateau extending to the medial metaphysis of the proximal tibia. No associated fracture line. This could represent bone contusion if there is been prior trauma. Focal bone marrow signal alteration involving the lateral patellar facet with no obvious focal full-thickness full-thickness overlying chondral defect. EXTENSOR MECHANISM: Unremarkable. MEDIAL MENISCUS: Longitudinal horizontal oblique tear of the posterior horn of the medial meniscus. LATERAL MENISCUS: Unremarkable. MEDIAL CAPSULE/SUPPORTING STRUCTURES: Unremarkable. Intact. LATERAL CAPSULE/SUPPORTING STRUCTURES: Unremarkable. Lateral collateral ligamentous complex, inclusive of the popliteal tendon, are intact. ANTERIOR CRUCIATE LIGAMENT: Unremarkable. Intact. POSTERIOR CRUCIATE LIGAMENT: Unremarkable. Intact. MUSCLES: Unremarkable. CARTILAGE: Focal high-grade chondral defect just medial to the median ridge of the patella with no underlying marrow signal alterations. No additional focal chondral defects. FLUID: Large knee joint effusion with synovitis. Pes anserinus bursitis. Tiny Sloan''s cyst. MRI/Lower Ext Joint Only (Routine) IMPRESSION: 1. Longitudinal horizontal oblique tear of the posterior horn of the medial meniscus. 2. Pes anserinus bursitis. 3. Intra-articular small bodies as above. 4. Bone marrow signal alteration involving the medial greater than lateral plateau extending to the medial metaphysis of the proximal tibia. No associated fracture line. This could represent bone contusion if there is been prior trauma. Electronically Signed: Leighton De La Rosa MD at 1:42 EST ,
== END | disposition home or self-care (01) ==
LOC: MRI 10:09
PROVIDERS: PCP Internal Medicine; Visit Provider Specialist
DX: S83.242A Other tear of medial meniscus, current injury, left knee, initial encounter (principal); M65.869 Other synovitis and tenosynovitis, unspecified lower leg; M71.22 Synovial cyst of popliteal space [Baker], left knee; M71.5 Other bursitis, not elsewhere classified; M25.469 Effusion, unspecified knee
CPT/HCPCS: 73721

== ENCOUNTER → 2024-03-08 | Outpatient (CLI) | payer MEDICARE, OTHER, SELFPAY | END | disposition home or self-care (01) | LOC: US 12:42 | PROVIDERS: PCP Internal Medicine; Referring Provider Nurse Practitioner Family; Visit Provider Nurse Practitioner Family | DX: E07.9 Disorder of thyroid, unspecified (principal) | CPT/HCPCS: 76536 ==

== ENCOUNTER 2024-12-16 08:59 | Outpatient (RCR) | payer MEDICARE, OTHER, SELFPAY ==
[2024-12-16 10:41] LABS: Prothrombin Time (Protime)PT. 22.8 SECONDS (11.7-14.9)
== END 2024-12-16 18:00 | disposition home or self-care (01) ==
LOC: MTLAB 08:59
PROVIDERS: PCP Internal Medicine; Referring Provider Nurse Practitioner Family; Visit Provider Nurse Practitioner Family
DX: Z51.81 Encounter for therapeutic drug level monitoring (principal)
CPT/HCPCS: 36415; 85610

== ENCOUNTER 2025-01-07 08:36 | Outpatient (RCR) | payer MEDICARE, OTHER, SELFPAY ==
[2025-01-07 10:32] LABS: Prothrombin Time (Protime)PT. 24.8 SECONDS (11.7-14.9)
== END 2025-01-28 18:00 | disposition home or self-care (01) ==
LOC: MTLAB 08:36
PROVIDERS: PCP Internal Medicine; Referring Provider Nurse Practitioner Family; Visit Provider Nurse Practitioner Family
DX: Z51.81 Encounter for therapeutic drug level monitoring (principal)
CPT/HCPCS: 36415; 85610